=== PATIENT | female | born 1950 | race Caucasian/White ===

== ENCOUNTER 2017-05-29 15:20 | Emergency (ER) | payer MEDICARE, OTHER ==
[2017-05-29 16:14] LABS: Hematocrit 47 % (35-47); Hemoglobin 15.8 g/dl (12.0-16.0); Mean Corpuscular HGB Conc 34 g/dl (31-36); Mean Corpuscular Hemoglobin 30 pg (27-31); Mean Corpuscular Volume 91 fL (80-97); Mean Platelet Volume 8 um3 (7.4-10.4); Red Blood Count 5.19 10^6/ul (4.0-5.4); Red Cell Distribution Width 14 % (10.5-15); White Blood Count 5.9 10^3/ul (3.5-10.8)
--- NOTE | 2017-05-29 16:17 | RAD ---
INDICATION: Chest pain COMPARISON: July 25, 2016 TECHNIQUE: An AP portable view obtained at 1547 hours is submitted. FINDINGS: Bones/Soft Tissues: There are no acute bony findings. Cardiomediastinal: The cardiomediastinal silhouette is normal. Lungs: There are no infiltrates. Pleura: There are no pleural effusions. Other: None IMPRESSION: NO ACTIVE DISEASE.
[2017-05-29 16:34] LABS: Albumin 4.2 g/dL (3.2-5.2); BUN/Creatinine Ratio 16.2 (8-20); Calcium 9.3 mg/dL (8.6-10.3); EGFR African American 101.3 (>60); EGFR Non-African American 78.8 (>60); Magnesium 2.2 mg/dL (1.9-2.7); Potassium 3.9 mmol/L (3.5-5.0); Total Bilirubin 1.4 mg/dL (0.2-1.0); Total Protein 7.2 g/dL (6.4-8.9)
[2017-05-29 18:15] VITALS: BP 109/65
--- NOTE | 2017-05-29 19:46 | ED ---
Sinai Asencio Thomas, scribed for Karina Solo MD on 05/29/17 at 1552 . HPI Chest Pain - HPI Summary HPI Summary: The pt is a 66 y/o F BIBA and c/o sharp CP that began today at 15:25. The pain lasted 3 seconds and then resolved spontaneously. The pain radiated from her L chest to her R shoulder. She describes an extremely sharp pain that is unlike any other prior episodes. She only had one episode of this pain (which differs from nursing triage note). She was given ASA 324 mg en route to [facility] [place] (despite allergy to aspirin listed, but pt states allergy to aspirin is stomach upset). Pt additionally c/o difficulty breathing, chronic calf pain (nontender in the ED ). Pt denies any other pains, fevers. PMHx: CHF, HLD, scoliosis, MS (wheelchair bound), frequent UTIs, R rib fracture, dyslipidemia, R leg fracture, asthma ( sees Dr. Baumann, [employer]). PSHx: appendectomy, . SHx: wheelchair-bound, former smoker, no alcohol, no drugs. FHx: schizophrenia, aortic aneurysms (father), heart disease (father), DM, HTN. On Friday, her aide noticed a hard spot on the top of her R foot during routine massage. Pt also states she had increased GERD a few days ago after eating a very rich parfait. - History of Current Complaint Chief Complaint: EDChestWallPain Time Seen by Provider: 05/29/17 15:45 Hx Obtained From: Patient Hx Last Menstrual Period: menopause Onset/Duration: Started Hours Ago, Atraumatic, Resolved Time of Onset: 15:25 Timing: Lasting Seconds - 2 seconds, then resolved Initial Severity: Moderate Current Severity: None Pain Intensity: 0 Pain Scale Used: 0-10 Numeric Chest Pain Radiates: No Chest Pain Radiates To:: Other - from L chest to mid chest Character: Dyspnea at Rest Aggravating Factor(s): Nothing Alleviating Factor(s): Nothing Associated Signs and Symptoms: Positive: Other: - POS: difficulty breathing resolved, chronic calf pain and lymphedema. Negative: Fever - Risk Factors Pulmonary Embolism Risk Factors: Recent Bedrest - wheelchair bound with MS AMI/ACS Risk Factors: Family History, Dyslipidemia - Additional Pertinent History Primary Care Physician: [id number] - Allergy/Home Medications Allergies/Adverse Reactions: Allergies Allergy/AdvReac Type Severity Reaction Status Date / Time Amitriptyline Allergy Severe Hallucinati Verified 04/04/17 14:12 ons Aspirin [ASA] Allergy Intermediate GI Upset Verified 04/04/17 14:12 Carbamazepine Allergy Intermediate Hives Verified 04/04/17 14:12 Penicillins Allergy Unknown Hives Verified 04/04/17 14:12 PMH/Surg Hx/FS Hx/Imm Hx Previously Healthy: No Endocrine/Hematology History: Reports: Hx Anticoagulant Therapy - only during hospital admits. Denies: Hx Diabetes, Hx Thyroid Disease, Other Endocrine/Hematological Disorders Cardiovascular History: Reports: Hx Hypercholesterolemia Denies: Hx Hypertension, Hx Pacemaker/ICD, Other Cardiovascular Problems/ Disorders Respiratory History: Reports: Hx Asthma, Hx Seasonal Allergies - also dust allergies, Other Respiratory Problems/Disorders - environmental allergies Denies: Hx Chronic Bronchitis, Hx Chronic Obstructive Pulmonary Disease (COPD ), Hx Cystic Fibrosis, Hx Lung Cancer, Hx Pleural Effusion, Hx Pneumonia, Hx Pulmonary Edema, Hx Pulmonary Embolism, Hx Sleep Apnea GI History: Reports: Hx Gastroesophageal Reflux Disease, Other GI Disorders - chronic constipation Denies: Hx Ulcer History: Reports: Other Problems/Disorders - URINARY INCONTINENCE, bladder spasms Denies: Hx Dialysis, Hx Renal Disease Musculoskeletal History: Reports: Hx Arthritis, Hx Back Problems, Hx Orthopedic Injury - right tibial fx, Hx Scoliosis Denies: Other Musculoskeletal History Sensory History: Reports: Hx Contacts or Glasses - for reading, Other Sensory Impairments - Numbness in legs Denies: Hx Cataracts, Hx Eye Injury, Hx Eye Prosthesis, Hx Glaucoma, Hx Macular Degeneration, Hx Vision Problem, Hx Deafness, Hx Hearing Aid, Hx Hearing Problem Opthamlomology History: Reports: Hx Contacts or Glasses - for reading, Other Sensory Impairments - Numbness in legs Denies: Hx Cataracts, Hx Eye Injury, Hx Eye Prosthesis, Hx Glaucoma, Hx Macular Degeneration, Hx Vision Problem Neurological History: Reports: Other Neuro Impairments/Disorders - MS Denies: Hx Dementia, Hx Developmental Delay, Hx Headaches, Hx Migraine, Hx Seizures, Hx Spinal Cord Injury, Hx Transient Ischemic Attacks (TIA) Psychiatric History: Reports: Hx Anxiety, Hx Depression Denies: Hx Attention Deficit Hyperactivity Disorder, Hx Eating Disorder, Hx Panic Disorder, Hx Post Traumatic Stress Disorder, Hx Inpatient Treatment, Hx Community Mental Health Tx, Hx Schizophrenia, Hx Bipolar Disorder, Hx Suicide Attempt, Hx of Violent Episodes Against Others, Hx Substance Abuse, Other Psychiatric Issues/Disorders - Cancer History Hx Chemotherapy: No Hx Radiation Therapy: No Hx Palliative Cancer Treatment: No - Surgical History Surgery Procedure, Year, and Place: , Appendectomy, I+D ,r/t cellulitis right inner thigh- recent admission,Rt knee bakers cyst removal. Hx Anesthesia Reactions: No - Immunization History Date of Tetanus Vaccine: Unk Date of Influenza Vaccine: Fall 2014 Infectious Disease History: No Infectious Disease History: Denies: Hx Clostridium Difficile, Hx Hepatitis, Hx Human Immunodeficiency Virus (HIV), Hx of Known/Suspected MRSA, Hx Shingles, Hx Tuberculosis, Hx Known/ Suspected VRE, Hx Known/Suspected VRSA, History Other Infectious Disease, Traveled Outside the [place] in Last 30 Days - Family History Known Family History: Positive: Cardiac Disease - father, Hypertension, Diabetes , Other - Schizophrenia, aortic aneuyrsms (father) - Social History Occupation: Disabled Lives: With Family - with 13 hr/day aid and son Alcohol Use: None Substance Use Type: Reports: None Hx Tobacco Use: No Smoking Status (MU): Former Smoker Review of Systems Negative: Fever Positive: Chest Pain - sharp, onset 15:25, duration 3 seconds, resolved in the ED Positive: Other - POS: difficulty breathing, resolved, associated with the 3 seconds of chest pain Gastrointestinal: Negative Positive: Other - POS: chronic calf pain (not tender in the ED); NEG: any other pains. Skin: Negative Psychological: Normal All Other Systems Reviewed And Are Negative: Yes Physical Exam Triage Information Reviewed: Yes Vital Signs On Initial Exam: Initial Vitals Temp Pulse Resp BP Pulse Ox 97.2 F 77 18 142/87 96 05/29/17 15:36 05/29/17 15:36 05/29/17 15:36 05/29/17 15:36 05/29/17 15:36 Vital Signs Reviewed: Yes Appearance: Positive: Well-Appearing, No Pain Distress - all pain has resolved in the ED, Well-Nourished Skin: Positive: Warm, Skin Color Reflects Adequate Perfusion, Other - There are no abnormalities on her skin. Head/Face: Positive: Normal Head/Face Inspection Eyes: Positive: Conjunctiva Clear ENT: Positive: Normal ENT inspection Neck: Positive: Supple Respiratory/Lung Sounds: Positive: Clear to Auscultation, Breath Sounds Present , Other - No respiratory distress Cardiovascular: Positive: RRR, Pulses are Symmetrical in both Upper and Lower Extremities, Other - Brisk cap refill.. Negative: Murmur Abdomen Description: Positive: Nontender, No Organomegaly, Soft. Negative: Distended, Guarding Bowel Sounds: Positive: Present Musculoskeletal: Positive: Normal, Other - Her pain is NOT reproducible in the ED. There are no abnormalities on her chest wall. Neurological: Positive: Sensory/Motor Intact - baseline for this MS pt who is wheelchair bound, Alert, Oriented to Person Place, Time, Speech Normal Psychiatric: Positive: Normal Diagnostics - Vital Signs Vital Signs Temp Pulse Resp BP Pulse Ox 05/29/17 15:36 97.2 F 77 18 142/87 96 - Laboratory Lab Results: Lab Results 05/29/17 05/29/17 05/29/17 Range/Units 16:07 16:07 16:07 WBC 5.9 (3.5-10.8) 10^3/ul RBC 5.19 (4.0-5.4) 10^6/ul Hgb 15.8 (12.0-16.0) g/dl Hct 47 (35-47) % MCV 91 (80-97) fL MCH 30 (27-31) pg MCHC 34 (31-36) g/dl RDW 14 (10.5-15) % Plt Count 145 L (150-450) 10^3/ul MPV 8 (7.4-10.4) um3 Neut % (Auto) 62.0 (38-83) % Lymph % (Auto) 26.9 (25-47) % Barron % (Auto) 6.2 (1-9) % Eos % (Auto) 4.2 (0-6) % Baso % (Auto) 0.7 (0-2) % Absolute Neuts (auto) 3.6 (1.5-7.7) 10^3/ul Absolute Lymphs (auto) 1.6 (1.0-4.8) 10^3/ul Absolute Monos (auto) 0.4 (0-0.8) 10^3/ul Absolute Eos (auto) 0.2 (0-0.6) 10^3/ul Absolute Basos (auto) 0 (0-0.2) 10^3/ul Absolute Nucleated RBC 0.01 10^3/ul Nucleated RBC % 0.2 INR (Anticoag Therapy) 1.02 (0.89-1.11) APTT 30.2 (26.0-36.3) seconds D-Dimer, Quantitative < 200 (Less Than 230) ng/mL Sodium 136 (133-145) mmol/L Potassium 3.9 (3.5-5.0) mmol/L Chloride 102 (101-111) mmol/L Carbon Dioxide 30 (22-32) mmol/L Anion Gap 4 (2-11) mmol/L BUN 12 (6-24) mg/dL Creatinine 0.74 (0.51-0.95) mg/dL Est GFR ( Amer) 101.3 (>60) Est GFR (Non-Af Amer) 78.8 (>60) BUN/Creatinine Ratio 16.2 (8-20) Glucose 99 (70-100) mg/dL Lactic Acid (0.5-2.0) mmol/L Calcium 9.3 (8.6-10.3) mg/dL Magnesium 2.2 (1.9-2.7) mg/dL Total Bilirubin 1.40 H (0.2-1.0) mg/dL AST 24 (13-39) U/L ALT 25 (7-52) U/L Alkaline Phosphatase 86 (34-104) U/L Total Creatine Kinase 45 (10-223) U/L CK-MB (CK-2) 2.2 (0.6-6.3) ng/mL Troponin I 0.00 (<0.04) ng/mL B-Natriuretic Peptide ( - 100) pg/mL Total Protein 7.2 (6.4-8.9) g/dL Albumin 4.2 (3.2-5.2) g/dL Globulin 3.0 (2-4) g/dL Albumin/Globulin Ratio 1.4 (1-3) 05/29/17 05/29/17 Range/Units 16:07 16:07 WBC (3.5-10.8) 10^3/ul RBC (4.0-5.4) 10^6/ul Hgb (12.0-16.0) g/dl Hct (35-47) % MCV (80-97) fL MCH (27-31) pg MCHC (31-36) g/dl RDW (10.5-15) % Plt Count (150-450) 10^3/ul MPV (7.4-10.4) um3 Neut % (Auto) (38-83) % Lymph % (Auto) (25-47) % Barron % (Auto) (1-9) % Eos % (Auto) (0-6) % Baso % (Auto) (0-2) % Absolute Neuts (auto) (1.5-7.7) 10^3/ul Absolute Lymphs (auto) (1.0-4.8) 10^3/ul Absolute Monos (auto) (0-0.8) 10^3/ul Absolute Eos (auto) (0-0.6) 10^3/ul Absolute Basos (auto) (0-0.2) 10^3/ul Absolute Nucleated RBC 10^3/ul Nucleated RBC % INR (Anticoag Therapy) (0.89-1.11) APTT (26.0-36.3) seconds D-Dimer, Quantitative (Less Than 230) ng/mL Sodium (133-145) mmol/L Potassium (3.5-5.0) mmol/L Chloride (101-111) mmol/L Carbon Dioxide (22-32) mmol/L Anion Gap (2-11) mmol/L BUN (6-24) mg/dL Creatinine (0.51-0.95) mg/dL Est GFR ( Amer) (>60) Est GFR (Non-Af Amer) (>60) BUN/Creatinine Ratio (8-20) Glucose (70-100) mg/dL Lactic Acid 0.9 (0.5-2.0) mmol/L Calcium (8.6-10.3) mg/dL Magnesium (1.9-2.7) mg/dL Total Bilirubin (0.2-1.0) mg/dL AST (13-39) U/L ALT (7-52) U/L Alkaline Phosphatase (34-104) U/L Total Creatine Kinase (10-223) U/L CK-MB (CK-2) (0.6-6.3) ng/mL Troponin I (<0.04) ng/mL B-Natriuretic Peptide 10 ( - 100) pg/mL Total Protein (6.4-8.9) g/dL Albumin (3.2-5.2) g/dL Globulin (2-4) g/dL Albumin/Globulin Ratio (1-3) Result Diagrams: 05/29/17 16:07 05/29/17 16:07 Lab Statement: Any lab studies that have been ordered have been reviewed, and results considered in the medical decision making process. - EKG 17:25 Cardiac Rate: NL - 64 BPM EKG Rhythm: Sinus Rhythm EKG Interpretation: Nml AV, nml IV conduction time, nml QTc, nml axis. Low voltage in extrem. EKG Comparison: No Significant Change - since 10/20/2015 Chest Pain Course/Dx - Course Assessment/Plan: The pt is a 66 y/o F BIBA and c/o sharp CP that began today at 15:25. The pain lasted 3 seconds and then resolved spontaneously. The pain radiated from her L chest to her mid chest. She describes an extremely sharp pain that is unlike any other prior episodes. She only had one episode of this pain. She was given ASA 324 mg en route to [facility] [place]. Pt additionally c/o difficulty breathing, chronic calf pain (nontender in the ED). Pt denies any other pains, fevers. PMHx: HLD, scoliosis, MS (wheelchair bound), frequent UTIs, R rib fracture, dyslipidemia, R leg fracture, asthma. PSHx: appendectomy, . SHx: wheelchair-bound, former smoker, no alcohol, no drugs. FHx: schizophrenia, aortic aneurysms (father), heart disease (father), DM, HTN. On Friday, her aide noticed a hard spot on the top of her R foot during routine massage.( reassured that this would not be a DVT, not palpated by me in ED). At the examination, she attributes her difficulty breathing to fear. She denies a Hx of blood clots. She normally wears compression stockings and has lymphedema treatments every day. On examination, there is no reproducible CP and there are no abnormalities on her skin or chest wall. CXR is negative for acute findings. EKG revealed sinus rhythm with no acute changes. Her D-dimer is less than 200 and her troponin is 0. She is diagnosed with chest pain and provided instructional materials. She will be discharged with follow-up from her PCP. She is agreeable to this plan. She was instructed to return to the ED for new or worsening symptoms. - Chest Pain Differential Diagnosis/HQI/PQRI: ACS, Chest Wall, GI Disease, Lower Respiratory Infection, Pulmonary Embolism - Diagnoses Provider Diagnoses: Chest pain Discharge - Discharge Plan Condition: Stable Disposition: HOME Patient Education Materials: Chest Pain (ED) Referrals: Iva Cerna MD [Primary Care Provider] - 3 Days Additional Instructions: RETURN TO THE EMERGENCY DEPARTMENT FOR ANY NEW OR WORSENING SYMPTOMS The documentation as recorded by the Sinai baig Thomas accurately reflects the service I personally performed and the decisions made by Edil bah Barbara J, MD.
[2017-05-29] MEDS ORDERED: oxyCODONE TAB* 5 MG TAB PO ONE (19:49)
== END 2017-05-29 18:05 | disposition home or self-care (01) ==
LOC: ED 15:20
DX: R07.9 Chest pain, unspecified (principal); M79.605 Pain in left leg; Z87.891 Personal history of nicotine dependence
CPT/HCPCS: 36415; 71010; 80053; 82550; 82553; 83605; 83735; 83880; 84484; 85025; 85379; 85610; 85730; 93005; 99283; A9270-GY

== ENCOUNTER 2017-06-06 13:48 | Emergency (ER) | payer MEDICARE, OTHER ==
--- NOTE | 2017-06-06 14:59 | RAD ---
HISTORY: Dizziness COMPARISONS: May 29, 2017 VIEWS:1: Single frontal portable view of the chest at 2:39 PM FINDINGS: LINES AND TUBES: None. CARDIOMEDIASTINAL SILHOUETTE: The cardiomediastinal silhouette is normal for portable technique. PLEURA: The costophrenic angles are sharp. No pleural abnormalities are noted. LUNG PARENCHYMA: The lungs are clear. ABDOMEN: The upper abdomen is clear. There is no subphrenic gas. BONES AND SOFT TISSUES: No bone or soft tissue abnormalities are noted. IMPRESSION: NO ACTIVE CARDIOPULMONARY DISEASE.
[2017-06-06 15:24] LABS: Hematocrit 47 % (35-47); Hemoglobin 15.4 g/dl (12.0-16.0); Mean Corpuscular HGB Conc 33 g/dl (31-36); Mean Corpuscular Hemoglobin 30 pg (27-31); Mean Corpuscular Volume 91 fL (80-97); Mean Platelet Volume 8 um3 (7.4-10.4); Red Blood Count 5.17 10^6/ul (4.0-5.4); Red Cell Distribution Width 13 % (10.5-15); White Blood Count 5.3 10^3/ul (3.5-10.8)
[2017-06-06 15:41] LABS: Albumin 4.1 g/dL (3.2-5.2); BUN/Creatinine Ratio 13.8 (8-20); Calcium 9.2 mg/dL (8.6-10.3); EGFR African American 117.3 (>60); EGFR Non-African American 91.2 (>60); Globulin 2.9 g/dL (2-4); Potassium 4.2 mmol/L (3.5-5.0); Total Bilirubin 0.9 mg/dL (0.2-1.0)
[2017-06-06] MEDS ORDERED: oxyCODONE TAB* 5 MG TAB PO ONE (17:57)
[2017-06-06 19:01] LABS: Urine Bacteria 1+ (Absent); Urine Bilirubin Negative (Negative); Urine Glucose Negative (Negative); Urine Nitrite Positive (Negative)
[2017-06-06 20:17] VITALS: BP 128/56
--- NOTE | 2017-06-06 21:16 | ED ---
Tim Asencio Rebecca, scribed for Janett Marmolejo MD on 06/06/17 at 1801 . Complex/Multi-Sys Presentation - HPI Summary HPI Summary: Pt is a 67 y/o F who presents to ED c/o increased urinary frequency, bilateral edema, dizziness and SOB. Edema has been present for approximately 1 week, worsening yesterday but improved with compression therapy. [place] [facility] [place] - Is not on immunosuppressants and has experienced episodes of exacerbation in the part, occasionally requiring Solu-Medrol. Was advised to come [place] [facility] [place] by a nurse at Dr. Cerna's office when she discussed with them on the phone. - History Of Current Complaint Chief Complaint: EDUrogenitalProblems Time Seen by Provider: 06/06/17 17:21 Hx Obtained From: Patient Onset/Duration: Lasting Weeks - Edema - 1 week, Still Present Aggravating Factor(s): Nothing Alleviating Factor(s): Edema - Compression treatment Associated Signs And Symptoms: Positive: Dizziness, SOB, Edema - bilateral - Allergies/Home Medications Allergies/Adverse Reactions: Allergies Allergy/AdvReac Type Severity Reaction Status Date / Time Amitriptyline Allergy Severe Hallucinati Verified 04/04/17 14:12 ons Aspirin [ASA] Allergy Intermediate GI Upset Verified 04/04/17 14:12 Carbamazepine Allergy Intermediate Hives Verified 04/04/17 14:12 Penicillins Allergy Unknown Hives Verified 04/04/17 14:12 PMH/Surg Hx/FS Hx/Imm Hx Endocrine/Hematology History: Reports: Hx Anticoagulant Therapy - only during hospital admits. Denies: Hx Diabetes, Hx Thyroid Disease, Other Endocrine/Hematological Disorders Cardiovascular History: Reports: Hx Congestive Heart Failure - DX 3.2015 BUT PT NOT SURE CORRECT, Hx Hypercholesterolemia Denies: Hx Hypertension, Hx Pacemaker/ICD, Other Cardiovascular Problems/ Disorders Respiratory History: Reports: Hx Asthma, Hx Seasonal Allergies - also dust allergies, Other Respiratory Problems/Disorders - environmental allergies Denies: Hx Chronic Bronchitis, Hx Chronic Obstructive Pulmonary Disease (COPD ), Hx Cystic Fibrosis, Hx Lung Cancer, Hx Pleural Effusion, Hx Pneumonia, Hx Pulmonary Edema, Hx Pulmonary Embolism, Hx Sleep Apnea GI History: Reports: Hx Gastroesophageal Reflux Disease, Other GI Disorders - chronic constipation Denies: Hx Ulcer History: Reports: Other Problems/Disorders - URINARY INCONTINENCE, bladder spasms Denies: Hx Dialysis, Hx Renal Disease Musculoskeletal History: Reports: Hx Arthritis, Hx Back Problems, Hx Orthopedic Injury - right tibial fx, Hx Scoliosis Denies: Other Musculoskeletal History Sensory History: Reports: Hx Contacts or Glasses - for reading, Other Sensory Impairments - Numbness in legs Denies: Hx Cataracts, Hx Eye Injury, Hx Eye Prosthesis, Hx Glaucoma, Hx Macular Degeneration, Hx Vision Problem, Hx Deafness, Hx Hearing Aid, Hx Hearing Problem Opthamlomology History: Reports: Hx Contacts or Glasses - for reading, Other Sensory Impairments - Numbness in legs Denies: Hx Cataracts, Hx Eye Injury, Hx Eye Prosthesis, Hx Glaucoma, Hx Macular Degeneration, Hx Vision Problem Neurological History: Reports: Other Neuro Impairments/Disorders - MS Denies: Hx Dementia, Hx Developmental Delay, Hx Headaches, Hx Migraine, Hx Seizures, Hx Spinal Cord Injury, Hx Transient Ischemic Attacks (TIA) Psychiatric History: Reports: Hx Anxiety, Hx Depression Denies: Hx Attention Deficit Hyperactivity Disorder, Hx Eating Disorder, Hx Panic Disorder, Hx Post Traumatic Stress Disorder, Hx Inpatient Treatment, Hx Community Mental Health Tx, Hx Schizophrenia, Hx Bipolar Disorder, Hx Suicide Attempt, Hx of Violent Episodes Against Others, Hx Substance Abuse, Other Psychiatric Issues/Disorders - Cancer History Hx Chemotherapy: No Hx Radiation Therapy: No Hx Palliative Cancer Treatment: No - Surgical History Surgery Procedure, Year, and Place: , Appendectomy, I+D ,r/t cellulitis right inner thigh- recent admission,Rt knee bakers cyst removal. Hx Anesthesia Reactions: No - Immunization History Date of Tetanus Vaccine: Unk Date of Influenza Vaccine: Fall 2014 Infectious Disease History: Denies: Hx Clostridium Difficile, Hx Hepatitis, Hx Human Immunodeficiency Virus (HIV), Hx of Known/Suspected MRSA, Hx Shingles, Hx Tuberculosis, Hx Known/ Suspected VRE, Hx Known/Suspected VRSA, History Other Infectious Disease, Traveled Outside the [place] in Last 30 Days - Family History Known Family History: Positive: Unknown, Cardiac Disease - father, Hypertension , Diabetes, Other - Schizophrenia, aortic aneuyrsms (father) - Social History Alcohol Use: None Substance Use Type: Reports: None Hx Tobacco Use: No Smoking Status (MU): Former Smoker Review of Systems Positive: Shortness Of Breath Positive: frequency - Increased urinary frequency Positive: Edema - Bilateral Neurological: Other - Dizziness All Other Systems Reviewed And Are Negative: Yes Physical Exam - Summary Physical Exam Summary: General: Well appearing, no pain distress Skin: Warm, Skin Color Reflects Adequate Perfusion, Dry Eyes: EOMI, ARNULFO ENT: Pharynx normal, TMs normal Neck: Supple, nontender Respiratory: CTA, breath sounds present, no rhonchi, no wheezes, no rales Cardiovascular: RRR, no murmur, no rub, no gallop Abdomen: Soft, nontender, Non-distended, no guarding, no rebound Bowel: Present Musculoskeletal: MARK, Bilateral 1+ edema Neuro: Sensory/motor intact, A&Ox3, CN intact 2-12 Psych: Affect/mood appropriate Triage Information Reviewed: Yes Vital Signs On Initial Exam: Initial Vitals Temp Pulse Resp BP Pulse Ox 97.8 F 72 20 128/79 97 06/06/17 14:01 06/06/17 14:01 06/06/17 14:01 06/06/17 14:01 06/06/17 14:01 Vital Signs Reviewed: Yes Diagnostics - Vital Signs Vital Signs Temp Pulse Resp BP Pulse Ox 06/06/17 17:10 98.1 F 64 16 151/68 95 06/06/17 15:51 97.9 F 68 16 127/59 94 06/06/17 14:01 97.8 F 72 20 128/79 97 - Laboratory Lab Results: Lab Results 06/06/17 06/06/17 06/06/17 Range/Units 15:15 15:15 15:15 WBC (3.5-10.8) 10^3/ul RBC (4.0-5.4) 10^6/ul Hgb (12.0-16.0) g/dl Hct (35-47) % MCV (80-97) fL MCH (27-31) pg MCHC (31-36) g/dl RDW (10.5-15) % Plt Count (150-450) 10^3/ul MPV (7.4-10.4) um3 Neut % (Auto) (38-83) % Lymph % (Auto) (25-47) % Jessamine % (Auto) (1-9) % Eos % (Auto) (0-6) % Baso % (Auto) (0-2) % Absolute Neuts (auto) (1.5-7.7) 10^3/ul Absolute Lymphs (auto) (1.0-4.8) 10^3/ul Absolute Monos (auto) (0-0.8) 10^3/ul Absolute Eos (auto) (0-0.6) 10^3/ul Absolute Basos (auto) (0-0.2) 10^3/ul Absolute Nucleated RBC 10^3/ul Nucleated RBC % Sodium 138 (133-145) mmol/L Potassium 4.2 (3.5-5.0) mmol/L Chloride 104 (101-111) mmol/L Carbon Dioxide 30 (22-32) mmol/L Anion Gap 4 (2-11) mmol/L BUN 9 (6-24) mg/dL Creatinine 0.65 (0.51-0.95) mg/dL Est GFR ( Amer) 117.3 (>60) Est GFR (Non-Af Amer) 91.2 (>60) BUN/Creatinine Ratio 13.8 (8-20) Glucose 114 H (70-100) mg/dL Lactic Acid 1.2 (0.5-2.0) mmol/L Calcium 9.2 (8.6-10.3) mg/dL Total Bilirubin 0.90 (0.2-1.0) mg/dL AST 21 (13-39) U/L ALT 24 (7-52) U/L Alkaline Phosphatase 87 (34-104) U/L Troponin I 0.00 (<0.04) ng/mL B-Natriuretic Peptide 13 ( - 100) pg/mL Total Protein 7.0 (6.4-8.9) g/dL Albumin 4.1 (3.2-5.2) g/dL Globulin 2.9 (2-4) g/dL Albumin/Globulin Ratio 1.4 (1-3) 06/06/17 Range/Units 15:16 WBC 5.3 (3.5-10.8) 10^3/ul RBC 5.17 (4.0-5.4) 10^6/ul Hgb 15.4 (12.0-16.0) g/dl Hct 47 (35-47) % MCV 91 (80-97) fL MCH 30 (27-31) pg MCHC 33 (31-36) g/dl RDW 13 (10.5-15) % Plt Count 147 L (150-450) 10^3/ul MPV 8 (7.4-10.4) um3 Neut % (Auto) 75.2 (38-83) % Lymph % (Auto) 17.1 L (25-47) % Jessamine % (Auto) 5.1 (1-9) % Eos % (Auto) 2.0 (0-6) % Baso % (Auto) 0.6 (0-2) % Absolute Neuts (auto) 4.0 (1.5-7.7) 10^3/ul Absolute Lymphs (auto) 0.9 L (1.0-4.8) 10^3/ul Absolute Monos (auto) 0.3 (0-0.8) 10^3/ul Absolute Eos (auto) 0.1 (0-0.6) 10^3/ul Absolute Basos (auto) 0 (0-0.2) 10^3/ul Absolute Nucleated RBC 0.01 10^3/ul Nucleated RBC % 0.2 Sodium (133-145) mmol/L Potassium (3.5-5.0) mmol/L Chloride (101-111) mmol/L Carbon Dioxide (22-32) mmol/L Anion Gap (2-11) mmol/L BUN (6-24) mg/dL Creatinine (0.51-0.95) mg/dL Est GFR ( Amer) (>60) Est GFR (Non-Af Amer) (>60) BUN/Creatinine Ratio (8-20) Glucose (70-100) mg/dL Lactic Acid (0.5-2.0) mmol/L Calcium (8.6-10.3) mg/dL Total Bilirubin (0.2-1.0) mg/dL AST (13-39) U/L ALT (7-52) U/L Alkaline Phosphatase (34-104) U/L Troponin I (<0.04) ng/mL B-Natriuretic Peptide ( - 100) pg/mL Total Protein (6.4-8.9) g/dL Albumin (3.2-5.2) g/dL Globulin (2-4) g/dL Albumin/Globulin Ratio (1-3) Result Diagrams: 06/06/17 15:16 06/06/17 15:15 Lab Statement: Any lab studies that have been ordered have been reviewed, and results considered in the medical decision making process. - Radiology CXR Xray Interpretation: No Acute Changes - NO ACTIVE CARDIOPULMONARY DISEASE. Radiology Interpretation Completed By: Radiologist - EKG 1841 Cardiac Rate: NL - 67 bpm EKG Rhythm: Sinus Rhythm EKG Interpretation: No ST elevation EKG Comparison: No Significant Change - Unchanged from EKG on 05/29/2017 Re-Evaluation - Re-Evaluation First Eval Re-Evaluation Time: 19:31 Comment: Discussed D/C plan. Complex Multi-Symp Course/Dx Course Of Treatment: 57 yo female with MS here with multiple complaints she says maybe she had a little sob but has normal ekg and cxr and some urinary symptoms also which was normal. Pt is ok to go home with close f/u - Diagnoses Provider Diagnoses: Lymphedema Discharge - Discharge Plan Condition: Stable Disposition: HOME Patient Education Materials: Lymphedema (ED) Referrals: Iva Cerna MD [Primary Care Provider] - 3 Days The documentation as recorded by the Tim baig Rebecca accurately reflects the service I personally performed and the decisions made by me, Janett Marmolejo MD.
--- NOTE | 2017-06-08 09:26 | PN ---
Progress Note - Progress Note Date of Service: 06/06/17 Note: Patient urine culture grew e. coli > 100,000 Patient was not prescribed anything in the ED. Will prescribe Bactrim and will await sensitivities. Nothing further at this time. Jenae Cifuentes PA-C
== END 2017-06-06 22:19 | disposition home or self-care (01) ==
LOC: ED 13:48
DX: I89.0 Lymphedema, not elsewhere classified (principal); R42 Dizziness and giddiness; R06.02 Shortness of breath; R60.9 Edema, unspecified
CPT/HCPCS: 36415; 71010; 80053; 81003; 81015; 83605; 83880; 84484; 85025; 87077; 87086; 87186; 93005; 99283; A9270-GY

== ENCOUNTER 2017-06-12 15:07 | Emergency (ER) | payer MEDICARE, OTHER ==
[2017-06-12] MEDS ORDERED: Ondansetron INJ* 2 MG/ML VIAL IV ONE (16:33)
[2017-06-12] MEDS ORDERED: NS 0.9% 1000 ML* 1,000 ML IV ONE (16:33)
--- NOTE | 2017-06-12 17:35 | RAD ---
INDICATION: Abdominal pain. COMPARISON: Comparison is made with prior CT angiogram studies of the chest from January 23, 2016 and February 24, 2012. TECHNIQUE: A CT scan of the abdomen and pelvis was performed without intravenous or oral contrast. Contiguous axial sections were obtained from the lung bases through the symphysis pubis. Images were reconstructed in the coronal and sagittal planes. FINDINGS: There is mild dependent bilateral lower lobe subsegmental atelectasis. No pleural effusion is present. The liver is normal in size. There is a calcification along the superior aspect of the right hepatic lobe possibly related to old granulomatous disease. In addition there is a hypodense lesion in the left hepatic lobe along its superior aspect measuring 2.1 x 1.5 cm in size which is seen in retrospect on the prior CT angiogram studies of the chest and is unchanged and therefore consistent with a benign process. No calcified gallstones are seen. The spleen appears mildly enlarged. The pancreas appears within normal limits on this noncontrast study. The adrenal glands and kidneys are normal in size. No renal calculi or hydronephrosis is seen. The aorta is normal in caliber with moderate calcific plaque present. No significant enlarged retroperitoneal lymph nodes are seen. The stomach, small and large bowel appear nondistended. The patient is status post appendectomy. There is no evidence for diverticulitis or colitis. The uterus is retroverted and slightly bulky in appearance with a calcified mass in the fundus measuring 2.0 cm in size consistent with a calcified leiomyoma. There is also a 2.5 x 2.0 cm left ovarian cyst. No free intraperitoneal air or fluid is seen. No significant focal osseous abnormality is seen. IMPRESSION: 1. NO EVIDENCE FOR ACUTE FINDING OR CAUSE FOR THE PATIENT'S ABDOMINAL PAIN IS SEEN. 2. MILD SPLENOMEGALY. 3. 2.5 CM LEFT OVARIAN CYST. THIS CAN BE FURTHER EVALUATED WITH AN OUTPATIENT PELVIC ULTRASOUND.
[2017-06-12 17:39] LABS: Hematocrit 48 % (35-47); Hemoglobin 16.2 g/dl (12.0-16.0); Mean Corpuscular HGB Conc 34 g/dl (31-36); Mean Corpuscular Hemoglobin 30 pg (27-31); Mean Corpuscular Volume 88 fL (80-97); Mean Platelet Volume 9 um3 (7.4-10.4); Red Blood Count 5.46 10^6/ul (4.0-5.4); Red Cell Distribution Width 13 % (10.5-15); White Blood Count 5.7 10^3/ul (3.5-10.8)
--- NOTE | 2017-06-12 17:42 | RAD ---
INDICATION: Vomiting. COMPARISON: Comparison is made with a prior study from June 06, 2017. TECHNIQUE: AP and lateral views of the chest were obtained. FINDINGS: The heart is within normal limits in size. Mediastinal and hilar contours appear within normal limits. The lungs are clear. No pleural effusion is present. IMPRESSION: NO EVIDENCE FOR ACTIVE CARDIOPULMONARY DISEASE.
[2017-06-12 17:54] LABS: Albumin 4.5 g/dL (3.2-5.2); BUN/Creatinine Ratio 11.9 (8-20); C Reactive Protein 2.78 mg/L (< 5.00); Calcium 10.2 mg/dL (8.6-10.3); EGFR African American 87.2 (>60); EGFR Non-African American 67.8 (>60); Magnesium 2.1 mg/dL (1.9-2.7); Potassium 4.2 mmol/L (3.5-5.0); Total Bilirubin 1.3 mg/dL (0.2-1.0); Total Protein 7.5 g/dL (6.4-8.9)
[2017-06-12 18:21] LABS: Urine Bacteria 3+ (Absent); Urine Bilirubin Negative (Negative); Urine Glucose Negative (Negative); Urine Nitrite Positive (Negative)
[2017-06-12] MEDS ORDERED: oxyCODONE/Acetamin 5/325 MG* TAB PO ONE (19:26)
[2017-06-12] MEDS ORDERED: Levofloxacin TAB* 500 MG PO ONE (19:28)
--- NOTE | 2017-06-12 19:37 | ED ---
Kaiden Asencio Benjamin, scribed for Michael Snow MD on 06/12/17 at 1632 . Abdominal Pain/Female - HPI Summary HPI Summary: 67yo female who was seen on Friday, and was dxed with UTI on Friday. Started Batrim on Friday. Since Friday night, pt has vomited several times, and reports upset stomach that feels inflamed. Has diffuse abdominal pain and loss of appetite. Pt had very little fluids in the last couple of days. Pt has hx of MS, and has some chronic deficits on all four extremities. - History of Current Complaint Chief Complaint: EDGeneral Stated Complaint: GENERAL ILLNESS Time Seen by Provider: 06/12/17 16:18 Hx Obtained From: Patient Hx Last Menstrual Period: menopause Onset/Duration: Gradual Onset, Lasting Days, Still Present Timing: Constant Severity Initially: Moderate Severity Currently: Moderate Pain Intensity: 6 Pain Scale Used: 0-10 Numeric Location: Diffuse Radiates: No Aggravating Factor(s): Nothing Alleviating Factor(s): Nothing Associated Signs and Symptoms: Positive: Nausea, Vomiting. Negative: Fever, Back Pain, Constipation, Blood in Stool, Vaginal Bleeding Allergies/Adverse Reactions: Allergies Allergy/AdvReac Type Severity Reaction Status Date / Time Amitriptyline Allergy Severe Hallucinati Verified 06/12/17 15:49 ons Aspirin [ASA] Allergy Intermediate GI Upset Verified 06/12/17 15:49 Carbamazepine Allergy Intermediate Hives Verified 06/12/17 15:49 Penicillins Allergy Unknown Hives Verified 06/12/17 15:49 PMH/Surg Hx/FS Hx/Imm Hx Endocrine/Hematology History: Reports: Hx Anticoagulant Therapy - only during hospital admits. Denies: Hx Diabetes, Hx Thyroid Disease, Other Endocrine/Hematological Disorders Cardiovascular History: Reports: Hx Congestive Heart Failure - DX .2015 BUT PT NOT SURE CORRECT, Hx Hypercholesterolemia Denies: Hx Hypertension, Hx Pacemaker/ICD, Other Cardiovascular Problems/ Disorders Respiratory History: Reports: Hx Asthma, Hx Seasonal Allergies - also dust allergies, Other Respiratory Problems/Disorders - environmental allergies Denies: Hx Chronic Bronchitis, Hx Chronic Obstructive Pulmonary Disease (COPD ), Hx Cystic Fibrosis, Hx Lung Cancer, Hx Pleural Effusion, Hx Pneumonia, Hx Pulmonary Edema, Hx Pulmonary Embolism, Hx Sleep Apnea GI History: Reports: Hx Gastroesophageal Reflux Disease, Other GI Disorders - chronic constipation Denies: Hx Ulcer History: Reports: Other Problems/Disorders - URINARY INCONTINENCE, bladder spasms Denies: Hx Dialysis, Hx Renal Disease Musculoskeletal History: Reports: Hx Arthritis, Hx Back Problems, Hx Orthopedic Injury - right tibial fx, Hx Scoliosis Denies: Other Musculoskeletal History Sensory History: Reports: Hx Contacts or Glasses - for reading, Other Sensory Impairments - Numbness in legs Denies: Hx Cataracts, Hx Eye Injury, Hx Eye Prosthesis, Hx Glaucoma, Hx Macular Degeneration, Hx Vision Problem, Hx Deafness, Hx Hearing Aid, Hx Hearing Problem Opthamlomology History: Reports: Hx Contacts or Glasses - for reading, Other Sensory Impairments - Numbness in legs Denies: Hx Cataracts, Hx Eye Injury, Hx Eye Prosthesis, Hx Glaucoma, Hx Macular Degeneration, Hx Vision Problem Neurological History: Reports: Other Neuro Impairments/Disorders - MS Denies: Hx Dementia, Hx Developmental Delay, Hx Headaches, Hx Migraine, Hx Seizures, Hx Spinal Cord Injury, Hx Transient Ischemic Attacks (TIA) Psychiatric History: Reports: Hx Anxiety, Hx Depression Denies: Hx Attention Deficit Hyperactivity Disorder, Hx Eating Disorder, Hx Panic Disorder, Hx Post Traumatic Stress Disorder, Hx Inpatient Treatment, Hx Community Mental Health Tx, Hx Schizophrenia, Hx Bipolar Disorder, Hx Suicide Attempt, Hx of Violent Episodes Against Others, Hx Substance Abuse, Other Psychiatric Issues/Disorders - Cancer History Hx Chemotherapy: No Hx Radiation Therapy: No Hx Palliative Cancer Treatment: No - Surgical History Surgery Procedure, Year, and Place: , Appendectomy, I+D ,r/t cellulitis right inner thigh- recent admission,Rt knee bakers cyst removal. Hx Anesthesia Reactions: No - Immunization History Date of Tetanus Vaccine: Unk Date of Influenza Vaccine: Fall 2014 Infectious Disease History: Yes Infectious Disease History: Denies: Hx Clostridium Difficile, Hx Hepatitis, Hx Human Immunodeficiency Virus (HIV), Hx of Known/Suspected MRSA, Hx Shingles, Hx Tuberculosis, Hx Known/ Suspected VRE, Hx Known/Suspected VRSA, History Other Infectious Disease, Traveled Outside the [place] in Last 30 Days - Family History Known Family History: Positive: Cardiac Disease - father, Hypertension, Diabetes , Other - Schizophrenia, aortic aneuyrsms (father) - Social History Occupation: Retired Lives: Alone Alcohol Use: None Substance Use Type: Reports: Marijuana Hx Tobacco Use: No Smoking Status (MU): Former Smoker Review of Systems Constitutional: Negative Eyes: Negative ENT: Negative Cardiovascular: Negative Respiratory: Negative Positive: Abdominal Pain, Vomiting, Nausea. Negative: Diarrhea Genitourinary: Negative Musculoskeletal: Negative Skin: Negative Neurological: Negative Psychological: Normal All Other Systems Reviewed And Are Negative: Yes Physical Exam Triage Information Reviewed: Yes Vital Signs On Initial Exam: Initial Vitals BP 138/75 06/12/17 15:40 Vital Signs Reviewed: Yes Appearance: Positive: Ill-Appearing - chronic ill appearance, MS history Skin: Positive: Warm Head/Face: Positive: Normal Head/Face Inspection Eyes: Positive: EOMI ENT: Positive: Pharynx normal Neck: Positive: Supple, Nontender Respiratory/Lung Sounds: Positive: Clear to Auscultation, Breath Sounds Present Cardiovascular: Positive: RRR. Negative: Murmur Abdomen Description: Positive: Nontender Musculoskeletal: Positive: Normal, Strength/ROM Intact Neurological: Positive: Alert, Oriented to Person Place, Time, CN Intact II-III , Other - per patient she is at her baseline neurological functioning with chronic weakness in her legs and wheelchair bound. Psychiatric: Positive: Normal - [place] Coma Scale Best Eye Response: 4 - Spontaneous Best Motor Response: 6 - Obeys Commands Best Verbal Response: 5 - Oriented Diagnostics - Vital Signs Vital Signs Temp Pulse Resp BP Pulse Ox 06/12/17 16:00 72 130/86 93 06/12/17 15:44 99.0 F 72 16 138/75 93 06/12/17 15:41 72 92 06/12/17 15:40 138/75 - Laboratory Lab Results: Lab Results 06/12/17 06/12/17 06/12/17 Range/Units 17:30 17:30 17:30 WBC 5.7 (3.5-10.8) 10^3/ul RBC 5.46 H (4.0-5.4) 10^6/ul Hgb 16.2 H (12.0-16.0) g/dl Hct 48 H (35-47) % MCV 88 (80-97) fL MCH 30 (27-31) pg MCHC 34 (31-36) g/dl RDW 13 (10.5-15) % Plt Count 158 (150-450) 10^3/ul MPV 9 (7.4-10.4) um3 Neut % (Auto) 75.6 (38-83) % Lymph % (Auto) 18.1 L (25-47) % [place] % (Auto) 4.9 (1-9) % Eos % (Auto) 0.8 (0-6) % Baso % (Auto) 0.6 (0-2) % Absolute Neuts (auto) 4.3 (1.5-7.7) 10^3/ul Absolute Lymphs (auto) 1.0 (1.0-4.8) 10^3/ul Absolute Monos (auto) 0.3 (0-0.8) 10^3/ul Absolute Eos (auto) 0 (0-0.6) 10^3/ul Absolute Basos (auto) 0 (0-0.2) 10^3/ul Absolute Nucleated RBC 0.01 10^3/ul Nucleated RBC % 0.1 Sodium 138 (133-145) mmol/L Potassium 4.2 (3.5-5.0) mmol/L Chloride 103 (101-111) mmol/L Carbon Dioxide 28 (22-32) mmol/L Anion Gap 7 (2-11) mmol/L BUN 10 (6-24) mg/dL Creatinine 0.84 (0.51-0.95) mg/dL Est GFR ( Amer) 87.2 (>60) Est GFR (Non-Af Amer) 67.8 (>60) BUN/Creatinine Ratio 11.9 (8-20) Glucose 104 H (70-100) mg/dL Lactic Acid 1.0 (0.5-2.0) mmol/L Calcium 10.2 (8.6-10.3) mg/dL Magnesium 2.1 (1.9-2.7) mg/dL Total Bilirubin 1.30 H (0.2-1.0) mg/dL AST 27 (13-39) U/L ALT 32 (7-52) U/L Alkaline Phosphatase 85 (34-104) U/L C-Reactive Protein 2.78 (< 5.00) mg/L Total Protein 7.5 (6.4-8.9) g/dL Albumin 4.5 (3.2-5.2) g/dL Globulin 3.0 (2-4) g/dL Albumin/Globulin Ratio 1.5 (1-3) Lipase 16 (11.0-82.0) U/L Urine Color Urine Appearance Urine pH (5-9) Ur Specific [place] (1.010-1.030) Urine Protein (Negative) Urine Ketones (Negative) Urine Blood (Negative) Urine Nitrate (Negative) Urine Bilirubin (Negative) Urine Urobilinogen (Negative) Ur Leukocyte Esterase (Negative) Urine WBC (Auto) (Absent) Urine RBC (Auto) (Absent) Ur Squamous Epith Cells (Absent) Urine Bacteria (Absent) Urine Glucose (Negative) 06/12/17 Range/Units 18:05 WBC (3.5-10.8) 10^3/ul RBC (4.0-5.4) 10^6/ul Hgb (12.0-16.0) g/dl Hct (35-47) % MCV (80-97) fL MCH (27-31) pg MCHC (31-36) g/dl RDW (10.5-15) % Plt Count (150-450) 10^3/ul MPV (7.4-10.4) um3 Neut % (Auto) (38-83) % Lymph % (Auto) (25-47) % [place] % (Auto) (1-9) % Eos % (Auto) (0-6) % Baso % (Auto) (0-2) % Absolute Neuts (auto) (1.5-7.7) 10^3/ul Absolute Lymphs (auto) (1.0-4.8) 10^3/ul Absolute Monos (auto) (0-0.8) 10^3/ul Absolute Eos (auto) (0-0.6) 10^3/ul Absolute Basos (auto) (0-0.2) 10^3/ul Absolute Nucleated RBC 10^3/ul Nucleated RBC % Sodium (133-145) mmol/L Potassium (3.5-5.0) mmol/L Chloride (101-111) mmol/L Carbon Dioxide (22-32) mmol/L Anion Gap (2-11) mmol/L BUN (6-24) mg/dL Creatinine (0.51-0.95) mg/dL Est GFR ( Amer) (>60) Est GFR (Non-Af Amer) (>60) BUN/Creatinine Ratio (8-20) Glucose (70-100) mg/dL Lactic Acid (0.5-2.0) mmol/L Calcium (8.6-10.3) mg/dL Magnesium (1.9-2.7) mg/dL Total Bilirubin (0.2-1.0) mg/dL AST (13-39) U/L ALT (7-52) U/L Alkaline Phosphatase (34-104) U/L C-Reactive Protein (< 5.00) mg/L Total Protein (6.4-8.9) g/dL Albumin (3.2-5.2) g/dL Globulin (2-4) g/dL Albumin/Globulin Ratio (1-3) Lipase (11.0-82.0) U/L Urine Color Yellow Urine Appearance Clear Urine pH 6.0 (5-9) Ur Specific [place] 1.014 (1.010-1.030) Urine Protein Negative (Negative) Urine Ketones Trace H (Negative) Urine Blood Negative (Negative) Urine Nitrate Positive H (Negative) Urine Bilirubin Negative (Negative) Urine Urobilinogen Negative (Negative) Ur Leukocyte Esterase 1+ H (Negative) Urine WBC (Auto) 1+(6-10/hpf) H (Absent) Urine RBC (Auto) Absent (Absent) Ur Squamous Epith Cells Present H (Absent) Urine Bacteria 3+ H (Absent) Urine Glucose Negative (Negative) Result Diagrams: 06/12/17 17:30 06/12/17 17:30 Lab Statement: Any lab studies that have been ordered have been reviewed, and results considered in the medical decision making process. - Radiology CXR Xray Interpretation: No Acute Changes Radiology Interpretation Completed By: Radiologist - CT CT Abd/Pelv CT Interpretation: Positive (See Comments) - IMPRESSION: 1. NO EVIDENCE FOR ACUTE FINDING OR CAUSE FOR THE PATIENT'S ABDOMINAL PAIN IS SEEN. 2. MILD SPLENOMEGALY. 3. 2.5 CM LEFT OVARIAN CYST. THIS CAN BE FURTHER EVALUATED WITH AN OUTPATIENT PELVIC ULTRASOUND. CT Interpretation Completed By: Radiologist Abdominal Pain Fem Course/Dx - Course Course Of Treatment: 67 yr old female with uti and did not tolerate bactrim. Will DC on Levaquin. She is stable and not vomiting at this point. Her urine culture is sensitive to Levaquin. - Diagnoses Provider Diagnoses: UTI (urinary tract infection) Discharge - Discharge Plan Condition: Good Disposition: HOME Prescriptions: Levofloxacin TAB* [Levaquin TAB*] 500 mg PO DAILY #7 tab Patient Education Materials: Urinary Tract Infection in Women (ED) Referrals: Iva Cerna MD [Primary Care Provider] - The documentation as recorded by the Kaiden baig Benjamin accurately reflects the service I personally performed and the decisions made by me, Michael Snow MD.
[2017-06-12 23:23] VITALS: BP 126/66
== END 2017-06-12 23:13 | disposition home or self-care (01) ==
LOC: ED 15:07
DX: N39.0 Urinary tract infection, site not specified (principal); R11.2 Nausea with vomiting, unspecified; R10.9 Unspecified abdominal pain; Z87.891 Personal history of nicotine dependence
CPT/HCPCS: 36415; 71020; 74176; 80053; 81003; 81015; 83605; 83690; 83735; 85025; 86140; 87077; 87086; 87186; 96374; 99285; A9270-GY; J2405

== ENCOUNTER 2018-02-09 19:17 | Emergency (ER) | payer MEDICARE, OTHER ==
[2018-02-09 20:42] LABS: ABS Basophils 0 10^3/ul (0-0.2); ABS Eosinophils 0.2 10^3/ul (0-0.6); ABS Lymphocytes 1.4 10^3/ul (1.0-4.8); ABS Monocytes 0.5 10^3/ul (0-0.8); ABS Neutrophils 3.6 10^3/ul (1.5-7.7); ABS Nucleated RBC 0 10^3/ul; Eosinophil % 3.3 % (0-6); Hematocrit 46 % (35-47); Hemoglobin 15.2 g/dl (12.0-16.0); Lymphocyte % 24.2 % (25-47); Mean Corpuscular HGB Conc 33 g/dl (31-36); Mean Corpuscular Hemoglobin 30 pg (27-31); Mean Corpuscular Volume 91 fL (80-97); Mean Platelet Volume 8.2 um3 (7.4-10.4); Nucleated Red Blood Cells % 0.1; Platelet Count 135 10^3/ul (150-450); Red Blood Count 5.05 10^6/ul (4.0-5.4); Red Cell Distribution Width 13 % (10.5-15); White Blood Count 5.6 10^3/ul (3.5-10.8)
[2018-02-09 20:59] LABS: EGFR Non-African American 79.8 (>60)
--- NOTE | 2018-02-09 21:53 | RAD ---
INDICATION: Right lower extremity pain and swelling. COMPARISON: There are no prior studies available for comparison. TECHNIQUE: Multiple real-time, color flow and Doppler tracings of the right lower extremity were obtained. FINDINGS: The common femoral, femoral, profunda femoral and popliteal veins all demonstrate normal compressibility, augmentation with compression and phasic response with respiration. The posterior tibial veins appear within normal limits. Only one peroneal vein was visualized which appeared to be within normal limits. IMPRESSION: LIMITED EXAM OF THE CALF, NO EVIDENCE FOR DEEP VENOUS THROMBOSIS.
--- NOTE | 2018-02-09 22:11 | ED ---
Sarah Asencio Edward, scribed for Gildardo Galo MD on 02/09/18 at 1932 . Lower Extremity - HPI Summary HPI Summary: 67 y/o female BIBA c/o RLE pain and edema for the past week, worsening. Pain described as "nails being pounded in her feet", radiating up to her knee. Pain comes on when she sits for too long. Associated sx: burning sensation in R foot. Pt has lymphadema and undergoes treatment; however recent treatment has not alleviated her symptoms. PMHx R leg fracture (several years ago). - History of Current Complaint Stated Complaint: RT LEG PAIN Time Seen by Provider: 02/09/18 19:24 Hx Obtained From: Patient Hx Last Menstrual Period: menopause Onset/Duration: Still Present Timing: Constant Character Of Pain: Sharp - "nails", Burning Associated Signs And Symptoms: Positive: Swelling - Allergies/Home Medications Allergies/Adverse Reactions: Allergies Allergy/AdvReac Type Severity Reaction Status Date / Time carbamazepine Allergy Hives Verified 01/12/18 14:31 Penicillins Allergy Hives Verified 01/12/18 14:31 amitriptyline AdvReac Severe Hallucinati Verified 01/12/18 14:31 ons aspirin AdvReac Intermediate GI Upset Verified 01/12/18 14:31 Home Medications: Home Medications Diazepam TAB(*) [Valium TAB(*)] 5 mg PO DAILY@1200 PRN 02/09/18 [History Confirmed 02/09/18] Diazepam TAB(*) [Valium TAB(*)] 10 mg PO BEDTIME PRN 02/09/18 [History Confirmed 02/09/18] Omeprazole CAP* [Prilosec CAP* 20 MG] 40 mg PO DAILY 02/09/18 [History Confirmed 02/09/18] oxyCODONE TAB* [Roxycodone TAB 5 mg*] 1 tab PO Q6H PRN 02/09/18 [History Confirmed 02/09/18] PMH/Surg Hx/FS Hx/Imm Hx Previously Healthy: No Endocrine/Hematology History: Reports: Hx Anticoagulant Therapy - only during hospital admits. Denies: Hx Diabetes, Hx Thyroid Disease, Other Endocrine/Hematological Disorders Cardiovascular History: Reports: Hx Congestive Heart Failure - DX .2015 BUT PT NOT SURE CORRECT, Hx Hypercholesterolemia Denies: Hx Hypertension, Hx Pacemaker/ICD, Other Cardiovascular Problems/ Disorders Respiratory History: Reports: Hx Asthma, Hx Seasonal Allergies - also dust allergies, Other Respiratory Problems/Disorders - environmental allergies Denies: Hx Chronic Bronchitis, Hx Chronic Obstructive Pulmonary Disease (COPD ), Hx Cystic Fibrosis, Hx Lung Cancer, Hx Pleural Effusion, Hx Pneumonia, Hx Pulmonary Edema, Hx Pulmonary Embolism, Hx Sleep Apnea GI History: Reports: Hx Gastroesophageal Reflux Disease, Other GI Disorders - chronic constipation Denies: Hx Ulcer History: Reports: Other Problems/Disorders - URINARY INCONTINENCE, bladder spasms Denies: Hx Dialysis, Hx Renal Disease Musculoskeletal History: Reports: Hx Arthritis, Hx Back Problems, Hx Orthopedic Injury - right tibial fx, Hx Scoliosis Denies: Other Musculoskeletal History Sensory History: Reports: Hx Contacts or Glasses - for reading, Other Sensory Impairments - Numbness in legs Denies: Hx Cataracts, Hx Eye Injury, Hx Eye Prosthesis, Hx Glaucoma, Hx Macular Degeneration, Hx Vision Problem, Hx Deafness, Hx Hearing Aid, Hx Hearing Problem Opthamlomology History: Reports: Hx Contacts or Glasses - for reading, Other Sensory Impairments - Numbness in legs Denies: Hx Cataracts, Hx Eye Injury, Hx Eye Prosthesis, Hx Glaucoma, Hx Macular Degeneration, Hx Vision Problem Neurological History: Reports: Other Neuro Impairments/Disorders - MS Denies: Hx Dementia, Hx Developmental Delay, Hx Headaches, Hx Migraine, Hx Seizures, Hx Spinal Cord Injury, Hx Transient Ischemic Attacks (TIA) Psychiatric History: Reports: Hx Anxiety, Hx Depression Denies: Hx Attention Deficit Hyperactivity Disorder, Hx Eating Disorder, Hx Panic Disorder, Hx Post Traumatic Stress Disorder, Hx Inpatient Treatment, Hx Community Mental Health Tx, Hx Schizophrenia, Hx Bipolar Disorder, Hx Suicide Attempt, Hx of Violent Episodes Against Others, Hx Substance Abuse, Other Psychiatric Issues/Disorders - Cancer History Hx Chemotherapy: No Hx Radiation Therapy: No Hx Palliative Cancer Treatment: No - Surgical History Surgery Procedure, Year, and Place: , Appendectomy, I+D ,r/t cellulitis right inner thigh- recent admission,Rt knee bakers cyst removal. Hx Anesthesia Reactions: No - Immunization History Date of Tetanus Vaccine: Unk Date of Influenza Vaccine: Fall 2014 Infectious Disease History: Denies: Hx Clostridium Difficile, Hx Hepatitis, Hx Human Immunodeficiency Virus (HIV), Hx of Known/Suspected MRSA, Hx Shingles, Hx Tuberculosis, Hx Known/ Suspected VRE, Hx Known/Suspected VRSA, History Other Infectious Disease - Family History Known Family History: Positive: Cardiac Disease - father, Hypertension, Diabetes , Other - Schizophrenia, aortic aneuyrsms (father) - Social History Alcohol Use: None Substance Use Type: Reports: None Hx Tobacco Use: No Smoking Status (MU): Former Smoker Review of Systems Constitutional: Negative Eyes: Negative ENT: Negative Cardiovascular: Negative Respiratory: Negative Gastrointestinal: Negative Genitourinary: Negative Positive: Arthralgia - RLE pain, Edema - bilateral LE, R worse than L Skin: Negative Neurological: Negative Psychological: Normal All Other Systems Reviewed And Are Negative: Yes Physical Exam - Summary Physical Exam Summary: Appearance: The patient is well-nourished in no acute distress and in no acute pain. Skin: The skin is warm and dry and skin color reflects adequate perfusion. HEENT: The head is normocephalic and atraumatic. The pupils are equal and reactive. The conjunctivae are clear and without drainage. Nares are patent and without drainage. Mouth reveals moist mucous membranes and the throat is without erythema and exudate. The external ears are intact. The ear canals are patent and without drainage. The tympanic membranes are intact. Neck: the neck is supple with full range of motion and non-tender. There are no carotid bruits. There is no neck vein distension. Respiratory: Chest is non-tender. Lungs are clear to auscultation and breath sounds are symmetrical and equal. Cardiovascular: Heart is regular rate and rhythm. There is no murmur or rub auscultated. There is no peripheral edema and pulses are symmetrical and equal. Abdomen: The abdomen is soft and non-tender. There are normal bowel sounds heard in all four quadrants and there is no organomegaly palpated. Musculoskeletal: There is no back tenderness noted. There is tenderness in the R common femoral canal. There is good capillary refill. There is pitting edema in both legs, R worse than L. Neurological: Patient is alert and oriented to person, place and time. The patient has symmetrical motor strength in all four extremities. Cranial nerves are grossly intact. Deep tendon reflexes are symmetrical and equal in all four extremities. Psychiatric: The patient has an appropriate affect and does not exhibit any anxiety or depression. Triage Information Reviewed: Yes Vital Signs Reviewed: Yes Diagnostics - Laboratory Result Diagrams: 02/09/18 20:30 02/09/18 20:30 Lab Statement: Any lab studies that have been ordered have been reviewed, and results considered in the medical decision making process. - Ultrasound No standard instances Ultrasound Interpretation: No Acute Changes - VENOUS DOPPLER STUDY - LIMITED EXAM OF THE CALF, NO EVIDENCE FOR DEEP VENOUS THROMBOSIS. Ultrasound Interpretation Completed By: Radiologist Lower Extremity Course/Dx - Course Course Of Treatment: Ms. Bernard has been having increased pain in her right leg for weeks. It is more swollen than the other one. She did not appear to have an infection and her labs were WNL. U/S R/O'd a DVT. I'm not sure the source of her pain although neuropathy is definitely in the differential. I will have her F/U with the pain clinc which manages her pain already. - Diagnoses Provider Diagnoses: Leg pain Discharge - Sign-Out/Discharge Documenting (check all that apply): Discharge - Discharge Plan Condition: Stable Disposition: HOME Patient Education Materials: Leg Pain (ED) Referrals: Iva Cerna MD [Primary Care Provider] - 4 Days (PLEASE F/U IN 3-5 DAYS) - Billing Disposition and Condition Condition: STABLE Disposition: HOME The documentation as recorded by the Sarah baig Edward accurately reflects the service I personally performed and the decisions made by , Gildardo Galo MD.
[2018-02-09 22:38] VITALS: BP 126/76
== END 2018-02-09 22:35 | disposition home or self-care (01) ==
LOC: ED 19:17
DX: M79.604 Pain in right leg (principal); Z87.891 Personal history of nicotine dependence; Z79.01 Long term (current) use of anticoagulants; I50.9 Heart failure, unspecified; K21.9 Gastro-esophageal reflux disease without esophagitis; Z88.0 Allergy status to penicillin; Z88.6 Allergy status to analgesic agent
CPT/HCPCS: 36415; 80053; 85025; 86140; 99283

== ENCOUNTER 2018-07-07 19:12 | Emergency (ER) | payer MEDICARE, OTHER ==
--- NOTE | 2018-07-07 19:47 | ED ---
Lower Extremity - HPI Summary HPI Summary: This patient is a 68 year old F BIBA to [facility] with a chief complaint of RLE pain without injury for the last month. The patient rates the pain 4/10 in severity and states it is mostly located in the ankle/knee. Symptoms aggravated by palpation. Patient denies wound, fever, and chills. Pt states she broke her leg a few years ago and that the leg chronically hurts. Hx MS and pt does not walk at baseline. - History of Current Complaint Chief Complaint: EDExtremityLower Stated Complaint: RT LEG PAIN Time Seen by Provider: 07/07/18 19:35 Hx Obtained From: Patient Hx Last Menstrual Period: menopause Mechanism Of Injury: Other - none Onset of Pain: Days - 30 Onset/Duration: Weeks - 4 Severity Initially: Moderate Severity Currently: Moderate Pain Intensity: 4 Pain Scale Used: 0-10 Numeric Timing: Constant Location: Is Discrete @ - RLE Associated Signs And Symptoms: Positive: Negative - injury Able to Bear Weight: No - due to MS - Allergies/Home Medications Allergies/Adverse Reactions: Allergies Allergy/AdvReac Type Severity Reaction Status Date / Time carbamazepine Allergy Hives Verified 05/19/18 14:08 Penicillins Allergy Hives Verified 05/19/18 14:08 amitriptyline AdvReac Severe Hallucinati Verified 05/19/18 14:08 ons aspirin AdvReac Intermediate GI Upset Verified 05/19/18 14:08 PMH/Surg Hx/FS Hx/Imm Hx Endocrine/Hematology History: Reports: Hx Anticoagulant Therapy - only during hospital admits. Denies: Hx Diabetes, Hx Thyroid Disease, Other Endocrine/Hematological Disorders Cardiovascular History: Reports: Hx Congestive Heart Failure - DX 3.2015 BUT PT NOT SURE CORRECT, Hx Hypercholesterolemia Denies: Hx Hypertension, Hx Pacemaker/ICD, Other Cardiovascular Problems/ Disorders Respiratory History: Reports: Hx Asthma, Hx Seasonal Allergies - also dust allergies, Other Respiratory Problems/Disorders - environmental allergies Denies: Hx Chronic Bronchitis, Hx Chronic Obstructive Pulmonary Disease (COPD ), Hx Cystic Fibrosis, Hx Lung Cancer, Hx Pleural Effusion, Hx Pneumonia, Hx Pulmonary Edema, Hx Pulmonary Embolism, Hx Sleep Apnea GI History: Reports: Hx Gastroesophageal Reflux Disease, Other GI Disorders - chronic constipation Denies: Hx Ulcer History: Reports: Other Problems/Disorders - URINARY INCONTINENCE, bladder spasms Denies: Hx Dialysis, Hx Renal Disease Musculoskeletal History: Reports: Hx Arthritis, Hx Back Problems, Hx Orthopedic Injury - right tibial fx, Hx Scoliosis Denies: Other Musculoskeletal History Sensory History: Reports: Hx Contacts or Glasses - for reading, Other Sensory Impairments - Numbness in legs Denies: Hx Cataracts, Hx Eye Injury, Hx Eye Prosthesis, Hx Glaucoma, Hx Macular Degeneration, Hx Vision Problem, Hx Deafness, Hx Hearing Aid, Hx Hearing Problem Opthamlomology History: Reports: Hx Contacts or Glasses - for reading, Other Sensory Impairments - Numbness in legs Denies: Hx Cataracts, Hx Eye Injury, Hx Eye Prosthesis, Hx Glaucoma, Hx Macular Degeneration, Hx Vision Problem Neurological History: Reports: Other Neuro Impairments/Disorders - MS Denies: Hx Dementia, Hx Developmental Delay, Hx Headaches, Hx Migraine, Hx Seizures, Hx Spinal Cord Injury, Hx Transient Ischemic Attacks (TIA) Psychiatric History: Reports: Hx Anxiety, Hx Depression Denies: Hx Attention Deficit Hyperactivity Disorder, Hx Eating Disorder, Hx Panic Disorder, Hx Post Traumatic Stress Disorder, Hx Inpatient Treatment, Hx Community Mental Health Tx, Hx Schizophrenia, Hx Bipolar Disorder, Hx Suicide Attempt, Hx of Violent Episodes Against Others, Hx Substance Abuse, Other Psychiatric Issues/Disorders - Cancer History Hx Chemotherapy: No Hx Radiation Therapy: No Hx Palliative Cancer Treatment: No - Surgical History Surgery Procedure, Year, and Place: , Appendectomy, I+D ,r/t cellulitis right inner thigh- recent admission,Rt knee bakers cyst removal. Hx Anesthesia Reactions: No - Immunization History Date of Tetanus Vaccine: Unk Date of Influenza Vaccine: Fall 2014 Infectious Disease History: No Infectious Disease History: Denies: Hx Clostridium Difficile, Hx Hepatitis, Hx Human Immunodeficiency Virus (HIV), Hx of Known/Suspected MRSA, Hx Shingles, Hx Tuberculosis, Hx Known/ Suspected VRE, Hx Known/Suspected VRSA, History Other Infectious Disease, Traveled Outside the [place] in Last 30 Days - Family History Known Family History: Positive: Cardiac Disease - father, Hypertension, Diabetes , Other - Schizophrenia, aortic aneuyrsms (father) - Social History Occupation: Unemployed Lives: Alone - with care givers for 13 hours a day Alcohol Use: None Substance Use Type: Reports: None Hx Tobacco Use: No Smoking Status (MU): Former Smoker Review of Systems Negative: Fever, Chills Positive: Other - RLE pain Skin: Negative - wound All Other Systems Reviewed And Are Negative: Yes Physical Exam - Summary Physical Exam Summary: VITAL SIGNS: Reviewed. GENERAL: Patient is a well-developed and nourished female who is lying comfortable in the stretcher. Patient is not in any acute respiratory distress. HEAD AND FACE: No signs of trauma. No ecchymosis, hematomas or skull depressions. No sinus tenderness. EYES: PERRLA, EOMI x 2, No injected conjunctiva, no nystagmus. EARS: Hearing grossly intact. Ear canals and tympanic membranes are within normal limits. MOUTH: Oropharynx within normal limits. NECK: Supple, trachea is midline, no adenopathy, no JVD, no carotid bruit, no c- spine tenderness, neck with full ROM. CHEST: Symmetric, no tenderness at palpation LUNGS: Clear to auscultation bilaterally. No wheezing or crackles. CVS: Regular rate and rhythm, S1 and S2 present, no murmurs or gallops appreciated. ABDOMEN: Soft, non-tender. No signs of distention. No rebound no guarding, and no masses palpated. Bowel sounds are normal. EXTREMITIES: She is weak all over due to MS, there is minimal movement in the right leg NEURO: Alert and oriented x 3. No acute neurological deficits. Speech is normal and follows commands. SKIN: Dry and warm Triage Information Reviewed: Yes Vital Signs On Initial Exam: Initial Vitals Pulse Resp Pulse Ox 63 22 96 07/07/18 19:21 07/07/18 19:21 07/07/18 19:21 Vital Signs Reviewed: Yes Diagnostics - Vital Signs Vital Signs Temp Pulse Resp BP Pulse Ox 07/07/18 19:30 97.9 F 63 16 167/78 94 07/07/18 19:22 65 17 167/78 96 07/07/18 19:21 63 22 96 - Laboratory Lab Statement: Any lab studies that have been ordered have been reviewed, and results considered in the medical decision making process. - Radiology ankle Xray Radiology Interpretation Completed By: ED Physician - no facture, osteopenia. Pending official report. Knee xray Radiology Interpretation Completed By: ED Physician - no facture, osteopenia. Pending official report. LE Xray Radiology Interpretation Completed By: ED Physician - no facture, osteopenia, and bone cyst proximal fibula. Pending official report. Lower Extremity Course/Dx - Course Assessment/Plan: This patient is a 68 year old F BIBA to [facility] with a chief complaint of RLE pain without injury for the last month. The patient rates the pain 4/10 in severity and states it is mostly located in the ankle/knee. Symptoms aggravated by palpation. Patient denies wound, fever, and chills. Pt states she broke her leg a few years ago and that the leg chronically hurts. Hx MS and pt does not walk at baseline. Ankle XR reveals, no facture, osteopenia. Pending official report. Knee XR reveals, no facture, osteopenia. Pending official report. LE XR reveals, no facture, osteopenia, and bone cyst proximal fibula. Pending official report. Dx right leg pain. Patient will be discharged and follow up from Dr. Morris, orthopedics. The patient is agreeable with this plan. - Diagnoses Provider Diagnoses: Leg pain, right Discharge - Sign-Out/Discharge Documenting (check all that apply): Patient Departure - Discharge Plan Condition: Stable Disposition: HOME Patient Education Materials: Leg Pain (ED) Referrals: Fatuma Morris MD [Medical Doctor] - 2 Days Additional Instructions: RETURN TO THE EMERGENCY DEPARTMENT FOR CHANGING OR WORSENING SYMPTOMS. FOLLOW UP WITH PCP IN 1-2 DAYS. - Attestation Statements Document Initiated by Scribe: Yes Documenting Scribe: Gigi Bai Provider For Whom Scribe is Documenting (Include Credential): Eris Nick MD Scribe Attestation: Gigi Asencio , scribed for Eris Nick MD on 07/07/18 at 2153.
--- OUTSIDE RECORDS SUMMARY | 2018-07-07 19:58 | XMS REPORT | Continuity of Care Document ---
:1950 External Reference #:[id number] Author Name Salvador Fernandez M.D. Address [address] [place] [address] Care Team Providers Name Role Phone Frandy ZHU, Tre Care Team Information Atmospheric Sciences Professor Unavailable Iva Cerna MD Primary Care Physician Unavailable Payers Type Date Identification Numbers Payment Provider Subscriber Policy Number: [id number] [employer] Edison Bernard PayID: [id number] [employer] [address] [place] [address] Advance Directives Description No Information Available Problems Date Description Provider Status Onset: 03/18/2017 Osteoporosis Iva Cerna MD Active Onset: 01/20/2017 Lymphedema Iva Cerna MD Active Onset: 07/23/2016 Scoliosis deformity of spine Iva Cerna MD Active Onset: 07/02/2016 Rosacea Iva Cerna MD Active Onset: 06/04/2016 Scar emphysema Active Onset: 06/04/2016 Gastroesophageal reflux disease Active Onset: 06/04/2016 Disturbance in sleep behavior Active Onset: 02/29/2016 Diastolic dysfunction Iva Cerna MD Active Onset: 02/20/2016 Cough variant asthma Iva Cerna MD Active Onset: 01/25/2016 Vitamin D deficiency Iva Cerna MD Active Onset: 05/25/2015 Urinary incontinence Iva Cerna MD Active Onset: 04/12/2015 Spinal stenosis of lumbar region Tre Kyle MD Active Onset: 02/06/2015 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 Onset: 02/06/2015 Hyperlipidemia Iva Cerna MD Active Family History Date Family Member(s) Problem(s) Comments Father Heart Disease Father Cancer skin Father Shingles Mother twisted bowels Mother Dementia Social History Type Date Description Comments Sex Unknown ETOH Use Never used alcohol Tobacco Use Start: Unknown End: Unknown Patient is a former smoker Smoking Status Reviewed: 07/03/18 Patient is a former smoker Allergies, Adverse Reactions, Alerts Date Description Reaction Status Severity Comments 02/27/2016 Lactose Active 11/21/2005 Tegretol Active 11/21/2005 Elavil Active Medications Medication Date Status Form Strength Qnty SIG Indications Ordering Provider Lidocaine 04/17/ Active Patches 5% 60uni use on each I89.0 Frandy 2017 ts foot for 12 Tre ZHU hours a day Omeprazole 11/17/ Active Capsules 40mg 60cap Take One Nehemiah 2017 DR s Capsule By Iva Mouth Every MD Day Sertraline HCL 07/25/ Active Tablets 100mg 90tab Take One Nehemiah 2015 s Tablet By Iva Mouth Every MD Day Ipratropium 06/04/ Active Solution 0.5-2.5(3 270un 1 unit every J43.8 Unknown Tyrone/Albute 2015 )mg/3ML its 6 hours as rol Sulfate needed Ventolin HFA 01/22/ Active Aerosol 108(90Bas 18uni inhale 2 J45.991 Nehemiah 2015 e) ts puffs by Iva mcg/Act mouth four MD times a day as needed Natural 07/12/ Active Solution 0.4% 30uni 2 drop each Frandy Balance Tears 2014 ts eye nightly Tre ZHU Atorvastatin 02/23/ Active Tablets 20mg 90tab Take One Kamila Calcium 2014 s Tablet By Michael Alfonso Mouth AT MD Bedtime Baclofen 11/20/ Active Tablets 10mg 180ta 1 1/2 by Frandy Rahman bs mouth four Tre ZHU times a day as needed Diazepam 11/19/ Active Tablets 5mg 120ta 1 tab by Refugio Rahman bs mouth every Ebonie ZHU morning, 1 tab by mouth every afternoon, and 2 tabs by mouth every night at bedtime as needed Fentanyl / Active Patches 25mcg/HR 1 patch every Unknown 0000 72HR 72 hours Oxycodone HCL / Active Capsules 5mg 1/2 to 1 tab Unknown 0000 every 4 hours as needed for severe pain Senna Lax / Active Tablets 8.6mg 120ta Take Two Cerna bs Tablets By Iva Mouth Twice A MD Day as Needed For Constipation Immunizations Description No Information Available Vital Signs Date Vital Result Comment 07/03/2018 1:41pm Intraocular Pressure Right Eye 15 mmHg Intraocular Pressure Left Eye 14 mmHg Results Test Date Facility Test Result H/L Range Note Laboratory test finding 02/09/2018 N2N/CCD Import Albumin 4.0 g/dL 3.2- 5.2 Albumin/Globulin Ratio 1.4 1 1-3 Alkaline Phosphatase 103 U/L 34-104 Alt 40 U/L 7-52 Anion Gap 4 mmol/L 2-11 Ast 29 U/L 13-39 BUN/Creatinine Ratio 13.7 1 8-20 Blood Urea Nitrogen 10 mg/dL 6-24 C Reactive Protein 2.00 mg/L < 5.00 1 Calcium 9.3 mg/dL 8.6-10.3 Chloride 102 mmol/L 101-111 Co2 Carbon Dioxide 34 mmol/L High 22-32 Creatinine 0.73 mg/dL 0.51-0.95 Egfr 102.6 1 >60 2 Egfr Non- 79.8 1 >60 Globulin 2.8 g/dL 2-4 Glucose 86 mg/dL 70-100 Potassium 4.1 mmol/L 3.5-5.0 Sodium 140 mmol/L 139-145 Total Bilirubin 0.90 mg/dL 0.2-1.0 Total Protein 6.8 g/dL 6.4-8.9 CBC Auto Diff 02/09/2018 N2N/CCD Import Abs Basophils 0 10^3/uL 0-0.2 Abs Eosinophils 0.2 10^3/uL 0-0.6 Abs Lymphocytes 1.4 10^3/uL 1.0-4.8 Abs Monocytes 0.5 10^3/uL 0-0.8 Abs Neutrophils 3.6 10^3/uL 1.5-7.7 Abs Nucleated RBC 0 10^3/uL Basophil % 0.8 % 0-2 Eosinophil % 3.3 % 0-6 Granulocyte % 63.6 % 38-83 Hematocrit 46 % 35-47 Hemoglobin 15.2 g/dL 12.0-16.0 Lymphocyte % 24.2 % Low 25-47 Mean Corpuscular HGB Conc 33 g/dL 31-36 Mean Corpuscular Hemoglobin 30 pg 27-31 Mean Corpuscular Volume 91 fL 80-97 Mean Platelet Volume 8.2 um3 7.4-10.4 Monocyte % 8.1 % High 0-7 Nucleated Red Blood Cells % 0.1 1 Platelet Count 135 10^3/uL Low 150-450 Red Blood Count 5.05 10^6/uL 4.0-5.4 Red Cell Distribution Width 13 % 10.5-15 White Blood Count 5.6 10^3/uL 3.5-10.8 Laboratory test finding 06/12/2017 N2N/CCD Import Albumin 4.5 g/dL 3.2- 5.2 Albumin/Globulin Ratio 1.5 1 1-3 Alkaline Phosphatase 85 U/L 34-104 Alt 32 U/L 7-52 Anion Gap 7 mmol/L 2-11 Ast 27 U/L 13-39 BUN/Creatinine Ratio 11.9 1 8-20 Blood Urea Nitrogen 10 mg/dL 6-24 C Reactive Protein 2.78 mg/L < 5.00 3 Calcium 10.2 mg/dL 8.6-10.3 Chloride 103 mmol/L 101-111 Co2 Carbon Dioxide 28 mmol/L 22-32 Creatinine 0.84 mg/dL 0.51-0.95 Egfr 87.2 1 >60 4 Egfr Non- 67.8 1 >60 Globulin 3.0 g/dL 2-4 Glucose 104 mg/dL High 70-100 Lactic Acid 1.0 mmol/L 0.5-2.0 5 Lipase 16 U/L 11.0-82.0 Magnesium 2.1 mg/dL 1.9-2.7 Potassium 4.2 mmol/L 3.5-5.0 Sodium 138 mmol/L 133-145 Total Bilirubin 1.30 mg/dL High 0.2-1.0 Total Protein 7.5 g/dL 6.4-8.9 CBC Auto Diff 06/12/2017 N2N/CCD Import Abs Basophils 0 10^3/uL 0-0.2 Abs Eosinophils 0 10^3/uL 0-0.6 Abs Lymphocytes 1.0 10^3/uL 1.0-4.8 Abs Monocytes 0.3 10^3/uL 0-0.8 Abs Neutrophils 4.3 10^3/uL 1.5-7.7 Abs Nucleated RBC 0.01 10^3/uL Basophil % 0.6 % 0-2 Eosinophil % 0.8 % 0-6 Granulocyte % 75.6 % 38-83 Hematocrit 48 % High 35-47 Hemoglobin 16.2 g/dL High 12.0-16.0 Lymphocyte % 18.1 % Low 25-47 Mean Corpuscular HGB Conc 34 g/dL 31-36 Mean Corpuscular Hemoglobin 30 pg 27-31 Mean Corpuscular Volume 88 fL 80-97 Mean Platelet Volume 9 um3 7.4-10.4 Monocyte % 4.9 % 1-9 Nucleated Red Blood Cells % 0.1 1 Platelet Count 158 10^3/uL 150-450 Red Blood Count 5.46 10^6/uL High 4.0-5.4 Red Cell Distribution Width 13 % 10.5-15 White Blood Count 5.7 10^3/uL 3.5-10.8 Urinalysis Profile 06/12/2017 N2N/CCD Import Urine Appearance Clear Urine Bacteria 3+ Absent Urine Bilirubin Negative Negative Urine Blood Negative Negative Urine Color Yellow Urine Glucose Negative Negative Urine Ketones Trace Negative Urine Leukocytes 1+ Negative Urine Nitrite Positive Negative Urine Protein Negative Negative Urine Red Blood Cell Absent Absent Urine Specific [place] 1.014 1 1.010-1.030 Urine Squamous Epithelial Cell Present Absent Urine Urobilinogen Negative Negative Urine White Blood Cell 1+(6-10/hpf) Absent Urine pH 6.0 1 5-9 Urine Culture And 06/12/2017 N2N/CCD Import Urine Culture See Result 6 Sensitivities Below Urinalysis Profile 06/06/2017 N2N/CCD Import Urine Appearance Cloudy Urine Bacteria 1+ Absent Urine Bilirubin Negative Negative Urine Blood Negative Negative Urine Color Yellow Urine Glucose Negative Negative Urine Ketones Negative Negative Urine Leukocytes Trace Negative Urine Nitrite Positive Negative Urine Protein Negative Negative Urine Red Blood Cell Trace(0-2/hpf) Absent Urine Specific [place] 1.015 1 1.010-1.030 Urine Squamous Epithelial Cell Present Absent Urine Urobilinogen Negative Negative Urine White Blood Cell 1+(6-10/hpf) Absent Urine pH 7.0 1 5-9 Urine Culture And 06/06/2017 N2N/CCD Import Urine Culture See Result Below 7 Sensitivities 1 Acute inflammation: >10.00 2 Because ethnic data is not always readily available, this report includes an eGFR for both -Americans and non- Americans. The National Kidney Disease Education Program (NKDEP) does not endorse the use of the MDRD equation for patients that are not between the ages of 18 and 70, are , have extremes of body size, muscle mass, or nutritional status, or are non- or non-. According to the National Kidney Foundation, irrespective of diagnosis, the stage of the disease is based on the level of kidney function: Stage Description GFR(mL/min/1.73 m(2)) 1 Kidney damage with normal or decreased GFR 90 2 Kidney damage with mild decrease in GFR 60-89 3 Moderate decrease in GFR 30-59 4 Severe decrease in GFR 15-29 5 Kidney failure <15 (or dialysis) 3 Acute inflammation: >10.00 4 Because ethnic data is not always readily available, this report includes an eGFR for both -Americans and non- Americans. The National Kidney Disease Education Program (NKDEP) does not endorse the use of the MDRD equation for patients that are not between the ages of 18 and 70, are , have extremes of body size, muscle mass, or nutritional status, or are non- or non-. According to the National Kidney Foundation, irrespective of diagnosis, the stage of the disease is based on the level of kidney function: Stage Description GFR(mL/min/1.73 m(2)) 1 Kidney damage with normal or decreased GFR 90 2 Kidney damage with mild decrease in GFR 60-89 3 Moderate decrease in GFR 30-59 4 Severe decrease in GFR 15-29 5 Kidney failure <15 (or dialysis) 5 [facility] Severe Sepsis and Septic Shock Management Bundle Measure requires all lactic acids initially measuring >2.0 mmol/L be repeated. 6 SEE RESULT BELOW Name: EDISON BERNARD : [address]: Michael Snow MD Acct: [id number] Unit: [id number] AGE: 67 Location: ED Re06/12/17 SEX: F Status: DEP ER SPEC: [id number] RASHIDA: 06/12/17 [facility] [address]: Michael Snow MD REQ: [id number] RECD: 06/12/17 STATUS: ALBER MCARTHUR DR: Iva Cerna MD _ SOURCE: URINE [facility]: ORDERED: Urine Culture Procedure Result Reported Site Urine Culture Final 06/14/17- 08 ML Organism 1 ESCHERICHIA COLI [place] Count >100,000 (Many) CFU/ML 1. ESCHERICHIA COLI M.I.C. RX --------- ------ Ampicillin >=32 R Cefazolin >=64 R Cefepime <=1 S Ceftriaxone <=1 S Ciprofloxacin <=0.25 S Gentamicin >=16 R Levofloxacin 1 S Meropenem <=0.25 S Nitrofurantoin <=16 S Tetracycline >=16 R Pipercillin/Tazobactam >=128 R Trimethoprim/Sulfamethoxazole >=320 R Amoxicillin/Clavulanic Acid >=32 R Aztreonam <=1 S Contact the Microbiology Department for any additional antibiotic reporting. * ML - MAIN LAB ([facility]) . END OF REPORT * ML=Testing performed at Main Lab DEPARTMENT OF PATHOLOGY, [address] [place] [address] Gurmeet Lees M.D. Director [facility] # [id number] 7 SEE RESULT BELOW Name: EDISON BERNARD : [address]: Janett Marmolejo MD Acct: [id number] Unit: [id number] AGE: 67 Location: ED Re06/06/17 SEX: F Status: DEP ER SPEC: [id number] RASHIDA: 06/06/[address]: Janett Marmolejo MD REQ: [id number] RECD: 06/06/17 STATUS: ALBER MCARTHUR DR: Iva Cerna MD _ SOURCE: URINE SPDESC: ORDERED: Urine Culture Procedure Result Reported Site Urine Culture Final 06/08/17- 0749 ML Organism 1 ESCHERICHIA COLI [place] Count >100,000 (Many) CFU/ML 1. ESCHERICHIA COLI M.I.C. RX --------- ------ Ampicillin >=32 R Cefazolin 32 R Cefepime <=1 S Ceftriaxone <=1 S Ciprofloxacin <=0.25 S Gentamicin >=16 R Levofloxacin 1 S Meropenem <=0.25 S Nitrofurantoin <=16 S Tetracycline >=16 R Pipercillin/Tazobactam >=128 R Trimethoprim/Sulfamethoxazole <=20 S Amoxicillin/Clavulanic Acid >=32 R Aztreonam <=1 S Contact the Microbiology Department for any additional antibiotic reporting. * ML - MAIN LAB ([facility]) . END OF REPORT * ML=Testing performed at Main Lab DEPARTMENT OF PATHOLOGY, [address] [place] [address] Gurmeet Lees M.D. Director [facility] # [id number] Procedures Date Code Description Status 07/03/2018 21745 Ophthalmoscopy Initial Completed 07/03/2018 04978 Refraction Completed 07/03/2018 21584 Eye Exam New Comprehensive Completed Encounters Description No Information Available Plan of Treatment 07/03/2018 - Salvador Fernandez M.D.H46.8 Other optic neuritisFollow up:1 yrH25.13 Age-related nuclear cataract, bilateralFollow up:1 yrH52.4 PresbyopiaFollow up: 1 yr
[2018-07-07 22:02] VITALS: BP 152/90
--- NOTE | 2018-07-08 07:39 | RAD ---
HISTORY: Right leg pain COMPARISONS: March 17, 2015 VIEWS: 3 , Frontal, lateral, and oblique views of the right ankle FINDINGS: BONE DENSITY: There is diffuse osteopenia. This has progressed from the previous examination. BONES: There is no displaced fracture. JOINTS: There is no arthropathy. ALIGNMENT: There is no dislocation. SOFT TISSUES: There is circumferential soft tissue swelling. OTHER FINDINGS: None. IMPRESSION: 1. OSTEOPENIA. 2. SOFT TISSUE SWELLING. 3. NO ACUTE OSSEOUS INJURY. THE DEGREE OF OSTEOPENIA MAY MAKE A NONDISPLACED FRACTURE RADIOGRAPHICALLY OCCULT. IF SYMPTOMS PERSIST, RECOMMEND REPEAT IMAGING. R0
--- NOTE | 2018-07-08 07:40 | RAD ---
HISTORY: pain, right leg pain COMPARISONS: July 19, 2015 VIEWS: 4 , Frontal, lateral, axial, and oblique views of the right knee FINDINGS: BONE DENSITY: There is diffuse osteopenia. This has progressed from the previous examination. BONES: There is no displaced fracture. There is remote posttraumatic deformity of the proximal fibula. JOINTS: There is no arthropathy. There is no suprapatellar joint effusion or lipohemarthrosis. ALIGNMENT: There is no dislocation. SOFT TISSUES: Unremarkable. OTHER FINDINGS: None. IMPRESSION: OSTEOPENIA. NO ACUTE OSSEOUS INJURY. THE DEGREE OF OSTEOPENIA MAY MAKE A NONDISPLACED FRACTURE RADIOGRAPHICALLY OCCULT. IF SYMPTOMS PERSIST, RECOMMEND REPEAT IMAGING. R0
--- NOTE | 2018-07-08 07:42 | RAD ---
HISTORY: pain, right leg pain COMPARISONS: May 29, 2016 VIEWS: 2 , Frontal and lateral views of the right foreleg FINDINGS: BONE DENSITY: There is diffuse osteopenia. This has progressed from the previous examination. BONES: There is remote post traumatic deformity of the proximal fibula. There is no acute displaced fracture. JOINTS: There is no arthropathy. ALIGNMENT: There is no dislocation. SOFT TISSUES: There is soft tissue swelling distally along the foreleg. OTHER FINDINGS: None. IMPRESSION: OSTEOPENIA. NO ACUTE OSSEOUS INJURY. THE DEGREE OF OSTEOPENIA MAY MAKE A NONDISPLACED FRACTURE RADIOGRAPHICALLY OCCULT. IF SYMPTOMS PERSIST, RECOMMEND REPEAT IMAGING. R2
== END 2018-07-07 23:26 | disposition home or self-care (01) ==
LOC: ED 19:12
DX: M79.661 Pain in right lower leg (principal); M85.861 Other specified disorders of bone density and structure, right lower leg; Z88.6 Allergy status to analgesic agent; Z88.0 Allergy status to penicillin; Z88.8 Allergy status to other drugs, medicaments and biological substances; Z87.891 Personal history of nicotine dependence
CPT/HCPCS: 99284

== ENCOUNTER 2018-09-11 17:23 | Observation (INO) | payer MEDICARE, OTHER ==
[2018-09-11 18:13] LABS: ABS Basophils 0 10^3/ul (0-0.2); ABS Eosinophils 0.2 10^3/ul (0-0.6); ABS Lymphocytes 1.2 10^3/ul (1.0-4.8); ABS Monocytes 0.7 10^3/ul (0-0.8); ABS Neutrophils 4.2 10^3/ul (1.5-7.7); ABS Nucleated RBC 0 10^3/ul; Eosinophil % 3.9 % (0-6); Hematocrit 43 % (35-47); Hemoglobin 14.3 g/dl (12.0-16.0); Lymphocyte % 18.4 % (25-47); Mean Corpuscular HGB Conc 33 g/dl (31-36); Mean Corpuscular Hemoglobin 30 pg (27-31); Mean Corpuscular Volume 90 fL (80-97); Mean Platelet Volume 8.4 fL (7.4-10.4); Nucleated Red Blood Cells % 0; Platelet Count 149 10^3/ul (150-450); Red Blood Count 4.77 10^6/ul (4.00-5.40); Red Cell Distribution Width 15 % (10.5-15); White Blood Count 6.3 10^3/ul (3.5-10.8)
[2018-09-11] MEDS ORDERED: predniSONE TAB* 20 MG PO ONE (18:31)
[2018-09-11] MEDS ORDERED: Albuterol/Ipratropium NEB.SOL* Albuterol 2.5 MG/Ipratropium 0.5 MG 3 ML INH ONE (18:31)
[2018-09-11 18:34] LABS: EGFR Non-African American 97.8 (>60)
[2018-09-11] MEDS ORDERED: Azithromycin TAB* 250 MG PO ONE (21:24)
--- NOTE | 2018-09-11 21:25 | ED ---
Respiratory - HPI Summary HPI Summary: Patient complains of intermittent productive cough 3 weeks, and "SOB last night from new bed". Denies SOB after getting out of new bed this morning. Denies prior history of orthopnea. Patient has history of asthma has been using home nebulizer and MDI without relief. No history of home O2. Also complains of intermittent RAMIREZ, mild sore throat. Denies fever, ear pain, neck stiffness, CP, N/V/D, abdominal pain, change in urine, change in BM. Medical history is asthma, HDL, recurrent UTI, MS, chronic pain, lymphedema. Former long-term smoker, quit several years ago. 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 Ambulates baseline in a wheelchair. Denies estrogen supplements, recent surgery or trauma, history of cancer, history of blood clots. Does admit to increased immobility recently. - History of Current Complaint Chief Complaint: EDGeneral Stated Complaint: GENERAL ILLNESS Time Seen by Provider: 09/11/18 17:39 Hx Obtained From: Patient Onset/Duration: Gradual Onset Timing: Intermittent Episodes Lasting: Current Severity: None Pain Intensity: 0 Sputum Amount: None Aggravating Factor(s): Nothing Alleviating Factor(s): Nothing Associated Signs and Symptoms: SOB - Allergy/Home Medications Allergies/Adverse Reactions: Allergies Allergy/AdvReac Type Severity Reaction Status Date / Time carbamazepine Allergy Hives Verified 09/11/18 23:24 Penicillins Allergy Hives Verified 09/11/18 23:24 amitriptyline AdvReac Severe Hallucinati Verified 09/11/18 23:24 ons aspirin AdvReac Intermediate GI Upset Verified 09/11/18 23:24 Home Medications: Home Medications Atorvastatin* [Lipitor*] 20 mg PO QPM 09/11/18 [History Confirmed 09/11/18] PMH/Surg Hx/FS Hx/Imm Hx Endocrine/Hematology History: Reports: Hx Anticoagulant Therapy - only during hospital admits. Denies: Hx Diabetes, Hx Thyroid Disease, Other Endocrine/Hematological Disorders Cardiovascular History: Reports: Hx Congestive Heart Failure - DX 3.2016 BUT PT NOT SURE CORRECT, Hx Hypercholesterolemia Denies: Hx Hypertension, Hx Pacemaker/ICD, Other Cardiovascular Problems/ Disorders Respiratory History: Reports: Hx Asthma, Hx Seasonal Allergies - also dust allergies, Other Respiratory Problems/Disorders - environmental allergies Denies: Hx Chronic Bronchitis, Hx Chronic Obstructive Pulmonary Disease (COPD ), Hx Cystic Fibrosis, Hx Lung Cancer, Hx Pleural Effusion, Hx Pneumonia, Hx Pulmonary Edema, Hx Pulmonary Embolism, Hx Sleep Apnea GI History: Reports: Hx Gastroesophageal Reflux Disease, Other GI Disorders - chronic constipation Denies: Hx Ulcer History: Reports: Other Problems/Disorders - URINARY INCONTINENCE, bladder spasms Denies: Hx Dialysis, Hx Renal Disease Musculoskeletal History: Reports: Hx Arthritis, Hx Back Problems, Hx Orthopedic Injury - right tibial fx, Hx Osteoporosis, Hx Scoliosis Denies: Other Musculoskeletal History Sensory History: Reports: Hx Contacts or Glasses - for reading, Other Sensory Impairments - Numbness in legs Denies: Hx Cataracts, Hx Eye Injury, Hx Eye Prosthesis, Hx Glaucoma, Hx Macular Degeneration, Hx Vision Problem, Hx Deafness, Hx Hearing Aid, Hx Hearing Problem Opthamlomology History: Reports: Hx Contacts or Glasses - for reading, Other Sensory Impairments - Numbness in legs Denies: Hx Cataracts, Hx Eye Injury, Hx Eye Prosthesis, Hx Glaucoma, Hx Macular Degeneration, Hx Vision Problem Neurological History: Reports: Other Neuro Impairments/Disorders - MS Denies: Hx Dementia, Hx Developmental Delay, Hx Headaches, Hx Migraine, Hx Seizures, Hx Spinal Cord Injury, Hx Transient Ischemic Attacks (TIA) Psychiatric History: Reports: Hx Anxiety, Hx Depression Denies: Hx Attention Deficit Hyperactivity Disorder, Hx Eating Disorder, Hx Panic Disorder, Hx Post Traumatic Stress Disorder, Hx Inpatient Treatment, Hx Community Mental Health Tx, Hx Schizophrenia, Hx Bipolar Disorder, Hx Suicide Attempt, Hx of Violent Episodes Against Others, Hx Substance Abuse, Other Psychiatric Issues/Disorders - Cancer History Hx Chemotherapy: No Hx Radiation Therapy: No Hx Palliative Cancer Treatment: No - Surgical History Surgery Procedure, Year, and Place: , Appendectomy, I+D ,r/t cellulitis right inner thigh- recent admission,Rt knee bakers cyst removal. Hx Anesthesia Reactions: No - Immunization History Date of Tetanus Vaccine: Unk Date of Influenza Vaccine: Fall 2014 Infectious Disease History: No Infectious Disease History: Denies: Hx Clostridium Difficile, Hx Hepatitis, Hx Human Immunodeficiency Virus (HIV), Hx of Known/Suspected MRSA, Hx Shingles, Hx Tuberculosis, Hx Known/ Suspected VRE, Hx Known/Suspected VRSA, History Other Infectious Disease, Traveled Outside the [place] in Last 30 Days - Family History Known Family History: Positive: Cardiac Disease - father, Hypertension, Diabetes , Other - Schizophrenia, aortic aneuyrsms (father) - Social History Alcohol Use: None Substance Use Type: Reports: None Hx Tobacco Use: No Smoking Status (MU): Former Smoker Review of Systems Constitutional: Negative Eyes: Negative Positive: Sore Throat Cardiovascular: Negative Positive: Shortness Of Breath, Cough Gastrointestinal: Negative Genitourinary: Negative Musculoskeletal: Negative Skin: Negative Positive: Headache Psychological: Normal All Other Systems Reviewed And Are Negative: Yes Physical Exam Triage Information Reviewed: Yes Vital Signs On Initial Exam: Initial Vitals Temp Pulse Resp BP Pulse Ox 97.6 F 83 20 157/71 99 09/11/18 17:28 09/11/18 17:28 09/11/18 17:28 09/11/18 17:28 09/11/18 17:28 Vital Signs Reviewed: Yes Appearance: Positive: Well-Appearing Skin: Positive: Warm Head/Face: Positive: Normal Head/Face Inspection Eyes: Positive: Normal Neck: Positive: Supple Respiratory/Lung Sounds: Positive: Clear to Auscultation Cardiovascular: Positive: Normal Abdomen Description: Positive: Nontender Musculoskeletal: Positive: Normal Neurological: Positive: Normal Psychiatric: Positive: Normal AVPU Assessment: Alert - [place] Coma Scale Best Eye Response: 4 - Spontaneous Best Motor Response: 6 - Obeys Commands Best Verbal Response: 5 - Oriented Coma Scale Total: 15 Diagnostics - Vital Signs Vital Signs Temp Pulse Resp BP Pulse Ox 09/11/18 19:02 76 18 100 09/11/18 18:28 76 14 138/85 93 09/11/18 18:00 78 15 96 09/11/18 17:59 78 14 136/64 96 09/11/18 17:29 82 15 157/70 95 09/11/18 17:28 97.6 F 90 20 157/71 94 - Laboratory Lab Results: Lab Results 09/11/18 09/11/18 09/11/18 Range/Units 18:00 18:00 18:00 WBC 6.3 (3.5-10.8) 10^3/ul RBC 4.77 (4.00-5.40) 10^6/ul Hgb 14.3 (12.0-16.0) g/dl Hct 43 (35-47) % MCV 90 (80-97) fL MCH 30 (27-31) pg MCHC 33 (31-36) g/dl RDW 15 (10.5-15) % Plt Count 149 L (150-450) 10^3/ul MPV 8.4 (7.4-10.4) fL Neut % (Auto) 66.7 (38-83) % Lymph % (Auto) 18.4 L (25-47) % [place] % (Auto) 10.4 H (0-7) % Eos % (Auto) 3.9 (0-6) % Baso % (Auto) 0.6 (0-2) % Absolute Neuts (auto) 4.2 (1.5-7.7) 10^3/ul Absolute Lymphs (auto) 1.2 (1.0-4.8) 10^3/ul Absolute Monos (auto) 0.7 (0-0.8) 10^3/ul Absolute Eos (auto) 0.2 (0-0.6) 10^3/ul Absolute Basos (auto) 0 (0-0.2) 10^3/ul Absolute Nucleated RBC 0 10^3/ul Nucleated RBC % 0 Sodium 137 (135-145) mmol/L Potassium 4.6 (3.5-5.0) mmol/L Chloride 102 (101-111) mmol/L Carbon Dioxide 30 (22-32) mmol/L Anion Gap 5 (2-11) mmol/L BUN 8 (6-24) mg/dL Creatinine 0.61 (0.51-0.95) mg/dL Est GFR ( Amer) 118.4 (>60) Est GFR (Non-Af Amer) 97.8 (>60) BUN/Creatinine Ratio 13.1 (8-20) Glucose 111 H (70-100) mg/dL Calcium 9.2 (8.6-10.3) mg/dL Total Bilirubin 0.80 (0.2-1.0) mg/dL AST 23 (13-39) U/L ALT 19 (7-52) U/L Alkaline Phosphatase 102 (34-104) U/L C-Reactive Protein 4.38 (<8.01) mg/L B-Natriuretic Peptide 12 (<=100) pg/mL Total Protein 6.6 (6.4-8.9) g/dL Albumin 3.8 (3.2-5.2) g/dL Globulin 2.8 (2-4) g/dL Albumin/Globulin Ratio 1.4 (1-3) Result Diagrams: 09/11/18 18:00 09/11/18 18:00 Lab Statement: Any lab studies that have been ordered have been reviewed, and results considered in the medical decision making process. Disposition - Course Course Of Treatment: Patient complains of intermittent productive cough 3 weeks , and "SOB last night from new bed". Denies SOB after getting out of new bed this morning. Patient has history of asthma has been using home nebulizer and MDI without relief. No history of home O2. Also complains of intermittent RAMIREZ, mild sore throat. Denies fever, ear pain, neck stiffness, CP, N/V/D, abdominal pain, change in urine, change in BM. Medical history is asthma, HDL, recurrent UTI, MS, chronic pain, lymphedema. Former long-term smoker, quit several years ago. 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 Ambulates baseline in a wheelchair. Denies estrogen supplements, recent surgery or trauma, history of cancer, history of blood clots. Does admit to increased immobility recently. Physical exam unremarkable. Labs unremarkable. Chest x-ray unremarkable. BNP negative. EKG normal. Troponin negative. Patient O2 sats dropping down to 88-89. Patient O2 sats are low compared to prior visits. Placed on 2L O2, now at 94. Vital signs otherwise unremarkable. Patient refused ABG. CTA negative for PE, finding suggestive of bronchitis. - Diagnoses Provider Diagnoses: Cough, Hypoxia Discharge - Sign-Out/Discharge Documenting (check all that apply): Patient Departure - Discharge Plan Condition: Stable Disposition: ADMITTED TO [facility] Patient Education Materials: Acute Bronchitis (ED) Referrals: Iva Cerna MD [Primary Care Provider] - - Billing Disposition and Condition Condition: STABLE Disposition: Admitted to [facility]
[2018-09-11] MEDS ORDERED: Iohexol 350* (CONTRAST) 500 ML MDV IV ONE (22:31)
[2018-09-11] MEDS ORDERED: Albuterol/Ipratropium NEB.SOL* Albuterol 2.5 MG/Ipratropium 0.5 MG 3 ML INH PRN (23:57)
[2018-09-11] MEDS ORDERED: oxyCODONE TAB* 5 MG TAB PO PRN (23:58)
[2018-09-11] MEDS ORDERED: Baclofen TAB* 10 MG PO PRN (23:58)
[2018-09-11] MEDS ORDERED: Diazepam TAB(*) 5 MG PO PRN (23:58)
[2018-09-12] MEDS: Enoxaparin(*) 40 MG/0.4 ML SYR SUBCUT SCH (01:57)
[2018-09-12] MEDS ORDERED: fentaNYL PATCH 25 MCG/HR TRANSDERM SCH (02:00)
[2018-09-12] MEDS: fentaNYL Patch Check Q Shift 1 NOTE SCH ×2 (07:15→19:13)
[2018-09-12] MEDS: Senna TAB PO PRN (08:04)
[2018-09-12] MEDS: Sertraline* 100 MG TAB PO SCH (08:04)
[2018-09-12] MEDS: predniSONE TAB* 20 MG PO SCH (08:04)
[2018-09-12] MEDS: Omeprazole CAP* 20 MG PO SCH (08:04)
--- NOTE | 2018-09-12 08:49 | PN ---
Subjective Date of Service: 09/12/18 Interval History: Pt reports she feels much better today but continues to feel weak. She continues to have a cough with sputum production. Reports some mild wheezing. Denies SOB. Denies fever or chills. Objective Active Medications: Albuterol/Ipratropium (Duoneb (Albuterol 2.5 Mg/Ipratropium 0.5 Mg)) 1 neb INH Q4H PRN PRN Reason: SOB/WHEEZING Atorvastatin Calcium (Lipitor*) 20 mg PO QPM [facility] Baclofen (Lioresal Tab*) 10 mg PO QID PRN PRN Reason: SPASMS Diazepam (Valium Tab(*)) 5 mg PO BID PRN PRN Reason: ANXIETY Enoxaparin Sodium (Lovenox(*)) 40 mg SUBCUT Q24H [facility] Last Admin: 09/12/18 01:57 Dose: 40 mg Fentanyl (Duragesic Patch 25 Mcg/Hr*) 25 mcg TRANSDERM Q72H [facility] Last Admin: 09/12/18 01:50 Dose: 25 mcg Omeprazole (Prilosec Cap*) 40 mg PO DAILY@0730 [facility] Last Admin: 09/12/18 08:04 Dose: 40 mg Oxycodone HCl (Roxycodone Tab*) 5 mg PO TID PRN PRN Reason: PAIN Pharmacy Profile Note (Fentanyl Patch Check Q Shift) 1 note N/A 0700,1900 [facility] Last Admin: 09/12/18 07:15 Dose: 1 note Prednisone (Deltasone Tab*) 60 mg PO DAILY [facility] Last Admin: 09/12/18 08:04 Dose: 60 mg Senna (Senokot Tab*) 2 tab PO BID PRN PRN Reason: CONSTIPATION Last Admin: 09/12/18 08:04 Dose: 2 tab Sertraline HCl (Zoloft*) 100 mg PO DAILY [facility] Last Admin: 09/12/18 08:04 Dose: 100 mg Vital Signs - 8 hr 09/12/18 09/12/18 09/12/18 00:50 01:13 01:50 Temperature 97.8 F Pulse Rate 80 Respiratory 18 16 18 Rate Blood Pressure 149/68 (mmHg) O2 Sat by Pulse 94 Oximetry 09/12/18 09/12/18 03:43 08:01 Temperature 97.9 F 97.4 F Pulse Rate 91 101 Respiratory 18 20 Rate Blood Pressure 133/56 129/56 (mmHg) O2 Sat by Pulse 94 93 Oximetry Oxygen Devices in Use Now: Nasal Cannula Appearance: 68 yo chronically ill female laying in bed in NAD A+Ox3 Eyes: No Scleral Icterus, PERRLA Ears/Nose/Mouth/Throat: Mucous Membranes Moist Neck: NL Appearance and Movements; NL JVP Respiratory: Symmetrical Chest Expansion and Respiratory Effort, - - mild rhonchi throughout. good aeration throughout Cardiovascular: NL Sounds; No Murmurs; No JVD, RRR Abdominal: NL Sounds; No Tenderness; No Distention Extremities: No Clubbing, Cyanosis, - - b/l le edema (pt reports this is her baseline hx of lymphedema) Skin: No Rash or Ulcers, No Nodules or Sclerosis Neurological: Alert and Oriented x 3, NL Sensation, NL Muscle Strength and Tone Lines/Tubes/Other Access: Clean, Dry and Intact Peripheral IV Nutrition: Taking PO's Result Diagrams: 09/12/18 11:11 09/12/18 11:11 Additional Lab and Data: Lab Results 09/11/18 09/11/18 09/11/18 Range/Units 18:00 18:00 18:00 WBC 6.3 (3.5-10.8) 10^3/ul RBC 4.77 (4.00-5.40) 10^6/ul Hgb 14.3 (12.0-16.0) g/dl Hct 43 (35-47) % MCV 90 (80-97) fL MCH 30 (27-31) pg MCHC 33 (31-36) g/dl RDW 15 (10.5-15) % Plt Count 149 L (150-450) 10^3/ul MPV 8.4 (7.4-10.4) fL Neut % (Auto) 66.7 (38-83) % Lymph % (Auto) 18.4 L (25-47) % [place] % (Auto) 10.4 H (0-7) % Eos % (Auto) 3.9 (0-6) % Baso % (Auto) 0.6 (0-2) % Absolute Neuts (auto) 4.2 (1.5-7.7) 10^3/ul Absolute Lymphs (auto) 1.2 (1.0-4.8) 10^3/ul Absolute Monos (auto) 0.7 (0-0.8) 10^3/ul Absolute Eos (auto) 0.2 (0-0.6) 10^3/ul Absolute Basos (auto) 0 (0-0.2) 10^3/ul Absolute Nucleated RBC 0 10^3/ul Nucleated RBC % 0 Sodium 137 (135-145) mmol/L Potassium 4.6 (3.5-5.0) mmol/L Chloride 102 (101-111) mmol/L Carbon Dioxide 30 (22-32) mmol/L Anion Gap 5 (2-11) mmol/L BUN 8 (6-24) mg/dL Creatinine 0.61 (0.51-0.95) mg/dL Est GFR ( Amer) 118.4 (>60) Est GFR (Non-Af Amer) 97.8 (>60) BUN/Creatinine Ratio 13.1 (8-20) Glucose 111 H (70-100) mg/dL Calcium 9.2 (8.6-10.3) mg/dL Total Bilirubin 0.80 (0.2-1.0) mg/dL AST 23 (13-39) U/L ALT 19 (7-52) U/L Alkaline Phosphatase 102 (34-104) U/L C-Reactive Protein 4.38 (<8.01) mg/L B-Natriuretic Peptide 12 (<=100) pg/mL Total Protein 6.6 (6.4-8.9) g/dL Albumin 3.8 (3.2-5.2) g/dL Globulin 2.8 (2-4) g/dL Albumin/Globulin Ratio 1.4 (1-3) Microbiology and Other Data: Microbiology 09/11/18 22:25 Influenza Types A,B Antigen - Final Nasal Specimen received for Influenza A/B Molecular testing Assess/Plan/Problems-Billing Assessment: 68 yo female with MS who presented with c/o cough and SOB for 2-3 days found to have COPD exacerbation and bronchitis on CTA. - Patient Problems (1) COPD exacerbation Comment: Bronchitis noted on CTA continue prednisone continue azithromycin nebs prn (2) Chronic pain Comment: Continue home baclofen, diazepam, fentanyl patch. (3) History of multiple sclerosis Comment: Diazepam and baclofen prn spasms (4) DVT prophylaxis Comment: Lovenox SQ (5) Patient is full code Status and Disposition: OBV. Potential DC to home tomorrow
[2018-09-12 11:21] LABS: ABS Basophils 0 10^3/ul (0-0.2); ABS Eosinophils 0 10^3/ul (0-0.6); ABS Lymphocytes 0.5 10^3/ul (1.0-4.8); ABS Monocytes 0.2 10^3/ul (0-0.8); ABS Neutrophils 5.7 10^3/ul (1.5-7.7); ABS Nucleated RBC 0 10^3/ul; Eosinophil % 0 % (0-6); Hematocrit 41 % (35-47); Hemoglobin 13.9 g/dl (12.0-16.0); Lymphocyte % 8.1 % (25-47); Mean Corpuscular HGB Conc 34 g/dl (31-36); Mean Corpuscular Hemoglobin 30 pg (27-31); Mean Corpuscular Volume 89 fL (80-97); Mean Platelet Volume 8.3 fL (7.4-10.4); Nucleated Red Blood Cells % 0.3; Platelet Count 157 10^3/ul (150-450); Red Blood Count 4.63 10^6/ul (4.00-5.40); Red Cell Distribution Width 15 % (10.5-15); White Blood Count 6.4 10^3/ul (3.5-10.8)
[2018-09-12 11:37] LABS: EGFR Non-African American 97.8 (>60)
--- NOTE | 2018-09-12 20:27 | HP ---
CC: Dr. Cerna ADMISSION HISTORY AND PHYSICAL: DATE OF ADMISSION: 09/11/18 CHIEF COMPLAINT: Shortness of breath. HISTORY OF PRESENT ILLNESS: Ms. Bernard is a 68-year-old woman with history of asthma who is a poo r historian. She came to the emergency department tonight reporting orthopnea and cough and dyspnea at rest. She states that she has been having a productive cough for 2 days, but denies a chronic cou gh. She is not sure what color her sputum is. She has some shortness of breath at rest particularly when lying down. She does endorse having asthma, but denies having COPD. She denies any fevers. D enies any sick contacts. At baseline, she lives alone and she has home health aide 13 hours a day. She is not ambulatory due to multiple sclerosis. She gets around with a power chair. PAST MEDICAL HISTORY: Includes asthma and possible COPD. She has multiple sclerosis, hyperlipidemia , depression and chronic pain. PAST SURGICAL HISTORY: She has tonsillectomy, appendectomy, and a in the past. MEDICATIONS AT HOME: 1. Lipitor 20 mg p.o. q.h.s. 2. Baclofen 10 mg p.o. 4 times a day p.r.n. 3. Diazepam 5 mg p.o. b.i.d. p.r.n. 4. Omeprazole 40 mg p.o. daily. 5. Oxycodone 5 mg p.o. t.i.d. p.r.n. pain. 6. Senna 1 tab p.o. b.i.d. p.r.n. constipation. 7. Sertraline 100 mg p.o. q.a.m. 8. She takes fentanyl patch 25 mcg topically every 3 days as well. ALLERGIES: TEGRETOL, PENICILLIN, AMITRIPTYLINE and ASPIRIN. SOCIAL HISTORY: She is disabled. She is single. No children. She has not chosen a healthcare prox y. She smoked tobacco in the past. No alcohol or drug use. FAMILY HISTORY: Notable for a father of aneurysm with AAA and a mother had type 2 diabetes. REVIEW OF SYSTEMS: The patient denies any fevers, weight loss, anorexia. The patient denies any doroteo st pain, palpitations. The patient denies any hemoptysis, but does have cough, shortness of breath. The patient denies any nausea, vomiting, diarrhea, constipation, or abdominal pain. The remainder o f 14-point of review of systems negative other than mentioned in the HPI. PHYSICAL EXAMINATION GENERAL: She is an older woman, in no acute distress. VITAL SIGNS: Temperature is 36.6, pulse 80, respirations 18, blood pressure is 149/68, O2 sat is 88% on room air, 93% on 3 L. HEENT: Head is normocephalic, atraumatic. Sclerae anicteric. Pupils equal, round, and reactive to light and accommodation. Oropharynx is moist. No lesions. NECK: No JVD. No carotid bruit. No thyromegaly. LUNGS: Clear throughout. No rales or wheezes. Good air movement. HEART: Regular rate and rhythm without murmurs or gallops. ABDOMEN: Soft, nontender. Positive bowel sounds. No hepatosplenomegaly. EXTREMITIES: 2+ peripheral edema in bilateral lower extremities up to the knees. SKIN: No lesions. NEUROLOGIC: Cranial nerves II through XII are intact. Motor strength is 5/5 upper extremity, 3/5 l ower extremity. DIAGNOSTIC STUDIES/LABORATORY DATA: Sodium 137, potassium 4.6, chloride 102, bicarb 30, BUN 8, crea tinine 0.61, glucose 111, calcium 9.2, albumin 3.8, AST 23, ALT 19, bilirubin 0.8, troponin 0.00. BN P is 12. Influenza swab is negative. White count is 6.3, hemoglobin 14.3, hematocrit 43%, platelets 149. EKG shows normal sinus rhythm, normal axis. Low voltages, precordial lead. Chest x-ray negati ve for infiltrates or effusion. CT angiogram of the chest shows no pulmonary emboli, no infiltrates. ASSESSMENT AND PLAN: A 68-year-old woman with asthma and probable chronic obstructive pulmonary dise ase presenting with sore throat and hypoxia at rest. She appears to have a chronic obstructive pulmo nary disease exacerbation without pneumonia. The patient will be treated with oral prednisone, oxyge n supplementation, nebulizers. The patient can start antibiotics if she develops fever or purulent s putum. The differential of hypoxia will also include hypoventilation syndrome possibly due to neurom uscular weakness or apnea. Further Pulmonology workup can be obtained as an outpatient. If this per sists, she could be home with oxygen, in a day or two, I believe. For her multiple sclerosis, there is no current treatment other than supportive care. For hypertension, we will continue her current medications. For chronic pain, she will continue on fentanyl patch, oxycodone as needed. Code status is full. DVT prophylaxis will be with Lovenox. She is at high risk given her age and immobility. [id number]/[facility] #: [id number]
[2018-09-12] MEDS ORDERED: Atorvastatin* 20 MG TAB PO SCH (21:00)
[2018-09-12] MEDS: Azithromycin TAB* 250 MG PO SCH (21:35)
[2018-09-13] MEDS: Enoxaparin(*) 40 MG/0.4 ML SYR SUBCUT SCH (01:16)
[2018-09-13] MEDS: fentaNYL Patch Check Q Shift 1 NOTE SCH (06:35)
[2018-09-13 07:22] VITALS: BP 135/64
[2018-09-13] MEDS: Omeprazole CAP* 20 MG PO SCH (07:57)
[2018-09-13] MEDS: Senna TAB PO PRN (07:57)
[2018-09-13] MEDS: Sertraline* 100 MG TAB PO SCH (07:57)
[2018-09-13] MEDS: predniSONE TAB* 20 MG PO SCH (07:57)
[2018-09-13] MEDS: Azithromycin TAB* 250 MG PO SCH (07:57)
--- NOTE | 2018-09-13 09:39 | DCNOTE ---
Subjective Date of Service: 09/13/18 Interval History: Patient reports she feels much better today. Denies wheezing, SOB. Reports cough is improving now only occasionally with some mild white sputum production. Denies fever or chills. Feels ready to go home. Has good support system at home. Objective Active Medications: Albuterol/Ipratropium (Duoneb (Albuterol 2.5 Mg/Ipratropium 0.5 Mg)) 1 neb INH Q4H PRN PRN Reason: SOB/WHEEZING Atorvastatin Calcium (Lipitor*) 20 mg PO BEDTIME [facility] Last Admin: 09/12/18 21:34 Dose: 20 mg Azithromycin (Zithromax Tab*) 250 mg PO DAILY [facility] Last Admin: 09/13/18 07:57 Dose: 250 mg Baclofen (Lioresal Tab*) 10 mg PO QID PRN PRN Reason: SPASMS Diazepam (Valium Tab(*)) 5 mg PO BID PRN PRN Reason: ANXIETY Enoxaparin Sodium (Lovenox(*)) 40 mg SUBCUT Q24H [facility] Last Admin: 09/13/18 01:16 Dose: 40 mg Fentanyl (Duragesic Patch 25 Mcg/Hr*) 25 mcg TRANSDERM Q72H [facility] Last Admin: 09/12/18 01:50 Dose: 25 mcg Omeprazole (Prilosec Cap*) 40 mg PO DAILY@0730 [facility] Last Admin: 09/13/18 07:57 Dose: 40 mg Oxycodone HCl (Roxycodone Tab*) 5 mg PO TID PRN PRN Reason: PAIN Last Admin: 09/13/18 02:16 Dose: 5 mg Pharmacy Profile Note (Fentanyl Patch Check Q Shift) 1 note N/A 0700,1900 [facility] Last Admin: 09/13/18 06:35 Dose: 1 note Prednisone (Deltasone Tab*) 60 mg PO DAILY [facility] Last Admin: 09/13/18 07:57 Dose: 60 mg Senna (Senokot Tab*) 2 tab PO BID PRN PRN Reason: CONSTIPATION Last Admin: 09/13/18 07:57 Dose: 2 tab Sertraline HCl (Zoloft*) 100 mg PO DAILY [facility] Last Admin: 09/13/18 07:57 Dose: 100 mg Vital Signs - 8 hr 09/13/18 09/13/18 09/13/18 02:16 03:09 04:16 Temperature 99.7 F Pulse Rate 83 Respiratory 17 17 17 Rate Blood Pressure 117/47 (mmHg) O2 Sat by Pulse 95 Oximetry 09/13/18 07:13 Temperature 97.3 F Pulse Rate 70 Respiratory 16 Rate Blood Pressure 135/64 (mmHg) O2 Sat by Pulse 94 Oximetry Oxygen Devices in Use Now: None Appearance: A+Ox3 in NAD Eyes: No Scleral Icterus, PERRLA Ears/Nose/Mouth/Throat: NL Teeth, Lips, Gums, Mucous Membranes Moist Neck: NL Appearance and Movements; NL JVP Respiratory: Symmetrical Chest Expansion and Respiratory Effort, Clear to Auscultation Cardiovascular: NL Sounds; No Murmurs; No JVD, RRR, - - 1+ LE b/l edema - lyphedema Abdominal: NL Sounds; No Tenderness; No Distention Extremities: No Clubbing, Cyanosis Skin: No Rash or Ulcers, No Nodules or Sclerosis Neurological: Alert and Oriented x 3, NL Sensation, NL Muscle Strength and Tone Lines/Tubes/Other Access: Clean, Dry and Intact Peripheral IV Nutrition: Taking PO's Result Diagrams: 09/12/18 11:11 09/12/18 11:11 Additional Lab and Data: Lab Results 09/11/18 09/11/18 09/11/18 Range/Units 18:00 18:00 18:00 WBC 6.3 (3.5-10.8) 10^3/ul RBC 4.77 (4.00-5.40) 10^6/ul Hgb 14.3 (12.0-16.0) g/dl Hct 43 (35-47) % MCV 90 (80-97) fL MCH 30 (27-31) pg MCHC 33 (31-36) g/dl RDW 15 (10.5-15) % Plt Count 149 L (150-450) 10^3/ul MPV 8.4 (7.4-10.4) fL Neut % (Auto) 66.7 (38-83) % Lymph % (Auto) 18.4 L (25-47) % [place] % (Auto) 10.4 H (0-7) % Eos % (Auto) 3.9 (0-6) % Baso % (Auto) 0.6 (0-2) % Absolute Neuts (auto) 4.2 (1.5-7.7) 10^3/ul Absolute Lymphs (auto) 1.2 (1.0-4.8) 10^3/ul Absolute Monos (auto) 0.7 (0-0.8) 10^3/ul Absolute Eos (auto) 0.2 (0-0.6) 10^3/ul Absolute Basos (auto) 0 (0-0.2) 10^3/ul Absolute Nucleated RBC 0 10^3/ul Nucleated RBC % 0 Sodium 137 (135-145) mmol/L Potassium 4.6 (3.5-5.0) mmol/L Chloride 102 (101-111) mmol/L Carbon Dioxide 30 (22-32) mmol/L Anion Gap 5 (2-11) mmol/L BUN 8 (6-24) mg/dL Creatinine 0.61 (0.51-0.95) mg/dL Est GFR ( Amer) 118.4 (>60) Est GFR (Non-Af Amer) 97.8 (>60) BUN/Creatinine Ratio 13.1 (8-20) Glucose 111 H (70-100) mg/dL Calcium 9.2 (8.6-10.3) mg/dL Total Bilirubin 0.80 (0.2-1.0) mg/dL AST 23 (13-39) U/L ALT 19 (7-52) U/L Alkaline Phosphatase 102 (34-104) U/L C-Reactive Protein 4.38 (<8.01) mg/L B-Natriuretic Peptide 12 (<=100) pg/mL Total Protein 6.6 (6.4-8.9) g/dL Albumin 3.8 (3.2-5.2) g/dL Globulin 2.8 (2-4) g/dL Albumin/Globulin Ratio 1.4 (1-3) Microbiology and Other Data: Microbiology 09/11/18 22:25 Influenza Types A,B Antigen - Final Nasal Specimen received for Influenza A/B Molecular testing Assess/Plan/Problems-Billing Assessment: 68 yo female with MS who presented with c/o cough and SOB for 2-3 days found to have COPD exacerbation and bronchitis on CTA. - Patient Problems (1) COPD exacerbation Comment: much improvement Bronchitis noted on CTA continue prednisone continue azithromycin nebs prn - has neb machine at home - recommended to continue nebs q12 hours for 2-3 days (2) Chronic pain Comment: Continue home baclofen, diazepam, fentanyl patch. (3) History of multiple sclerosis Comment: Diazepam and baclofen prn spasms (4) DVT prophylaxis Comment: Lovenox SQ (5) Patient is full code Status and Disposition: OBV. Plan for DC to home today. Pt has aides 7 days a week.
--- NOTE | 2018-09-13 21:52 | DS ---
CC: Dr. Cerna.* DISCHARGE SUMMARY: DATE OF ADMISSION: 09/11/18 DATE OF DISCHARGE: 09/13/18 PROVIDER: Ming Becker NP. ATTENDING PHYSICIAN: Dr. Flores * (report dictated by Ming Becker NP). PRIMARY CARE PHYSICIAN: Dr. Cerna. DISCHARGE DIAGNOSIS: Chronic obstructive pulmonary disease/bronchitis. SECONDARY DIAGNOSES: 1. Multiple sclerosis. 2. Hyperlipidemia. 3. Depression. 4. Chronic pain. HISTORY OF PRESENT ILLNESS AND HOSPITAL COURSE: Please see history and physical by Dr. Bishop Schilling for full admission details; but in summary, this is a 68-year- old female with past medical history of asthma, distant history of tobacco abuse, who presented to the emergency department on 09/11/18 with complaint of shortness of breath. She was admitted for a COPD exacerbation and was found to have bronchitis on her CTA. CTA was negative for pulmonary embolism. The patient also reports symptoms of sore throat and nasal congestion. She has been coughing for two days prior to coming to the hospital and on the day of admission, she has had worsening shortness of breath and wheezing and was found to be hypoxic and sent to the emergency department. She also reports increased sputum production. She was admitted to the hospitalist service and started on oxygen supplementation, oral prednisone, nebulizers, and azithromycin. The patient has remained hemodynamically stable throughout hospitalization and afebrile. No leukocytosis noted. Other labs are unremarkable. She initially was placed on two liters nasal cannula of oxygen, which has been weaned of today with having O2 sats between 94 and 95% on room air. Today, the patient reports that she feels ready to go home. She continues to have an occasional cough, but states that this is much better. She has mild sputum production, but reports that this is also better. She denies wheezing or shortness of breath. The patient appears nontoxic and stable to go home. Lung sounds are good throughout with aeration. DISCHARGE MEDICATIONS: 1. Lipitor 20 mg p.o. q.h.s. 2. Baclofen 10 mg p.o. four times a day p.r.n. 3. Diazepam 5 mg p.o. b.i.d. p.r.n. 4. Omeprazole 40 mg p.o. daily. 5. Oxycodone 5 mg p.o. t.i.d. p.r.n. 6. Senna one tablet p.o. b.i.d. p.r.n. constipation. 7. Sertraline 100 mg p.o. q.a.m. 8. Fentanyl patch 25 mcg topically q.72 hours. New medications: 1. Azithromycin 200 mg p.o. daily x4 doses. 2. Prednisone 40 mg p.o. daily x4 doses. DISCHARGE PLAN: 1. Follow up with primary care provider, Dr. Cerna within 4 to 7 days. 2. The patient was instructed to return to the emergency department with any concerning or worsening symptoms. 3. The patient does report she has a nebulizing machine with nebulizing cartridges at home. She was instructed to schedule her nebs twice a day for the next 2 to 3 days. The patient is stable for discharge to home. TIME SPENT: Approximately 60 minutes was spent on this discharge. MING BECKER, ENOC [id number]/[facility] #: [id number] MARY KATE
== END 2018-09-13 12:30 | disposition home or self-care (01) ==
LOC: ED 17:23 → MEDTELE 23:54
PROVIDERS: ADMIT Internal Medicine; ATTEND Internal Medicine
DX: J44.9 Chronic obstructive pulmonary disease, unspecified (principal); G35 Multiple sclerosis; E78.5 Hyperlipidemia, unspecified; H53.40 Unspecified visual field defects; G89.29 Other chronic pain; Z79.899 Other long term (current) drug therapy
CPT/HCPCS: 36415; 71046; 71275; 80048; 80053; 83735; 83880; 84484; 85025; 86140; 93005; 96372; 99284; A9270-GY; G0378; J1650; J7512; Q9967

== ENCOUNTER 2019-07-10 14:19 | Emergency (ER) | payer MEDICARE, OTHER ==
--- NOTE | 2019-07-10 14:26 | ED ---
Respiratory - HPI Summary HPI Summary: 69 yo female presents to [facility] ED with two complaints; 1) For the past 2 weeks she has been having an intermittently productive cough with post nasal drip. She attributed this to allergies, but has not been improving. She is most concerned because she had bronchitis a few years ago that she "let go too long" and was hospitalized. She has not been taking anything OTC. Denies fever, chills, sinus symptoms, SOB, chest pain. 2) Over the last several weeks she has felt a bump on her mid back. She saw her PCP about this and was told it was a blackhead. Since that time has gotten larger and is slightly tender - pt would like this "dealt with". - History of Current Complaint Chief Complaint: EDUpperRespComplaint Stated Complaint: PRODUCTIVE COUGH x2 WKS PER EMS Time Seen by Provider: 07/10/19 14:25 Hx Obtained From: Patient Initial Severity: Mild Current Severity: Mild Pain Intensity: 0 - Allergy/Home Medications Allergies/Adverse Reactions: Allergies Allergy/AdvReac Type Severity Reaction Status Date / Time carbamazepine Allergy Intermediate Hives Verified 07/10/19 14:24 Penicillins Allergy Intermediate Hives Verified 07/10/19 14:24 amitriptyline AdvReac Severe Hallucinati Verified 07/10/19 14:24 ons aspirin AdvReac Intermediate GI Upset Verified 07/10/19 14:24 Home Medications: Home Medications diazePAM [Diazepam] 5 mg PO BID 07/10/19 [History Confirmed 07/10/19] PMH/Surg Hx/FS Hx/Imm Hx Endocrine/Hematology History: Reports: Hx Anticoagulant Therapy - only during hospital admits. Denies: Hx Diabetes, Hx Thyroid Disease, Other Endocrine/Hematological Disorders Cardiovascular History: Reports: Hx Congestive Heart Failure - DX .2015 BUT PT NOT SURE CORRECT, Hx Hypercholesterolemia Denies: Hx Hypertension, Hx Pacemaker/ICD, Other Cardiovascular Problems/ Disorders Respiratory History: Reports: Hx Asthma, Hx Seasonal Allergies - also dust allergies, Other Respiratory Problems/Disorders - environmental allergies Denies: Hx Chronic Bronchitis, Hx Chronic Obstructive Pulmonary Disease (COPD ), Hx Cystic Fibrosis, Hx Lung Cancer, Hx Pleural Effusion, Hx Pneumonia, Hx Pulmonary Edema, Hx Pulmonary Embolism, Hx Sleep Apnea GI History: Reports: Hx Gastroesophageal Reflux Disease, Other GI Disorders - chronic constipation Denies: Hx Ulcer History: Reports: Other Problems/Disorders - URINARY INCONTINENCE, bladder spasms Denies: Hx Dialysis, Hx Renal Disease Musculoskeletal History: Reports: Hx Arthritis, Hx Back Problems, Hx Orthopedic Injury - right tibial fx, Hx Osteoporosis, Hx Scoliosis Denies: Other Musculoskeletal History Sensory History: Reports: Hx Contacts or Glasses, Other Sensory Impairments - Numbness in legs Denies: Hx Cataracts, Hx Eye Injury, Hx Eye Prosthesis, Hx Glaucoma, Hx Macular Degeneration, Hx Vision Problem, Hx Deafness, Hx Hearing Aid, Hx Hearing Problem Opthamlomology History: Reports: Hx Contacts or Glasses, Other Sensory Impairments - Numbness in legs Denies: Hx Cataracts, Hx Eye Injury, Hx Eye Prosthesis, Hx Glaucoma, Hx Macular Degeneration, Hx Vision Problem Neurological History: Reports: Other Neuro Impairments/Disorders - MS Denies: Hx Dementia, Hx Developmental Delay, Hx Headaches, Hx Migraine, Hx Seizures, Hx Spinal Cord Injury, Hx Transient Ischemic Attacks (TIA) Psychiatric History: Reports: Hx Anxiety, Hx Depression Denies: Hx Attention Deficit Hyperactivity Disorder, Hx Eating Disorder, Hx Panic Disorder, Hx Post Traumatic Stress Disorder, Hx Inpatient Treatment, Hx Community Mental Health Tx, Hx Schizophrenia, Hx Bipolar Disorder, Hx Suicide Attempt, Hx of Violent Episodes Against Others, Hx Substance Abuse, Other Psychiatric Issues/Disorders - Cancer History Hx Chemotherapy: No Hx Radiation Therapy: No Hx Palliative Cancer Treatment: No - Surgical History Surgery Procedure, Year, and Place: , Appendectomy, I+D ,r/t cellulitis right inner thigh- recent admission,Rt knee bakers cyst removal. Hx Anesthesia Reactions: No - Immunization History Date of Tetanus Vaccine: Unk Date of Influenza Vaccine: Fall 2014 Infectious Disease History: No Infectious Disease History: Denies: Hx Clostridium Difficile, Hx Hepatitis, Hx Human Immunodeficiency Virus (HIV), Hx of Known/Suspected MRSA, Hx Shingles, Hx Tuberculosis, Hx Known/ Suspected VRE, Hx Known/Suspected VRSA, History Other Infectious Disease, Traveled Outside the [place] in Last 30 Days - Family History Known Family History: Positive: Cardiac Disease - father, Hypertension, Diabetes , Other - Schizophrenia, aortic aneuyrsms (father) - Social History Lives: Alone Alcohol Use: None Substance Use Type: Reports: None Hx Tobacco Use: No Smoking Status (MU): Former Smoker Review of Systems Constitutional: Negative Eyes: Negative ENT: Negative Cardiovascular: Negative Positive: Cough Gastrointestinal: Negative Skin: Other - Mid back lump Neurological: Negative Psychological: Normal All Other Systems Reviewed And Are Negative: No Physical Exam - Summary Physical Exam Summary: GENERAL: NAD. WDWN. No pain distress. SKIN: Mid back: 1.0cm epidermal inclusion cyst. Slight TTP. No erythema, edema, erythema, streaking, induration. HEENT: Head: AT/NC Eyes: EOM intact. Conjunctiva clear without inflammation or discharge. Ears: Hearing grossly normal. TMs intact, no bulging, erythema, or edema. Nose: Nasal mucosa pink and moist. NTTP maxillary and frontal sinus. Throat: Posterior oropharynx without exudates, erythema, or tonsillar enlargement. Uvula midline. NECK: Supple. Nontender. No lymphadenopathy. CHEST: CTAB. No r/r/w. No accessory muscle use. Breathing comfortably and in no distress. CV: RRR. Without m/r/g. Pulses intact. Cap refill <2seconds NEURO: Alert. PSYCH: Age appropriate behavior. Triage Information Reviewed: Yes Vital Signs On Initial Exam: Initial Vitals Temp Pulse Resp BP Pulse Ox 97 F 69 18 128/74 92 07/10/19 14:20 07/10/19 14:20 07/10/19 14:20 07/10/19 14:20 07/10/19 14:20 Vital Signs Reviewed: Yes Procedures - Incision and Drainage 1 Anesthesia: Local, Lidocaine Instrument(s): Scalpel Packing: Other - None Diagnostics - Vital Signs Vital Signs Temp Pulse Resp BP Pulse Ox 07/10/19 14:20 97 F 69 18 128/74 92 - Laboratory Lab Statement: Any lab studies that have been ordered have been reviewed, and results considered in the medical decision making process. - Radiology CXR Radiology Interpretation Completed By: Radiologist Summary of Radiographic Findings: IMPRESSION: NO EVIDENCE FOR ACTIVE CARDIOPULMONARY DISEASE. Disposition - Course Course Of Treatment: The procedure was explained to the pt and all questions were answered. A time out was performed, witnessed, and signed. The area was cleansed with an alcohol pad. 1mL of 2% lidocaine without epi was administered and good anesthetization was achieved. Copious thick white/yellow material was able to be expressed by manual pressure. Bandaged with a band-aid. Pt tolerated procedure well. Discussed results of CXR. Suspect bronchitis, but given her frailty and hx of MS, will treat with anbx at this time. Pt voiced understanding and agrees with the plan - Diagnoses Provider Diagnoses: Epidermal inclusion cyst, Bronchitis Discharge ED - Sign-Out/Discharge Documenting (check all that apply): Patient Departure Patient Received Moderate/Deep Sedation with Procedure: No - Discharge Plan Condition: Stable Disposition: HOME Prescriptions: Azithromycin TAB* [Zithromax TAB (Z-ANDREWS) 250 mg #6 tabs] 2 tab PO .TODAY, THEN 1 DAILY #1 andrews Patient Education Materials: Acute Bronchitis (ED), Epidermal Inclusion Cysts ( ED) Referrals: Iva Cerna MD [Primary Care Provider] - Additional Instructions: If you develop a fever, shortness of breath, chest pain, new or worsening symptoms - please call your PCP or go to the ED immediately. Your X-Ray was normal today Take the antibiotics as directed and follow up with your primary doctor if symptoms do not improve within 5 days Change the band-aid on your back daily until well healed (likely 3-5 days) - Billing Disposition and Condition Condition: STABLE Disposition: Home - Attestation Statements Provider Attestation: I was available for consultation for this patient. I did not evaluate the patient or participate in any medical decision making or disposition decisions unless I am specifically named in the chart as having consulted on the patient. If I have consulted on the patient, please see my own ED note on the patient encounter. Sapphire Benitez MD
[2019-07-10 16:35] VITALS: BP 130/64
== END 2019-07-10 16:15 | disposition home or self-care (01) ==
LOC: ED 14:19
DX: L72.0 Epidermal cyst (principal); J40 Bronchitis, not specified as acute or chronic; R05 Cough; Z88.0 Allergy status to penicillin; Z79.01 Long term (current) use of anticoagulants; I50.9 Heart failure, unspecified; K21.9 Gastro-esophageal reflux disease without esophagitis; F41.9 Anxiety disorder, unspecified; F32.9 Major depressive disorder, single episode, unspecified; Z87.891 Personal history of nicotine dependence
CPT/HCPCS: 10060; 71046; 99283

== ENCOUNTER 2019-07-23 17:58 | Emergency (ER) | payer MEDICARE, OTHER ==
--- NOTE | 2019-07-23 18:49 | ED ---
Respiratory - HPI Summary HPI Summary: 69 year old F w hx MS brought in by EMS to [facility] complains of worsening productive cough with yellow sputum since 2 days ago. Patient states she was here 1 month ago for bronchitis, and discharged home with medications. Patient states she has been taking her medications but hasn't been feeling better. Patient reports fatigue and weakness. Patient additionally complains of diarrhea and decreased appetite that started 2 days ago. Denies vomiting and fever. Patient states she has chronic swelling in her lower extremities. The patient rates the pain 0/10 in severity. Symptoms aggravated by nothing. Symptoms alleviated by nothing. Patient states she has MS, is immobile at baseline, and has chronic weakness on her right side. - History of Current Complaint Chief Complaint: EDUpperRespComplaint Stated Complaint: COUGH PER EMS Time Seen by Provider: 07/23/19 18:29 Hx Obtained From: Patient Onset/Duration: Lasting Days - 2, Still Present Current Severity: None Pain Intensity: 0 Sputum Color: Yellow Aggravating Factor(s): Nothing Alleviating Factor(s): Nothing - Allergy/Home Medications Allergies/Adverse Reactions: Allergies Allergy/AdvReac Type Severity Reaction Status Date / Time carbamazepine Allergy Intermediate Hives Verified 07/23/19 18:07 Penicillins Allergy Intermediate Hives Verified 07/23/19 18:07 amitriptyline AdvReac Severe Hallucinati Verified 07/23/19 18:07 ons aspirin AdvReac Intermediate GI Upset Verified 07/23/19 18:07 Home Medications: Home Medications Alendronate (NF) [Fosamax (NF)] 70 mg PO WEEKLY 07/23/19 [History Confirmed ] Baclofen TAB* [Lioresal TAB*] 15 mg PO QID PRN 07/23/19 [History Confirmed 07/23] Calcium Phosphate Trib/Vit D3 [Calcium/Vitamin D3 Gummie] 2 chw PO DAILY [History Confirmed 07/23/19] Diazepam TAB(*) [Valium TAB(*)] 5 mg PO BID PRN 07/23/19 [History Confirmed ] Diazepam TAB(*) [Valium TAB(*)] 10 mg PO BEDTIME PRN 07/23/19 [History Confirmed 07/23/19] Polyethylene Glycol 3350* [Miralax*] 17 gm PO DAILY PRN 07/23/19 [History Confirmed 07/23/19] PMH/Surg Hx/FS Hx/Imm Hx Endocrine/Hematology History: Reports: Hx Anticoagulant Therapy - only during hospital admits. Denies: Hx Diabetes, Hx Thyroid Disease, Other Endocrine/Hematological Disorders Cardiovascular History: Reports: Hx Congestive Heart Failure - DX .2015 BUT PT NOT SURE CORRECT, Hx Hypercholesterolemia Denies: Hx Hypertension, Hx Pacemaker/ICD, Other Cardiovascular Problems/ Disorders Respiratory History: Reports: Hx Asthma, Hx Seasonal Allergies - also dust allergies, Other Respiratory Problems/Disorders - environmental allergies Denies: Hx Chronic Bronchitis, Hx Chronic Obstructive Pulmonary Disease (COPD ), Hx Cystic Fibrosis, Hx Lung Cancer, Hx Pleural Effusion, Hx Pneumonia, Hx Pulmonary Edema, Hx Pulmonary Embolism, Hx Sleep Apnea GI History: Reports: Hx Gastroesophageal Reflux Disease, Other GI Disorders - chronic constipation Denies: Hx Ulcer History: Reports: Other Problems/Disorders - URINARY INCONTINENCE, bladder spasms Denies: Hx Dialysis, Hx Renal Disease Musculoskeletal History: Reports: Hx Arthritis, Hx Back Problems, Hx Orthopedic Injury - right tibial fx, Hx Osteoporosis, Hx Scoliosis Denies: Other Musculoskeletal History Sensory History: Reports: Hx Contacts or Glasses, Other Sensory Impairments - Numbness in legs Denies: Hx Cataracts, Hx Eye Injury, Hx Eye Prosthesis, Hx Glaucoma, Hx Macular Degeneration, Hx Vision Problem, Hx Deafness, Hx Hearing Aid, Hx Hearing Problem Opthamlomology History: Reports: Hx Contacts or Glasses, Other Sensory Impairments - Numbness in legs Denies: Hx Cataracts, Hx Eye Injury, Hx Eye Prosthesis, Hx Glaucoma, Hx Macular Degeneration, Hx Vision Problem Neurological History: Reports: Other Neuro Impairments/Disorders - MS Denies: Hx Dementia, Hx Developmental Delay, Hx Headaches, Hx Migraine, Hx Seizures, Hx Spinal Cord Injury, Hx Transient Ischemic Attacks (TIA) Psychiatric History: Reports: Hx Anxiety, Hx Depression Denies: Hx Attention Deficit Hyperactivity Disorder, Hx Eating Disorder, Hx Panic Disorder, Hx Post Traumatic Stress Disorder, Hx Inpatient Treatment, Hx Community Mental Health Tx, Hx Schizophrenia, Hx Bipolar Disorder, Hx Suicide Attempt, Hx of Violent Episodes Against Others, Hx Substance Abuse, Other Psychiatric Issues/Disorders - Cancer History Hx Chemotherapy: No Hx Radiation Therapy: No Hx Palliative Cancer Treatment: No - Surgical History Surgery Procedure, Year, and Place: , Appendectomy, I+D ,r/t cellulitis right inner thigh- recent admission,Rt knee bakers cyst removal. Hx Anesthesia Reactions: No - Immunization History Date of Tetanus Vaccine: Unk Date of Influenza Vaccine: Fall 2014 Infectious Disease History: No Infectious Disease History: Denies: Hx Clostridium Difficile, Hx Hepatitis, Hx Human Immunodeficiency Virus (HIV), Hx of Known/Suspected MRSA, Hx Shingles, Hx Tuberculosis, Hx Known/ Suspected VRE, Hx Known/Suspected VRSA, History Other Infectious Disease, Traveled Outside the [place] in Last 30 Days - Family History Known Family History: Positive: Cardiac Disease - father, Hypertension, Diabetes , Other - Schizophrenia, aortic aneuyrsms (father) - Social History Alcohol Use: None Substance Use Type: Reports: None Hx Tobacco Use: No Smoking Status (MU): Former Smoker Review of Systems Positive: Fatigue. Negative: Fever Positive: Cough Positive: Diarrhea, Other - decreased appetite. Negative: Vomiting Positive: Weakness All Other Systems Reviewed And Are Negative: Yes Physical Exam - Summary Physical Exam Summary: Constitutional: chronically ill-appearing, NAD Skin: Warm, Dry HENT: Normocephalic; Atraumatic Eyes: Conjunctiva normal Neck: Musculoskeletal ROM normal neck. (-) JVD, (-) Stridor, (-) Nuchal rigidity Cardio: Rhythm regular, rate normal, Heart sounds normal; Intact distal pulses; Radial pulses are 2+ and symmetric. (-) Murmur Pulmonary/Chest wall: Mild rhonchie JATINDER, Effort normal. (-) Respiratory distress , (-) Wheezes, (-) Rales Abd: Soft, (-) tenderness, (-) Distension, (-) Guarding, (-) Rebound Musculoskeletal: + bilateral lower extremity edema Lymph: (-) Cervical adenopathy Neuro: Alert, Oriented x3, she has right sided weakness which is chronic Psych: Mood and affect Normal Triage Information Reviewed: Yes Vital Signs On Initial Exam: Initial Vitals Temp Pulse Resp BP Pulse Ox 97.5 F 86 16 132/89 98 07/23/19 17:59 07/23/19 17:59 07/23/19 17:59 07/23/19 17:59 07/23/19 17:59 Vital Signs Reviewed: Yes Diagnostics - Vital Signs Vital Signs Temp Pulse Resp BP Pulse Ox 07/23/19 17:59 97.5 F 86 16 132/89 98 - Laboratory Result Diagrams: 07/23/19 18:47 07/23/19 18:47 Lab Statement: Any lab studies that have been ordered have been reviewed, and results considered in the medical decision making process. - Radiology CXR Radiology Interpretation Completed By: ED Physician Summary of Radiographic Findings: left upper lobe opacity. pending official report Re-Evaluation - Re-Evaluation First Eval Re-Evaluation Time: 20:13 Comment: patient updated on plan of care which is outpatient antibiotics. Will return for worsening symptoms. Disposition - Course Course Of Treatment: 69 y/o F with MS, recent bronchitis p/w cough and sputum production x2 days as well as diarrhea. - No WBC, no abd pain. CXR w ?JATINDER culture but difficult to assess secondary to patient positioning. Given reported symptoms, and frail medical state, will give antibiotics. Curb 65 Score: 1. Low risk. Confusion? No. BUN >19? No. RR > 30? No. Systolic BP < 90? No. Age >/= 65? Yes - Diagnoses Provider Diagnoses: Pneumonia - Physician Notifications Discussed Care Of Patient With: Tanya Billings Time Discussed With Above Provider: 20:10 Instructed by Provider To: Other - Dr. Billings, hospitalist, recommends trying out patient antibiotics, specifically doxycyline and cefdinir given that she is well appearing with stable vital signs. Discharge ED - Sign-Out/Discharge Documenting (check all that apply): Patient Departure - Discharge Patient Received Moderate/Deep Sedation with Procedure: No - Discharge Plan Condition: Stable Disposition: HOME Prescriptions: Cefdinir [Cefdinir 300 MG CAP] 300 mg PO BID 7 Days #14 capsule DOXYcycline CAP(*) [DOXYcycline 100MG CAP(*)] 100 mg PO BID 7 Days #14 cap Patient Education Materials: Pneumonia (ED) Referrals: Iva Cerna MD [Primary Care Provider] - 2 Days Additional Instructions: You were seen in the emergency department for pneumonia. Your x-ray shows a small opacity of the left lung. This is a preliminary read, and our radiologist will read it tomorrow. You should take cefdinir twice a day as well as doxycycline twice a day for one week. Please return for worsening cough , fevers, shortness breath, or if you are concerned. If any studies were not completed at the time of discharge you will be called with the relevant results. Please follow up with your primary care doctor in next 2-3 days. It was a pleasure taking care of you today. - Billing Disposition and Condition Condition: STABLE Disposition: Home - Attestation Statements Document Initiated by Priya: Yes Documenting Scribe: Daksha Abdalla Provider For Whom Priya is Documenting (Include Credential): Sapphire Benitez MD Scribe Attestation: I, Daksha Abdalla, scribed for Sapphire Benitez MD on 07/23/19 at 2051. Scribe Documentation Reviewed: Yes Provider Attestation: The documentation as recorded by the minibDaksha dior accurately reflects the service I personally performed and the decisions made by me, Sapphire Benitez MD Status of Scribe Document: Viewed
[2019-07-23 18:54] LABS: ABS Eosinophils 0.1 10^3/ul (0-0.6); ABS Lymphocytes 1.2 10^3/ul (1.0-4.8); ABS Monocytes 0.6 10^3/ul (0-0.8); ABS Neutrophils 4.8 10^3/ul (1.5-7.7); Eosinophil % 1.8 %; Hematocrit 45 % (35-47); Hemoglobin 15.2 g/dL (12.0-16.0); Lymphocyte % 18.3 %; Mean Corpuscular HGB Conc 34 g/dL (31-36); Mean Corpuscular Hemoglobin 30 pg (27-31); Mean Corpuscular Volume 90 fL (80-97); Mean Platelet Volume 8.2 fL (7.4-10.4); Nucleated Red Blood Cells % 0.2; Platelet Count 152 10^3/uL (150-450); Red Blood Count 5.01 10^6 /uL (3.70-4.87); Red Cell Distribution Width 13 % (10-15); White Blood Count 6.8 10^3/uL (3.5-10.8)
[2019-07-23 19:10] LABS: Albumin 3.9 g/dL (3.2-5.2); Albumin/Globulin Ratio 1.5 (1-3); BUN/Creatinine Ratio 14.9 (8-20); Calcium 8.8 mg/dL (8.6-10.3); EGFR African American 105.9 (>60); EGFR Non-African American 87.5 (>60); Globulin 2.6 g/dL (2-4); Potassium 3.7 mmol/L (3.5-5.0); Total Bilirubin 0.8 mg/dL (0.2-1.0); Total Protein 6.5 g/dL (6.4-8.9)
--- OUTSIDE RECORDS SUMMARY | 2019-07-23 20:01 | XMS REPORT | Continuity of Care Document ---
:1950 External Reference #:[id number] Author Name Tamy Ervin Care Team Providers Name Role Phone Iva Cerna MD Primary Care Physician Unavailable Payers Date Identification Numbers Payment Provider Subscriber Policy Number: [id number] Medicare Kaley Bernard PayID: [id number] [address] [place] [address] Effective: 1990 Policy Number: [id number] Medicare Kaley Bernard Expires: 2018 PayID: [id number] [address] [place] [address] Policy Number: [id number] Medicaid Kaley Bernard Group Name: [facility] [employer] [address] PayID: [id number] [place] [address] Effective: 2018 Policy Number: [facility] Medicare Solutions Kaley Bernard [id number] Expires: 2019 Group Number: [id number] [address] [address] PayID: [id number] [place] [address] Effective: 2017 Policy Number: [id number] [facility] Kaley Bernard Expires: 2019 Group Number: [id number]% [id number] PayID: [id number] [address] Expires: 2018 Policy Number: [id number] [employer] Kaley Bernard Options PayID: [id number] [address] [address] Attn: [place] [address] Problems Active Problems Provider Date Secondary progressive multiple sclerosis Iva Cerna M.D. Onset: 2014 Hyperlipidemia Iva Cerna M.D. Onset: 02/06/2015 Spinal stenosis of lumbar region Tre Kyle M.D. Onset: 04/12/2015 Urinary incontinence Iva Cerna M.D. Onset: 05/25/2015 Vitamin D deficiency Iva Cerna M.D. Onset: 01/25/2016 Note: 7 in 2016 Cough variant asthma Iva Cerna M.D. Onset: 02/20/2016 Diastolic dysfunction Iva Cerna M.D. Onset: 02/29/2016 Note: grade 1 by echo in 11/2015 Scar emphysema Olivia Eagle MD Onset: 06/04/2016 Gastroesophageal reflux disease Olivia Eagle MD Onset: 06/04/2016 Disturbance in sleep behavior Olivia Eagle MD Onset: 06/04/2016 Rosacea Iva Cerna M.D. Onset: 07/02/2016 Scoliosis deformity of spine Iva Cerna M.D. Onset: 07/23/2016 Lymphedema Iva Cerna M.D. Onset: 01/20/2017 Osteoporosis Iva Cerna M.D. Onset: 03/18/2017 Dyspnea Bishop Schilling M.D.,FACP Onset: 09/11/2018 Chronic obstructive pulmonary disease Sara Martins NP Onset: 09/12/2018 with (acute) exacerbation Chronic low back pain Iva Cerna M.D. Onset: 11/12/2018 Inactive Problems Late effect of fracture of lower extremities Fatuma Morris MD Onset: 2015 Inactive: 03/18/2017 Family History Date Family Member(s) Observation Comments General Diabetes General Cancer General Heart Disease Social History Type Date Description Comments Sex Unknown Marital Status Single Lives With Alone has a aid that is with her 13 hours per day Occupation Disabled ETOH Use Denies alcohol use Tobacco Use Start: Unknown End: Patient is a former quit around age 27, Unknown smoker was heavy smoker Recreational Drug Use Denies Drug Use Smoking Status Reviewed: 05/31/19 Patient is a former quit around age 27, smoker was heavy smoker Exercise Type/Frequency ROM exercise Allergies, Adverse Reactions, Alerts Active Allergies Reaction Severity Comments Date PCN 11/21/2005 Tegretol 11/21/2005 Elavil 11/21/2005 Lactose (Intolerance) GI Distress 02/27/2016 Inactive Allergies Morphine 11/21/2005 Medications Active Medications SIG Qnty Indications Ordering Date Provider Poise Pads Ultimate use 3 pads per day 96units Iva Cerna, 10/28/2018 Absorbency Long dx: n39.41 (catalog M.D. equivalent) [facility] Natural Balance 2 drop each eye 30ml Iva Cerna, 10/12/2018 Tears nightly M.D. 0.1-0.3% Solution Omeprazole 1 by mouth every 90caps Iva Cerna, 06/02/2018 40mg day M.D. Capsules DR Caltrate 600+D Plus 1 tab twice a day 120tabs Iva Cerna, 05/13/2018 Minerals M.D. [id number] Tablets Chux Pads as needed dx 300units Iva Cerna, 03/31/2017 n39.498 and g35 M.D. Compression 30-40 mm Hg ( knee 1Pair I89.0 Iva Cerna, 12/23/2016 Stockings high compressions ) M.D. Misc as needed Dx. i89.0 & g35 G35 Shower Chair use daily as directed G35 Tre Wise M.D. 08/07/2016 R53.1 Sertraline HCL Take One Tablet By 90tabs Iva Cerna, 07/25/2016 100mg Mouth Every Day M.D. Tablets Ipratropium 1 unit every 6 hours 270ml J43.8 Dariela Willard, 06/04/2016 [place]/Albuterol as needed N.P. Sulfate 0.5-2.5(3)mg/3ML Solution Nebulizer 1 unit nebulization 1units J43.8 Olivia Eagle, 06/04/2016 Kit/Tubing/Mouthpiec every 4- 6 hours as MD dior needed Kit Nitrile Gloves use as needed dx:g35 300units Iva Cerna, 03/19/2016 Premium/One Size M.D. Misc Roll In Tub as needed dx g35 Iva Cerna, 03/04/2016 M.D. Aerochamber Mini use with inhalers 1units Iva Cerna, 01/24/2016 Aerosol Chamber M.D. Device Ventolin HFA inhale 2 puffs by 18units J45.991 Iva Cerna, 01/23/2016 mouth four times a M.D. 108(90Base) mcg/Act day as needed Aerosol Wheelchair ot/pt wheelchair Tre Wise, 10/03/2015 Evaluation M.D. Protective Underwear use daily (extra 120units Iva Cerna, 08/30/2015 Super Plus L large) dx n39.41 M.D. Misc Atorvastatin Calcium Take One Tablet By 90tabs Iva Cerna, 02/23/2015 Mouth AT Bedtime M.DFrancisco 20mg Tablets Baclofen 1 1/2 by mouth four 180tabs Tre Wise, 11/20/2005 10mg Tablets times a day as M.D. needed Diazepam 1 tab by mouth every 120tabs Tre iWse, 11/19/2005 5mg Tablets morning, 1 tab by M.DFrancisco mouth every afternoon, and 2 tabs by mouth every night at bedtime as needed Fentanyl 1 patch every 72 Unknown 25mcg/HR hours Patches 72HR Senna Take Two Tablets By 120tabs Angelia Cotton, 8.6mg Tablets Mouth Twice A Day as M.DFrancisco Needed For Constipation History Medications Bed [place] use as directed 1gabe Marmolejo 05/06/2019 - Ariana Wise 05/30/2019 Alternating Pressure use as directed 1gabe Marmolejo 05/06/2019 - Pad & Pump Ariana Wise 05/30/2019 Hospital Bed fully electric 1gabe Marmolejo 08/31/2018 - low bed with Ariana Wise 05/30/2019 mattress Alendronate Sodium take 1 tablet by 4tabs K21.9 Iva Cerna, 2017 - 70mg mouth weekly M.D. 05/27/2018 Tablets Zantac 150 Maximum 1 by mouth twice 60tabs K21.9 Iva Cerna, 2017 - Strength a day otc M.D. 06/02/2018 150mg Tablets Lidocaine use on each foot 60unbran I89.0 Tre Marmolejo 04/17/2018 - 5% Patches for 12 hours a Ariana Wise 11/12/2018 day Omeprazole Take One Capsule 60caps Iva Cerna, 11/17/2017 - 40mg By Mouth Every M.D. 05/13/[address] Monique Prilosec OTC take one capsule 90tabs Iva Cerna, 11/07/2017 - 20mg by mouth a day M.D. 11/17/2017 Tablets Vitamin D once a week 8caps Iva Cerna, 08/27/2017 - (Ergocalciferol) M.DFrancisco 04/16/2018 [id number] Capsules Ciprofloxacin HCL 1 tab by mouth 10tabs Iva Cerna, 07/23/2017 - 500mg twice a day M.DFrancisco 07/28/2017 Tablets Vitamin D once a week 14caps Iva Cerna, 03/25/2017 - (Ergocalciferol) M.DFrancisco 08/27/2017 [id number] Capsules Electric Hospital Bed Use as directed Tre Marmolejo 11/29/2016 - Ariana Wise 02/19/2017 Medicinal Marijuana Iva Cerna, 10/23/2016 - Ariana 01/15/2017 Slat Bed Slat bed, use G3Helio Marmolejo 09/26/2016 - daily as Ariana Wise 02/19/2017 directed. ( [facility]) M54.5 Alternating Pressure use daily as 1units G35 Tre Wise, 08/14/2016 - Mattress directed Ariana 02/19/2017 R53.1 Lidocaine apply 1 patch to 30units G35 Iva 08/07/2016 - 5% back daily, remove Ariana Cerna 09/10/2017 Patches after 12 hours Fentanyl 1 patch every 72 10units G3Helio Enrique 08/07/2016 - 25mcg/HR hours Ariana Cerna 10/23/2016 Patches 72HR Ibuprofen Comfort 1 tablet as needed Tre Marmolejo 08/07/2016 - Pac Ariana Wise 02/19/2017 800mg Kit Lidocaine apply to painful 35.440gm M54.5 Iva 07/31/2016 - 5% areas three times a Ariana Cerna 01/15/2017 Ointment day as needed. Milk Of Magnesia take 15 milliliters 355ml K59.01 Iva 07/31/2016 - daily x 2 days as Ariana Cerna 04/16/2018 1200mg/15ML needed for Suspension constipation Flector 1 Patch bid as 5units M51.36 Iva 07/25/2016 - 1.3% needed for pain Ariana Cerna 07/31/2016 Patches M48.06 M41.9 Trapeze trapeze for bed. use 1units M62.81 Tre Wise, 07/25/2016 - daily as directed Marisol.Ez 05/30/2019 M41.9 Alternating Pressure use daily as 1units M62.81 Tre Marmolejo 07/25/2016 - Air Mattress directed Ariana Wise 02/19/2017 M41.9 Ibuprofen by mouth three 30tabs Iva Cerna, 07/25/2016 - 800mg times a day as M.DFrancisco 07/31/2016 Tablets needed for pain Levaquin Done 5tabs L03.312 Iva Cerna, 07/19/2016 - 500mg M.D. 07/19/2016 Tablets Lidocaine apply to back 90units M54.5 Padilla Rubalcava, 07/19/2016 - 5% once daily. M.D. 07/31/2016 Patches Remove after 12 hours Oxycodone HCL 1 tab by mouth 120caps M54.5 Iva Cerna, 07/19/2016 - 5mg every 6 hours as M.D. 10/23/2016 Capsules needed for severe pain Omeprazole 1 by mouth every 90caps Iva Cerna, 07/16/2016 - 20mg day M.D. 08/27/[address] Fluconazole Done 5tabs Iva Cerna, 07/03/2016 - 100mg M.D. 07/31/2016 Tablets Sher Lift with bed 1units Iva Cerna, 07/03/2016 - extenders and M.D. 02/19/2017 split sling Nystatin Done QS B37.0 Iva Cerna, 07/02/2016 - M.D. 07/31/2016 [id number] Suspension Levaquin 1 by mouth every 10tabs L03.312 Iva Cerna, 06/13/2016 - 500mg day x 10 days M.D. 07/02/2016 Tablets Sertraline HCL not taking Unknown 06/06/2016 - 07/18/2016 100mg Tablets B Complex-B12 Unknown 06/06/2016 - 06/03/2017 Tablets Prednisone take 4 tab daily QS J45.991 Iva Cerna, 02/20/2016 - 10mg x 3 days then 3 M.D. 04/04/2016 Tablets tab daily x 4 days and then 2 tab daily x 3 days then 1 tab daily X 3 days (Finished) Flovent Diskus 1 puff twice a 1units J45.991 Iva Breweran, 02/20/2016 - day( pt has not M.D. 04/04/2016 250mcg/Blist been using, due Aerosol to it causing trush) Prednisone take 3 tab daily QS J45.991 Iva Breweran, 01/23/2016 - 10mg x 3 days then 2 M.D. 02/20/2016 Tablets tab daily x 4 days and then 1 tab daily x 3 days Natural Balance 2 drop each eye 30ml Tre Marmolejo 07/12/2015 - Tears nightly Ariana Wise 10/12/2018 0.4% Solution Nystop apply twice a day 10units 112.9 Iva Cerna, 02/06/2015 - x 7 days on R M.D. 05/25/2015 [id number]/[facility] use daily as M41.9 Tre Marmolejo 01/03/2015 - Bed With Height directed Ariana Wise 02/19/2017 [facility] Ele[facility] For trial basis Tre Marmolejo 07/25/2014 - Hospital Bed W Ariana Wise 02/19/2017 Overhead [facility] Tre Marmolejo 07/19/2014 - Bed W/ Over Head Ariana Wise 07/25/2014 Trapeze Fentanyl 1 q 72 hours 10units Tre Marmolejo 12/18/2012 - 25mcg/HR Ariana Wise 03/26/2013 Patches 72HR Fentanyl 1 with a 50 ug patch 6units Tre Marmolejo 11/27/2012 - 12mcg/HR for 18 days Ariana iWse 03/26/2013 Patches 72HR Fentanyl one topical every 72 10unbran [place] SFrancisco 11/26/2012 - 50mcg/HR hours Ariana Wise 12/18/2012 Patches 72HR Baclofen 1 po tid Qutabecky S. 11/06/2012 - 10mg Tablets Ariana Willis 11/06/2012 Fentanyl 1 plus a 12ug patch 10unbran [place] SFrancisco 11/06/2012 - 75mcg/HR every 72 hours for Ariana Wise 11/26/2012 Patches 72HR 18 days then just 1 75 ug patch for 18 days Fentanyl 1 with a 75 ug patch 6unbran [place] SFrancisco 11/06/2012 - 12mcg/HR for 18 days Ariana Wise 11/26/2012 Patches 72HR Niaspan Extended 1 po qpm 30tabs Heidi S. 04/10/2006 - Release Ariana Willis 07/31/2006 500mg Tablets Zetia 1 po qd 30tabs Heidi S. 01/22/2006 - 10mg Tablets Ariana Willis 04/10/2006 Fentanyl Transdermal 1 q3d 10unbran [place] SFrancisco 11/19/2005 - System Airana Wise 11/06/2012 100mcg/Hour Patches Zoloft 2-3 po qd po qd 30tabs Heidi S. 11/19/2005 - 100mg Tablets Ariana Willis 11/06/2012 Ambien 1/2-1 qhs prn sleep 30tabs Heidi S. 11/19/2005 - 10mg Tablets Ariana Willis 11/06/2012 Ditropan XL 1 PO qd 30tabs Heidi S. 11/19/2005 - 10mg Ariana Willis 06/27/2014 Tablets Zocor one qhs 30tabs Darnelltabecky S. 11/19/2005 - 10mg Tablets Ariana Willis 01/22/2006 Metoprolol Tartrate 1 /2 by mouth twice Unknown - a day 01/23/2016 25mg Tablets Metronidazole apply to affected Unknown - 1% Gel area(s) at bedtime 01/26/2016 Plavix 1 by mouth every day Unknown - 75mg Tablets not taking by choice 01/23/2016 Tums as needed heartburn Unknown - 500mg Chewtabs 03/12/2016 Acetaminophen ER 1 tab by mouthq 6 Unknown - 650mg hours as needed mild 07/31/2016 Tablets ER pain, fever Valium 1 tablet by mouth at Unknown - 10mg Tablets bedtime for muscle 01/09/2016 spasm Vitamin D 1 cap by mouth per Unknown - (Ergocalciferol) week x 8 weeks 01/09/2016 [id number] Capsules Caltrate 600+D Plus once daily Unknown - Minerals 04/16/2018 [id number] Chewtabs Aspirin Adult Low 1 by mouth every day Unknown - Strength 07/31/2016 81mg Chewtabs Symbicort not taking Unknown - 08/06/2016 160-4.5mcg/Act Aerosol Spiriva Respimat not taking Unknown - 08/06/2016 1.25mcg/Act Aerosol Tums 1 tab every 6 hours Unknown - 500mg Chewtabs as needed gerd 04/16/2018 Vail 1 every 4 hours as Unknown - 5-325mg Tablets needed MDD 5 tab 06/03/2017 Oxycodone HCL 1/2 to 1 tab every Unknown - 5mg 4 hours as needed 05/30/2019 Capsules for severe pain Loratadine 1 by mouth every day Unknown - 10mg Tablets 03/12/2016 Guaifenesin-DM Give 10 ml every 4 Unknown - hours as needed for 07/31/2016 100-10mg/5ML Syrup cough Cranberry 1 by mouth every day Unknown - 8400mg 01/15/2017 Tablets Calcium 600 2 by mouth every Unknown - 600mg day until 03/12/2016 Tablets Senna Lax Take One Tablet By 60tabs Iva Cerna, - 8.6mg Tablets Mouth Twice A Day as M.D. 01/02/2016 Needed For Constipation Metronidazole apply once daily as Unknown - 0.75% needed 01/02/2016 Cream Sulfamethoxazole/Trim 1 by mouth every Unknown - ethoprim DS other day 01/02/2016 800-160mg Tablets Natural Eye Drops 2 gtt each eye Iva Cerna, - nightly M.D. 07/12/2015 Ditropan XL 1 by mouth every day Unknown - 10mg prn 01/02/2015 Tablets ER 24HR Ventolin HFA 2 puffs po qid prn 18units Unknown - 01/02/2015 108(90Base) mcg/Act Aerosol Loratadine 1 po qd Unknown - 10mg Tablets 12/08/2013 Gemfibrozil 1 po daily 180tabs Unknown - 600mg 12/08/2013 Tablets Lovaza 1 po daily 60caps Unknown - 1gm Capsules 12/08/2013 Copaxone sc qd 30units Tre Marmolejo - 20mg/ml Kit Ariana Wise 12/08/2013 Zoloft 1 tabs po qd 180tabs Iva Cerna, - 100mg Tablets M.D. 05/01/2016 Td(Adult),Unspecified Unknown Injection Medications Administered in Office Medication SIG Qnty Indications Ordering Provider Date [facility] use daily as 1units G35 Tre Wise, 09/25/2016 - Bed directed M.D. 09/25/2016 M54.5 R53.1 Immunizations CPT Code Status Date Vaccine Lot # [id number] Given 11/12/2018 Tetanus And Diptheria (Td) For Adult Use [id number] Preservative Free [id number] Refused 11/12/2018 Influenza Virus Vaccine, Quadrivalent, Split, Preservative Free [id number] Refused 08/27/2017 Influenza Virus Vaccine, Quadrivalent, Split, Preservative Free Vital Signs Date Vital Result Comment 2019 3:02pm Height 63 inches 5'3" Weight 183.00 lb Heart Rate 72 /min BP Systolic Sitting 160 mmHg BP Diastolic Sitting 90 mmHg Respiratory Rate 18 /min BMI (Body Mass Index) 32.4 kg/m2 11/25/2018 1:54pm Height 63 inches 5'3" Weight 185.44 lb Heart Rate 72 /min BP Systolic Sitting 122 mmHg BP Diastolic Sitting 82 mmHg BMI (Body Mass Index) 32.8 kg/m2 11/12/2018 1:12pm Height 63 inches 5'3" Heart Rate 73 /min BP Systolic Sitting 120 mmHg BP Diastolic Sitting 80 mmHg O2 % BldC Oximetry 94 % 05/20/2018 2:19pm Height 63 inches 5'3" Weight 185.00 lb Heart Rate 78 /min BP Systolic 128 mmHg BP Diastolic 82 mmHg BMI (Body Mass Index) 32.8 kg/m2 05/13/2018 2:33pm Heart Rate 73 /min BP Systolic Sitting 128 mmHg BP Diastolic Sitting 70 mmHg O2 % BldC Oximetry 90 % 04/17/2018 3:16pm Height 63 inches 5'3" Weight 185.00 lb Heart Rate 76 /min BP Systolic Sitting 154 mmHg BP Diastolic Sitting 90 mmHg Respiratory Rate 16 /min BMI (Body Mass Index) 32.8 kg/m2 02/23/2018 1:18pm Height 63 inches 5'3" Weight 185.00 lb Heart Rate 76 /min BP Systolic Sitting 112 mmHg BP Diastolic Sitting 70 mmHg Respiratory Rate 14 /min O2 % BldC Oximetry 91 % BMI (Body Mass Index) 32.8 kg/m2 08/27/2017 2:35pm Heart Rate 72 /min BP Systolic Sitting 104 mmHg BP Diastolic Sitting 60 mmHg O2 % BldC Oximetry 92 % 06/03/2017 1:59pm Heart Rate 72 /min BP Systolic Sitting 118 mmHg BP Diastolic Sitting 72 mmHg 02/20/2017 2:56pm Heart Rate 82 /min BP Systolic Sitting 126 mmHg BP Diastolic Sitting 78 mmHg Respiratory Rate 16 /min Pain Level 3 Back and leg pain O2 % BldC Oximetry 93 % 01/15/2017 2:12pm Heart Rate 70 /min BP Systolic Sitting 122 mmHg BP Diastolic Sitting 72 mmHg Respiratory Rate 14 /min O2 % BldC Oximetry 96 % 08/20/2016 2:17pm Height 63 inches 5'3" Heart Rate 73 /min BP Systolic 128 mmHg BP Diastolic 84 mmHg Respiratory Rate 14 /min O2 % BldC Oximetry 93 % 08/07/2016 1:50pm Height 63 inches 5'3" Heart Rate 64 /min BP Systolic Sitting 138 mmHg BP Diastolic Sitting 78 mmHg 07/31/2016 2:24pm Height 63 inches 5'3" Weight 185.00 lb Heart Rate 63 /min BP Systolic 149 mmHg BP Diastolic 84 mmHg O2 % BldC Oximetry 95 % BMI (Body Mass Index) 32.8 kg/m2 07/19/2016 1:09pm Height 63 inches 5'3" Weight 185.00 lb Heart Rate 83 /min BP Systolic Sitting 130 mmHg BP Diastolic Sitting 78 mmHg Body Temperature 99.3 F O2 % BldC Oximetry 94 % BMI (Body Mass Index) 32.8 kg/m2 07/02/2016 2:57pm Heart Rate 87 /min BP Systolic Sitting 130 mmHg BP Diastolic Sitting 80 mmHg O2 % BldC Oximetry 97 % 06/21/2016 2:31pm Height 60 inches 5'0" Weight 180.00 lb Respiratory Rate 16 /min Pain Level 5 BMI (Body Mass Index) 35.1 kg/m2 06/13/2016 8:58am Weight 180.00 lb Heart Rate 104 /min BP Systolic Sitting 132 mmHg BP Diastolic Sitting 96 mmHg Body Temperature 96.6 F O2 % BldC Oximetry 98 % 06/04/2016 2:03pm Height 60 inches 5'0" Weight 180.00 lb Heart Rate 80 /min BP Systolic 130 mmHg BP Diastolic 88 mmHg Respiratory Rate 14 /min O2 % BldC Oximetry 95 % BMI (Body Mass Index) 35.1 kg/m2 05/03/2016 3:51pm Weight 181.00 lb Pain Level 1 03/13/2016 3:05pm Weight 181.00 lb last weighed 12/12 Heart Rate 80 /min BP Systolic Sitting 138 mmHg LA lrg cuff BP Diastolic Sitting 80 mmHg LA lrg cuff Respiratory Rate 16 /min Ejection Fraction 55% 12/22/15 02/20/2016 2:05pm Heart Rate 89 /min BP Systolic Sitting 130 mmHg BP Diastolic Sitting 78 mmHg Respiratory Rate 16 /min Body Temperature 97.5 F O2 % BldC Oximetry 92 % 01/30/2016 2:09pm Heart Rate 82 /min BP Systolic Sitting 120 mmHg BP Diastolic Sitting 70 mmHg Respiratory Rate 17 /min 01/23/2016 2:18pm Height 63 inches 5'3" pt in wheelchair Heart Rate 77 /min BP Systolic 128 mmHg BP Diastolic 78 mmHg Body Temperature 98.0 F O2 % BldC Oximetry 97 % 01/09/2016 2:34pm Height 63 inches 5'3" pt in wheelchair Weight 181.00 lb Heart Rate 66 /min BP Systolic 115 mmHg BP Diastolic 69 mmHg Body Temperature 98.5 F O2 % BldC Oximetry 93 % BMI (Body Mass Index) 32.1 kg/m2 08/28/2015 1:03pm Height 63 inches 5'3" pt in wheelchair Weight 175.00 lb Heart Rate 74 /min BP Systolic Sitting 138 mmHg BP Diastolic Sitting 82 mmHg Respiratory Rate 16 /min Pain Level 6 BMI (Body Mass Index) 31.0 kg/m2 07/12/2015 2:09pm Heart Rate 68 /min BP Systolic Sitting 128 mmHg BP Diastolic Sitting 78 mmHg Respiratory Rate 16 /min 05/25/2015 1:48pm Height 63 inches 5'3" Stated height. Heart Rate 72 /min BP Systolic 128 mmHg BP Diastolic 74 mmHg Body Temperature 98.2 F 04/12/2015 1:56pm Height 63 inches 5'3" Stated height. Heart Rate 78 /min BP Systolic Sitting 122 mmHg BP Diastolic Sitting 70 mmHg Pain Level 8 spine 02/06/2015 1:21pm Height 63 inches Stated height. Weight 155.00 lb Stated weight. Unable to weigh, wheelchair bound Heart Rate 79 /min BP Systolic Sitting 128 mmHg BP Diastolic Sitting 74 mmHg O2 % BldC Oximetry 97 % BMI (Body Mass Index) 27.5 kg/m2 01/03/2015 1:26pm Heart Rate 76 /min BP Systolic Sitting 122 mmHg BP Diastolic Sitting 70 mmHg Respiratory Rate 16 /min 07/05/2014 1:36pm Height 63 inches 5'3" Heart Rate 72 /min BP Systolic Sitting 126 mmHg BP Diastolic Sitting 70 mmHg Respiratory Rate 16 /min 12/08/2013 1:38pm Heart Rate 70 /min BP Systolic Sitting 130 mmHg BP Diastolic Sitting 78 mmHg Respiratory Rate 16 /min 06/02/2013 2:05pm Height 63 inches 5'3" Weight 140.00 lb Heart Rate 84 /min BP Systolic Sitting 118 mmHg BP Diastolic Sitting 70 mmHg Respiratory Rate 12 /min BMI (Body Mass Index) 24.8 kg/m2 11/06/2012 12:24pm Heart Rate 78 /min BP Systolic Sitting 118 mmHg BP Diastolic Sitting 72 mmHg Respiratory Rate 14 /min 07/31/2006 1:33pm Height 63 inches 5'3" Weight 144.00 lb Heart Rate 67 /min BP Systolic Sitting 120 mmHg R BP Diastolic Sitting 60 mmHg R BMI (Body Mass Index) 25.5 kg/m2 01/22/2006 10:56am Height 63 inches 5'3" Heart Rate 82 /min BP Systolic Sitting 118 mmHg BP Diastolic Sitting 70 mmHg 11/21/2005 2:26pm Height 63 inches 5'3" Weight 164.00 lb Heart Rate 58 /min BP Systolic Sitting 118 mmHg L 124/70 R BP Diastolic Sitting 60 mmHg L 124/70 R O2 % BldC Oximetry 98 % BMI (Body Mass Index) 29.0 kg/m2 Results Test Date Facility Test Result H/L Range Note Laboratory test [facility] Miscellaneous Test See Comment 1 finding [address] [place], [place] [id number] [phone] Laboratory test [facility] Surgical Pathology SEE RESULT 2 finding [address] [place], [place] [id number] [phone] Rapid Influenza [facility] Influenza A NEGATIVE Negative 3 A & B Molecular [address] [place] [address] [phone] Influenza B Molecular NEGATIVE Negative Laboratory test 09/11/2018 [facility] Rapid SEE RESULT [address] [place] [address] Antigen [phone] CBC Auto Diff 09/11/2018 [facility] White Blood 6.3 10^3/uL Normal 3.5-[address] Count 0.8 [place], [place] [id number] [phone] Red Blood Count 4.77 10^6/uL Normal 4.00-5.40 Hemoglobin 14.3 g/dL Normal 12.0-16.0 Hematocrit 43 % Normal 35-47 Mean Corpuscular Volume 90 fL Normal 80-97 Mean Corpuscular Hemoglobin 30 pg Normal 27-31 Mean Corpuscular HGB Conc 33 g/dL Normal 31-36 Red Cell Distribution Width 15 % Normal 10.5-15 Platelet Count 149 10^3/uL Low 150-450 Mean Platelet Volume 8.4 fL Normal 7.4-10.4 Abs Neutrophils 4.2 10^3/uL Normal 1.5-7.7 Abs Lymphocytes 1.2 10^3/uL Normal 1.0-4.8 Abs Monocytes 0.7 10^3/uL Normal 0-0.8 Abs Eosinophils 0.2 10^3/uL Normal 0-0.6 Abs Basophils 0 10^3/uL Normal 0-0.2 Abs Nucleated RBC 0 10^3/uL Granulocyte % 66.7 % Normal 38-83 Lymphocyte % 18.4 % Low 25-47 Monocyte % 10.4 % High 0-7 Eosinophil % 3.9 % Normal 0-6 Basophil % 0.6 % Normal 0-2 Nucleated Red Blood Cells % 0 Comp Metabolic 09/11/2018 [facility] Sodium 137 mmol/L Normal 135-[address] [place] [address] [phone] Chloride 102 mmol/L Normal 101-111 Co2 Carbon Dioxide 30 mmol/L Normal 22-32 Glucose 111 mg/dL High 70-100 Blood Urea Nitrogen 8 mg/dL Normal 6-24 Creatinine 0.61 mg/dL Normal 0.51-0.95 BUN/Creatinine Ratio 13.1 Normal 8-20 Calcium 9.2 mg/dL Normal 8.6-10.3 Total Protein 6.6 g/dL Normal 6.4-8.9 Albumin 3.8 g/dL Normal 3.2-5.2 Globulin 2.8 g/dL Normal 2-4 Albumin/Globulin Ratio 1.4 Normal 1-3 Total Bilirubin 0.80 mg/dL Normal 0.2-1.0 Alkaline Phosphatase 102 U/L Normal 34-104 Alt 19 U/L Normal 7-52 Egfr Non- 97.8 >60 Egfr 118.4 >60 5 Potassium 4.6 mmol/L Normal 3.5-5.0 Anion Gap 5 mmol/L Normal 2-11 Ast 23 U/L Normal 13-39 Laboratory test 09/11/2018 [facility] C Reactive 4.38 mg/L Normal <8.[address] [place] [address] [phone] B-Type Natriuretic Peptide BNP 12 pg/mL <=100 Troponin-I (TnI) 0.00 ng/mL <0.04 Lipid Profile 05/08/2018 [facility] Triglycerides 106 mg/dL 6 (Trig/Chol/HDL) [address] [place] [address] [phone] Cholesterol 134 mg/dL 7 HDL Cholesterol 41.7 mg/dL 8 LDL Cholesterol 71 mg/dL 9 CBC Auto 02/09/2018 [facility] White Blood 5.6 10^3/uL Normal 3.5-10.[address] [place] [address] [phone] Red Blood Count 5.05 10^6/uL Normal 4.0-5.4 Hemoglobin 15.2 g/dL Normal 12.0-16.0 Hematocrit 46 % Normal 35-47 Mean Corpuscular Volume 91 fL Normal 80-97 Mean Corpuscular Hemoglobin 30 pg Normal 27-31 Mean Corpuscular HGB Conc 33 g/dL Normal 31-36 Red Cell Distribution Width 13 % Normal 10.5-15 Platelet Count 135 10^3/uL Low 150-450 Mean Platelet Volume 8.2 um3 Normal 7.4-10.4 Abs Neutrophils 3.6 10^3/uL Normal 1.5-7.7 Abs Lymphocytes 1.4 10^3/uL Normal 1.0-4.8 Abs Monocytes 0.5 10^3/uL Normal 0-0.8 Abs Eosinophils 0.2 10^3/uL Normal 0-0.6 Abs Basophils 0 10^3/uL Normal 0-0.2 Abs Nucleated RBC 0 10^3/uL Granulocyte % 63.6 % Normal 38-83 Lymphocyte % 24.2 % Low 25-47 Monocyte % 8.1 % High 0-7 Eosinophil % 3.3 % Normal 0-6 Basophil % 0.8 % Normal 0-2 Nucleated Red Blood Cells % 0.1 Comp Metabolic 02/09/2018 [facility] Sodium 140 mmol/L Normal 139-[address] [place] [address] [phone] Potassium 4.1 mmol/L Normal 3.5-5.0 Chloride 102 mmol/L Normal 101-111 Co2 Carbon Dioxide 34 mmol/L High 22-32 Anion Gap 4 mmol/L Normal 2-11 Glucose 86 mg/dL Normal 70-100 Blood Urea Nitrogen 10 mg/dL Normal 6-24 Creatinine 0.73 mg/dL Normal 0.51-0.95 BUN/Creatinine Ratio 13.7 Normal 8-20 Calcium 9.3 mg/dL Normal 8.6-10.3 Total Protein 6.8 g/dL Normal 6.4-8.9 Albumin 4.0 g/dL Normal 3.2-5.2 Globulin 2.8 g/dL Normal 2-4 Albumin/Globulin Ratio 1.4 Normal 1-3 Total Bilirubin 0.90 mg/dL Normal 0.2-1.0 Alkaline Phosphatase 103 U/L Normal 34-104 Alt 40 U/L Normal 7-52 Ast 29 U/L Normal 13-39 Egfr Non- 79.8 >60 Egfr 102.6 >60 10 Laboratory test 02/09/2018 [facility] C Reactive 2.00 mg/L Normal < 5.00 [address] [place] [address] [phone] Comp Metabolic 06/12/2017 [facility] Sodium 138 Normal 133- [address] mmol/[place] [address] [phone] Potassium 4.2 mmol/L Normal 3.5-5.0 Chloride 103 mmol/L Normal 101-111 Co2 Carbon Dioxide 28 mmol/L Normal 22-32 Anion Gap 7 mmol/L Normal 2-11 Glucose 104 mg/dL High 70-100 Blood Urea Nitrogen 10 mg/dL Normal 6-24 Creatinine 0.84 mg/dL Normal 0.51-0.95 BUN/Creatinine Ratio 11.9 Normal 8-20 Calcium 10.2 mg/dL Normal 8.6-10.3 Total Protein 7.5 g/dL Normal 6.4-8.9 Albumin 4.5 g/dL Normal 3.2-5.2 Globulin 3.0 g/dL Normal 2-4 Albumin/Globulin Ratio 1.5 Normal 1-3 Total Bilirubin 1.30 mg/dL High 0.2-1.0 Alkaline Phosphatase 85 U/L Normal 34-104 Alt 32 U/L Normal 7-52 Ast 27 U/L Normal 13-39 Egfr Non- 67.8 Normal >60 Egfr 87.2 Normal >60 12 Laboratory test 06/12/2017 [facility] Lactic Acid 1.0 mmol/L Normal 0.5-2.0 [address] [place] [address] [phone] CBC Auto Diff 06/12/2017 [facility] White Blood 5.7 Normal 3.5 -10.[address] Count 10^3/[place] [address] [phone] Red Blood Count 5.46 10^6/uL High 4.0-5.4 Hemoglobin 16.2 g/dL High 12.0-16.0 Hematocrit 48 % High 35-47 Mean Corpuscular Volume 88 fL Normal 80-97 Mean Corpuscular Hemoglobin 30 pg Normal 27-31 Mean Corpuscular HGB Conc 34 g/dL Normal 31-36 Red Cell Distribution Width 13 % Normal 10.5-15 Platelet Count 158 10^3/uL Normal 150-450 Mean Platelet Volume 9 um3 Normal 7.4-10.4 Abs Neutrophils 4.3 10^3/uL Normal 1.5-7.7 Abs Lymphocytes 1.0 10^3/uL Normal 1.0-4.8 Abs Monocytes 0.3 10^3/uL Normal 0-0.8 Abs Eosinophils 0 10^3/uL Normal 0-0.6 Abs Basophils 0 10^3/uL Normal 0-0.2 Abs Nucleated RBC 0.01 10^3/uL Normal Granulocyte % 75.6 % Normal 38-83 Lymphocyte % 18.1 % Low 25-47 Monocyte % 4.9 % Normal 1-9 Eosinophil % 0.8 % Normal 0-6 Basophil % 0.6 % Normal 0-2 Nucleated Red Blood Cells % 0.1 Normal Urine Culture And 06/12/2017 [facility] Urine SEE RESULT [address] [place] [address] [phone] Urinalysis Profile 06/12/2017 [facility] Urine Color Yellow Normal [address] [place] [address] [phone] Urine Appearance Clear Normal Urine Specific [place] 1.014 Normal 1.010-1.030 Urine pH 6.0 Normal 5-9 Urine Urobilinogen Negative Normal Negative Urine Ketones Trace Abnormal Negative Urine Protein Negative Normal Negative Urine Leukocytes 1+ Abnormal Negative Urine Blood Negative Normal Negative Urine Nitrite Positive Abnormal Negative Urine Bilirubin Negative Normal Negative Urine Glucose Negative Normal Negative Urine White Blood Cell 1+(6-10/hpf) Abnormal Absent Urine Red Blood Cell Absent Normal Absent Urine Bacteria 3+ Abnormal Absent Urine Squamous Epithelial Cell Present Abnormal Absent Laboratory test 06/12/2017 [facility] Magnesium 2.1 mg/dL Normal 1.9-2.[address] [place] [address] [phone] Lipase 16 U/L Normal 11.0-82.0 C Reactive Protein 2.78 mg/L Normal < 5.00 15 Laboratory test 06/06/2017 [facility] Lactic Acid 1.2 mmol/L Normal 0.5-2.[address] [place] [address] [phone] Comp Metabolic 06/06/2017 [facility] Sodium 138 mmol/L Normal 133-145 [place] [address] [phone] Potassium 4.2 mmol/L Normal 3.5-5.0 Chloride 104 mmol/L Normal 101-111 Co2 Carbon Dioxide 30 mmol/L Normal 22-32 Anion Gap 4 mmol/L Normal 2-11 Glucose 114 mg/dL High 70-100 Blood Urea Nitrogen 9 mg/dL Normal 6-24 Creatinine 0.65 mg/dL Normal 0.51-0.95 BUN/Creatinine Ratio 13.8 Normal 8-20 Calcium 9.2 mg/dL Normal 8.6-10.3 Total Protein 7.0 g/dL Normal 6.4-8.9 Albumin 4.1 g/dL Normal 3.2-5.2 Globulin 2.9 g/dL Normal 2-4 Albumin/Globulin Ratio 1.4 Normal 1-3 Total Bilirubin 0.90 mg/dL Normal 0.2-1.0 Alkaline Phosphatase 87 U/L Normal 34-104 Alt 24 U/L Normal 7-52 Ast 21 U/L Normal 13-39 Egfr Non- 91.2 Normal >60 Egfr 117.3 Normal >60 17 Laboratory test 06/06/2017 [facility] Troponin-I 0.00 ng/mL Normal <0.04 finding 101 (TnI) [place] [address] [phone] B-Type Natriuretic Peptide BNP 13 pg/mL Normal 18 CBC Auto 06/06/2017 [facility] White Blood 5.3 10^3/uL Normal 3.5-10.8 Diff [address] [place] [address] [phone] Red Blood Count 5.17 10^6/uL Normal 4.0-5.4 Hemoglobin 15.4 g/dL Normal 12.0-16.0 Hematocrit 47 % Normal 35-47 Mean Corpuscular Volume 91 fL Normal 80-97 Mean Corpuscular Hemoglobin 30 pg Normal 27-31 Mean Corpuscular HGB Conc 33 g/dL Normal 31-36 Red Cell Distribution Width 13 % Normal 10.5-15 Platelet Count 147 10^3/uL Low 150-450 Mean Platelet Volume 8 um3 Normal 7.4-10.4 Abs Neutrophils 4.0 10^3/uL Normal 1.5-7.7 Abs Lymphocytes 0.9 10^3/uL Low 1.0-4.8 Abs Monocytes 0.3 10^3/uL Normal 0-0.8 Abs Eosinophils 0.1 10^3/uL Normal 0-0.6 Abs Basophils 0 10^3/uL Normal 0-0.2 Abs Nucleated RBC 0.01 10^3/uL Normal Granulocyte % 75.2 % Normal 38-83 Lymphocyte % 17.1 % Low 25-47 Monocyte % 5.1 % Normal 1-9 Eosinophil % 2.0 % Normal 0-6 Basophil % 0.6 % Normal 0-2 Nucleated Red Blood Cells % 0.2 Normal Urine Culture And 06/06/2017 [facility] Urine SEE RESULT [address] [place] [address] [phone] Urinalysis Profile 06/06/2017 [facility] Urine Color Yellow Normal [address] [place] [address] [phone] Urine Appearance Cloudy Normal Urine Specific [place] 1.015 Normal 1.010-1.030 Urine pH 7.0 Normal 5-9 Urine Urobilinogen Negative Normal Negative Urine Ketones Negative Normal Negative Urine Protein Negative Normal Negative Urine Leukocytes Trace Abnormal Negative Urine Blood Negative Normal Negative Urine Nitrite Positive Abnormal Negative Urine Bilirubin Negative Normal Negative Urine Glucose Negative Normal Negative Urine White Blood Cell 1+(6-10/hpf) Abnormal Absent Urine Red Blood Cell Trace(0-2/hpf) Normal Absent Urine Bacteria 1+ Abnormal Absent Urine Squamous Epithelial Cell Present Abnormal Absent Lipid Profile 03/19/2017 [facility] Triglycerides 111 mg/dL Normal 20 (Trig/Chol/HDL) [address] [place] [address] [phone] Cholesterol 159 mg/dL Normal 21 HDL Cholesterol 38.5 mg/dL Normal 22 LDL Cholesterol 98 mg/dL Normal 23 Laboratory 03/19/2017 [facility] Hepatitis C Nonreactive Normal Nonreactive test finding [address] [place] [address] [phone] Basic 03/19/2017 [facility] Sodium 140 mmol/L Normal 133-[address] [place] [address] [phone] Potassium 4.7 mmol/L Normal 3.5-5.0 Chloride 103 mmol/L Normal 101-111 Co2 Carbon Dioxide 28 mmol/L Normal 22-32 Anion Gap 9 mmol/L Normal 2-11 Glucose 94 mg/dL Normal 70-100 Blood Urea Nitrogen 12 mg/dL Normal 6-24 Creatinine 0.64 mg/dL Normal 0.51-0.95 BUN/Creatinine Ratio 18.8 Normal 8-20 Calcium 9.6 mg/dL Normal 8.6-10.3 Egfr Non- 93.1 Normal >60 Egfr 119.8 Normal >60 24 Quantiferon 03/19/2017 [facility] M tuberculosis Negative Normal Negative [address] [place] [address] [phone] TB Ag minus Nil Result -0.03 IU/mL Normal TB Mitogen minus Nil Result > 10.00 IU/mL Normal TB Nil Result 0.08 IU/mL Normal 26 Laboratory test 03/19/2017 [facility] Vitamin D 12.7 ng/mL Low 30-[address] Total 25(Oh) [place] [address] [phone] Pthi 03/19/2017 [facility] Calcium (PTH 9.6 mg/dL Normal 8.6- 10.3 DRIVE Intact) [place] [address] [phone] PTH Intact 5.3 pmol/L Normal 1.3-9.3 Comp Metabolic 07/25/2016 [facility] Sodium 137 mmol/L Normal 133-[address] [place] [address] [phone] Potassium 3.9 mmol/L Normal 3.5-5.0 Chloride 108 mmol/L Normal 101-111 Co2 Carbon Dioxide 21 mmol/L Low 22-32 Anion Gap 8 mmol/L Normal 2-11 Glucose 137 mg/dL High 70-100 Blood Urea Nitrogen 12 mg/dL Normal 6-24 Creatinine 0.82 mg/dL Normal 0.51-0.95 BUN/Creatinine Ratio 14.6 Normal 8-20 Calcium 8.6 mg/dL Normal 8.6-10.3 Total Protein 6.3 g/dL Low 6.4-8.9 Albumin 3.5 g/dL Normal 3.2-5.2 Globulin 2.8 g/dL Normal 2-4 Albumin/Globulin Ratio 1.3 Normal 1-3 Total Bilirubin 1.60 mg/dL High 0.2-1.0 Alkaline Phosphatase 72 U/L Normal 34-104 Alt 31 U/L Normal 7-52 Ast 26 U/L Normal 13-39 Egfr Non- 70.0 Normal >60 Egfr 90.0 Normal >60 27 Laboratory test 07/25/2016 [facility] Creatine 40 U/L Normal 10-[address] Kinase(CK) [place] [address] [phone] Troponin-I (TnI) 0.00 ng/mL Normal <0.03 28 CKMB 07/25/2016 [facility] CKMB ng/mL 1.4 ng/mL Normal 0.6- 6.[address] [place] [address] [phone] CBC Auto 07/25/2016 [facility] White Blood 9.8 10^3/uL Normal 3.5-10.[address] [place] [address] [phone] Red Blood Count 4.89 10^6/uL Normal 4.0-5.4 Hemoglobin 14.6 g/dL Normal 12.0-16.0 Hematocrit 43 % Normal 35-47 Mean Corpuscular Volume 88 fL Normal 80-97 Mean Corpuscular Hemoglobin 30 pg Normal 27-31 Mean Corpuscular HGB Conc 34 g/dL Normal 31-36 Red Cell Distribution Width 13 % Normal 10.5-15 Platelet Count 139 10^3/uL Low 150-450 Mean Platelet Volume 9 um3 Normal 7.4-10.4 Abs Neutrophils 8.3 10^3/uL High 1.5-7.7 Abs Lymphocytes 0.9 10^3/uL Low 1.0-4.8 Abs Monocytes 0.5 10^3/uL Normal 0-0.8 Abs Eosinophils 0 10^3/uL Normal 0-0.6 Abs Basophils 0 10^3/uL Normal 0-0.2 Abs Nucleated RBC 0 10^3/uL Normal Granulocyte % 84.9 % High 38-83 Lymphocyte % 9.3 % Low 25-47 Monocyte % 5.3 % Normal 1-9 Eosinophil % 0.2 % Normal 0-6 Basophil % 0.3 % Normal 0-2 Nucleated Red Blood Cells % 0 Normal Laboratory test 07/25/2016 [facility] Partial 29.8 Normal 26.0 -36.[address] [place] [address] Time PTT [phone] Urinalysis 07/17/2016 [facility] Urine Color Straw Normal Profile [address] [place], [place] [id number] [phone] Urine Appearance Clear Normal Urine Specific [place] 1.008 Low 1.010-1.030 Urine pH 7.0 Normal 5-9 Urine Urobilinogen Negative Normal Negative Urine Ketones Negative Normal Negative Urine Protein Negative Normal Negative Urine Leukocytes Trace Abnormal Negative Urine Blood 1+ Abnormal Negative Urine Nitrite Negative Normal Negative Urine Bilirubin Negative Normal Negative Urine Glucose Negative Normal Negative Urine White Blood Cell Trace(0-5/hpf) Normal Absent Urine Red Blood Cell Trace(0-2/hpf) Normal Absent Urine Bacteria Absent Normal Absent Urine Squamous Epithelial Cell Present Abnormal Absent Urine Culture And 07/17/2016 [facility] Urine SEE RESULT [address] Culture BELOW [place], [place] [id number] [phone] CBC Auto Diff 07/17/2016 [facility] White Blood 8.4 10^3/uL Normal 3.5- [address] Count 10.8 [place] [address] [phone] Red Blood Count 5.04 10^6/uL Normal 4.0-5.4 Hemoglobin 14.9 g/dL Normal 12.0-16.0 Hematocrit 44 % Normal 35-47 Mean Corpuscular Volume 87 fL Normal 80-97 Mean Corpuscular Hemoglobin 30 pg Normal 27-31 Mean Corpuscular HGB Conc 34 g/dL Normal 31-36 Red Cell Distribution Width 12 % Normal 10.5-15 Platelet Count 135 10^3/uL Low 150-450 Mean Platelet Volume 8 um3 Normal 7.4-10.4 Abs Neutrophils 5.9 10^3/uL Normal 1.5-7.7 Abs Lymphocytes 1.6 10^3/uL Normal 1.0-4.8 Abs Monocytes 0.8 10^3/uL Normal 0-0.8 Abs Eosinophils 0 10^3/uL Normal 0-0.6 Abs Basophils 0 10^3/uL Normal 0-0.2 Abs Nucleated RBC 0 10^3/uL Normal Granulocyte % 71.0 % Normal 38-83 Lymphocyte % 19.0 % Low 25-47 Monocyte % 9.3 % High 1-9 Eosinophil % 0.3 % Normal 0-6 Basophil % 0.4 % Normal 0-2 Nucleated Red Blood Cells % 0 Normal Inr/Protime 07/17/2016 [facility] Inr 0.87 Low 0.89-1.[address] [place] [address] [phone] Laboratory test 07/17/2016 [facility] Partial 17.8 Low 26.0- 36.[address] [place] [address] PTT [phone] Lactic Acid 1.1 mmol/L Normal 0.5-2.0 30 B-Type Natriuretic Peptide BNP 120 pg/mL High 31 Acetaminophen < 15 g/mL Normal 32 Comp Metabolic 07/17/2016 [facility] Sodium 137 mmol/L Normal 133-[address] [place] [address] [phone] Potassium 4.1 mmol/L Normal 3.5-5.0 Chloride 104 mmol/L Normal 101-111 Co2 Carbon Dioxide 29 mmol/L Normal 22-32 Anion Gap 4 mmol/L Normal 2-11 Glucose 112 mg/dL High 70-100 Blood Urea Nitrogen 25 mg/dL High 6-24 Creatinine 0.81 mg/dL Normal 0.51-0.95 BUN/Creatinine Ratio 30.9 High 8-20 Calcium 8.6 mg/dL Normal 8.6-10.3 Total Protein 6.2 g/dL Low 6.4-8.9 Albumin 3.7 g/dL Normal 3.2-5.2 Globulin 2.5 g/dL Normal 2-4 Albumin/Globulin Ratio 1.5 Normal 1-3 Total Bilirubin 0.70 mg/dL Normal 0.2-1.0 Alkaline Phosphatase 80 U/L Normal 34-104 Alt 26 U/L Normal 7-52 Ast 25 U/L Normal 13-39 Egfr Non- 71.0 Normal >60 Egfr 91.3 Normal >60 33 Laboratory test 07/17/2016 [facility] Magnesium 2.5 mg/dL Normal 1.9-2.[address] [place] [address] [phone] Lipase 70 U/L Normal 11.0-82.0 Creatine Kinase(CK) 45 U/L Normal 10-223 C Reactive Protein < 1.00 mg/L Normal < 5.00 34 Troponin-I (TnI) 0.00 ng/mL Normal <0.03 35 CKMB 07/17/2016 [facility] CKMB 3.6 ng/mL Normal 0.6-6.[address] ng/[place] [address] [phone] Laboratory test 07/17/2016 [facility] TSH 4.34 Normal 0.34- 5.[address] (Thyroid mcIU/[place] [address] Stim Zqxn) [phone] CBC Auto Diff 07/12/2016 [facility] White 5.2 Normal 3.5-10.[address] Blood 10^3/[place] [address] Count [phone] Red Blood Count 4.93 10^6/uL Normal 4.0-5.4 Hemoglobin 14.4 g/dL Normal 12.0-16.0 Hematocrit 43 % Normal 35-47 Mean Corpuscular Volume 87 fL Normal 80-97 Mean Corpuscular Hemoglobin 29 pg Normal 27-31 Mean Corpuscular HGB Conc 34 g/dL Normal 31-36 Red Cell Distribution Width 13 % Normal 10.5-15 Platelet Count 146 10^3/uL Low 150-450 Mean Platelet Volume 9 um3 Normal 7.4-10.4 Abs Neutrophils 3.3 10^3/uL Normal 1.5-7.7 Abs Lymphocytes 1.4 10^3/uL Normal 1.0-4.8 Abs Monocytes 0.3 10^3/uL Normal 0-0.8 Abs Eosinophils 0.2 10^3/uL Normal 0-0.6 Abs Basophils 0 10^3/uL Normal 0-0.2 Abs Nucleated RBC 0.01 10^3/uL Normal Granulocyte % 63.3 % Normal 38-83 Lymphocyte % 26.2 % Normal 25-47 Monocyte % 6.2 % Normal 1-9 Eosinophil % 3.8 % Normal 0-6 Basophil % 0.5 % Normal 0-2 Nucleated Red Blood Cells % 0.1 Normal Laboratory test 07/12/2016 [facility] Lactic Acid 1.1 mmol/L Normal 0.5-2.0 36 finding [address] [place] [address] [phone] Comp Metabolic 07/12/2016 [facility] Sodium 140 mmol/L Normal 133-145 Panel [address] [place] [address] [phone] Potassium 3.5 mmol/L Normal 3.5-5.0 Chloride 108 mmol/L Normal 101-111 Co2 Carbon Dioxide 27 mmol/L Normal 22-32 Anion Gap 5 mmol/L Normal 2-11 Glucose 117 mg/dL High 70-100 Blood Urea Nitrogen 8 mg/dL Normal 6-24 Creatinine 0.67 mg/dL Normal 0.51-0.95 BUN/Creatinine Ratio 11.9 Normal 8-20 Calcium 9.2 mg/dL Normal 8.6-10.3 Total Protein 6.4 g/dL Normal 6.4-8.9 Albumin 3.7 g/dL Normal 3.2-5.2 Globulin 2.7 g/dL Normal 2-4 Albumin/Globulin Ratio 1.4 Normal 1-3 Total Bilirubin 1.50 mg/dL High 0.2-1.0 Alkaline Phosphatase 83 U/L Normal 34-104 Alt 32 U/L Normal 7-52 Ast 25 U/L Normal 13-39 Egfr Non- 88.3 Normal >60 Egfr 113.6 Normal >60 37 Laboratory test 07/12/2016 [facility] Magnesium 1.8 mg/dL Low 1.9-2.7 finding [address] [place] [address] [phone] C Reactive Protein 2.11 mg/L Normal < 5.00 38 Troponin-I (TnI) 0.00 ng/mL Normal <0.03 39 TSH (Thyroid Stim Horm) 0.87 mcIU/mL Normal 0.34-5.60 Urinalysis Profile 07/12/2016 [facility] Urine Color Yellow Normal [address] [place] [address] [phone] Urine Appearance Clear Normal Urine Specific [place] 1.009 Low 1.010-1.030 Urine pH 6.0 Normal 5-9 Urine Urobilinogen Negative Normal Negative Urine Ketones Negative Normal Negative Urine Protein Negative Normal Negative Urine Leukocytes Trace Abnormal Negative Urine Blood 1+ Abnormal Negative Urine Nitrite Negative Normal Negative Urine Bilirubin Negative Normal Negative Urine Glucose Negative Normal Negative Urine White Blood Cell Trace(0-5/hpf) Normal Absent Urine Red Blood Cell 2+(6-10/hpf) Abnormal Absent Urine Bacteria 1+ Abnormal Absent Urine Squamous Epithelial Cell Present Abnormal Absent Urine Culture And 07/12/2016 [facility] Urine Culture SEE RESULT [address] BEL[address] [place], [place] [id number] [phone] Wound 06/10/2016 [facility] Wound/Misc SEE RESULT 41 Culture/Sensi [address] [place] [address] Stain [phone] Laboratory test 06/10/2016 [facility] MRSA/S. aureus SEE RESULT [address] [place] [address] [phone] Laboratory test 01/10/2016 [facility] B-Type 13 pg/mL Normal [address] [place] [address] Peptide BNP [phone] CBC Auto Diff 01/10/2016 [facility] White Blood 7.6 Normal 3.5 - [address] Count 10^3/uL 10.8 [place] [address] [phone] Red Blood Count 5.03 10^6/uL Normal 4.0-5.4 Hemoglobin 15.4 g/dL Normal 12.0-16.0 Hematocrit 47 % Normal 35-47 Mean Corpuscular Volume 94 fL Normal 80-97 Mean Corpuscular Hemoglobin 31 pg Normal 27-31 Mean Corpuscular HGB Conc 33 g/dL Normal 31-36 Red Cell Distribution Width 13 % Normal 10.5-15 Platelet Count 197 10^3/uL Normal 150-450 Mean Platelet Volume 10 um3 Normal 7.4-10.4 Abs Neutrophils 5.4 10^3/uL Normal 1.5-7.7 Abs Lymphocytes 1.4 10^3/uL Normal 1.0-4.8 Abs Monocytes 0.6 10^3/uL Normal 0-0.8 Abs Eosinophils 0.2 10^3/uL Normal 0-0.6 Abs Basophils 0 10^3/uL Normal 0-0.2 Abs Nucleated RBC 0.01 10^3/uL Normal Granulocyte % 71.0 % Normal 38-83 Lymphocyte % 18.8 % Low 25-47 Monocyte % 7.6 % Normal 1-9 Eosinophil % 2.2 % Normal 0-6 Basophil % 0.4 % Normal 0-2 Nucleated Red Blood Cells % 0.1 Normal Comp Metabolic 01/10/2016 [facility] Sodium 138 mmol/L Normal 133-145 Panel [address] [place] [address] [phone] Potassium 4.4 mmol/L Normal 3.5-5.0 Chloride 105 mmol/L Normal 101-111 Co2 Carbon Dioxide 27 mmol/L Normal 22-32 Anion Gap 6 mmol/L Normal 2-11 Glucose 100 mg/dL Normal 70-100 Blood Urea Nitrogen 16 mg/dL Normal 6-24 Creatinine 0.72 mg/dL Normal 0.51-0.95 BUN/Creatinine Ratio 22.2 High 8-20 Calcium 9.5 mg/dL Normal 8.6-10.3 Total Protein 7.0 g/dL Normal 6.4-8.9 Albumin 4.3 g/dL Normal 3.2-5.2 Globulin 2.7 g/dL Normal 2-4 Albumin/Globulin Ratio 1.6 Normal 1-3 Total Bilirubin 0.60 mg/dL Normal 0.2-1.0 Alkaline Phosphatase 98 U/L Normal 34-104 Alt 20 U/L Normal 7-52 Ast 17 U/L Normal 13-39 Egfr Non- 81.6 Normal >60 Egfr 104.9 Normal >60 44 Comp Metabolic 10/20/2015 [facility] Sodium 139 mmol/L Normal 133-145 Panel [address] [place] [address] [phone] Potassium 4.2 mmol/L Normal 3.5-5.0 Chloride 104 mmol/L Normal 101-111 Co2 Carbon Dioxide 27 mmol/L Normal 22-32 Anion Gap 8 mmol/L Normal 2-11 Glucose 91 mg/dL Normal 70-100 Blood Urea Nitrogen 13 mg/dL Normal 6-24 Creatinine 0.82 mg/dL Normal 0.51-0.95 BUN/Creatinine Ratio 15.9 Normal 8-20 Calcium 9.6 mg/dL Normal 8.6-10.3 Total Protein 7.3 g/dL Normal 6.4-8.9 Albumin 4.4 g/dL Normal 3.2-5.2 Globulin 2.9 g/dL Normal 2-4 Albumin/Globulin Ratio 1.5 Normal 1-3 Total Bilirubin 1.50 mg/dL High 0.2-1.0 Alkaline Phosphatase 88 U/L Normal 34-104 Alt 59 U/L High 7-52 Ast 38 U/L Normal 13-39 Egfr Non- 70.2 Normal >60 Egfr 90.3 Normal >60 45 CBC Auto 10/20/2015 [facility] White Blood 6.4 10^3/uL Normal 3.5-10.[address] [place] [address] [phone] Red Blood Count 5.08 10^6/uL Normal 4.0-5.4 Hemoglobin 15.3 g/dL Normal 12.0-16.0 Hematocrit 47 % Normal 35-47 Mean Corpuscular Volume 92 fL Normal 80-97 Mean Corpuscular Hemoglobin 30 pg Normal 27-31 Mean Corpuscular HGB Conc 33 g/dL Normal 31-36 Red Cell Distribution Width 13 % Normal 10.5-15 Platelet Count 128 10^3/uL Low 150-450 Mean Platelet Volume 8 um3 Normal 7.4-10.4 Abs Neutrophils 4.3 10^3/uL Normal 1.5-7.7 Abs Lymphocytes 1.4 10^3/uL Normal 1.0-4.8 Abs Monocytes 0.6 10^3/uL Normal 0-0.8 Abs Eosinophils 0.1 10^3/uL Normal 0-0.6 Abs Basophils 0 10^3/uL Normal 0-0.2 Abs Nucleated RBC 0.01 10^3/uL Normal Granulocyte % 67.3 % Normal 38-83 Lymphocyte % 22.0 % Low 25-47 Monocyte % 8.7 % Normal 1-9 Eosinophil % 1.4 % Normal 0-6 Basophil % 0.6 % Normal 0-2 Nucleated Red Blood Cells % 0.1 Normal Laboratory test 10/20/2015 [facility] Magnesium 2.1 mg/dL Normal 1.9-2.[address] [place] [address] [phone] CBC Auto Diff 09/01/2015 [facility] White Blood 5.3 Normal 4.8 -10.[address] Count 10^3/[place] [address] [phone] Red Blood Count 4.84 10^6/uL Normal 4.0-5.4 Hemoglobin 14.7 g/dL Normal 12.0-16.0 Hematocrit 45 % Normal 35-47 Mean Corpuscular Volume 93 fL Normal 80-97 Mean Corpuscular Hemoglobin 30 pg Normal 27-31 Mean Corpuscular HGB Conc 33 g/dL Normal 31-36 Red Cell Distribution Width 13 % Normal 10.5-15 Platelet Count 134 10^3/uL Low 150-450 Mean Platelet Volume 8 um3 Normal 7.4-10.4 Abs Neutrophils 3.6 10^3/uL Normal 1.5-7.7 Abs Lymphocytes 1.2 10^3/uL Normal 1.0-4.8 Abs Monocytes 0.4 10^3/uL Normal 0-0.8 Abs Eosinophils 0.2 10^3/uL Normal 0-0.6 Abs Basophils 0 10^3/uL Normal 0-0.2 Abs Nucleated RBC 0.01 10^3/uL Normal Granulocyte % 67.4 % Normal 38-83 Lymphocyte % 21.6 % Low 25-47 Monocyte % 7.3 % Normal 1-9 Eosinophil % 2.8 % Normal 0-6 Basophil % 0.9 % Normal 0-2 Nucleated Red Blood Cells % 0.2 Normal Comp Metabolic 09/01/2015 [facility] Sodium 137 mmol/L Normal 133-145 Panel [address] [place] [address] [phone] Potassium 3.9 mmol/L Normal 3.5-5.0 Chloride 105 mmol/L Normal 101-111 Co2 Carbon Dioxide 29 mmol/L Normal 22-32 Anion Gap 3 mmol/L Normal 2-11 Glucose 147 mg/dL High 70-100 Blood Urea Nitrogen 15 mg/dL Normal 6-24 Creatinine 0.72 mg/dL Normal 0.51-0.95 BUN/Creatinine Ratio 20.8 High 8-20 Calcium 9.2 mg/dL Normal 8.6-10.3 Total Protein 6.2 g/dL Low 6.4-8.9 Albumin 3.8 g/dL Normal 3.2-5.2 Globulin 2.4 g/dL Normal 2-4 Albumin/Globulin Ratio 1.6 Normal 1-3 Total Bilirubin 0.60 mg/dL Normal 0.2-1.0 Alkaline Phosphatase 88 U/L Normal 34-104 Alt 74 U/L High 7-52 Ast 39 U/L Normal 13-39 Egfr Non- 81.6 Normal >60 Egfr 104.9 Normal >60 46 Laboratory test 09/01/2015 [facility] Acetaminophen < 15 g/mL Normal 47 finding [address] [place] [address] [phone] Alcohol < 10 mg/dL Normal <10 Salicylate < 2.50 mg/dL Normal <30 TSH (Thyroid Stim Horm) 0.83 ?IU/mL Normal 0.34-5.60 Lipid Profile 05/18/2015 [facility] Triglycerides 130 Normal 48, 49 (Trig/Chol/HDL) [address] [facility] mg/[place] [address] [phone] Cholesterol 143 mg/dL Normal 50 HDL Cholesterol 39.0 mg/dL Normal 51 LDL Cholesterol 78 mg/dL Normal 52 Liver Function 05/18/2015 [facility] Total Protein 7.0 g/dL Normal 6.4-8.9 Panel [address] [place] [address] [phone] Albumin 4.5 g/dL Normal 3.2-5.2 Globulin 2.5 g/dL Normal 2-4 Albumin/Globulin Ratio 1.8 Normal 1-3 Total Bilirubin 0.80 mg/dL Normal 0.2-1.0 Direct Bilirubin 0.20 mg/dL High 0.03-0.18 Indirect Bilirubin 0.6 mg/dL Normal 0.3-1.0 Alkaline Phosphatase 102 U/L Normal 34-104 Alt 38 U/L Normal 7-52 Ast 28 U/L Normal 13-39 Lipid Profile 02/21/2015 [facility] Triglycerides 120 mg/dL Normal 53 (Trig/Chol/HDL) [address] [place] [address] [phone] Cholesterol 245 mg/dL Normal 54 HDL Cholesterol 46.1 mg/dL Normal 55 LDL Cholesterol 175 mg/dL Normal 56 Laboratory test 02/21/2015 [facility] Glucose 98 mg/dL Normal 70-100 finding [address] [place] [address] [phone] Procedure Result Units Ref Interval Drug Screen 9 Panel, Serum or Plasma - Immunoassay Screen with Reflex to Mass Spectrometry Confirmation/Quantitation Amphetamines, S/P, screen Negative ng/mL Cutoff 30 Methamphetamine, S/P, screen Negative ng/mL Cutoff 30 Barbiturates, S/P, screen Negative ng/mL Cutoff 75 Benzodiazepines, S/P, screen Positive ng/mL Cutoff 75 If the screen is positive, then confirmation by mass spectrometry will be added. Additional charges will apply. Unconfirmed positive may be useful for medical purposes, but does not meet forensic standards. Buprenorphine, S/P, screen Negative ng/mL Cutoff 1 Cannabinoids, S/P, screen Negative ng/mL Cutoff 30 Cocaine, S/P, Screen Negative ng/mL Cutoff 30 Methadone, S/P, screen Negative ng/mL Cutoff 40 Opiates, S/P, screen Negative ng/mL Cutoff 30 Oxycodone, S/P, screen Negative ng/mL Cutoff 30 Phencyclidine, S/P, Screen Negative ng/mL Cutoff 15 Drug Screen Comments, Serum or Plasma See Note Drug Screen Comments, Serum or Plasma: INTERPRETIVE INFORMATION: Drug Screen 9 Panel, Serum or Plasma - Immunoassay Screen with Reflex to Mass Spectrometry Confirmation/Quantitation 1. Methodology: Qualitative Immunoassay Screen 2. Drugs/Drug classes reported as "Positive" are automatically reflexed to mass spectrometry confirmation/quantitation testing. An immuncassay unconfirmed positive screen result may be useful for medical purposes but does not meet forensic standards. 3. The absence of expected drug(s) and/or drug metabolite(s) may indicate non-compliance, inappropriate timing of specimen collection relative to drug administration, poor drug absorption, or limitations of testing. The concentration at which the screening test can detect a drug or metabolite varies within a drug class. Specimens for which drugs or drug classes are detected by the screen are automatically reflexed to a second, more specific technology (mass spectrometry). The concentration value must be greater than or equal to the cutoff to be reported as positive. Interpretive questions should be directed to the laboratory. 4. For medical purposes only; not valid for forensic use. Test developed and characteristics determined by [facility]. See Compliance Statement B: Idea Device.GridBridge/MoPowered Benzodiazepines , Serum or Plasma, Quantitative Diazepines , S/P, Quant 557 ng/mL Consistent with use of a drug containing diazepam, such as Valium; metabolites include nordiazepam, temazepam, and oxazepam. INTERPRETIVE INFORMATION: Benzodiazepines, Serum or Plasma, Quantitative Methodolgy: Quantitiative Liquid Chromatography-Tadem Mass Spectrometry. Positive Cutoff: 20 ng/mL unless specified below: Diazepam 5 ng/mL Alprazolam 5 ng/mL Alpha-hydrozyalprazolam 5 ng/mL Clonazepam 5 ng/mL 7-aminoclonazepam 5 ng/mL For medical purposes only; not valid for forensic use. Identification of specific drug(s) taken by specimen donor is problematic due to common metabolites, some of which are presciption drugs themselves. The absence of expected drug(s) and/or drug metabolites(s) may indicate non-compliance, inappropriate timing of specimen collection relative to drug administration, poor drug absorption, or limitations of testing. The concentration value must be greater than or equal to the cutoff to be reported as positive. Interpretive questions should be directed to the laboratory. Test developed and characteristics determined by [facility], See Compliance Statement B: marker.to/CS Nordiazepam, S/P, Quant 661 ng/mL Metabolite of several benzodiazepines, such as chlordiazepoxide (Librium), prazepam (Centrax), halezepam (Alapryl), chlorazepate (Tranxene), and others. Oxazepam, S/P, Quant 23 ng/mL Consistent with use of a drug containing oxazepam, such as Serax, or use of a drug that is metabolized to oxazepam. Temazepam, S/P, Quant 37 ng/mL Consistent with use of a drug containing temazepam, such as Restoril, or use of a drug that is metabolized to temazepam. Chlordiazepoxide, S/P, Quant <20 ng/mL Lorazepam, S/P, Quant <20 ng/mL Alprazolam, S/P, Quant <5 ng/mL Alpha-hydrozyalprazolam, S/P, Quant <5 ng/mL Clonazepam, S/P, Quant <5 ng/mL 7-aminoclonazepam, S/P, Quant <5 ng/mL Midazolam, S/P, Quant <20 ng/mL Alpha-hydroxymidazolam, S/P, Quant <20 ng/mL Test Performed by: [facility] [address] [place] [address] [email or web address] Rommel Guerra MD, MS, Director of Laboratories Test Result Flag Unit RefValue See Comment See Comment Drug Screen 9 Panel, Serum or Plasma-Immunoassay Screen with Reflex to Mass Spectrometry Confirmation/Quantitation Testing is complete. Final report has been sent to the referring laboratory. Note: There may be a delay of up to 2 hours before report is available to view in mediaBunker. Test Performed by: [facility] [address] [place] [address] CORRECTED REPORT --- Corrected on 12/28/18 9171 --- Ref Lab Test previously reported as: See Comment Test Result Flag Unit RefValue See Comment See Comment Drug Screen 9 Panel, Serum or Plasma-Immunoassay Screen with Reflex to Mass Spectrometry Confirmation/Quantitation Testing is complete. Final report has been sent to the referring laboratory. Note: There may be a delay of up to 2 hours before report is available to view in [employer] Access. Test Performed by: [facility] [address] [place] [address], [place] [address] 2 SEE RESULT BELOW Name: KALEY BERNARD : [address]: Iva Cerna MD Acct: [id number] Unit: [id number] AGE: 68 Location: Re11/13/18 SEX: F Status: REG REF SPEC: [id number] RASHIDA: 11/13/18895 [facility] DR: Michael Holloway MD REQ: [id number] RECD: 11/13/189095 STATUS: LEONILA MCARTHUR DR: Iva Cerna MD _ ORDERED: LEVEL 4 FINAL DIAGNOSIS Breast, left, ultrasound-guided core biopsies: -- Nonproliferative fibrocystic change. -- No evidence of neoplasia identified. -- Rare small microcalcifications seen in association with benign breast tissue. Comment: Multiple level sections through the block were examined in the evaluation of this specimen. Correlation with radiographic findings is recommended. CLINICAL HISTORY Complex cystic structure with calcifications PRE-OPERATIVE DIAGNOSIS Left breast ultrasound guided core biopsy GROSS DESCRIPTION The specimen is received in formalin labeled, Left Breast, and consists of a 1.9 by up to 0.6 x 0.2 cm aggregate of yellow-pink irregular to cylindrical fibrofatty soft tissue fragments which is submitted entirely in one cassette. Signed by and Reported on: Gurmeet Lees MD 1158 END OF REPORT DEPARTMENT OF PATHOLOGY, [address] [place] [address] Gurmeet Lees M.D. Director CLIA # [id number] 3 Towel Sorter: [id number] 4 SEE RESULT BELOW Name: ANTONTYESHADARWINKALEYMAMI : [address]: Abdiaziz Golden MD Acct: [id number] Unit: [id number] AGE: 68 Location: ED Re09/11/18 SEX: F Status: REG ER SPEC: [id number] RASHIDA: 09/11/[address] [facility] [address]: Juan PALACIOS REQ: [id number] RECD: 09/11/18 STATUS: ALBER MCARTHUR DR: Iva Golden MD _ SOURCE: NASAL SPDESC: ORDERED: Flu A B Request Procedure Result Reported Site Rapid Influenza A B Request Final 09/11/182243 ML Specimen received for Influenza A/B Molecular testing * ML - Main Lab . END OF REPORT DEPARTMENT OF PATHOLOGY, [address] [place] [address] Gurmeet Lees M.D. Director [facility] # [id number] 5 Because ethnic data is not always readily [...] 15-29 5 Kidney failure <15 (or dialysis) 6 Desirable: <150 Borderline High: 150-199 High: 200-499 Very High: >500 7 Desirable: <200 Borderline High: 200-239 High: >239 8 Low: <40 Desirable: 40-60 High: >60 9 Desirable: <100 Near Optimal: 100-129 Borderline High: 130-159 High: 160-189 Very High: >189 10 Because ethnic data is not always readily [...] 15-29 5 Kidney failure <15 (or dialysis) 11 Acute inflammation: >10.00 12 Because ethnic data is not always readily [...] 15-29 5 Kidney failure <15 (or dialysis) 13 [facility] Severe Sepsis and Septic Shock Management Bundle Measure requires all lactic acids initially measuring >2.0 mmol/L be repeated. 14 SEE RESULT BELOW Name: KALEY BERNARD : [address]: Michael Snow MD Acct: [id number] Unit: [id number] AGE: 67 Location: ED Re06/12/17 SEX: F Status: DEP ER SPEC: [id number] RASHIDA: 06/12/[address]: Michael Snow MD REQ: [id number] RECD: 06/12/17 STATUS: COMP [facility] DR: Iva Cerna MD _ SOURCE: URINE SPDESC: ORDERED: Urine Culture Procedure Result Reported Site Urine Culture Final 06/14/17- 820 ML Organism 1 ESCHERICHIA COLI [place] Count >100,000 (Many) CFU/ML 1. ESCHERICHIA COLI [...] antibiotic reporting. * ML - MAIN LAB ([facility]) . END OF REPORT * ML = Testing performed at Main Lab DEPARTMENT OF PATHOLOGY, [address] [place] [address] Gurmeet Lees M.D. Director [facility] # [id number] 15 Acute inflammation: >10.00 16 [facility] Severe Sepsis and Septic Shock Management Bundle Measure requires all lactic acids initially measuring >2.0 mmol/L be repeated. 17 Because ethnic data is not always readily [...] 15-29 5 Kidney failure <15 (or dialysis) 18 >100 to <200 pg/mL: likely compensated congestive heart failure (CHF) 200 to 400 pg/mL: likely moderate CHF >400 pg/mL: likely moderate to severe CHF 19 SEE RESULT BELOW Name: KALEY BERNARD : [address]: Janett Marmolejo MD Acct: [id number] Unit: [id number] AGE: 67 Location: ED Re06/06/17 SEX: F Status: DEP ER SPEC: [id number] RASHIDA: 06/06/[address] [facility] [address]: Janett Marmolejo MD REQ: [id number] RECD: 06/06/17 STATUS: ALBER GONZALEZ DR: Iva Cerna MD _ SOURCE: URINE SPDESC: ORDERED: Urine Culture Procedure Result Reported Site Urine Culture Final 06/08/17- 0749 ML Organism 1 ESCHERICHIA COLI [place] Count >100,000 (Many) CFU/ML 1. ESCHERICHIA COLI [...] antibiotic reporting. * ML - MAIN LAB ([facility]) . END OF REPORT * ML = Testing performed at Main Lab DEPARTMENT OF PATHOLOGY, [address] [place] [address] Gurmeet Lees M.D. Director [facility] # [id number] 20 Desirable <150 Borderline high 150-199 High 200-499 Very High >500 21 Desirable <200 Borderline high 200-239 High >239 22 Low <40 Desirable: 40-60 High: >60 23 Desirable: <100 mg/dL Near Optimal: 100-129 mg/dL Borderline High: 130-159 mg/dL High: 160-189 mg/dL Very High: >189 mg/dL 24 Because ethnic data is not always readily [...] 15-29 5 Kidney failure <15 (or dialysis) 25 No interferon-gamma response to M. tuberculosis antigens was detected. Infection with M. tuberculosis is unlikely. A negative result alone does not exclude infection with M. tuberculosis. For detailed information regarding test interpretation see: [email or web address] 26 Test Performed by: [facility] - [address] [place] [address] [address] 27 Because ethnic data is not always readily [...] 15-29 5 Kidney failure <15 (or dialysis) 28 Reference Range and Interpretation: TnI (ng/mL) Interpretation Less Than 0.03 ng/mL Not supportive of diagnosis of [place] 0.03 - 0.50 ng/mL Indeterminate: suggest serial studies if clinically indicated. Greater than 0.5 ng/mL Consistent with diagnosis of [place] 29 SEE RESULT BELOW Name: ANTONTALISHALuis MKALEYMMAI : [address]: Ernesto Gaines MD Acct: [id number] Unit: [id number] AGE: 66 Location: ED Re07/17/16 SEX: F Status: DEP ER SPEC: [id number] RASHIDA: [address]: Ernesto Gaines MD REQ: [id number] RECD: 07/17/16 STATUS: ALBER MCARTHUR DR: Iva Cerna MD _ SOURCE: URINE [facility]: ORDERED: Urine Culture Procedure Result Reported Site Urine Culture Final 07/19/16- 1014 ML Mixed sadie; possible contamination. Suggest resubmission. * ML - MAIN LAB ([facility]) . END OF REPORT * ML = Testing performed at Main Lab DEPARTMENT OF PATHOLOGY, [address] [place] [address] Gurmeet Lees M.D. Director [facility] # [id number] 30 [facility] Severe Sepsis and Septic Shock Management Bundle Measure requires all lactic acids initially measuring >2.0 mmol/L be repeated. 31 >100 to <200 pg/mL: likely compensated congestive heart failure (CHF) 200 to 400 pg/mL: likely moderate CHF >400 pg/mL: likely moderate to severe CHF 32 Therapeutic concentration: <50 ug/mL Toxic concentration: >120 ug/mL 33 Because ethnic data is not always readily [...] 15-29 5 Kidney failure <15 (or dialysis) 34 Acute inflammation: >10.00 35 Reference Range and Interpretation: TnI (ng/mL) Interpretation Less Than 0.03 ng/mL Not supportive of diagnosis of [place] 0.03 - 0.50 ng/mL Indeterminate: suggest serial studies if clinically indicated. Greater than 0.5 ng/mL Consistent with diagnosis of [place] 36 [facility] Severe Sepsis and Septic Shock Management Bundle Measure requires all lactic acids initially measuring >2.0 mmol/L be repeated. 37 Because ethnic data is not always readily [...] 15-29 5 Kidney failure <15 (or dialysis) 38 Acute inflammation: >10.00 39 Reference Range and Interpretation: TnI (ng/mL) Interpretation Less Than 0.03 ng/mL Not supportive of diagnosis of [place] 0.03 - 0.50 ng/mL Indeterminate: suggest serial studies if clinically indicated. Greater than 0.5 ng/mL Consistent with diagnosis of [place] 40 SEE RESULT BELOW Name: KALEY BERNARD : [address]: Arnav Kirk MD Acct: [id number] Unit: [id number] AGE: 66 Location: [place] [address] Re07/14/16 SEX: F Status: ADM IN SPEC: [id number] RASHIDA: 07/13/16-[address] [facility] [address]: Gildardo Galo MD REQ: [id number] RECD: 07/13/16-1100 STATUS: ALBER MCARTHUR DR: Iva Cerna MD _ SOURCE: URINE SPDESC: ORDERED: Urine Culture Procedure Result Reported Site Urine Culture Final 07/15/16- 0857 ML Mixed sadie; possible contamination. Suggest resubmission. * ML - MAIN LAB ([facility]) . END OF REPORT * ML = Testing performed at Main Lab DEPARTMENT OF PATHOLOGY, [address] [place] [address] Gurmeet Lees M.D. Director [facility] # [id number] 41 SEE RESULT BELOW Name: KALEY BERNARD : [address]: Michael Waterman MD Acct: [id number] Unit: [id number] AGE: 66 Location: ED Re06/10/16 SEX: F Status: DEP ER SPEC: [id number] RASHIDA: 06/10/[address] [facility] [address]: Michael Waterman MD REQ: [id number] RECD: 06/11/16 STATUS: RES [facility] DR: Iva Cerna MD _ SOURCE: BACK [facility]: ORDERED: Culture Stain Procedure Result Reported Site Wound/Misc Gram Stain Preliminary 06/11/16203 ML 3+ Neutrophils 3+ Gram Negative Bacilli 3+ Gram Positive Cocci Wound/Misc Culture PENDING * ML - MAIN LAB ([facility]) . END OF REPORT * ML = Testing performed at Main Lab DEPARTMENT OF PATHOLOGY, [address] [place] [address] Gurmeet Lees M.D. Director [facility] # [id number] 42 SEE RESULT BELOW Name: KALEY BERNARD : [address]: Michael Waterman MD Acct: [id number] Unit: [id number] AGE: 66 Location: ED Re06/10/16 SEX: F Status: DEP ER SPEC: [id number] RASHIDA: 06/10/[address] [facility] [address]: Michael Waterman MD REQ: [id number] RECD: 06/11/16 STATUS: COMP BLUE DR: Iva Cerna MD _ SOURCE[facility]: MRSA/SA SSTI, Culture Stain COMMENTS: Verbal to [id number] by [id number] at 0335 on 06/11/16. Results read back accurately. Procedure Result Reported Site MRSA/S. aureus SSTI PCR Final 06/11/16- 334 ML Organism 1 MRSA NEGATIVE Organism 2 S.AUREUS NEGATIVE Wound/Misc Gram Stain Final 06/11/16- 747 ML 1+ Neutrophils 2+ Epithelial Cells 3+ Gram Negative Bacilli 3+ Gram Positive Cocci Wound/Misc Culture Final 06/15/16- 847 ML Organism 1 PROTEUS MIRABILIS Quantity 3+ 1. PROTEUS MIRABILIS M.I.C. RX --------- ------ Ampicillin R Cefazolin R Cefepime S Ceftriaxone S Ciprofloxacin 2 I Gentamicin <=1 S Levofloxacin 2 S Meropenem <=0.25 S Nitrofurantoin 128 R CONTINUED ON NEXT PAGE * ML = Testing performed at Main Lab DEPARTMENT OF PATHOLOGY, [address] [place] [address] Gurmeet Lees M.D. Director [facility] # [id number] Patient: KALEY BERNARD [id number] (Continued) Specimen: [id number] Collected: 06/10/16 Received: 06/11/16 (Continued) Procedure Result Reported Site Wound/Misc Culture Final (continued) 06/15/16- 847 1. PROTEUS MIRABILIS (continued) M.I.C. RX --------- ------ Tetracycline >=16 R Pipercillin/Tazobactam <=4 S Trimethoprim/Sulfamethoxazole >=320 R Amoxicillin/Clavulanic Acid <=2 S Aztreonam S Contact the Microbiology Department for any additional antibiotic reporting. * ML - MAIN LAB ([facility]) . END OF REPORT * ML = Testing performed at Main Lab DEPARTMENT OF PATHOLOGY, [address] [place] [address] Gurmeet Lees M.D. Director [facility] # [id number] 43 >100 to <200 pg/mL: likely compensated congestive heart failure (CHF) 200 to 400 pg/mL: likely moderate CHF >400 pg/mL: likely moderate to severe CHF 44 Because ethnic data is not always readily [...] 15-29 5 Kidney failure <15 (or dialysis) 45 Because ethnic data is not always readily [...] 15-29 5 Kidney failure <15 (or dialysis) 46 Because ethnic data is not always readily [...] 15-29 5 Kidney failure <15 (or dialysis) 47 Therapeutic concentration: <50 ug/mL Toxic concentration: >120 ug/mL 48 FASTING 49 Desirable <150 Borderline high 150-199 High 200-499 Very High >500 50 Desirable <200 Borderline high 200-239 High >239 51 Low <40 Desirable: 40-60 High: >60 52 Desirable: <100 mg/dL Near Optimal: 100-129 mg/dL Borderline High: 130-159 mg/dL High: 160-189 mg/dL Very High: >189 mg/dL 53 Desirable <150 Borderline high 150-199 High 200-499 Very High >500 54 Desirable <200 Borderline high 200-239 High >239 55 Low <40 Desirable: 40-60 High: >60 56 Desirable: <100 mg/dL Near Optimal: 100-129 mg/dL Borderline High: 130-159 mg/dL High: 160-189 mg/dL Very High: >189 mg/dL Procedures Date Code Description Status 10/30/2018 [id number] Mammogram Completed 06/02/2018 [id number] Mammogram Completed 03/17/2017 55432361 Mammogram Completed 03/17/2017 [id number] Bone Mineral Density Test Completed 01/29/2017 29045 Destruction Of Benign Lesions Any Method 1-14 lesions Completed 03/13/2016 73439 EKG Tracing & Interpretation Completed 01/11/2015 [id number] Mammogram Completed 01/13/2013 09564 EKG, Interpretation Only Completed 05/24/2011 72044642 Mammogram Completed 09/25/2006 468639443 Bone Mineral Density Test Completed 07/31/2006 75142 EKG Tracing & Interpretation Completed 07/31/2006 21816 EKG Tracing & Interpretation Completed 01/22/2006 53242 Color Doppler Completed 01/22/2006 32240 Pulse Doppler & Continuous Wave Completed 01/22/2006 50337 Pulse Doppler & Continuous Wave Completed 01/22/2006 85473 Echocardiogram Completed 12/06/2005 01620 Treadmill Interp/Report Only Completed 12/06/2005 04434 Stress Test Supervsn W/Out I/R Completed 11/21/2005 14047 EKG Tracing & Interpretation Completed Encounters Type Date Location Provider Dx Diagnosis Office Visit 11/25/2018 [facility] Tre S. G35 Multiple sclerosis 2:00p Services Of Kaila Wise M.D. Office Visit 11/12/2018 [facility] Iva Cerna, N63.20 Unspecified lump in 1:20p Internal Ariana the left breast, Chadd unspecified quadrant K21.9 Gastro-esophageal reflux disease without esophagitis Z23 Encounter for immunization Office Visit 09/13/2018 [facility] Sara J44.1 Chronic 8:47a Assoc,kylie Martins, [employer] obstructive Hospitalists pulmonary disease w (acute) exacerbation G35 Multiple sclerosis Office Visit 09/11/2018 8:47a [facility] Bishop Hui R06.02 Shortness of Assoc,kylie Schilling M.D.,FACP breath Hospitalists G35 Multiple sclerosis Office Visit 05/20/2018 2:30p [facility] James Multiple Services Of Kaila Wise M.D. sclerosis M54.5 Low back pain M62.81 Muscle weakness (generalized) Office Visit 05/13/2018 [facility] Internal Iva Z00.00 Encntr for 2:00p Chadd Cerna M.D. general adult medical exam w/o abnormal findings E78.2 Mixed hyperlipidemia K21.9 Gastro-esophageal reflux disease without esophagitis M81.0 Age-related osteoporosis w/o current pathological fracture F32.89 Other specified depressive episodes Office Visit 04/17/2018 3:15p Neurohospitalist Tre [facility] Ariana Wise sclerosis I89.0 Lymphedema, not elsewhere classified H54.7 Unspecified visual loss M79.2 Neuralgia and neuritis, unspecified Office Visit 02/23/2018 2:00p Pulmonology And Dariela Marmolejo J45.991 Cough variant Sleep Services Of Gloria Willard asthma [facility] I89.0 Lymphedema, not elsewhere classified Office Visit 08/27/2017 Elis [facility] Internal Iva I89.0 Lymphedema, not 2:40p Chadd Cerna M.D. elsewhere classified G35 Multiple sclerosis H00.012 Hordeolum externum right lower eyelid K21.9 Gastro-esophageal reflux disease without esophagitis M81.0 Age-related osteoporosis w/o current pathological fracture Office Visit 06/03/2017 [facility] Tre S. G35 Multiple 2:00p Services Of Kaila Wise M.D. sclerosis Office Visit 02/20/2017 Pulmonology And Olivia J45.991 Cough variant 2:30p Sleep Services Of MD Fco asthma Radiology Services Manager Office Visit 01/29/2017 [facility] Dermatology Ronni Germanzer, D22.5 Melanocytic nevi 2:20p MD of trunk L21.8 Other seborrheic dermatitis L71.8 Other rosacea L82.0 Inflamed seborrheic keratosis Office Visit 01/15/2017 [facility] Internal Iva F32.89 Other specified 2:20p Chadd Cerna M.D. depressive episodes Z12.11 Encounter for screening for malignant neoplasm of colon Z11.1 Encounter for screening for respiratory tuberculosis Z11.59 Encounter for screening for other viral diseases Z12.31 Encntr screen mammogram for malignant neoplasm of breast Z13.1 Encounter for screening for diabetes mellitus Z12.83 Encounter for screening for malignant neoplasm of skin Z13.820 Encounter for screening for osteoporosis Office Visit 08/20/2016 2:30p Pulmonology And Olivia J45.991 Cough variant Sleep Services Of MD Fco asthma Radiology Services Manager J43.8 Other emphysema Office Visit 08/07/2016 1:45p [facility] Tre Marmolejo G3Helio Multiple Services Of Kaila Wise M.D. sclerosis M54.5 Low back pain Office 07/31/2016 [facility] Internal Iva M51.36 Other Visit 2:40p david Santo M.D. disc degeneration, lumbar region M54.5 Low back pain K59.01 Slow transit constipation R55 Syncope and collapse Office Visit 07/19/2016 [facility] Internal Padilla G3Helio Multiple 1:00p Chadd Rubalcava M.D. sclerosis R53.1 Weakness M54.5 Low back pain R82.90 Unspecified abnormal findings in urine Office Visit 07/15/2016 12[facility]p [facility] sclerosis Hospitalists R53.1 Weakness Office Visit 07/14/2016 12:48p [facility] [employer] sclerosis Hospitalists R53.1 Weakness Office Visit 07/13/2016 8:40a [facility] Savannah Bonno, G35 Multiple MD sclerosis R53.1 Weakness R42 Dizziness and giddiness Office Visit 07/12/2016 12:47p [facility] Steve Wisdom G35 Multiple Assockylie II, M.D. sclerosis Hospitalists R53.1 Weakness Office Visit 07/02/2016 [facility] Internal Iva B37.0 Candidal 2:40p Medicine-Michelle Cerna M.D. stomatitis R21 Rash and other nonspecific skin eruption L23.1 Allergic contact dermatitis due to adhesives L71.8 Other rosacea Office Visit 06/21/2016 2:00p Orthopedic Fatuma Morris, S82.811S Torus fracture Services Of of upper end of C.M.A. right fibula, sequela M79.661 Pain in right lower leg Office Visit 06/13/2016 9:10a [facility] Internal Iva L03.312 Cellulitis of Medicine - Dale Cerna M.D. back [any part except buttock] Office Visit 06/04/2016 2:00p Pulmonology And Olivia R06.83 Snoring Sleep Services Of MD Fco [facility] G47.10 Hypersomnia, unspecified J45.991 Cough variant asthma J43.8 Other emphysema Z77.22 Cntct w and expsr to environ tobacco smoke (acute) (chronic) Z87.891 Personal history of nicotine dependence G35 Multiple sclerosis K21.9 Gastro-esophageal reflux disease without esophagitis Office Visit 03/13/2016 3:00p [facility] Aric SFrancisco R60.0 Localized edema Of Kaila Irving DO FACC G35 Multiple sclerosis E78.5 Hyperlipidemia, unspecified Office Visit 02/20/2016 2:00p [facility] Internal Iva J45.991 Cough variant Medicine - Dale Cerna M.D. asthma Office Visit 01/30/2016 1:45p [facility] Tre Marmolejo G35 Multiple Services Of Kaila Wise M.D. sclerosis Office Visit 01/23/2016 2:00p [facility] Internal Iva R06.02 Shortness of Medicine - Dale Cerna M.D. breath R05 Cough Office Visit 01/09/2016 2:20p [facility] Internal Medicine - Iva Cerna, M.D. 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 infection, site Hospitalists not specified S82.831K Oth fx upr and low end r fibula, subs for clos fx w nonunion F32.9 Major depressive disorder, single episode, unspecified R53.1 Weakness Office Visit 10/23/2015 2:40p [facility] Padilla N39.0 Urinary tract Assoc,kylie Rubalcava M.D. infection, site Hospitalists not specified S82.831K Oth fx upr and low end r fibula, subs for clos fx w nonunion F32.9 Major depressive disorder, single episode, unspecified R53.1 Weakness Office Visit 10/21/2015 2:39p [facility] Padilla Rubalcava, R53.[address] F32.9 Major depressive disorder, single episode, unspecified S82.831K Oth fx upr and low end r fibula, subs for clos fx w nonunion N39.0 Urinary tract infection, site not specified Office Visit 08/28/2015 1:00p Orth[facility] Fatuma Morris, S82.401D Unsp fx shaft Of Tommy ZHU of r fibula, subs for clos fx w routn heal Office Visit 07/26/2015 11:28a [facility] Larisa 823.81 FX Unspec Assoc,pc Ida Diaz Part Fibula Hospitalists Alone Closed 728.85 Spasm Muscle 340 Multiple Sclerosis Office Visit 07/20/2015 11:27a [facility] Tanya Billings, 823.81 FX Unspec Assoc,kylie Lane Part Fibula Hospitalists Alone Closed 728.85 Spasm Muscle 340 Multiple Sclerosis Office Visit 07/12/2015 [facility] Jenelle Marmolejo 340 Multiple Sclerosis 1:30p Services Of Kaila Wise M.D. Office Visit 05/25/2015 [facility] Internal Iva 272.4 Hyperlipidemia 1:50p Medicine - Dale Cerna M.D. Other Unspec Office Visit 04/12/2015 Neurosurgery Tre 724.02 Spinal Stenosis, 2:00p Services Of Kaila Kyle M.D. Lumbar Region, W/O Neurogenic Claudication 721.3 Spondylosis Lumbar W/O Myelopathy Office Visit 02/06/2015 1:10p [facility] Internal Iva 272.4 Hyperlipidemia Other Medicine - Ariana Cerna Unspec Ccmob 564.09 Constipation Other 702.19 Seborrheic Keratosis Other 112.9 Candidiasis Unspec Site 788.31 Incontinence Urge V77.1 Screening Diabetes Mellitus 112.3 Candidiasis Skin & Nails Office Visit 01/03/2015 1:45p [facility] Jenelle Marmolejo 340 Multiple Services Of Kaila Wise M.D. Sclerosis 728.87 Muscle Weakness Generalized 599.0 UTI Urinary Tract Infection Site Not Spec Office Visit 10/16/2014 10:02a [facility] Tanya Billings, 599.0 UTI Urinary Assoc,pc Ariana Tract Infection Hospitalists Site Not Spec 340 Multiple Sclerosis 272.4 Hyperlipidemia Other Unspec Office Visit 10/15/2014 10:02a [facility] Tanya Billings, 599.0 UTI Urinary Assoc,pc Ariana Tract Infection Hospitalists Site Not Spec 340 Multiple Sclerosis 272.4 Hyperlipidemia Other Unspec Office Visit 10/14/2014 9:53a [facility] Roger 599.0 UTI Urinary Assoc,pc Tommy, N.P. Tract Infection Hospitalists Site Not Spec 340 Multiple Sclerosis 272.4 Hyperlipidemia Other Unspec Office Visit 07/05/2014 1:30p [facility] Jenelle Herrera Multiple Services Of Kaila Wise M.D. Sclerosis 723.1 Cervicalgia Office Visit 12/08/2013 1:45p Prema Herrera Multiple Services Of Kaila Wise M.D. Sclerosis Office Visit 06/02/2013 1:45p Duncancecy Herrera Multiple Services Of Kaila Wise M.D. Sclerosis 782.1 Rash & Other Nonspec Skin Eruption Office Visit 01/26/2013 4:16p [facility] 340 Multiple Assoc,kylie Tyler M.D. Sclerosis Hospitalists Office Visit 01/25/2013 4:16p [facility] 340 Multiple Assoc,kylie Tyler M.D. Sclerosis Hospitalists Office Visit 01/25/2013 1:38p [facility] Ebonie Huff [address] Sclerosis 782.0 Skin Sensation Disturbance 728.87 Muscle Weakness Generalized Office Visit 01/22/2013 [facility] Steve Wisdom 340 Multiple 4:15p Assockylie II, M.D. Sclerosis Hospitalists Office Visit 01/20/2013 [facility] Evonne Jones N.Ayaz 340 Multiple 4:15p Assoc,kylie Sclerosis Hospitalists [facility], 595.0 Cystitis Acute 10:42a Asskylie ye M.D. Hospitalists 995.90 Systemic Inflammatory Response Syndrome, Unspecified 340 Multiple Sclerosis Office Visit 01/14/2013 10:42a [facility] 595.0 Cystitis Acute Assoc,kylie Tyler M.D. Hospitalists 595.0 Cystitis Acute 995.90 Systemic Inflammatory Response Syndrome, Unspecified 995.90 Systemic Inflammatory Response Syndrome, Unspecified 340 Multiple Sclerosis Office Visit 01/13/2013 10:42a [facility] Roger Sanders, 595.0 Cystitis Acute Assoc,kylie N.PFrancisco Hospitalists 995.90 Systemic Inflammatory Response Syndrome, Unspecified 340 Multiple Sclerosis Office Visit 11/06/2012 11:45a [facility] Tre Marmolejo 340 Multiple Services Of Kaila Wise M.D. Sclerosis 728.85 Spasm Muscle Office Visit 10/24/2012 12:13p [facility] Taylor 728.85 Spasm Muscle Assoc,kylie Banks M.D. Hospitalists 340 Multiple Sclerosis Office Visit 10/23/2012 12:12p [facility] Taylor 728.85 Spasm Muscle Assoc,kylie Banks M.D. Hospitalists 340 Multiple Sclerosis Office Visit 10/23/2012 1:00p [facility] Tre Marmolejo 340 Multiple Services Of Radiology Services Manager Frandy, M.D. Sclerosis Office Visit 10/22/2012 12:12p [facility] Taylor 728.85 Spasm Muscle Assoc,kylie Banks M.D. Hospitalists 340 Multiple Sclerosis Office Visit 07/11/2012 2:19p [facility] Larisa 783.7 Adult Failure Assoc,kylie Diaz D.O. To Thrive Hospitalists 783.41 Failure To Thrive 340 Multiple Sclerosis Office Visit 07/04/2012 10:36a [facility] Taylor 682.6 Cellulitis & Assoc,kylie Banks M.D. Abscess Leg Hospitalists Except Foot 340 Multiple Sclerosis Office Visit 07/31/2006 1:40p [facility] Heidi Marmolejo 786.50 Pain Chest Ariana Willis Unspec 272.4 Hyperlipidemia Other Unspec Office Visit 01/22/2006 10:40a [facility] Heidi Willis M.D. Office Visit 11/21/2005 1:40p [facility] Heidi Marmolejo 786.50 Pain Kristi Willis M.D. Unspec 272.4 Hyperlipidemia Other Unspec Plan of Treatment Future Appointment(s):12/01/2019 2:45 pm - Tre Wise M.D. at [facility]2019 - Tre Wise M.D.G35 Multiple sclerosisNew Therapy:Physical TherapyFollow up:6 ewhuroD41.0 Anesthesia of skinL89.100 Pressure ulcer of unspecified part of back, unstageable
[2019-07-23] MEDS ORDERED: DOXYcycline CAP(*) 100 MG PO ONE (20:11)
[2019-07-23] MEDS ORDERED: Cefdinir cap* 300 MG CAP PO ONE (20:11)
[2019-07-23 23:42] VITALS: BP 136/66
== END 2019-07-23 23:39 | disposition home or self-care (01) ==
LOC: ED 17:58
DX: J18.9 Pneumonia, unspecified organism (principal); G35 Multiple sclerosis; I50.9 Heart failure, unspecified; E78.00 Pure hypercholesterolemia, unspecified; K21.9 Gastro-esophageal reflux disease without esophagitis; F41.9 Anxiety disorder, unspecified; F32.9 Major depressive disorder, single episode, unspecified; Z87.891 Personal history of nicotine dependence; Z90.89 Acquired absence of other organs; Z79.899 Other long term (current) drug therapy; Z88.6 Allergy status to analgesic agent; Z88.0 Allergy status to penicillin; Z88.8 Allergy status to other drugs, medicaments and biological substances
CPT/HCPCS: 36415; 71046; 80053; 83880; 85025; 99282; A9270-GY

== ENCOUNTER 2019-10-14 19:17 | Inpatient (IN) | payer MEDICARE, MEDICAID, OTHER ==
--- NOTE | 2019-10-14 20:06 | ED ---
Complex/Multi-Sys Presentation - HPI Summary HPI Summary: Patient is a 69 y/o F w/ Hx of lymphedema and MS who presents to [facility] via EMS with complaints of BLE swelling and inability to care for herself. She states that her home health aide did not show up to care for her. Patient notes that she has been in communication with her nursing instructor agency and has been overwhelmed by the situation and inability to care for herself. She notes BLE edema and states that her compression machine is currently broken. On triage, pain is denied. Nothing is noted to aggravate/alleviate Sx. Home medications and allergies are reviewed. - History Of Current Complaint Chief Complaint: EDGeneral Time Seen by Provider: 10/14/19 19:47 Hx Obtained From: Patient Onset/Duration: Still Present Timing: Constant Severity Currently: None - pain denied Aggravating Factor(s): nothing Alleviating Factor(s): nothing Associated Signs And Symptoms: Positive: Edema, Other - positive - inability to care for self - Allergies/Home Medications Allergies/Adverse Reactions: Allergies Allergy/AdvReac Type Severity Reaction Status Date / Time carbamazepine Allergy Intermediate Hives Verified 07/23/19 18:07 Penicillins Allergy Intermediate Hives Verified 07/23/19 18:07 amitriptyline AdvReac Severe Hallucinati Verified 07/23/19 18:07 ons aspirin AdvReac Intermediate GI Upset Verified 07/23/19 18:07 PMH/Surg Hx/FS Hx/Imm Hx Endocrine/Hematology History: Reports: Hx Anticoagulant Therapy - only during hospital admits. Denies: Hx Diabetes, Hx Thyroid Disease, Other Endocrine/Hematological Disorders Cardiovascular History: Reports: Hx Congestive Heart Failure - DX 3.2015 BUT PT NOT SURE CORRECT, Hx Hypercholesterolemia Denies: Hx Hypertension, Hx Pacemaker/ICD, Other Cardiovascular Problems/ Disorders Respiratory History: Reports: Hx Asthma, Hx Seasonal Allergies - also dust allergies, Other Respiratory Problems/Disorders - environmental allergies Denies: Hx Chronic Bronchitis, Hx Chronic Obstructive Pulmonary Disease (COPD ), Hx Cystic Fibrosis, Hx Lung Cancer, Hx Pleural Effusion, Hx Pneumonia, Hx Pulmonary Edema, Hx Pulmonary Embolism, Hx Sleep Apnea GI History: Reports: Hx Gastroesophageal Reflux Disease, Other GI Disorders - chronic constipation Denies: Hx Ulcer History: Reports: Other Problems/Disorders - URINARY INCONTINENCE, bladder spasms Denies: Hx Dialysis, Hx Renal Disease Musculoskeletal History: Reports: Hx Arthritis, Hx Back Problems, Hx Orthopedic Injury - right tibial fx, Hx Osteoporosis, Hx Scoliosis Denies: Other Musculoskeletal History Sensory History: Reports: Hx Contacts or Glasses, Other Sensory Impairments - Numbness in legs Denies: Hx Cataracts, Hx Eye Injury, Hx Eye Prosthesis, Hx Glaucoma, Hx Macular Degeneration, Hx Vision Problem, Hx Deafness, Hx Hearing Aid, Hx Hearing Problem Opthamlomology History: Reports: Hx Contacts or Glasses, Other Sensory Impairments - Numbness in legs Denies: Hx Cataracts, Hx Eye Injury, Hx Eye Prosthesis, Hx Glaucoma, Hx Macular Degeneration, Hx Vision Problem Neurological History: Reports: Other Neuro Impairments/Disorders - MS Denies: Hx Dementia, Hx Developmental Delay, Hx Headaches, Hx Migraine, Hx Seizures, Hx Spinal Cord Injury, Hx Transient Ischemic Attacks (TIA) Psychiatric History: Reports: Hx Anxiety, Hx Depression Denies: Hx Attention Deficit Hyperactivity Disorder, Hx Eating Disorder, Hx Panic Disorder, Hx Post Traumatic Stress Disorder, Hx Inpatient Treatment, Hx Community Mental Health Tx, Hx Schizophrenia, Hx Bipolar Disorder, Hx Suicide Attempt, Hx of Violent Episodes Against Others, Hx Substance Abuse, Other Psychiatric Issues/Disorders - Cancer History Hx Chemotherapy: No Hx Radiation Therapy: No Hx Palliative Cancer Treatment: No - Surgical History Surgery Procedure, Year, and Place: , Appendectomy, I+D ,r/t cellulitis right inner thigh- recent admission,Rt knee bakers cyst removal. Hx Anesthesia Reactions: No - Immunization History Date of Tetanus Vaccine: Unk Date of Influenza Vaccine: Fall 2014 Infectious Disease History: No Infectious Disease History: Denies: Hx Clostridium Difficile, Hx Hepatitis, Hx Human Immunodeficiency Virus (HIV), Hx of Known/Suspected MRSA, Hx Shingles, Hx Tuberculosis, Hx Known/ Suspected VRE, Hx Known/Suspected VRSA, History Other Infectious Disease, Traveled Outside the [place] in Last 30 Days - Family History Known Family History: Positive: Cardiac Disease - father, Hypertension, Diabetes , Other - Schizophrenia, aortic aneuyrsms (father) - Social History Alcohol Use: None Substance Use Type: Reports: None Hx Tobacco Use: No Smoking Status (MU): Former Smoker Review of Systems - ROS Summary Review of Systems Summary: Home Medications Medication Instructions Recorded Confirmed Type Sennosides [Senokot] 17.2 mg PO BID PRN 01/02/18 07/23/19 History Sertraline* [Zoloft*] 100 mg PO QPM 01/02/18 07/23/19 History Omeprazole CAP (NF) [Prilosec CAP* 40 mg PO QAM 02/09/18 07/23/19 History 20 MG] Atorvastatin* [Lipitor 20 MG*] 20 mg PO BEDTIME 09/11/18 07/23/19 History fentaNYL PATCH 25 MCG/HR* 25 mcg TRANSDERM Q72H 11/09/18 07/23/19 History [Duragesic PATCH 25 Mcg/Hr*] Alendronate (NF) [Fosamax (NF)] 70 mg PO WEEKLY 07/23/19 07/23/19 History Baclofen TAB* [Lioresal TAB*] 15 mg PO QID PRN 07/23/19 07/23/19 History Calcium Phosphate Trib/Vit D3 2 chw PO DAILY 07/23/19 07/23/19 History [Calcium/Vitamin D3 Gummie] Cefdinir [Cefdinir 300 MG CAP] 300 mg PO BID 7 Days #14 capsule 07/23/19 Rx DOXYcycline CAP(*) [DOXYcycline 100 mg PO BID 7 Days #14 cap 07/23/19 Rx 100MG CAP(*)] Diazepam TAB(*) [Valium TAB(*)] 5 mg PO BID PRN 07/23/19 07/23/19 History Diazepam TAB(*) [Valium TAB(*)] 10 mg PO BEDTIME PRN 07/23/19 07/23/19 History Polyethylene Glycol 3350* 17 gm PO DAILY PRN 07/23/19 07/23/19 History [Miralax*] Constitutional: Other - positive - inability to care for self Positive: Edema - BLE All Other Systems Reviewed And Are Negative: Yes Physical Exam - Summary Physical Exam Summary: General: Well-developed, Well-nourished female. Tearful during exam and unkempt in appearance HEENT: Normocephalic, Atraumatic. Eyes: Conjuctiva normal, PERRL. Oropharynx: Clear, mucous membranes moist, (-) exudates. Neck: Soft, FROM, (-) lymphadenopathy, (-) thyromegaly, (-) JVD. Cardiovascular: Normal sinus rhythm, (-) murmur. Lungs: Clear to auscultation bilaterally (-) wheezes, (-) rales, (-) rhonchi. Abdomen: Soft, non-tender, non-distended, (-) organomegaly, normal bowel sounds. Back: (-) CVA tenderness Extremities: Contracts all extremities and 3+ BLE edema is noted. Skin: Warm, dry, (-) rash. Neuro: Alert and oriented x3, no focal deficits. Psychiatric: Tearful during exam Triage Information Reviewed: Yes Vital Signs On Initial Exam: Initial Vitals Temp Pulse Resp BP Pulse Ox 97.6 F 67 18 156/83 95 10/14/19 19:29 10/14/19 19:29 10/14/19 19:29 10/14/19 19:29 10/14/19 19:29 Vital Signs Reviewed: Yes Procedures - Sedation Patient Received Moderate/Deep Sedation with Procedure: No Diagnostics - Vital Signs Vital Signs Temp Pulse Resp BP Pulse Ox 10/14/19 19:29 97.6 F 67 18 156/83 95 - Laboratory Result Diagrams: 10/14/19 23:45 10/14/19 23:45 Lab Statement: Any lab studies that have been ordered have been reviewed, and results considered in the medical decision making process. - Radiology CXR Radiology Interpretation Completed By: ED Physician Summary of Radiographic Findings: CXR showed no infiltrate, no pleural effusion , pending official report. - EKG 0019 Cardiac Rate: NL - RATE OF 63 BPM EKG Rhythm: Sinus Rhythm Summary of EKG Findings: EKG showed NSR with rate of 63 BPM, no STEMI. EKG was reviewed and interpreted by ED physician. Re-Evaluation - Re-Evaluation First Eval Re-Evaluation Time: 21:10 Comment: Per Nurse Aparicio's note: "Contacted [facility] [place]. Spoke with Crystall coordinator correction officer reformatory, as per Caitlin patient scheduled aide on 10/13/19. As per agency, patient's been through number of of aides in the past and agency had a hard time supplying the patient with aides. It appears that patient require more extensive coverage. Pt's son has mental health condition, and unable to take care of her. Dr Galeana made aware, pending further dispo." Complex Multi-Symp Course/Dx Course Of Treatment: 69 year old female with MS brought from home by ambulance. patient is bed bound. unable to care for herself at all. patient's home health aides have not shown up all day. patient has dirty depends on. During ED course , patient received fluids. workup essentially negative. home health company contacted and they are unable to provide aides for this weekend. patient has no family or friends capable of taking care of her. she is referred to the hospitalist for admission - Diagnoses Provider Diagnoses: Multiple sclerosis - Physician Notifications Discussed Care Of Patient With: Bettina Torres Time Discussed With Above Provider: 01:00 Instructed by Provider To: Other - 0100 - Patient's case was discussed with Dr. Torres, Dr. Torres accepts for admission. Discharge ED - Sign-Out/Discharge Documenting (check all that apply): Patient Departure - admit - Discharge Plan Condition: Stable Disposition: ADMITTED TO [facility] - Billing Disposition and Condition Condition: STABLE Disposition: Admitted to [facility] - Attestation Statements Document Initiated by Carlie: Yes Documenting Scribe: BENSON RANDOLPH Provider For Whom Carlie is Documenting (Include Credential): NICOLAS NUNEZ MD Scribe Attestation: BENSON Asencio, scribed for NICOLAS NUNEZ MD on 10/15/19 at 2218. Scribe Documentation Reviewed: Yes Provider Attestation: The documentation as recorded by the BENSON baig accurately reflects the service I personally performed and the decisions made by , NICOLAS NUNEZ MD Status of Scribe Document: Viewed
[2019-10-14] MEDS ORDERED: NS 0.9% 1000 ML** 1,000 ML IV ONE (23:02)
[2019-10-14 23:57] LABS: ABS Eosinophils 0.2 10^3/ul (0-0.6); ABS Lymphocytes 1.5 10^3/ul (1.0-4.8); ABS Monocytes 0.4 10^3/ul (0-0.8); ABS Neutrophils 3.8 10^3/ul (1.5-7.7); Eosinophil % 3.2 %; Hematocrit 47 % (35-47); Hemoglobin 15.9 g/dL (12.0-16.0); Lymphocyte % 25.5 %; Mean Corpuscular HGB Conc 34 g/dL (31-36); Mean Corpuscular Hemoglobin 31 pg (27-31); Mean Corpuscular Volume 90 fL (80-97); Mean Platelet Volume 8.3 fL (7.4-10.4); Nucleated Red Blood Cells % 0.5; Platelet Count 140 10^3/uL (150-450); Red Blood Count 5.18 10^6 /uL (3.70-4.87); Red Cell Distribution Width 14 % (10-15); White Blood Count 5.9 10^3/uL (3.5-10.8)
[2019-10-15 00:15] LABS: Albumin 4.2 g/dL (3.2-5.2); Albumin/Globulin Ratio 1.6 (1-3); BUN/Creatinine Ratio 17.9 (8-20); C Reactive Protein 2.58 mg/L (<8.01); Calcium 9.2 mg/dL (8.6-10.3); EGFR African American 105.9 (>60); EGFR Non-African American 87.5 (>60); Globulin 2.6 g/dL (2-4); Potassium 4.2 mmol/L (3.5-5.0); Total Bilirubin 1.3 mg/dL (0.2-1.0); Total Protein 6.8 g/dL (6.4-8.9)
[2019-10-15 00:31] LABS: INR 1.07 (0.82-1.09)
[2019-10-15 01:29] LABS: Urine Appearance Cloudy; Urine Bilirubin Negative (Negative); Urine Blood 2+ (Negative); Urine Color Yellow; Urine Glucose Negative (Negative); Urine Ketones Negative (Negative); Urine Nitrite Positive (Negative); Urine Protein Negative (Negative); Urine Specific Gravity 1.012 (1.010-1.030); Urine Urobilinogen Negative (Negative)
[2019-10-15 01:33] LABS: Urine Bacteria 1+ (Absent); Urine Red Blood Cell 3+(>10/hpf) (Absent); Urine Squamous Epithelial Cell Present (Absent); Urine White Blood Cell 3+(>20/hpf) (Absent)
[2019-10-15] MEDS ORDERED: Albuterol 2.5 MG/3 ML NEB.SOL* (0.083%) INH PRN (04:10)
--- NOTE | 2019-10-15 04:18 | ADMNOTE ---
Subjective Interval History: this is H/P 69 yo female iwth hx of MS who is bedbound came to the hospital because of lack home care associate. She needs an aid 7 days a week. She told me that her aid has been working overtime and was not able to come in today. Pt needs an aid to help her with ADLs, feeding and medications. She has noone else to help her otherwise. The nursing staff in the ED said that the agency was contacted and apparently she is a difficult patient which is why it has been a challenge assigning her a permanent aid. Patient said that the agency is not being truthful. She is demanding to have the CM speaks with her first before contacting the agency. Family History: Unchanged from Admission Social History: Unchanged from Admission Past Medical History: Unchanged from Admission Review of Systems - Review of Systems Constitutional Symptoms: Negative: Weight Gain, Weight Loss, Weakness, Fatigue, Fever, Night Sweats, Unexplained Falls, Other Dermatology: Negative: Normal, Rash, Skin Lesions, Cancer, Skin Lumps, Other HEENT: Negative: Normal, Change in Hearing, Vertigo, Dental Problems, Tinnitus, Sinus Problem, Other Eyes: Negative: Normal, Change in Vision, Double Vision, Eye Pain, Glaucoma, Cataract, Contacts or Glasses, Other Thyroid: Negative: Normal, Goiter, Thyroid Nodule, Cold Intolerance, Heat Intolerance , Sweatiness, Tremor, Frequent Defecation, Constipation, Palpitations, Primary Hypothyroidism, Primary Hyperthyroidism, Weight Loss, Weight Gain, Change in Skin/Hair, Change in Menstruation, Radiation Exposure, Other Pulmonary: Negative: Normal, Cough, Sputum, Hemoptysis, Wheezing, Respiratory Distress, Shortness of Breath, COPD, Asthma, Exercise Intolerance, Home Oxygen, Other Cardiology: Negative: Normal, Chest Pain, Shortness of Breath, Palpitations, Swelling of Ankles, Peripheral Vascular Dis, Edema, Faintness, Syncope, Claudication, Proximal NocturnalDyspnea, Orthopnoea, Other Gastroenterology: Negative: Normal, Abdominal Pain, Nausea, Vomiting, Anorexia, Indigestion, Difficulty Swallowing, Heartburn, Constipation, Diarrhea, Blood in Stools, Change in Bowel Habits, Haematemesis, Melena, Other Genital - Urinary: Negative: Normal, Dysuria, Hematuria, Polyuria, Nocturia, Other Genitourinay - Female: Negative: Menses Normal, Vaginal Discharge, Menopause, Dysmenorrhea, Other Endocrinology: Negative: Normal, Thyroid Problems, Adrenal Problems, Gonadal Problems, Family Hx Endocrine Disorders, Obesity, Diabetes Mellitus, Hyperglycemia, Hx Hypoglycemia, Diabetic Foot Ulcers, Calluses, Hirsutism, Menstrual Abnormalities , Polydipsia, Polyuria, Gonadal Problems, Gynecomastia, Pituitary disease, Other Hematologic/Lymphatic: Negative: Anemia, Easy Bruising, Hx Leukemia, Hx Lymphoma, Use of Anticoagulant, Use of Antiplatelet Drugs, Other Neurology: Negative: Normal, Headache, Migraines, Change in Vision, Diplopia, Dizziness , Change in Balancing, Change in Coordination, Change in Memory, Change in Speech, Change in Sphincter Function, Change in Walking, Numbness\Paresthesiae, Unexplained Weakness, Hx of Stroke\TIA, Hx of Seizures, Other Psychiatry: Negative: Normal, Depression, Anxiety, Depressed Mood, Anhedonia, Sexual Dysfunction, Weight Change, Guilt Feelings, Tearfulness, Unusual Fatigue, Unusual Anxiety, Suicidal Ideation, Hypomania, Eating Disorders, Other Allergic/Immunologic: Negative: Hx Anaphylaxis, Hx Angioedema, Hx Environmental, Hx Seasonal, Asthma, Hx HIV, Immunocompromise, Swollen Glands LymphNodes, Other Objective Active Medications: Albuterol (Ventolin 2.5 Mg/3 Ml Neb.Adalgisa*) 2.5 mg INH RT.[id number] AWAKE PRN PRN Reason: sob/wheezing Atorvastatin Calcium (Lipitor*) 20 mg PO BEDTIME SHARYN Baclofen (Lioresal Tab*) 15 mg PO QID PRN PRN Reason: PAIN - MODERATE Diazepam (Valium Tab(*)) 5 mg PO BID PRN PRN Reason: ANXIETY Fentanyl (Duragesic Patch 25 Mcg/Hr*) 25 mcg TRANSDERM Q72H [facility] Heparin Sodium (Porcine) (Heparin Vial(*)) 5,000 units SUBCUT Q8HR [facility] Non-Formulary Medication (Sennosides [Senokot]) 17.2 mg PO BID PRN PRN Reason: CONSTIPATION Omeprazole (Prilosec Cap* (Nf)) 40 mg PO QAM [facility] Sertraline HCl (Zoloft*) 100 mg PO QPM [facility] Vital Signs - 8 hr 10/15/19 10/15/19 10/15/19 00:35 00:36 01:05 Pulse Rate 63 64 Blood Pressure 153/87 146/70 (mmHg) O2 Sat by Pulse 95 95 Oximetry Oxygen Devices in Use Now: Nasal Cannula Eyes: No Scleral Icterus, PERRLA Ears/Nose/Mouth/Throat: Mucous Membranes Moist Neck: NL Appearance and Movements; NL JVP, Trachea Midline Respiratory: Symmetrical Chest Expansion and Respiratory Effort, Clear to Auscultation, Clear to Percussion Cardiovascular: NL Sounds; No Murmurs; No JVD, No Edema Abdominal: NL Sounds; No Tenderness; No Distention Lymphatic: No Cervical Adenopathy Skin: No Rash or Ulcers, No Nodules or Sclerosis Neurological: Alert and Oriented x 3, - - 3-4/5 strength in her upper EXTs, 1/5 strength in lower EXts Result Diagrams: 10/14/19 23:45 10/14/19 23:45 Assess/Plan/Problems-Billing Assessment: - Patient Problems (1) Hospital admission due to social situation Current Visit: No Status: Acute Code(s): Z60.9 - PROBLEM RELATED TO SOCIAL ENVIRONMENT, UNSPECIFIED SNOMED Code(s): 250076940 Comment: Pt seems to be having issues with her home health agency. She needs daily aid to help her with medications, ADLs and feeding. Right now she has no one. She either fired her aid today or her aid didnt come in. Her agency not able to provide her with another one mt. Pt is disabled and can't take care of herself and will need CM to help her with disposition. (2) Asthma Current Visit: No Status: Chronic Code(s): J45.909 - UNSPECIFIED ASTHMA, UNCOMPLICATED SNOMED Code(s): 026699497 Comment: Stable. Continue albuterol inhalers. (3) Chronic pain Current Visit: No Status: Chronic Code(s): G89.29 - OTHER CHRONIC PAIN SNOMED Code(s): 99055818 Comment: Continue home baclofen, diazepam, fentanyl patch. (4) Dyslipidemia Current Visit: No Status: Chronic Code(s): E78.5 - HYPERLIPIDEMIA, UNSPECIFIED SNOMED Code(s): 258304056 Comment: Stable. Continue atorvastatin. (5) History of muscle spasm Current Visit: No Status: Chronic Code(s): Z87.39 - PERSONAL HISTORY OF DISEASES OF THE MS SYS AND CONN TISS SNOMED Code(s): 079330724 (6) DVT prophylaxis Current Visit: No Status: Acute Priority: High Onset Date: 07/20/15 Code (s): BBH1511 - SNOMED Code(s): 351103553 Comment: heparin sc (7) Patient is full code Current Visit: No Status: Acute Priority: High Onset Date: 07/20/15 Code (s): Z78.9 - OTHER SPECIFIED HEALTH STATUS SNOMED Code(s): 023901139
[2019-10-15] MEDS: fentaNYL PATCH 25 MCG/HR TRANSDERM SCH (06:10)
[2019-10-15] MEDS: Heparin VIAL(*) 5000 UNITS/ML VIAL (FIVE THOUSAND) SUBCUT SCH ×3 (06:13→22:06)
[2019-10-15] MEDS: fentaNYL Patch Check Q Shift 1 NOTE FOLLOW UP SCH ×2 (07:10→18:40)
[2019-10-15] MEDS: Pantoprazole TAB * 40 MG TAB PO SCH (07:51)
[2019-10-15] MEDS: Senna TAB 8.6 mg* TAB PO PRN (07:51)
--- NOTE | 2019-10-15 13:54 | PN ---
Subjective Date of Service: 10/15/19 Interval History: Brief Note: Patient with UA results + LE, + nitrates, + bacteria. She c/o frequency, retention, urgency, and occasional dysuria for approximately 1 week. She has had UTIs in the past, and feels that symptoms are milder this time, stating that she usually has high fevers and hallucinations A/P: Ms. Bernard is a 69yof with PMHx MS, dyslipidemia, asthma who presented to the ER with complaints of inability to care for herself at home without appropriate level or support. -UTI: start abx -Social admission: placement pending -Dyslipidemia: continue atorvastatin -Chronic pain: continue home medications -MS: continue baclofen Inpatient, detention care. Discharge when stable. Family History: Unchanged from Admission Social History: Unchanged from Admission Past Medical History: Unchanged from Admission Objective Active Medications: Albuterol (Ventolin 2.5 Mg/3 Ml Neb.Adalgisa*) 2.5 mg INH RT.[id number] AWAKE PRN PRN Reason: sob/wheezing Atorvastatin Calcium (Lipitor*) 20 mg PO BEDTIME [facility] Baclofen (Lioresal Tab*) 15 mg PO QID PRN PRN Reason: PAIN - MODERATE Diazepam (Valium Tab(*)) 5 mg PO BID PRN PRN Reason: ANXIETY Fentanyl (Duragesic Patch 25 Mcg/Hr*) 25 mcg TRANSDERM Q72H [facility] Last Admin: 10/15/19 06:10 Dose: 25 mcg Heparin Sodium (Porcine) (Heparin Vial(*)) 5,000 units SUBCUT Q8HR [facility] Last Admin: 10/15/19 06:13 Dose: 5,000 units Pantoprazole Sodium (Protonix Tab*) 40 mg PO QAM [facility] Last Admin: 10/15/19 07:51 Dose: 40 mg Pharmacy Profile Note (Fentanyl Patch Check Q Shift) 1 note FOLLOW UP 0700, 1900 [facility] Last Admin: 10/15/19 07:10 Dose: 1 note Senna (Senokot 8.6 Mg Tab*) 2 tab PO BID PRN PRN Reason: CONSTIPATION Last Admin: 10/15/19 07:51 Dose: 2 tab Sertraline HCl (Zoloft*) 100 mg PO QPM [facility] Vital Signs - 8 hr 12/20/19 12/20/19 12/20/19 06:10 07:15 08:00 Temperature 97.4 F Pulse Rate 73 Respiratory 17 18 18 Rate Blood Pressure 120/58 (mmHg) O2 Sat by Pulse 92 99 Oximetry 10/15/19 11:15 Temperature 97.3 F Pulse Rate 65 Respiratory 18 Rate Blood Pressure 139/56 (mmHg) O2 Sat by Pulse 99 Oximetry Oxygen Devices in Use Now: None Result Diagrams: 10/14/19 23:45 10/14/19 23:45 Assess/Plan/Problems-Billing Assessment:
--- NOTE | 2019-10-15 13:57 | PN ---
Hospitalist Progress Note Date of Service: 10/15/19 Brief Note: Patient with UA results + LE, + nitrates, + bacteria. She c/o frequency, retention, urgency, and occasional dysuria for approximately 1 week. She has had UTIs in the past, and feels that symptoms are milder this time, stating that she usually has high fevers and hallucinations. A/P: Ms. Bernard is a 69yof with PMHx MS, dyslipidemia, asthma who presented to the ER with complaints of inability to care for herself at home without appropriate level or support. -UTI: start cefdinir -Social admission: SW consulting and attempting to obtain placement, although patient somewhat resistant -MS: continue baclofen -Dyslipidemia: continue atorvastatin -Chronic pain: continue home medications -DVT ppx: Heparin SQ -Code: full code Inpatient; [facility] care. Discharge when stable.
[2019-10-15] MEDS: Sertraline* 100 MG TAB PO SCH (17:28)
[2019-10-15] MEDS ORDERED: Calcium Carbonate CHEW TAB* 500 MG (TUMS) PO PRN (19:39)
[2019-10-15] MEDS ORDERED: Atorvastatin* 20 MG TAB PO SCH (21:00)
[2019-10-15] MEDS: Cefdinir cap* 300 MG CAP PO SCH (22:05)
[2019-10-15] MEDS: Baclofen TAB* 10 MG PO PRN (22:05)
[2019-10-15] MEDS: Diazepam TAB(*) 5 MG PO PRN (22:05)
[2019-10-16] MEDS: Baclofen TAB* 10 MG PO PRN ×2 (03:04→21:35)
[2019-10-16] MEDS: Heparin VIAL(*) 5000 UNITS/ML VIAL (FIVE THOUSAND) SUBCUT SCH ×3 (06:53→21:34)
[2019-10-16] MEDS: fentaNYL Patch Check Q Shift 1 NOTE FOLLOW UP SCH ×2 (06:54→18:46)
[2019-10-16] MEDS: Cefdinir cap* 300 MG CAP PO SCH (09:04)
[2019-10-16] MEDS: Pantoprazole TAB * 40 MG TAB PO SCH (09:04)
[2019-10-16] MEDS: Senna TAB 8.6 mg* TAB PO PRN ×2 (09:14→21:34)
[2019-10-16] MEDS ORDERED: Vancomycin(*) 1,250 MG in NS 0.9% 250 ML* 250 ML IVPB ONE (12:18)
[2019-10-16] MEDS ORDERED: Vancomycin per Pharmacy* NOTE FOLLOW UP SCH (13:00)
[2019-10-16] MEDS: Lidocaine PATCH 5%* 1 PATCH TRANSDERM SCH (13:08)
[2019-10-16] MEDS ORDERED: Famotidine TAB* 20 MG PO PRN (15:38)
[2019-10-16] MEDS ORDERED: Polyethylene Glycol 3350* 17 GM PACKET PO PRN (15:38)
[2019-10-16] MEDS: cefTRIAXone(*) 1 GM in NS 0.9% 50 ML* 50 ML IVPB SCH (16:26)
[2019-10-16] MEDS: Sertraline* 100 MG TAB PO SCH (17:34)
[2019-10-16] MEDS: Atorvastatin* 20 MG TAB PO SCH (17:35)
--- NOTE | 2019-10-16 18:55 | HP ---
CC: Iva Cerna MD; Rc Gutierrez MD* DISCHARGE SUMMARY/ADMISSION HISTORY AND PHYSICAL: DATE OF ADMISSION: 10/14/19 DATE OF TRANSFER FROM GROUP HOME TO INPATIENT: 10/16/19 PRIMARY CARE PROVIDER: Iva Cerna MD ATTENDING PHYSICIAN: Rc Gutierrez MD* (dictated by SUZANNE Parker ). PRIMARY DIAGNOSES: 1. Staphylococcus epidermidis bacteremia. 2. Urinary tract infection with proteus. 3. Social concerns as the patient is unable to perform ADLs and currently has no aide help. SECONDARY DIAGNOSES: 1. Multiple sclerosis. 2. Chronic obstructive pulmonary disease. 3. Diastolic heart failure. 4. Hyperlipidemia. 5. Gastroesophageal reflux disease. 6. Chronic pain. CURRENT MEDICATIONS: 1. Albuterol 2.5 mg inhalation q.4 hours p.r.n. 2. Atorvastatin 20 mg p.o. at bedtime. 3. Baclofen 15 mg p.o. 4 times a day p.r.n. 4. Calcium carbonate 500 mg p.o. q.4 hours p.r.n. 5. Ceftriaxone 1 g IV q.24 hours. 6. Diazepam 5 mg p.o. b.i.d. p.r.n. 7. Fentanyl 25 mcg transdermal patch q.72 hours. 8. Heparin 5000 units subcu q.8 hours. 9. Lidocaine patch 1 patch transdermally daily. 10. Pantoprazole 40 mg p.o. daily. 11. Vancomycin. 12. Senna 2 tabs p.o. b.i.d. p.r.n. 13. Sertraline 100 mg p.o. q. evening. HISTORY OF PRESENT ILLNESS/HOSPITAL COURSE: Ms. Bernard is a 69-year-old female with a past medical history of diastolic heart failure, hyperlipidemia, multiple sclerosis with home health aide 13 hours per day 7 days per week who presented to the ER on 10/14/19 with complaints of inability to care for herself including the fact that she was unable to perform ADLs, feeding, and administer medication. She states that she has had difficulty getting a permanent aide assigned to her and has subsequently come to the ER for assistance in obtaining aides. She was admitted residential. A urinalysis was obtained and revealed 2+ LE, positive nitrites, 1+ bacteria. For this, she was started on oral cephalosporin. Blood cultures were performed in the ER and were initially negative. Repeat blood cultures approximately 7 hours later were positive for Staphylococcus epidermidis x2 out of 3 bottles with 1 bottle resulting positive for gram-positive cocci with organism not yet identified, but likely Staph epidermidis as well. Urine culture revealed proteus and the patient was subsequently transitioned to ceftriaxone and vancomycin for coverage of both urinary tract infection and bacteremia. At this time, the patient complains of frequency, urgency, and some retention. She denies dysuria. She complains of increasing GERD symptoms. She notes that she had a formed bowel movement yesterday and none today and states that she feels that her bowels are "screwed up" and she feels abdominal distention. She has no other complaints today. PHYSICAL EXAMINATION GENERAL: Ms. Bernard is an obese, older, white female who is lying flat in bed. She appears to be mildly uncomfortable. She has difficulty with movements. VITAL SIGNS: Temperature 97.7 temporal, heart rate 78, respiratory rate 15, oxygen saturation 91% on room air, blood pressure 128/81. HEENT: PERRL. Sclerae are nonicteric. Hearing is grossly intact. Oral mucous membranes are moist. PULMONARY: Symmetrical chest expansion without use of accessory muscles. Clear to auscultation bilaterally anteriorly without rhonchi, wheezes, or rales. CARDIOVASCULAR: Regular rate and rhythm with S1, S2 present without murmurs, rubs, clicks, or gallops. There is no JVD or peripheral edema. ABDOMEN: Bowel sounds in all quadrants, soft, mildly tender to palpation diffusely. NEURO: Awake, alert, and oriented x3 with cranial nerves II through XII grossly intact. ASSESSMENT AND PLAN: Ms. Bernard is a 69-year-old female with a past medical history of diastolic heart failure, hyperlipidemia, multiple sclerosis with daily aide services who presented to the ER seeking assistance finding aides as she is unable to perform ADLs. She was subsequently found to have an urinary tract infection positive for proteus and a bacteremia with Staphylococcus epidermidis. The patient will be admitted for: 1. Urinary tract infection. The patient has a positive urinalysis. Urine culture resulted with proteus, sensitivity is still pending. The patient has been placed on ceftriaxone for coverage of proteus. She continues to have frequency, urgency, and some retention, but denies dysuria. Bladder and renal ultrasound have been ordered. The patient does not appear septic, does not meet criteria for sepsis. 2. Bacteremia. The patient presents with 3 positive blood cultures, 2 with organism speciation with Staphylococcus epidermidis. She will be started on vancomycin for coverage of this organism. She will likely need an infectious disease consult for further recommendations. Will repeat blood cultures which will be ordered for tomorrow morning. 3. Social admission. The patient presents with inability to care for herself and inadequate help at home. Social work and catalytic case operator are working with the patient to alleviate this problem. 4. Dyslipidemia. Continue atorvastatin. 5. Multiple sclerosis. Continue baclofen. 6. Chronic pain. Continue fentanyl patch, lidocaine patch. 7. Gastroesophageal reflux disease. Continue pantoprazole. The patient complains of increased GERD symptoms. We will add on calcium carbonate chews and famotidine for p.r.n. relief. 8. Depression. Continue sertraline. 9. DVT prophylaxis. Continue heparin subcu. 10. Code status. Full code. TIME SPENT: Approximately 40 minutes was spent on this case, greater than half of that time was spent [id number] with the patient and her son discussing assessment and plan. The case has been discussed with my attending, Dr. Gutierrez, who is in agreement with the plan of care. SUZANNE UGALDE [id number]/CPS #: [id number] MTDElieser
[2019-10-16] MEDS: Lidocaine Patch REMOVE* 1 NOTE MISC SCH (21:34)
[2019-10-16] MEDS: Diazepam TAB(*) 5 MG PO PRN (21:34)
[2019-10-17] MEDS: Vancomycin(*) 1,000 MG in NS 0.9% 250 ML* 250 ML IV SCH ×2 (02:43→14:40)
[2019-10-17] MEDS: Heparin VIAL(*) 5000 UNITS/ML VIAL (FIVE THOUSAND) SUBCUT SCH ×3 (06:01→20:13)
[2019-10-17] MEDS: fentaNYL Patch Check Q Shift 1 NOTE FOLLOW UP SCH ×2 (06:57→18:54)
[2019-10-17] MEDS: Pantoprazole TAB * 40 MG TAB PO SCH (08:47)
[2019-10-17] MEDS: Lidocaine PATCH 5%* 1 PATCH TRANSDERM SCH (08:47)
--- NOTE | 2019-10-17 10:11 | PN ---
Subjective Date of Service: 10/17/19 Interval History: Ms. Bernard is feeling poor this morning. She cannot get comfortable in bed and is very frustrated that she feels staff is not working with her to ensure her comfort. She did have a good night and slept well. Having back pain this morning which is typical for her. No concerns from nursing, but she was noted to have some redness to her buttocks /back when she was wearing a brief and was incontinent of urine. Family History: Unchanged from Admission Social History: Unchanged from Admission Past Medical History: Unchanged from Admission Objective Active Medications: Albuterol (Ventolin 2.5 Mg/3 Ml Neb.Adalgisa*) 2.5 mg INH RT.[id number] AWAKE PRN sob/wheezing Atorvastatin Calcium (Lipitor*) 20 mg PO QPM SHARYN Baclofen (Lioresal Tab*) 15 mg PO QID PRN PAIN - MODERATE Calcium Carbonate (Tums*) 500 mg PO Q4H PRN INDIGESTION Diazepam (Valium Tab(*)) 5 mg PO BID PRN ANXIETY Famotidine (Pepcid Tab*) 20 mg PO BID PRN GERD/indigestion Fentanyl (Duragesic Patch 25 Mcg/Hr*) 25 mcg TRANSDERM Q72H [facility] Heparin Sodium (Porcine) (Heparin Vial(*)) 5,000 units SUBCUT Q8HR [facility] Ceftriaxone Sodium 1 gm/ (Sodium Chloride) 50 mls @ 100 mls/hr IVPB Q24H SHARYN Vancomycin HCl 1,000 mg/ (Sodium Chloride) 250 mls @ 166.667 mls/hr IV Q12H [facility] Lidocaine (Lidoderm 5% Patch*) 1 patch TRANSDERM DAILY SHARYN Pantoprazole Sodium (Protonix Tab*) 40 mg PO QAM [facility] Polyethylene Glycol/Electrolytes (Miralax*) 17 gm PO 0800,2100 PRN CONSTIPATION Senna (Senokot 8.6 Mg Tab*) 2 tab PO BID PRN CONSTIPATION Sertraline HCl (Zoloft*) 100 mg PO QPM [facility] Vital Signs - 8 hr 10/17/19 10/17/19 10/17/19 02:18 07:15 08:00 Temperature 98.9 F 97.1 F Pulse Rate 86 69 Respiratory 20 14 18 Rate Blood Pressure 145/38 109/61 (mmHg) O2 Sat by Pulse 93 90 Oximetry Oxygen Devices in Use Now: None Appearance: Middle-aged female lying in bed in NAD, but upset Ears/Nose/Mouth/Throat: Mucous Membranes Moist Neck: NL Appearance and Movements; NL JVP, Trachea Midline Respiratory: Symmetrical Chest Expansion and Respiratory Effort, Clear to Auscultation Cardiovascular: NL Sounds; No Murmurs; No JVD, RRR Abdominal: NL Sounds; No Tenderness; No Distention Extremities: - - Moderate nonpitting BLE Neurological: Alert and Oriented x 3 Lines/Tubes/Other Access: Clean, Dry and Intact Peripheral IV Nutrition: Taking PO's Result Diagrams: 10/17/19 05:00 10/17/19 05:00 Assess/Plan/Problems-Billing Assessment: Ms. Bernard is a 69 yo F with PMH of MS, COPD, dCHF, HLD, GERD, chronic pain; who was admitted snf care 10/15/19 as she was unable to care for herself at home; subsequently BC and urine culture from admission resulted positive and she was changed to inpatient 10/16/19. - Patient Problems (1) Bacteremia Code(s): R78.81 - BACTEREMIA Comment: - BC x2 on 10/14/19 negative, but 3/3 bottles + for Staph epi on 10/15/19 - Question if this is just a contaminant as there is no obvious source, though concerning as this is MDR - Repeat BC from 10/16/19 pending - Will get ID input tomorrow - Continue vanco for now pending repeat cultures (2) UTI (urinary tract infection) Comment: - Urine culture growing Proteus - History of recurrent E. coli UTI - Continue ceftriaxone (3) Inability to perform activities of daily living Code(s): R53.81 - OTHER MALAISE Comment: - Reportedly has 13 hr/day aide care at home, but unable to care for herself when aides are not present - Social Work and Case Management involved (4) History of multiple sclerosis Code(s): Z86.69 - PERSONAL HISTORY OF DIS OF THE NERVOUS SYS AND SENSE ORGANS Comment: - Continue diazepam, baclofen (5) Chronic pain Code(s): G89.29 - OTHER CHRONIC PAIN Comment: - Continue fentanyl patch, lidocaine (6) Dyslipidemia Code(s): E78.5 - HYPERLIPIDEMIA, UNSPECIFIED Comment: - Continue atorvastatin (7) GERD (gastroesophageal reflux disease) Code(s): K21.9 - GASTRO-ESOPHAGEAL REFLUX DISEASE WITHOUT ESOPHAGITIS Comment : - Continue pantoprazole, famotidine (8) DVT prophylaxis Comment: - Heparin SQ (9) Full code status Code(s): Z78.9 - OTHER SPECIFIED HEALTH STATUS Comment: Status and Disposition: Inpatient. Anticipate need for placement when medically stable. Attending: Rc Gutierrez
[2019-10-17] MEDS: cefTRIAXone(*) 1 GM in NS 0.9% 50 ML* 50 ML IVPB SCH (13:45)
[2019-10-17 14:45] LABS: ABS Eosinophils 0.1 10^3/ul (0-0.6); ABS Lymphocytes 0.9 10^3/ul (1.0-4.8); ABS Monocytes 0.3 10^3/ul (0-0.8); Eosinophil % 2.3 %; Hematocrit 44 % (35-47); Hemoglobin 14.8 g/dL (12.0-16.0); Lymphocyte % 16.3 %; Mean Corpuscular HGB Conc 34 g/dL (31-36); Mean Corpuscular Hemoglobin 31 pg (27-31); Mean Corpuscular Volume 91 fL (80-97); Mean Platelet Volume 8.6 fL (7.4-10.4); Nucleated Red Blood Cells % 0.2; Platelet Count 133 10^3/uL (150-450); Red Blood Count 4.81 10^6 /uL (3.70-4.87); Red Cell Distribution Width 14 % (10-15); White Blood Count 5.3 10^3/uL (3.5-10.8)
[2019-10-17 14:54] LABS: BUN/Creatinine Ratio 12.8 (8-20); Calcium 9.2 mg/dL (8.6-10.3); EGFR African American 88.9 (>60); EGFR Non-African American 73.4 (>60)
[2019-10-17] MEDS: Sertraline* 100 MG TAB PO SCH (18:12)
[2019-10-17] MEDS: Atorvastatin* 20 MG TAB PO SCH (18:12)
[2019-10-17] MEDS: Lidocaine Patch REMOVE* 1 NOTE MISC SCH (20:15)
[2019-10-18] MEDS: Vancomycin(*) 1,000 MG in NS 0.9% 250 ML* 250 ML IV SCH (02:27)
[2019-10-18] MEDS: fentaNYL PATCH 25 MCG/HR TRANSDERM SCH (06:01)
[2019-10-18] MEDS: Heparin VIAL(*) 5000 UNITS/ML VIAL (FIVE THOUSAND) SUBCUT SCH ×3 (06:02→21:08)
[2019-10-18] MEDS: fentaNYL Patch Check Q Shift 1 NOTE FOLLOW UP SCH ×2 (07:30→19:21)
[2019-10-18] MEDS: Pantoprazole TAB * 40 MG TAB PO SCH (09:54)
[2019-10-18] MEDS: Lidocaine PATCH 5%* 1 PATCH TRANSDERM SCH (09:55)
--- NOTE | 2019-10-18 10:04 | PN ---
Subjective Date of Service: 10/18/19 Interval History: Ms. Bernard is feeling "irritable" this morning. She feels as though she is "bottoming out" in bed and does not think the air mattress is working correctly. She has not been able to get comfortable in bed. Feels as though in certain positions, the circulation to her left leg is impaired. Denies SOB or CP. The way her IV is taped is also bothersome. No concerns from nursing. Family History: Unchanged from Admission Social History: Unchanged from Admission Past Medical History: Unchanged from Admission Objective Active Medications: Albuterol (Ventolin 2.5 Mg/3 Ml Neb.Adalgisa*) 2.5 mg INH [id number] AWAKE PRN sob/wheezing Atorvastatin Calcium (Lipitor*) 20 mg PO QPM [facility] Baclofen (Lioresal Tab*) 15 mg PO QID PRN PAIN - MODERATE Calcium Carbonate (Tums*) 500 mg PO Q4H PRN INDIGESTION Diazepam (Valium Tab(*)) 5 mg PO BID PRN ANXIETY Famotidine (Pepcid Tab*) 20 mg PO BID PRN GERD/indigestion Fentanyl (Duragesic Patch 25 Mcg/Hr*) 25 mcg TRANSDERM Q72H [facility] Heparin Sodium (Porcine) (Heparin Vial(*)) 5,000 units SUBCUT Q8HR [facility] Ceftriaxone Sodium 1 gm/ (Sodium Chloride) 50 mls @ 100 mls/hr IVPB Q24H [facility] Vancomycin HCl 1,000 mg/ (Sodium Chloride) 250 mls @ 166.667 mls/hr IV Q12H [facility] Lidocaine (Lidoderm 5% Patch*) 1 patch TRANSDERM DAILY [facility] Pantoprazole Sodium (Protonix Tab*) 40 mg PO QAM [facility] Polyethylene Glycol/Electrolytes (Miralax*) 17 gm PO 0800,2100 PRN CONSTIPATION Senna (Senokot 8.6 Mg Tab*) 2 tab PO BID PRN CONSTIPATION Sertraline HCl (Zoloft*) 100 mg PO QPM [facility] Vital Signs - 8 hr 10/18/19 10/18/19 10/18/19 02:34 06:01 07:15 Temperature 98.8 F 97.4 F Pulse Rate 71 69 Respiratory 18 16 15 Rate Blood Pressure 133/60 130/64 (mmHg) O2 Sat by Pulse 94 94 Oximetry Oxygen Devices in Use Now: None Appearance: Middle-aged female lying in bed in NAD Ears/Nose/Mouth/Throat: Mucous Membranes Moist Neck: NL Appearance and Movements; NL JVP, Trachea Midline Respiratory: Symmetrical Chest Expansion and Respiratory Effort, Clear to Auscultation Cardiovascular: NL Sounds; No Murmurs; No JVD, RRR Abdominal: NL Sounds; No Tenderness; No Distention Extremities: - - Moderate nonpitting BLE Neurological: Alert and Oriented x 3 Lines/Tubes/Other Access: Clean, Dry and Intact Peripheral IV Nutrition: Taking PO's Result Diagrams: 10/17/19 14:32 10/17/19 14:32 Assess/Plan/Problems-Billing Assessment: Ms. Bernard is a 69 yo F with PMH of MS, COPD, dCHF, HLD, GERD, chronic pain; who was admitted half-way care 10/15/19 as she was unable to care for herself at home; subsequently BC and urine culture from admission resulted positive and she was changed to inpatient 10/16/19. - Patient Problems (1) Bacteremia Code(s): R78.81 - BACTEREMIA Comment: - BC x2 on 10/14/19 negative, but 3/3 bottles + for Staph epi on 10/15/19 - Question if this is just a contaminant as there is no obvious source, though concerning as this is MDR - Repeat BC from 10/16/19 NTD - Appreciate ID consult - Continue vanco for now pending repeat cultures and ID recommendations (2) UTI (urinary tract infection) Comment: - Urine culture growing Proteus - History of recurrent E. coli UTI - Continue ceftriaxone (3) Inability to perform activities of daily living Code(s): R53.81 - OTHER MALAISE Comment: - Reportedly has 13 hr/day aide care at home, but unable to care for herself when aides are not present - Social Work and Case Management involved (4) History of multiple sclerosis Code(s): Z86.69 - PERSONAL HISTORY OF DIS OF THE NERVOUS SYS AND SENSE ORGANS Comment: - Continue diazepam, baclofen (5) Chronic pain Code(s): G89.29 - OTHER CHRONIC PAIN Comment: - Continue fentanyl patch, lidocaine (6) Dyslipidemia Code(s): E78.5 - HYPERLIPIDEMIA, UNSPECIFIED Comment: - Continue atorvastatin (7) GERD (gastroesophageal reflux disease) Code(s): K21.9 - GASTRO-ESOPHAGEAL REFLUX DISEASE WITHOUT ESOPHAGITIS Comment : - Continue pantoprazole, famotidine (8) DVT prophylaxis Comment: - Heparin SQ (9) Full code status Code(s): Z78.9 - OTHER SPECIFIED HEALTH STATUS Comment: Status and Disposition: Inpatient. Anticipate need for placement when medically stable. Attending: Fiorella Morgan
[2019-10-18] MEDS ORDERED: Vancomycin Trough Check NOTE FOLLOW UP ONE (13:30)
[2019-10-18] MEDS: cefTRIAXone(*) 1 GM in NS 0.9% 50 ML* 50 ML IVPB SCH (13:51)
[2019-10-18] MEDS: Senna TAB 8.6 mg* TAB PO PRN ×2 (13:51→23:22)
[2019-10-18] MEDS: Sertraline* 100 MG TAB PO SCH (18:07)
[2019-10-18] MEDS: Atorvastatin* 20 MG TAB PO SCH (18:07)
[2019-10-18] MEDS: Lidocaine Patch REMOVE* 1 NOTE MISC SCH (21:16)
[2019-10-18] MEDS: Baclofen TAB* 10 MG PO PRN (23:22)
[2019-10-18] MEDS: Diazepam TAB(*) 5 MG PO PRN (23:24)
[2019-10-19] MEDS: Heparin VIAL(*) 5000 UNITS/ML VIAL (FIVE THOUSAND) SUBCUT SCH ×3 (05:53→21:34)
[2019-10-19] MEDS: fentaNYL Patch Check Q Shift 1 NOTE FOLLOW UP SCH ×2 (06:45→18:48)
[2019-10-19] MEDS: Lidocaine PATCH 5%* 1 PATCH TRANSDERM SCH ×2 (08:51→12:17)
[2019-10-19] MEDS: Pantoprazole TAB * 40 MG TAB PO SCH (08:58)
[2019-10-19] MEDS: Senna TAB 8.6 mg* TAB PO PRN ×2 (09:14→21:32)
--- NOTE | 2019-10-19 09:31 | PN ---
Subjective Date of Service: 10/19/19 Interval History: Ms. Bernard is feeling poor again today. She still cannot get comfortable in bed and feels as though she is "bottoming out in bed." Staff has not been able to get her into a comfortable position (though she was sleeping on my arrival). She would like to have diazepam at bedtime per her home schedule. Denies CP or SOB. No concerns from nursing. Family History: Unchanged from Admission Social History: Unchanged from Admission Past Medical History: Unchanged from Admission Objective Active Medications: Albuterol (Ventolin 2.5 Mg/3 Ml Neb.Adalgisa*) 2.5 mg INH [id number] AWAKE PRN sob/wheezing Atorvastatin Calcium (Lipitor*) 20 mg PO QPM [facility] Baclofen (Lioresal Tab*) 15 mg PO QID PRN PAIN - MODERATE Calcium Carbonate (Tums*) 500 mg PO Q4H PRN INDIGESTION Diazepam (Valium Tab(*)) 5 mg PO BID PRN ANXIETY Diazepam (Valium Tab(*)) 10 mg PO BEDTIME [facility] Famotidine (Pepcid Tab*) 20 mg PO BID PRN GERD/indigestion Fentanyl (Duragesic Patch 25 Mcg/Hr*) 25 mcg TRANSDERM Q72H [facility] Heparin Sodium (Porcine) (Heparin Vial(*)) 5,000 units SUBCUT Q8HR [facility] Ceftriaxone Sodium 1 gm/ (Sodium Chloride) 50 mls @ 100 mls/hr IVPB Q24H [facility] Lidocaine (Lidoderm 5% Patch*) 1 patch TRANSDERM DAILY [facility] Pantoprazole Sodium (Protonix Tab*) 40 mg PO QAM [facility] Polyethylene Glycol/Electrolytes (Miralax*) 17 gm PO 0800,2100 PRN CONSTIPATION Senna (Senokot 8.6 Mg Tab*) 2 tab PO BID PRN CONSTIPATION Sertraline HCl (Zoloft*) 100 mg PO QPM [facility] Vital Signs - 8 hr 10/19/19 10/19/19 10/19/19 03:09 07:58 08:00 Temperature 97.4 F 98.2 F Pulse Rate 68 68 Respiratory 16 18 18 Rate Blood Pressure 128/60 138/62 (mmHg) O2 Sat by Pulse 91 93 93 Oximetry Oxygen Devices in Use Now: None Appearance: Middle-aged female lying in bed in NAD Ears/Nose/Mouth/Throat: Mucous Membranes Moist Neck: NL Appearance and Movements; NL JVP, Trachea Midline Respiratory: Symmetrical Chest Expansion and Respiratory Effort, Clear to Auscultation Cardiovascular: NL Sounds; No Murmurs; No JVD, RRR Abdominal: NL Sounds; No Tenderness; No Distention Extremities: - - Moderate nonpitting BLE Neurological: Alert and Oriented x 3 Lines/Tubes/Other Access: Clean, Dry and Intact Peripheral IV Nutrition: Taking PO's Result Diagrams: 10/17/19 14:32 10/17/19 14:32 Assess/Plan/Problems-Billing Assessment: Ms. Bernard is a 69 yo F with PMH of MS, COPD, dCHF, HLD, GERD, chronic pain; who was admitted half-way care 10/15/19 as she was unable to care for herself at home; subsequently BC and urine culture from admission resulted positive and she was changed to inpatient 10/16/19. - Patient Problems (1) UTI (urinary tract infection) Comment: - Urine culture growing Proteus - History of recurrent E. coli UTI - Continue ceftriaxone (day 4) (2) Bacteremia Code(s): R78.81 - BACTEREMIA Comment: - Spoke with ID who believes this is a CONTAMINANT only - Vanco d/c'd (3) Inability to perform activities of daily living Code(s): R53.81 - OTHER MALAISE Comment: - Reportedly has 13 hr/day aide care at home, but unable to care for herself when aides are not present - Social Work and Case Management involved (4) History of multiple sclerosis Code(s): Z86.69 - PERSONAL HISTORY OF DIS OF THE NERVOUS SYS AND SENSE ORGANS Comment: - Continue diazepam, baclofen (5) Chronic pain Code(s): G89.29 - OTHER CHRONIC PAIN Comment: - Continue fentanyl patch, lidocaine (6) Dyslipidemia Code(s): E78.5 - HYPERLIPIDEMIA, UNSPECIFIED Comment: - Continue atorvastatin (7) GERD (gastroesophageal reflux disease) Code(s): K21.9 - GASTRO-ESOPHAGEAL REFLUX DISEASE WITHOUT ESOPHAGITIS Comment : - Continue pantoprazole, famotidine (8) DVT prophylaxis Comment: - Heparin SQ (9) Full code status Code(s): Z78.9 - OTHER SPECIFIED HEALTH STATUS Comment: Status and Disposition: Inpatient. Medically stable for d/c when bed offer is secured. Attending: Fiorella Morgan
[2019-10-19] MEDS: cefTRIAXone(*) 1 GM in NS 0.9% 50 ML* 50 ML IVPB SCH (12:48)
[2019-10-19] MEDS: Sertraline* 100 MG TAB PO SCH (16:58)
[2019-10-19] MEDS: Atorvastatin* 20 MG TAB PO SCH (16:58)
[2019-10-19] MEDS: Baclofen TAB* 10 MG PO PRN (21:31)
[2019-10-19] MEDS: Diazepam TAB(*) 10 MG PO SCH (21:32)
[2019-10-19] MEDS: Lidocaine Patch REMOVE* 1 NOTE MISC SCH ×2 (21:34→21:35)
[2019-10-20] MEDS: Heparin VIAL(*) 5000 UNITS/ML VIAL (FIVE THOUSAND) SUBCUT SCH ×3 (05:58→20:52)
[2019-10-20] MEDS: fentaNYL Patch Check Q Shift 1 NOTE FOLLOW UP SCH ×2 (07:26→18:46)
[2019-10-20] MEDS: Baclofen TAB* 10 MG PO PRN (09:29)
[2019-10-20] MEDS: Lidocaine PATCH 5%* 1 PATCH TRANSDERM SCH (09:30)
[2019-10-20] MEDS: Pantoprazole TAB * 40 MG TAB PO SCH (09:30)
--- NOTE | 2019-10-20 10:37 | PN ---
Subjective Date of Service: 10/20/19 Interval History: Ms. Bernard is frustrated this morning. She had a difficult night as she felt as though the staff was not understanding what she was asking of them. She still has not been able to get comfortable in bed for a significant period of time. Denies CP or SOB. No concerns from nursing. Family History: Unchanged from Admission Social History: Unchanged from Admission Past Medical History: Unchanged from Admission Objective Active Medications: Albuterol (Ventolin 2.5 Mg/3 Ml Neb.Adalgisa*) 2.5 mg INH [id number] AWAKE PRN sob/wheezing Atorvastatin Calcium (Lipitor*) 20 mg PO QPM [facility] Baclofen (Lioresal Tab*) 15 mg PO QID PRN PAIN - MODERATE Calcium Carbonate (Tums*) 500 mg PO Q4H PRN INDIGESTION Diazepam (Valium Tab(*)) 5 mg PO BID PRN ANXIETY Diazepam (Valium Tab(*)) 10 mg PO BEDTIME [facility] Famotidine (Pepcid Tab*) 20 mg PO BID PRN GERD/indigestion Fentanyl (Duragesic Patch 25 Mcg/Hr*) 25 mcg TRANSDERM Q72H [facility] Heparin Sodium (Porcine) (Heparin Vial(*)) 5,000 units SUBCUT Q8HR [facility] Ceftriaxone Sodium 1 gm/ (Sodium Chloride) 50 mls @ 100 mls/hr IVPB Q24H [facility] Lidocaine (Lidoderm 5% Patch*) 1 patch TRANSDERM DAILY [facility] Pantoprazole Sodium (Protonix Tab*) 40 mg PO QAM [facility] Polyethylene Glycol/Electrolytes (Miralax*) 17 gm PO 0800,2100 PRN CONSTIPATION Senna (Senokot 8.6 Mg Tab*) 2 tab PO BID PRN CONSTIPATION Sertraline HCl (Zoloft*) 100 mg PO QPM [facility] Vital Signs - 8 hr 10/20/19 10/20/19 10/20/19 04:07 08:00 09:05 Temperature 97.7 F 97.6 F Pulse Rate 83 77 Respiratory 20 16 Rate Blood Pressure 138/53 135/58 (mmHg) O2 Sat by Pulse 90 90 90 Oximetry Oxygen Devices in Use Now: None Appearance: Middle-aged female lying in bed in NAD Ears/Nose/Mouth/Throat: Mucous Membranes Moist Neck: NL Appearance and Movements; NL JVP, Trachea Midline Respiratory: Symmetrical Chest Expansion and Respiratory Effort, Clear to Auscultation Cardiovascular: NL Sounds; No Murmurs; No JVD, RRR Abdominal: NL Sounds; No Tenderness; No Distention Extremities: - - Moderate nonpitting BLE Neurological: Alert and Oriented x 3 Lines/Tubes/Other Access: Clean, Dry and Intact Peripheral IV Nutrition: Taking PO's Result Diagrams: 10/17/19 14:32 10/17/19 14:32 Assess/Plan/Problems-Billing Assessment: Ms. Bernard is a 69 yo F with PMH of MS, COPD, dCHF, HLD, GERD, chronic pain; who was admitted care home care 10/15/19 as she was unable to care for herself at home; subsequently BC and urine culture from admission resulted positive and she was changed to inpatient 10/16/19. - Patient Problems (1) UTI (urinary tract infection) Comment: - Urine culture growing Proteus - History of recurrent E. coli UTI - Continue ceftriaxone (day 5/7) (2) Bacteremia Code(s): R78.81 - BACTEREMIA Comment: - CONTAMINANT per ID (3) Inability to perform activities of daily living Code(s): R53.81 - OTHER MALAISE Comment: - Reportedly has 13 hr/day aide care at home, but unable to care for herself when aides are not present - Social Work and Case Management involved (4) History of multiple sclerosis Code(s): Z86.69 - PERSONAL HISTORY OF DIS OF THE NERVOUS SYS AND SENSE ORGANS Comment: - Continue diazepam, baclofen (5) Chronic pain Code(s): G89.29 - OTHER CHRONIC PAIN Comment: - Continue fentanyl patch, lidocaine (6) Dyslipidemia Code(s): E78.5 - HYPERLIPIDEMIA, UNSPECIFIED Comment: - Continue atorvastatin (7) GERD (gastroesophageal reflux disease) Code(s): K21.9 - GASTRO-ESOPHAGEAL REFLUX DISEASE WITHOUT ESOPHAGITIS Comment : - Continue pantoprazole, famotidine (8) DVT prophylaxis Comment: - Heparin SQ (9) Full code status Code(s): Z78.9 - OTHER SPECIFIED HEALTH STATUS Comment: Status and Disposition: Inpatient. Medically stable for d/c when bed offer is secured. Attending: Fiorella Morgan
[2019-10-20] MEDS: cefTRIAXone(*) 1 GM in NS 0.9% 50 ML* 50 ML IVPB SCH (14:39)
[2019-10-20] MEDS: Atorvastatin* 20 MG TAB PO SCH (17:30)
[2019-10-20] MEDS: Sertraline* 100 MG TAB PO SCH (17:30)
[2019-10-20] MEDS: Lidocaine Patch REMOVE* 1 NOTE MISC SCH (21:29)
[2019-10-20] MEDS: Diazepam TAB(*) 10 MG PO SCH (22:44)
[2019-10-21] MEDS: Heparin VIAL(*) 5000 UNITS/ML VIAL (FIVE THOUSAND) SUBCUT SCH ×3 (07:16→21:51)
[2019-10-21] MEDS: fentaNYL PATCH 25 MCG/HR TRANSDERM SCH (07:17)
[2019-10-21] MEDS: fentaNYL Patch Check Q Shift 1 NOTE FOLLOW UP SCH ×2 (07:17→19:35)
[2019-10-21] MEDS: Pantoprazole TAB * 40 MG TAB PO SCH (10:07)
[2019-10-21] MEDS: Lidocaine PATCH 5%* 1 PATCH TRANSDERM SCH (10:07)
--- NOTE | 2019-10-21 11:38 | PN ---
Subjective Date of Service: 10/21/19 Interval History: Ms. Bernard is feeling okay this morning. She reports being "uncomfortable" but after a lengthy conversation, she admits that she is comfortable in bed, but wanted her bedside table cleaned off. Denies CP or SOB. Did not eat well this morning because she did not have the help she needed. No concerns from nursing. Family History: Unchanged from Admission Social History: Unchanged from Admission Past Medical History: Unchanged from Admission Objective Active Medications: Albuterol (Ventolin 2.5 Mg/3 Ml Neb.Adalgisa*) 2.5 mg INH [id number] AWAKE PRN sob/wheezing Atorvastatin Calcium (Lipitor*) 20 mg PO QPM [facility] Baclofen (Lioresal Tab*) 15 mg PO QID PRN PAIN - MODERATE Calcium Carbonate (Tums*) 500 mg PO Q4H PRN INDIGESTION Diazepam (Valium Tab(*)) 5 mg PO BID PRN ANXIETY Diazepam (Valium Tab(*)) 10 mg PO BEDTIME [facility] Famotidine (Pepcid Tab*) 20 mg PO BID PRN GERD/indigestion Fentanyl (Duragesic Patch 25 Mcg/Hr*) 25 mcg TRANSDERM Q72H [facility] Heparin Sodium (Porcine) (Heparin Vial(*)) 5,000 units SUBCUT Q8HR [facility] Ceftriaxone Sodium 1 gm/ (Sodium Chloride) 50 mls @ 100 mls/hr IVPB Q24H [facility] Lidocaine (Lidoderm 5% Patch*) 1 patch TRANSDERM DAILY [facility] Pantoprazole Sodium (Protonix Tab*) 40 mg PO QAM [facility] Polyethylene Glycol/Electrolytes (Miralax*) 17 gm PO 0800,2100 PRN CONSTIPATION Senna (Senokot 8.6 Mg Tab*) 2 tab PO BID PRN CONSTIPATION Sertraline HCl (Zoloft*) 100 mg PO QPM [facility] Vital Signs - 8 hr 10/21/19 10/21/19 10/21/19 07:17 07:56 08:00 Temperature 97.8 F Pulse Rate 78 Respiratory 18 19 19 Rate Blood Pressure 137/64 (mmHg) O2 Sat by Pulse 91 91 Oximetry 10/21/19 10/21/19 11:19 11:23 Temperature 97.5 F Pulse Rate 84 Respiratory 22 Rate Blood Pressure 128/67 (mmHg) O2 Sat by Pulse 88 91 Oximetry Oxygen Devices in Use Now: None Appearance: Middle-aged female lying in bed in NAD Ears/Nose/Mouth/Throat: Mucous Membranes Moist Neck: NL Appearance and Movements; NL JVP, Trachea Midline Respiratory: Symmetrical Chest Expansion and Respiratory Effort, Clear to Auscultation Cardiovascular: NL Sounds; No Murmurs; No JVD, RRR Abdominal: NL Sounds; No Tenderness; No Distention Extremities: - - Moderate nonpitting BLE Neurological: Alert and Oriented x 3 Lines/Tubes/Other Access: Clean, Dry and Intact Peripheral IV Nutrition: Taking PO's Result Diagrams: 10/17/19 14:32 10/17/19 14:32 Assess/Plan/Problems-Billing Assessment: Ms. Bernard is a 69 yo F with PMH of MS, COPD, dCHF, HLD, GERD, chronic pain; who was admitted [facility] 10/[facility]/19 as she was unable to care for herself at home; subsequently BC and urine culture from admission resulted positive and she was changed to inpatient 10/16/19. - Patient Problems (1) UTI (urinary tract infection) Comment: - Urine culture growing Proteus - History of recurrent E. coli UTI - Change to cefdinir (day 6/7) (2) Bacteremia Code(s): R78.81 - BACTEREMIA Comment: - CONTAMINANT per ID (3) Inability to perform activities of daily living Code(s): R53.81 - OTHER MALAISE Comment: - Reportedly has 13 hr/day aide care at home, but unable to care for herself when aides are not present - Social Work and Case Management involved (4) History of multiple sclerosis Code(s): Z86.69 - PERSONAL HISTORY OF DIS OF THE NERVOUS SYS AND SENSE ORGANS Comment: - Continue diazepam, baclofen (5) Chronic pain Code(s): G89.29 - OTHER CHRONIC PAIN Comment: - Continue fentanyl patch, lidocaine (6) Dyslipidemia Code(s): E78.5 - HYPERLIPIDEMIA, UNSPECIFIED Comment: - Continue atorvastatin (7) GERD (gastroesophageal reflux disease) Code(s): K21.9 - GASTRO-ESOPHAGEAL REFLUX DISEASE WITHOUT ESOPHAGITIS Comment : - Continue pantoprazole, famotidine (8) DVT prophylaxis Comment: - Heparin SQ (9) Full code status Code(s): Z78.9 - OTHER SPECIFIED HEALTH STATUS Comment: Status and Disposition: Inpatient. Medically stable for d/c when bed offer is secured. Attending: Cassidy Montiel
[2019-10-21] MEDS: Cefdinir cap* 300 MG CAP PO SCH ×2 (13:15→21:49)
[2019-10-21] MEDS: Sertraline* 100 MG TAB PO SCH (17:34)
[2019-10-21] MEDS: Atorvastatin* 20 MG TAB PO SCH (17:34)
[2019-10-21] MEDS: Baclofen TAB* 10 MG PO PRN (21:49)
[2019-10-21] MEDS: Lidocaine Patch REMOVE* 1 NOTE MISC SCH (21:49)
[2019-10-21] MEDS: Senna TAB 8.6 mg* TAB PO PRN (21:50)
[2019-10-21] MEDS: Diazepam TAB(*) 10 MG PO SCH (21:51)
[2019-10-22] MEDS: Heparin VIAL(*) 5000 UNITS/ML VIAL (FIVE THOUSAND) SUBCUT SCH ×3 (05:39→20:45)
[2019-10-22] MEDS: fentaNYL Patch Check Q Shift 1 NOTE FOLLOW UP SCH ×2 (07:16→19:22)
[2019-10-22] MEDS: Senna TAB 8.6 mg* TAB PO PRN ×2 (10:09→20:48)
[2019-10-22] MEDS: Pantoprazole TAB * 40 MG TAB PO SCH (10:09)
[2019-10-22] MEDS: Cefdinir cap* 300 MG CAP PO SCH ×2 (10:10→20:45)
[2019-10-22] MEDS: Lidocaine PATCH 5%* 1 PATCH TRANSDERM SCH (10:10)
--- NOTE | 2019-10-22 15:27 | PN ---
Subjective Date of Service: 10/22/19 Interval History: Ms. Bernard is not feeling well today. She is frustrated that she has not been able to reach the necessary items on her bedside table. She is somewhat comfortable in bed. Denies CP or SOB. No concerns from nursing. Family History: Unchanged from Admission Social History: Unchanged from Admission Past Medical History: Unchanged from Admission Objective Active Medications: Albuterol (Ventolin 2.5 Mg/3 Ml Neb.Adalgisa*) 2.5 mg INH [id number] AWAKE PRN sob/wheezing Atorvastatin Calcium (Lipitor*) 20 mg PO QPM [facility] Baclofen (Lioresal Tab*) 15 mg PO QID PRN PAIN - MODERATE Calcium Carbonate (Tums*) 500 mg PO Q4H PRN INDIGESTION Cefdinir (Cefdinir Cap*) 300 mg PO BID [facility] Diazepam (Valium Tab(*)) 5 mg PO BID PRN ANXIETY Diazepam (Valium Tab(*)) 10 mg PO BEDTIME [facility] Famotidine (Pepcid Tab*) 20 mg PO BID PRN GERD/indigestion Fentanyl (Duragesic Patch 25 Mcg/Hr*) 25 mcg TRANSDERM Q72H [facility] Heparin Sodium (Porcine) (Heparin Vial(*)) 5,000 units SUBCUT Q8HR [facility] Lidocaine (Lidoderm 5% Patch*) 1 patch TRANSDERM DAILY [facility] Pantoprazole Sodium (Protonix Tab*) 40 mg PO QAM [facility] Polyethylene Glycol/Electrolytes (Miralax*) 17 gm PO 0800,2100 PRN CONSTIPATION Senna (Senokot 8.6 Mg Tab*) 2 tab PO BID PRN CONSTIPATION Sertraline HCl (Zoloft*) 100 mg PO QPM [facility] Vital Signs - 8 hr 10/22/19 10/22/19 08:00 11:15 Temperature 97.4 F Pulse Rate 79 Respiratory 18 16 Rate Blood Pressure 128/70 (mmHg) O2 Sat by Pulse 92 Oximetry Oxygen Devices in Use Now: None Appearance: Middle-aged female lying in bed in NAD Ears/Nose/Mouth/Throat: Mucous Membranes Moist Neck: NL Appearance and Movements; NL JVP, Trachea Midline Respiratory: Symmetrical Chest Expansion and Respiratory Effort, Clear to Auscultation Cardiovascular: NL Sounds; No Murmurs; No JVD, RRR Abdominal: NL Sounds; No Tenderness; No Distention Extremities: - - Moderate nonpitting BLE Neurological: Alert and Oriented x 3 Nutrition: Taking PO's Result Diagrams: 10/17/19 14:32 10/17/19 14:32 Assess/Plan/Problems-Billing Assessment: Ms. Bernard is a 69 yo F with PMH of MS, COPD, dCHF, HLD, GERD, chronic pain; who was admitted [facility] care 10/15/19 as she was unable to care for herself at home; subsequently BC and urine culture from admission resulted positive and she was changed to inpatient 10/16/19. - Patient Problems (1) UTI (urinary tract infection) Comment: - Urine culture growing Proteus - History of recurrent E. coli UTI - Continue cefdinir (day 05/02) (2) Bacteremia Code(s): R78.81 - BACTEREMIA Comment: - CONTAMINANT per ID (3) Inability to perform activities of daily living Code(s): R53.81 - OTHER MALAISE Comment: - Reportedly has 13 hr/day aide care at home, but unable to care for herself when aides are not present - Social Work and Case Management involved (4) History of multiple sclerosis Code(s): Z86.69 - PERSONAL HISTORY OF DIS OF THE NERVOUS SYS AND SENSE ORGANS Comment: - Continue diazepam, baclofen (5) Chronic pain Code(s): G89.29 - OTHER CHRONIC PAIN Comment: - Continue fentanyl patch, lidocaine (6) Dyslipidemia Code(s): E78.5 - HYPERLIPIDEMIA, UNSPECIFIED Comment: - Continue atorvastatin (7) GERD (gastroesophageal reflux disease) Code(s): K21.9 - GASTRO-ESOPHAGEAL REFLUX DISEASE WITHOUT ESOPHAGITIS Comment : - Continue pantoprazole, famotidine (8) DVT prophylaxis Comment: - Heparin SQ (9) Full code status Code(s): Z78.9 - OTHER SPECIFIED HEALTH STATUS Comment: Status and Disposition: Group Home care. Medically stable for d/c when bed offer is secured. Attending: Cassidy Montiel
[2019-10-22] MEDS: Atorvastatin* 20 MG TAB PO SCH (19:22)
[2019-10-22] MEDS: Sertraline* 100 MG TAB PO SCH (19:22)
[2019-10-22] MEDS: Baclofen TAB* 10 MG PO PRN (20:46)
[2019-10-22] MEDS: Lidocaine Patch REMOVE* 1 NOTE MISC SCH (20:52)
[2019-10-22] MEDS: Diazepam TAB(*) 10 MG PO SCH ×2 (23:27→23:30)
[2019-10-23] MEDS: Heparin VIAL(*) 5000 UNITS/ML VIAL (FIVE THOUSAND) SUBCUT SCH ×3 (06:03→22:23)
[2019-10-23] MEDS: fentaNYL Patch Check Q Shift 1 NOTE FOLLOW UP SCH ×2 (06:47→18:11)
[2019-10-23] MEDS: Pantoprazole TAB * 40 MG TAB PO SCH (09:13)
[2019-10-23] MEDS: Lidocaine PATCH 5%* 1 PATCH TRANSDERM SCH (09:14)
--- NOTE | 2019-10-23 09:14 | PN ---
Subjective Date of Service: 10/23/19 Interval History: Patient with no new complaints. waiting for [facility] bed. Denies chest pain or shortness of breath. Denies fever or chills. Denies abd pain n/v/d Does c/o occasional cough Family History: Unchanged from Admission Social History: Unchanged from Admission Past Medical History: Unchanged from Admission Objective Active Medications: Albuterol (Ventolin 2.5 Mg/3 Ml Neb.Adalgisa*) 2.5 mg INH [id number] AWAKE PRN PRN Reason: sob/wheezing Atorvastatin Calcium (Lipitor*) 20 mg PO QPM [facility] Last Admin: 10/22/19 19:22 Dose: 20 mg Baclofen (Lioresal Tab*) 15 mg PO QID PRN PRN Reason: PAIN - MODERATE Last Admin: 10/22/19 20:46 Dose: 15 mg Calcium Carbonate (Tums*) 500 mg PO Q4H PRN PRN Reason: INDIGESTION Last Admin: 10/15/19 20:05 Dose: 500 mg Diazepam (Valium Tab(*)) 10 mg PO BEDTIME [facility] Last Admin: 10/22/19 23:30 Dose: 10 mg Famotidine (Pepcid Tab*) 20 mg PO BID PRN PRN Reason: GERD/indigestion Fentanyl (Duragesic Patch 25 Mcg/Hr*) 25 mcg TRANSDERM Q72H [facility] Last Admin: 10/21/19 07:17 Dose: 25 mcg Heparin Sodium (Porcine) (Heparin Vial(*)) 5,000 units SUBCUT Q8HR [facility] Last Admin: 10/23/19 06:03 Dose: 5,000 units Lidocaine (Lidoderm 5% Patch*) 1 patch TRANSDERM DAILY [facility] Last Admin: 10/22/19 10:10 Dose: 1 patch Pantoprazole Sodium (Protonix Tab*) 40 mg PO QAM [facility] Last Admin: 10/22/19 10:09 Dose: 40 mg Pharmacy Profile Note (Fentanyl Patch Check Q Shift) 1 note FOLLOW UP 0700, 1900 [facility] Last Admin: 10/23/19 06:47 Dose: 1 note Pharmacy Profile Note (Lidocaine Patch Remove*) 1 note N/A 2100 [facility] Last Admin: 10/22/19 20:52 Dose: 1 note Polyethylene Glycol/Electrolytes (Miralax*) 17 gm PO 0800,2100 PRN PRN Reason: CONSTIPATION Senna (Senokot 8.6 Mg Tab*) 2 tab PO BID PRN PRN Reason: CONSTIPATION Last Admin: 10/22/19 20:48 Dose: 2 tab Sertraline HCl (Zoloft*) 100 mg PO QPM [facility] Last Admin: 10/22/19 19:22 Dose: 100 mg Vital Signs - 8 hr 10/23/19 10/23/19 10/23/19 03:15 04:44 07:15 Temperature 97.2 F 96.9 F Pulse Rate 86 78 Respiratory 16 18 13 Rate Blood Pressure 129/75 148/69 (mmHg) O2 Sat by Pulse 92 92 Oximetry Oxygen Devices in Use Now: None Appearance: alert oriented x 3 , no acute distress Eyes: No Scleral Icterus Ears/Nose/Mouth/Throat: Clear Oropharnyx, Mucous Membranes Moist Neck: NL Appearance and Movements; NL JVP, Trachea Midline Respiratory: Symmetrical Chest Expansion and Respiratory Effort, Clear to Auscultation Cardiovascular: NL Sounds; No Murmurs; No JVD, No Edema Abdominal: NL Sounds; No Tenderness; No Distention Extremities: No Edema, No Clubbing, Cyanosis Skin: No Rash or Ulcers Neurological: Alert and Oriented x 3 Nutrition: Taking PO's Result Diagrams: 10/17/19 14:32 10/17/19 14:32 Microbiology and Other Data: Microbiology 10/16/19 18:13 Blood Culture - Final No Source Provided No Growth Day 5 10/16/19 16:46 Aerobic Blood Culture - Final No Source Provided No Growth Day 5 Anaerobic Blood Culture - Final No Growth Day 5 10/14/19 23:45 Aerobic Blood Culture - Final Blood Venous No Growth Day 5 Anaerobic Blood Culture - Final No Growth Day 5 10/15/19 07:30 Blood Culture - Final Blood Venous Staphylococcus Epidermidis 10/15/19 07:30 Aerobic Blood Culture - Final Blood Venous Staphylococcus Epidermidis Anaerobic Blood Culture - Final Staphylococcus Epidermidis Blood MRSA/MSSA (PCR) - Final Mrsa Negative S.aureus Negative 10/15/19 01:10 Urine Culture - Final Urine Proteus Mirabilis Assess/Plan/Problems-Billing Assessment: Ms. Bernard is a 69 yo F with PMH of MS, COPD, dCHF, HLD, GERD, chronic pain; who was admitted snf care 10/15/19 as she was unable to care for herself at home; subsequently BC and urine culture from admission resulted positive and she was changed to inpatient 10/16/19. - Patient Problems (1) Inability to perform activities of daily living Current Visit: Yes Status: Acute Code(s): R53.81 - OTHER MALAISE SNOMED Code(s): 561735198 Comment: - Reportedly has 13 hr/day aide care at home, but unable to care for herself when aides are not present - Social Work and Case Management involved (2) UTI (urinary tract infection) Current Visit: Yes Status: Acute Comment: treatment completed with 7 days of antibiotics - Urine culture growing Proteus - History of recurrent E. coli UTI (3) GERD (gastroesophageal reflux disease) Current Visit: Yes Status: Acute Code(s): K21.9 - GASTRO-ESOPHAGEAL REFLUX DISEASE WITHOUT ESOPHAGITIS SNOMED Code(s): 742722690 Comment: - Continue pantoprazole, famotidine (4) COPD exacerbation Current Visit: No Status: Acute Code(s): J44.1 - CHRONIC OBSTRUCTIVE PULMONARY DISEASE W (ACUTE) EXACERBATION SNOMED Code(s): 397455343 Comment: much improvement Bronchitis noted on CTA continue prednisone continue azithromycin nebs prn - has neb machine at home - recommended to continue nebs q12 hours for 2-3 days (5) DVT prophylaxis Current Visit: No Status: Acute Priority: High Onset Date: 07/20/15 Code (s): XHL8508 - SNOMED Code(s): 235417268 Comment: - Heparin SQ (6) Full code status Current Visit: Yes Status: Acute Code(s): Z78.9 - OTHER SPECIFIED HEALTH STATUS SNOMED Code(s): 160474967 Comment: Status and Disposition: [facility] care. Medically stable for d/c when bed offer is secured.
[2019-10-23] MEDS ORDERED: Diazepam TAB(*) 5 MG PO PRN (09:33)
[2019-10-23] MEDS: Sertraline* 100 MG TAB PO SCH (16:32)
[2019-10-23] MEDS: Atorvastatin* 20 MG TAB PO SCH (16:32)
[2019-10-23] MEDS: Diazepam TAB(*) 10 MG PO SCH (22:22)
[2019-10-23] MEDS: Lidocaine Patch REMOVE* 1 NOTE MISC SCH (22:57)
[2019-10-24] MEDS: Baclofen TAB* 10 MG PO PRN ×2 (04:09→22:05)
[2019-10-24] MEDS: fentaNYL PATCH 25 MCG/HR TRANSDERM SCH (05:47)
[2019-10-24] MEDS: Heparin VIAL(*) 5000 UNITS/ML VIAL (FIVE THOUSAND) SUBCUT SCH ×3 (05:48→22:05)
[2019-10-24] MEDS: fentaNYL Patch Check Q Shift 1 NOTE FOLLOW UP SCH ×2 (07:19→19:36)
[2019-10-24] MEDS: Pantoprazole TAB * 40 MG TAB PO SCH (09:13)
[2019-10-24] MEDS: Lidocaine PATCH 5%* 1 PATCH TRANSDERM SCH (09:13)
[2019-10-24] MEDS: Atorvastatin* 20 MG TAB PO SCH (17:51)
[2019-10-24] MEDS: Sertraline* 100 MG TAB PO SCH (17:52)
[2019-10-24] MEDS: Diazepam TAB(*) 10 MG PO SCH (22:05)
[2019-10-24] MEDS: Lidocaine Patch REMOVE* 1 NOTE MISC SCH (22:11)
[2019-10-25] MEDS: Heparin VIAL(*) 5000 UNITS/ML VIAL (FIVE THOUSAND) SUBCUT SCH ×2 (05:48→15:01)
[2019-10-25] MEDS: fentaNYL Patch Check Q Shift 1 NOTE FOLLOW UP SCH (06:53)
[2019-10-25] MEDS: Lidocaine PATCH 5%* 1 PATCH TRANSDERM SCH (09:35)
[2019-10-25] MEDS: Pantoprazole TAB * 40 MG TAB PO SCH (09:36)
[2019-10-25 10:20] VITALS: BP 140/64
--- NOTE | 2019-10-25 12:51 | DS ---
DISCHARGE SUMMARY: DATE OF ADMISSION: 10/15/19 DATE OF DISCHARGE: 10/25/19 PROVIDER: Aislinn Antonio NP PRIMARY CARE PROVIDER: Dr. Iva Cerna. ATTENDING PHYSICIAN WHILE IN THE HOSPITAL: Dr. Taylor Gilbert* (dictated by Aislinn Antonio NP). PRIMARY DIAGNOSES: 1. Retirement care, inability to care for self at home. 2. Urinary tract infection. 3. Bacteremia. SECONDARY DIAGNOSES: 1. Multiple sclerosis. 2. Chronic obstructive pulmonary disease. 3. Diastolic heart failure. 4. Hyperlipidemia. 5. Gastroesophageal reflux disease. 6. Chronic pain. STUDIES COMPLETED WHILE IN THE HOSPITAL: The patient had a chest x-ray on 10/14: No radiographic evidence of acute cardiopulmonary disease. The patient had an abdomen and bladder ultrasound: Normal ultrasound of the kidneys. Top normal circumferential wall thickening of the urinary bladder could be seen in the setting of cystitis. She had an electrocardiogram on 10/15/19, which showed sinus rhythm at a rate of 63. No ST or T-wave elevations. DISCHARGE MEDICATIONS: No new home medications. Continued medications: 1. Diazepam 5 mg p.o. b.i.d. p.r.n. 2. Calcium with vitamin D gummies 1 chew p.o. daily. 3. Baclofen 15 mg p.o. 4 times daily p.r.n. 4. Atorvastatin 20 mg p.o. at bedtime. 5. Fentanyl patch 25 mcg q.72 hours. 6. Sertraline 100 mg p.o. q.p.m. 7. Senokot 17.2 mg p.o. b.i.d. p.r.n. 8. MiraLAX 17 g p.o. daily p.r.n. constipation. 9. Omeprazole 40 mg p.o. q.a.m. 10. Diazepam 10 mg p.o. at bedtime p.r.n. HISTORY OF PRESENT ILLNESS AND HOSPITAL COURSE: Ms. Bernard is a 69-year-old female with a past medical history significant for diastolic heart failure, hyperlipidemia, multiple sclerosis with home health aide service of 13 hours a day, 7 days per week, who presented to the emergency room on 10/14/19 with complaints of inability to care for herself including the fact she was unable to perform ADLs, feeding and administering her medications at home with her current limited aide service. The patient was reporting she was having difficulty getting a permanent aide assigned to her and subsequently came to the emergency room for assistance in obtaining aides. She was initially admitted [facility] care. During her hospitalization, she was found to have blood cultures and urinalysis that were taken in the emergency room, she was shown to have positive blood cultures for Staph epidermidis x2 out of 3 bottles and 1 bottle resembling gram-positive cocci. Urinalysis was obtained and showed positive for Staph epidermidis. The patient was converted to inpatient and treated for her urinary tract infection with initially ceftriaxone and vancomycin to cover for her bacteremia and urinary tract infection. Throughout the hospitalization, she did receive doses of IV antibiotics and then was later converted to cephalosporin antibiotic with cefdinir to finish a full 7- day course of antibiotic treatment. The patient has had no further complaints and has been waiting for bed placement. Today, on the day of discharge, the patient has been accepted at [facility] with a bed and she is stable to be discharged to [facility]. REVIEW OF SYSTEMS: The patient has no complaints today. She denies any fever, chills. She denies any chest pain, shortness of breath. Denies any abdominal pain, nausea, vomiting, diarrhea. She denies any urinary frequency, urgency, or pain with urination. The patient does have limited range of motion and is wheelchair bound at baseline. She can move her upper extremities. PHYSICAL EXAMINATION: General: At this time, Ms. Bernard is an obese female , lying in her hospital bed. She is in no acute distress. Vital Signs: Blood pressure 140/64, heart rate 80, respirations 16, O2 saturation 91% on room air, temperature was 97.7. HEENT: Head is atraumatic, normocephalic. Eyes: EOMs are intact. Sclerae anicteric and not pale. Oral mucosa appeared to be moist. Neck is supple. Lungs are clear to auscultation bilaterally. No wheezes, rales, or rhonchi. Cardiac: S1, S2. Regular rate and rhythm. No murmurs, rubs, or gallops. Abdomen is obese, soft, nontender. Bowel sounds are present x4. Extremities: She has no clubbing or cyanosis. Neurologic: She is awake, alert, oriented x3. Speech is clear. Thought process is intact. There are no gross focal deficits. Skin is intact. At this time, Ms. Bernard is stable for discharge to [facility]. DISCHARGE PLAN: Ms. Bernard will be discharged to [facility]. Activity as tolerated. 1. Multiple sclerosis. The patient does require care and assistance with ADLs , showering, bathing, and transferring from bed to wheelchair. I would recommend she continue to work with PT and OT to facilitate more independence. She should continue her home medications, baclofen as previously prescribed to assist with her spasticity. 2. Chronic medical conditions. The patient should resume all home medications as previously prescribed. 3. The patient can follow up with her primary care provider in 1 to 2 weeks as needed. 4. The patient should return to the emergency room for any chest pain, shortness of breath, uncontrolled fevers, or any other concerning symptoms. The patient verbalized understanding. I have discussed this with my attending, Dr. Taylor Gilbert; she is in agreement with my plan. CONDITION ON DISCHARGE: Stable. DISPOSITION ON DISCHARGE: [facility]. TIME SPENT: Time spent on this discharge was 45 minutes, greater than half that time was spent at the bedside reviewing discharge plans and instructions. AISLINN ANTONIO NP [id number]/[facility] #: [id number] MARY KATE
== END 2019-10-25 15:45 | DRG 690 ==
LOC: ED 19:17 → MED 10-15 04:10 → OBSVTOIN 10-15 11:00
PROVIDERS: ADMIT Student in an Organized Health Care Education/Training Program; ATTEND Internal Medicine
DX: N39.0 Urinary tract infection, site not specified (principal); I50.32 Chronic diastolic (congestive) heart failure; R78.81 Bacteremia; E78.00 Pure hypercholesterolemia, unspecified; J45.909 Unspecified asthma, uncomplicated; K21.9 Gastro-esophageal reflux disease without esophagitis; K59.09 Other constipation; E78.5 Hyperlipidemia, unspecified; G89.29 Other chronic pain; B96.4 Proteus (mirabilis) (morganii) as the cause of diseases classified elsewhere; M19.90 Unspecified osteoarthritis, unspecified site; M41.9 Scoliosis, unspecified; M81.0 Age-related osteoporosis without current pathological fracture; G35 Multiple sclerosis; F41.9 Anxiety disorder, unspecified; F32.9 Major depressive disorder, single episode, unspecified; Z87.891 Personal history of nicotine dependence; Z88.0 Allergy status to penicillin; Z88.6 Allergy status to analgesic agent; Z88.8 Allergy status to other drugs, medicaments and biological substances; Z79.899 Other long term (current) drug therapy; B95.7 Other staphylococcus as the cause of diseases classified elsewhere
CPT/HCPCS: 36415; 71045; 76770; 80048; 80053; 81003; 81015; 83605; 83880; 84484; 85025; 85610; 86140; 87040; 87077; 87086; 87150; 87186; 87205; 93005; 99284; A9270-GY; G8978-GP-CM; G8979-GP-CM; J0696; J1644; J3370

== ENCOUNTER 2019-11-25 14:13 | Inpatient (IN) | payer MEDICARE, OTHER ==
--- NOTE | 2019-11-25 14:46 | ED ---
Complex/Multi-Sys Presentation - HPI Summary HPI Summary: Patient is a 69 y/o F presenting to [facility] with complaints of right knee and ankle pain as well as possible blister to her buttocks area. She notes that her home health aide did not show up to her residence today and she has been sitting in her own urine for most of the day. Patient reports that the health aide from last night was cleaning her and told her that she had a blister at her buttocks area. She also claims that around a week ago her right knee "snapped". Patient has been experiencing right knee pain as well as right ankle pain since. Home medications and allergies are reviewed. - History Of Current Complaint Time Seen by Provider: 11/25/19 14:33 Hx Obtained From: Patient Onset/Duration: Lasting Days, Lasting Weeks, Still Present Timing: Constant, Days, Weeks Severity Initially: Moderate Location: Pain At: - right ankle and knee Associated Signs And Symptoms: Positive: Other - positive - right ankle and knee pain, blister to buttock - Allergies/Home Medications Allergies/Adverse Reactions: Allergies Allergy/AdvReac Type Severity Reaction Status Date / Time carbamazepine Allergy Intermediate Hives Verified 07/23/19 18:07 Penicillins Allergy Intermediate Hives Verified 07/23/19 18:07 amitriptyline AdvReac Severe Hallucinati Verified 07/23/19 18:07 ons aspirin AdvReac Intermediate GI Upset Verified 07/23/19 18:07 Home Medications: Home Medications fentaNYL PATCH 12 MCG/HR * [Duragesic Patch 12 Mcg/Hr *] 12 mcg TRANSDERM Q72H 11/25/19 [History Confirmed 11/25/19] PMH/Surg Hx/FS Hx/Imm Hx Endocrine/Hematology History: Reports: Hx Anticoagulant Therapy - only during hospital admits. Denies: Hx Diabetes, Hx Thyroid Disease, Other Endocrine/Hematological Disorders Cardiovascular History: Reports: Hx Congestive Heart Failure - DX 3.2016 BUT PT NOT SURE CORRECT, Hx Hypercholesterolemia Denies: Hx Hypertension, Hx Pacemaker/ICD, Hx Peripheral Vascular Disease, Other Cardiovascular Problems/Disorders Respiratory History: Reports: Hx Asthma, Hx Seasonal Allergies - also dust allergies, Other Respiratory Problems/Disorders - environmental allergies Denies: Hx Chronic Bronchitis, Hx Chronic Obstructive Pulmonary Disease (COPD ), Hx Cystic Fibrosis, Hx Lung Cancer, Hx Pleural Effusion, Hx Pneumonia, Hx Pulmonary Edema, Hx Pulmonary Embolism, Hx Sleep Apnea GI History: Reports: Hx Gastroesophageal Reflux Disease, Other GI Disorders - chronic constipation Denies: Hx Ulcer History: Reports: Other Problems/Disorders - URINARY INCONTINENCE, bladder spasms Denies: Hx Dialysis, Hx Renal Disease Musculoskeletal History: Reports: Hx Arthritis, Hx Back Problems, Hx Orthopedic Injury - right tibial fx, Hx Osteoporosis, Hx Scoliosis Denies: Other Musculoskeletal History Sensory History: Reports: Hx Contacts or Glasses, Other Sensory Impairments - Numbness in legs Denies: Hx Cataracts, Hx Eye Injury, Hx Eye Prosthesis, Hx Glaucoma, Hx Macular Degeneration, Hx Vision Problem, Hx Deafness, Hx Hearing Aid, Hx Hearing Problem Opthamlomology History: Reports: Hx Contacts or Glasses, Other Sensory Impairments - Numbness in legs Denies: Hx Cataracts, Hx Eye Injury, Hx Eye Prosthesis, Hx Glaucoma, Hx Macular Degeneration, Hx Vision Problem Neurological History: Reports: Other Neuro Impairments/Disorders - MS Denies: Hx Dementia, Hx Developmental Delay, Hx Headaches, Hx Migraine, Hx Seizures, Hx Spinal Cord Injury, Hx Transient Ischemic Attacks (TIA) Psychiatric History: Reports: Hx Anxiety, Hx Depression Denies: Hx Attention Deficit Hyperactivity Disorder, Hx Eating Disorder, Hx Panic Disorder, Hx Post Traumatic Stress Disorder, Hx Inpatient Treatment, Hx Community Mental Health Tx, Hx Schizophrenia, Hx Bipolar Disorder, Hx Suicide Attempt, Hx of Violent Episodes Against Others, Hx Substance Abuse, Other Psychiatric Issues/Disorders - Cancer History Hx Chemotherapy: No Hx Radiation Therapy: No Hx Palliative Cancer Treatment: No - Surgical History Surgery Procedure, Year, and Place: , Appendectomy, I+D ,r/t cellulitis right inner thigh- recent admission,Rt knee bakers cyst removal. Hx Anesthesia Reactions: No - Immunization History Date of Tetanus Vaccine: Unk Date of Influenza Vaccine: Fall 2014 Infectious Disease History: Denies: Hx Clostridium Difficile, Hx Hepatitis, Hx Human Immunodeficiency Virus (HIV), Hx of Known/Suspected MRSA, Hx Shingles, Hx Tuberculosis, Hx Known/ Suspected VRE, Hx Known/Suspected VRSA, History Other Infectious Disease - Family History Known Family History: Positive: Cardiac Disease - father, Hypertension, Diabetes , Other - Schizophrenia, aortic aneuyrsms (father) - Social History Alcohol Use: None Substance Use Type: Reports: None Hx Tobacco Use: No Smoking Status (MU): Former Smoker Review of Systems Musculoskeletal: Other - positive - right ankle and knee pain Skin: Other - positive - blister to buttocks All Other Systems Reviewed And Are Negative: Yes Physical Exam - Summary Physical Exam Summary: VITAL SIGNS: Reviewed. GENERAL: Patient is a well-developed and obese female who is lying comfortable in the stretcher. Patient is not in any acute respiratory distress. HEAD AND FACE: No signs of trauma. No ecchymosis, hematomas or skull depressions. No sinus tenderness. EYES: PERRLA, EOMI x 2, No injected conjunctiva, no nystagmus. EARS: Hearing grossly intact. Ear canals and tympanic membranes are within normal limits. MOUTH: Oropharynx within normal limits. NECK: Supple, trachea is midline, no adenopathy, no JVD, no carotid bruit, no c- spine tenderness, neck with full ROM. CHEST: Symmetric, no tenderness at palpation. LUNGS: Clear to auscultation bilaterally. No wheezing or crackles. CVS: Regular rate and rhythm, S1 and S2 present, no murmurs or gallops appreciated. ABDOMEN: Soft, non-tender. No signs of distention. No rebound, no guarding, and no masses palpated. Bowel sounds are normal. EXTREMITIES: FROM in all major joints, no edema, no cyanosis or clubbing. No deformity, good pulses and cap refill noted. NEURO: Alert and oriented x 3. No acute neurological deficits. Speech is normal and follows commands. SKIN: Dry and warm. Triage Information Reviewed: Yes Vital Signs Reviewed: Yes Procedures - Sedation Patient Received Moderate/Deep Sedation with Procedure: No Diagnostics - Laboratory Lab Statement: Any lab studies that have been ordered have been reviewed, and results considered in the medical decision making process. - Radiology RIGHT KNEE X-RAY Radiology Interpretation Completed By: Radiologist Summary of Radiographic Findings: RIGHT KNEE X-RAY IMPRESSION: OSTEOPENIA. OSTEOARTHRITIS. NO ACUTE OSSEOUS INJURY. THE DEGREE OF OSTEOPENIA MAY MAKE A NONDISPLACED FRACTURE. RADIOGRAPHICALLY OCCULT. IF SYMPTOMS PERSIST, RECOMMEND REPEAT IMAGING. THIS REPORT WAS REVIEWED BY ED PHYSICIAN. RIGHT FOOT X-RAY Radiology Interpretation Completed By: Radiologist Summary of Radiographic Findings: RIGHT FOOT X-RAY IMPRESSION: 1. THE VISUALIZED BONES ARE DIFFUSELY DEMINERALIZED BUT THERE IS NO RADIOGRAPHICALLY. APPARENT FRACTURE. 2. X-RAY APPEARANCE IS CONSISTENT WITH SOFT TISSUE SWELLING OF THE RIGHT FOOT AND ANKLE. 3. RIGHT HALLUX VALGUS. THIS REPORT WAS REVIEWED BY ED PHYSICIAN. Re-Evaluation - Re-Evaluation First Eval Re-Evaluation Time: 18:12 Comment: Nurse Kaylene reports that the patient does not have a home care consultant for tonight and her deputy director of nursing service does not have another aide immediately available at present. As she will be unable to care for self, the patient will be admitted. Complex Multi-Symp Course/Dx Assessment/Plan: Patient is a 69 y/o F presenting to [facility] with complaints of right knee and ankle pain as well as possible blister to her buttocks area. She notes that her home health aide did not show up to her residence today and she has been sitting in her own urine for most of the day. Patient reports that the health aide from last night was cleaning her and told her that she had a blister at her buttocks area. She also claims that around a week ago her right knee "snapped". Patient has been experiencing right knee pain as well as right ankle pain since. Home medications and allergies are reviewed. Right foot and ankle IMPRESSION: 1. THE VISUALIZED BONES ARE DIFFUSELY DEMINERALIZED BUT THERE IS NO RADIOGRAPHICALLY APPARENT FRACTURE. 2. X-RAY APPEARANCE IS CONSISTENT WITH SOFT TISSUE SWELLING OF THE RIGHT FOOT AND ANKLE. 3. RIGHT HALLUX VALGUS. Right knee xray IMPRESSION: OSTEOPENIA. OSTEOARTHRITIS. NO ACUTE OSSEOUS INJURY. THE DEGREE OF OSTEOPENIA MAY MAKE A NONDISPLACED FRACTURE RADIOGRAPHICALLY OCCULT. IF SYMPTOMS PERSIST, RECOMMEND REPEAT IMAGING. She does not have a fracture or dislocation, therefore the patient will be discharged home. Patient is hemodynamically stable alert oriented 3. The patient was given Tylenol for the pain. Patient was ready for discharge, however the patient informs that she is unable to take care of herself at home. The home health aides are not available to care for her. community placement worker Fernanda confirm that the patient doesnt have aides to take care of herself. She recommends residential admission. I discussed the case with Dr. Billings for accepted the patient for admission. - Diagnoses Provider Diagnoses: Right knee pain, Right ankle pain, Hospital admission due to social situation - Physician Notifications Discussed Care Of Patient With: Tanya Billings Time Discussed With Above Provider: 18:14 Instructed by Provider To: Other - Patient's case was discussed with Dr. Billings, Dr. Billings accepts for admission. Discharge ED - Sign-Out/Discharge Documenting (check all that apply): Patient Departure - admit - Discharge Plan Condition: Stable Disposition: ADMITTED TO [facility] - Billing Disposition and Condition Condition: STABLE Disposition: Admitted to [facility] - Attestation Statements Document Initiated by Priya: Yes Documenting Scribe: BENSON RANDOLPH Provider For Whom Priya is Documenting (Include Credential): EN ALCARAZ MD Scribe Attestation: IBENSON, scribed for EN ALCARAZ MD on 11/25/19 at 2135. Scribe Documentation Reviewed: Yes Provider Attestation: The documentation as recorded by the BENSON baig accurately reflects the service I personally performed and the decisions made by me, EN ALCARAZ MD Status of Scribe Document: Viewed
[2019-11-25] MEDS ORDERED: Acetaminophen TAB* 325 MG PO ONE (16:55)
[2019-11-25] MEDS ORDERED: Acetaminophen TAB* 325 MG PO PRN (19:39)
--- NOTE | 2019-11-25 21:43 | HP ---
CC: Dr. Iva Cerna * HISTORY AND PHYSICAL: DATE OF ADMISSION: 11/25/19 PRIMARY CARE PROVIDER: Iva Cerna MD ATTENDING PHYSICIAN: Bettina Torres MD * (dictated by SUZANNE Parker). CHIEF COMPLAINT: Inability to care for herself at home. HISTORY OF PRESENT ILLNESS: Ms. Bernard is a 69-year-old female with a past medical history of MS, COPD, diastolic heart failure, hyperlipidemia, chronic pain, who presented to the ER today with complaints of inability to care for herself at home. She reportedly was at [facility] from 10/25/19 to 11/03/19. She then was reportedly discharged from [facility] and sent home. She is supposed to have aides 13 hours a day. She reports that her coverage was intermittent, although she was unable to give me details about her coverage, instead she is discussing tangential information. Regardless, the patient states that today she did not have any aides at her house and therefore was left soiled with inability to care for herself. She states she needs help getting up and showering and assistance with meal prep. She is incontinent of bladder and occasionally incontinent of bowel and aides help her to clean up. She is able to feed herself. She does not have an electric wheelchair and states that she has been waiting for one for over a year. The patient complains of dizziness and lightheadedness occasionally with going from lying to seated, but notes that this is chronic. She complains of occasional chills but has no other symptoms of infection and reports that the bed in her apartment is cold. In the ER, the patient received a full workup. Imaging was performed. A right knee x-ray shows osteopenia, osteoarthritis without acute injury, right foot shows demineralization but no apparent fracture. Due to the patient's inability to care for herself at home, the hospitalist team was asked to evaluate the patient for admission. PAST MEDICAL HISTORY: 1. Diastolic heart failure. 2. Hyperlipidemia. 3. COPD. 4. Multiple sclerosis. 5. Gastroesophageal reflux disease. 6. Chronic pain. 7. Depression. 8. Anxiety. PAST SURGICAL HISTORY: , appendectomy, incision and drainage right inner thigh, right knee Wiggins cyst. HOME MEDICATIONS: 1. Atorvastatin 20 mg p.o. at bedtime. 2. Baclofen 15 mg p.o. 4 times a day p.r.n. 3. Calcium/vitamin D3 gummies 1 to 2 tabs p.o. daily. 4. Diazepam 10 mg p.o. at bedtime p.r.n., 5 mg p.o. b.i.d. p.r.n. 5. Fentanyl patch 12 mcg per hour transdermally q.72 hours. 6. Lidocaine patch 1 patch transdermally daily. 7. Omeprazole 40 mg p.o. daily. 8. Polyethylene glycol 17 g p.o. daily p.r.n. 9. Sennosides 17.2 mg p.o. b.i.d. p.r.n. 10. Sertraline 100 mg p.o. at bedtime. DRUG ALLERGIES: CARBAMAZEPINE, hives. PENICILLIN, hives. AMITRIPTYLINE, hallucinations. ASPIRIN, GI upset. FAMILY HISTORY: Father had AAA, CAD with CABG. Maternal grandmother had diabetes with amputation. Sister at the age of 61 from lung cancer with metastasis to the bone. SOCIAL HISTORY: The patient quit smoking approximately 30 years ago, prior to that she smoked for [id number]. She does not use alcohol. She is disabled. Her last occupation was [employer]. She is not . She has 1 living son, 1 son shortly after . In the event that the patient is unable to make her own medical decisions, she has appointed her healthcare proxy and son Lottie Bernard or his ex- Gauri Bernard to be her surrogate decision maker. REVIEW OF SYSTEMS: A 14-point review of systems has been performed and all the pertinent positives and negatives are in the HPI, all other systems are negative. PHYSICAL EXAMINATION GENERAL: Ms. Bernard is a well-developed, well-nourished, overweight, 69-year - old white female, who is sitting up in bed. She appears somewhat unhealthy and has apparent difficulty with movement, particularly on the right side. HEENT: PERRL. EOMI. Visual llanes are grossly intact. Sclerae are nonicteric without injection. Hearing is grossly intact. Oral mucous membranes are moist. There are no lesions. The pharynx was clear. The tongue is at midline. Palate elevates symmetrically. PULMONARY: Symmetrical chest expansion without use of accessory muscles. Clear to auscultation bilaterally anteriorly without rhonchi, wheezes, or rales. CARDIOVASCULAR: Regular rate and rhythm with S1, S2 present. No murmurs, rubs , clicks, or gallops. There is no JVD. There is mild trace nonpitting bilateral lower extremity edema. ABDOMEN: Obese. Bowel sounds in all quadrants. Soft, nontender to palpation. MUSCULOSKELETAL: The patient has tenderness to palpation at the right knee without any apparent swelling or erythema. She is able to move the extremities some, although she is limited as she has right-sided weakness in the upper and lower extremity, which is chronic and related to multiple sclerosis. NEURO: The patient is awake. She is alert and oriented x3 with cranial nerves II through XII grossly intact. DIAGNOSTIC STUDIES/LAB DATA: 1. Laboratory data none. 2. Right knee x-ray, impression: Osteopenia, osteoarthritis, no osseous injury. 3. Right foot x-ray, impression: The visualized bones are diffusely demineralized, but there is no radiographically apparent fracture. X-ray appearance is consistent with soft tissue swelling of the right foot and ankle. Right hallux valgus. ASSESSMENT AND PLAN: Ms. Bernard is a 69-year-old female with past medical history of multiple sclerosis, diastolic heart failure, hyperlipidemia, chronic pain, who has aides for 13 hours a day, who presented to the emergency room today stating that her aides have not providing the coverage that she has been signed up for, 13 hours per day. The patient will be admitted for: 1. Social concern and inability to care for herself at home. The patient will be admitted for the above concern. She will be placed on the medical floor. Social work has been consulted to discuss with the patient the potential options fo safe discharge. In the meantime, she will continue her home medications and await social work consult and further discussion for possible placement to shelter facility versus subacute rehab. It is important to note that the patient was recently discharged from subacute rehab at [facility], where she spent 10/25/19 to 11/03/19. 2. Multiple sclerosis. Continue baclofen and diazepam. 3. Chronic obstructive pulmonary disease. The patient is not on any home inhalers. She does not appear to be in exacerbation at this time. 4. Diastolic heart failure. The patient carries a diagnosis of diastolic heart failure. There is no recent echo on file and no other supporting documents. She is also not on any medications for this. Regardless, the patient does not appear to be in exacerbation. 5. Hyperlipidemia. Continue atorvastatin. 6. Gastroesophageal reflux disease. Continue omeprazole. 7. Chronic pain. Continue fentanyl patch and lidocaine patch. 8. Depression and anxiety. Continue sertraline and diazepam. 9. DVT prophylaxis. According to DVT Risk Assessment, the patient scores 3 placing her at moderate risk. She will be started on Lovenox. 10. Code status. Full code. TIME SPENT: Approximately 60 minutes was spent on this admission, greater than half of that time was spent [id number] with the patient obtaining history, performing physical, and reviewing the plan of care. The case has been discussed with my attending, Dr. Torres, who is in agreement with the plan of care. SUZANNE UGALDE [id number]/CPS #: [id number] MARY KATE
[2019-11-25] MEDS: fentaNYL PATCH 12 MCG/HR TRANSDERM SCH (22:28)
[2019-11-25] MEDS: Baclofen TAB* 10 MG PO PRN (22:44)
[2019-11-25] MEDS: Atorvastatin* 20 MG TAB PO SCH (22:45)
[2019-11-25] MEDS: Senna TAB 8.6 mg* TAB PO PRN (22:45)
[2019-11-25] MEDS: Diazepam TAB(*) 10 MG PO PRN (22:45)
[2019-11-25] MEDS: Enoxaparin(*) 40 MG/0.4 ML SYR SUBCUT SCH (22:45)
[2019-11-26] MEDS: fentaNYL Patch Check Q Shift 1 NOTE FOLLOW UP SCH ×2 (06:49→18:26)
[2019-11-26] MEDS: Polyethylene Glycol 3350* 17 GM PACKET PO PRN (10:17)
[2019-11-26] MEDS: Pantoprazole TAB * 40 MG TAB PO SCH (10:20)
[2019-11-26] MEDS: Senna TAB 8.6 mg* TAB PO PRN (10:21)
[2019-11-26] MEDS: Calcium/Vitamin D TAB 250/125* TAB PO SCH (10:21)
[2019-11-26] MEDS: Lidocaine PATCH 5%* 1 PATCH TRANSDERM SCH (11:31)
[2019-11-26] MEDS: Sertraline* 100 MG TAB PO SCH (18:17)
[2019-11-26] MEDS: Baclofen TAB* 10 MG PO PRN (21:54)
[2019-11-26] MEDS: Atorvastatin* 20 MG TAB PO SCH (21:54)
[2019-11-26] MEDS: Enoxaparin(*) 40 MG/0.4 ML SYR SUBCUT SCH (21:59)
[2019-11-26] MEDS: Lidocaine Patch REMOVE* 1 NOTE MISC PATCH OFF SCH (22:00)
[2019-11-26] MEDS: Diazepam TAB(*) 10 MG PO PRN (22:04)
[2019-11-27] MEDS: fentaNYL Patch Check Q Shift 1 NOTE FOLLOW UP SCH ×2 (07:22→19:11)
[2019-11-27] MEDS: Calcium/Vitamin D TAB 250/125* TAB PO SCH (10:11)
[2019-11-27] MEDS: Lidocaine PATCH 5%* 1 PATCH TRANSDERM SCH (10:11)
[2019-11-27] MEDS: Pantoprazole TAB * 40 MG TAB PO SCH (10:11)
[2019-11-27] MEDS: Sertraline* 100 MG TAB PO SCH (17:40)
[2019-11-27] MEDS: Atorvastatin* 20 MG TAB PO SCH (21:06)
[2019-11-27] MEDS: Enoxaparin(*) 40 MG/0.4 ML SYR SUBCUT SCH (21:06)
[2019-11-27] MEDS: Lidocaine Patch REMOVE* 1 NOTE MISC PATCH OFF SCH (21:24)
[2019-11-27] MEDS: Diazepam TAB(*) 10 MG PO PRN (22:37)
[2019-11-27] MEDS: Baclofen TAB* 10 MG PO PRN (22:37)
[2019-11-28] MEDS: fentaNYL Patch Check Q Shift 1 NOTE FOLLOW UP SCH ×2 (06:50→19:31)
[2019-11-28] MEDS: Calcium/Vitamin D TAB 250/125* TAB PO SCH ×2 (09:48→09:56)
[2019-11-28] MEDS: Pantoprazole TAB * 40 MG TAB PO SCH (09:48)
[2019-11-28] MEDS: Lidocaine PATCH 5%* 1 PATCH TRANSDERM SCH (09:48)
[2019-11-28] MEDS: Diazepam TAB(*) 5 MG PO PRN (11:09)
[2019-11-28] MEDS: Baclofen TAB* 10 MG PO PRN ×2 (11:10→22:49)
[2019-11-28 19:28] LABS: Urine Appearance Cloudy; Urine Bilirubin Negative (Negative); Urine Blood Negative (Negative); Urine Color Yellow; Urine Ketones Negative (Negative); Urine Nitrite Positive (Negative); Urine Protein Negative (Negative); Urine Urobilinogen Negative (Negative)
[2019-11-28 19:29] LABS: Urine Glucose Negative (Negative)
[2019-11-28] MEDS: Sertraline* 100 MG TAB PO SCH (19:31)
[2019-11-28 19:39] LABS: Urine Bacteria 1+ (Absent); Urine Red Blood Cell Absent (Absent); Urine Squamous Epithelial Cell Present (Absent); Urine White Blood Cell 2+(11-20/hpf) (Absent)
[2019-11-28] MEDS: Enoxaparin(*) 40 MG/0.4 ML SYR SUBCUT SCH (22:22)
[2019-11-28] MEDS: fentaNYL PATCH 12 MCG/HR TRANSDERM SCH (22:25)
[2019-11-28] MEDS: Atorvastatin* 20 MG TAB PO SCH (22:37)
[2019-11-28] MEDS: Diazepam TAB(*) 10 MG PO PRN (22:49)
[2019-11-28] MEDS: Lidocaine Patch REMOVE* 1 NOTE MISC PATCH OFF SCH (22:59)
[2019-11-29] MEDS: fentaNYL Patch Check Q Shift 1 NOTE FOLLOW UP SCH ×2 (07:01→19:13)
[2019-11-29] MEDS: Calcium/Vitamin D TAB 250/125* TAB PO SCH (09:15)
[2019-11-29] MEDS: Lidocaine PATCH 5%* 1 PATCH TRANSDERM SCH (09:15)
[2019-11-29] MEDS: Pantoprazole TAB * 40 MG TAB PO SCH (09:16)
[2019-11-29] MEDS: Polyethylene Glycol 3350* 17 GM PACKET PO PRN (12:07)
[2019-11-29] MEDS: Sertraline* 100 MG TAB PO SCH (17:14)
[2019-11-29] MEDS: Senna TAB 8.6 mg* TAB PO PRN (22:53)
[2019-11-29] MEDS: Atorvastatin* 20 MG TAB PO SCH (22:54)
[2019-11-29] MEDS: Baclofen TAB* 10 MG PO PRN (22:55)
[2019-11-29] MEDS: Diazepam TAB(*) 10 MG PO PRN (22:57)
[2019-11-29] MEDS: Enoxaparin(*) 40 MG/0.4 ML SYR SUBCUT SCH (23:00)
[2019-11-29] MEDS: Lidocaine Patch REMOVE* 1 NOTE MISC PATCH OFF SCH (23:37)
[2019-11-30] MEDS: fentaNYL Patch Check Q Shift 1 NOTE FOLLOW UP SCH ×2 (06:39→19:22)
[2019-11-30] MEDS: Calcium/Vitamin D TAB 250/125* TAB PO SCH (10:04)
[2019-11-30] MEDS: Polyethylene Glycol 3350* 17 GM PACKET PO PRN (10:04)
[2019-11-30] MEDS: Pantoprazole TAB * 40 MG TAB PO SCH (10:04)
[2019-11-30] MEDS: Lidocaine PATCH 5%* 1 PATCH TRANSDERM SCH (10:05)
[2019-11-30] MEDS: Senna TAB 8.6 mg* TAB PO PRN (10:05)
--- NOTE | 2019-11-30 17:17 | PN ---
Subjective Date of Service: 11/30/19 Interval History: No new c/o. Objective Active Medications: Acetaminophen (Tylenol Tab*) 650 mg PO Q4H PRN PRN Reason: mild to moderate pain Atorvastatin Calcium (Lipitor*) 20 mg PO BEDTIME [facility] Last Admin: 11/29/19 22:54 Dose: 20 mg Baclofen (Lioresal Tab*) 15 mg PO QID PRN PRN Reason: PAIN - MODERATE Last Admin: 11/29/19 22:55 Dose: 15 mg Bisacodyl (Dulcolax Supp*) 10 mg LA DAILY PRN PRN Reason: CONSTIPATION Calcium/Vitamin D (Oscal D Tab 250/125*) 1 tab PO DAILY [facility] Last Admin: 11/30/19 10:04 Dose: 1 tab Diazepam (Valium Tab(*)) 5 mg PO BID PRN PRN Reason: ANXIETY Last Admin: 11/28/19 11:09 Dose: 5 mg Diazepam (Valium Tab(*)) 10 mg PO BEDTIME PRN PRN Reason: ANXIETY Last Admin: 11/29/19 22:57 Dose: 10 mg Enoxaparin Sodium (Lovenox(*)) 40 mg SUBCUT Q24H [facility] Last Admin: 11/29/19 23:00 Dose: 40 mg Fentanyl (Duragesic Patch 12 Mcg/Hr *) 12 mcg TRANSDERM Q72H [facility] Last Admin: 11/28/19 22:25 Dose: 12 mcg Lidocaine (Lidoderm 5% Patch*) 1 patch TRANSDERM DAILY [facility] Last Admin: 11/30/19 10:05 Dose: 1 patch Pantoprazole Sodium (Protonix Tab*) 40 mg PO QAM [facility] Last Admin: 11/30/19 10:04 Dose: Not Given Pharmacy Profile Note (Lidocaine Patch Remove*) 1 note PATCH OFF 2100 [facility] Last Admin: 11/29/19 23:37 Dose: 1 note Pharmacy Profile Note (Fentanyl Patch Check Q Shift) 1 note FOLLOW UP 0700, 1900 [facility] Last Admin: 11/30/19 06:39 Dose: 1 note Polyethylene Glycol/Electrolytes (Miralax*) 17 gm PO DAILY PRN PRN Reason: CONSTIPATION Last Admin: 11/30/19 10:04 Dose: 17 gm Senna (Senokot 8.6 Mg Tab*) 2 tab PO BID PRN PRN Reason: CONSTIPATION Last Admin: 11/30/19 10:05 Dose: 2 tab Sertraline HCl (Zoloft*) 100 mg PO QPM [facility] Last Admin: 11/29/19 17:14 Dose: 100 mg Oxygen Devices in Use Now: None Appearance: Alert, partly up in bed. In fair spirits. Looks comfortable. Eyes: No Scleral Icterus Extremities: No Edema, No Clubbing, Cyanosis, - Skin: No Rash or Ulcers, No Nodules or Sclerosis, - Neurological: Alert and Oriented x 3, NL Sensation Microbiology and Other Data: Microbiology 11/28/19 18:35 Urine Culture - Preliminary Urine Escherichia Coli Klebsiella Pneumoniae Assess/Plan/Problems-Billing Assessment: - Patient Problems (1) Multiple sclerosis Current Visit: Yes Status: Acute Code(s): G35 - MULTIPLE SCLEROSIS SNOMED Code(s): 41075760 Comment: Over 30 yrs, usually sees Dr. Wise. Discussed disposition and prognosis.
[2019-11-30] MEDS: Sertraline* 100 MG TAB PO SCH (18:14)
[2019-11-30] MEDS: Lidocaine Patch REMOVE* 1 NOTE MISC PATCH OFF SCH (21:00)
[2019-11-30] MEDS: Enoxaparin(*) 40 MG/0.4 ML SYR SUBCUT SCH (21:00)
[2019-11-30] MEDS: Atorvastatin* 20 MG TAB PO SCH (21:00)
[2019-12-01] MEDS: Diazepam TAB(*) 10 MG PO PRN ×2 (00:04→22:06)
[2019-12-01] MEDS: Senna TAB 8.6 mg* TAB PO PRN ×2 (00:04→22:04)
[2019-12-01] MEDS: Baclofen TAB* 10 MG PO PRN ×2 (00:05→22:03)
[2019-12-01] MEDS: fentaNYL Patch Check Q Shift 1 NOTE FOLLOW UP SCH ×2 (06:58→19:15)
[2019-12-01] MEDS: Calcium/Vitamin D TAB 250/125* TAB PO SCH (10:50)
[2019-12-01] MEDS: Pantoprazole TAB * 40 MG TAB PO SCH (10:52)
[2019-12-01] MEDS: Lidocaine PATCH 5%* 1 PATCH TRANSDERM SCH (13:32)
[2019-12-01] MEDS: Sertraline* 100 MG TAB PO SCH (18:12)
[2019-12-01] MEDS: Lidocaine Patch REMOVE* 1 NOTE MISC PATCH OFF SCH (19:22)
[2019-12-01] MEDS: fentaNYL PATCH 12 MCG/HR TRANSDERM SCH (22:00)
[2019-12-01] MEDS: Atorvastatin* 20 MG TAB PO SCH (22:03)
[2019-12-01] MEDS: Enoxaparin(*) 40 MG/0.4 ML SYR SUBCUT SCH (22:08)
[2019-12-02] MEDS: Baclofen TAB* 10 MG PO PRN ×2 (03:47→22:49)
[2019-12-02] MEDS: fentaNYL Patch Check Q Shift 1 NOTE FOLLOW UP SCH ×2 (06:44→19:10)
[2019-12-02] MEDS: Calcium/Vitamin D TAB 250/125* TAB PO SCH (09:29)
[2019-12-02] MEDS: Polyethylene Glycol 3350* 17 GM PACKET PO PRN (09:30)
[2019-12-02] MEDS: Lidocaine PATCH 5%* 1 PATCH TRANSDERM SCH (09:39)
[2019-12-02] MEDS: Pantoprazole TAB * 40 MG TAB PO SCH (09:44)
[2019-12-02] MEDS ORDERED: Al Hydrox/Mg Hydrox/Simet LIQ* 30 ML UDC PO PRN (09:45)
--- NOTE | 2019-12-02 09:47 | PN ---
Progress Note - Progress Note Date of Service: 12/02/19 Note: Patient refused pantoprazole 12/02/19. She refused it every day except 11/27 this admission. I am d/c'ing pantoprazole and ordering PRN Maalox Plus.
[2019-12-02] MEDS: Sertraline* 100 MG TAB PO SCH (18:14)
[2019-12-02] MEDS: Diazepam TAB(*) 5 MG PO PRN (22:45)
[2019-12-02] MEDS: Atorvastatin* 20 MG TAB PO SCH (22:45)
[2019-12-02] MEDS: Enoxaparin(*) 40 MG/0.4 ML SYR SUBCUT SCH (22:50)
[2019-12-02] MEDS: Lidocaine Patch REMOVE* 1 NOTE MISC PATCH OFF SCH (23:16)
[2019-12-03] MEDS: fentaNYL Patch Check Q Shift 1 NOTE FOLLOW UP SCH ×2 (07:21→19:06)
--- NOTE | 2019-12-03 13:31 | PN ---
Progress Note - Progress Note Date of Service: 12/03/19 Note: Patient refuses all labs. I will stop enoxaparin as we don't know her current renal function.
[2019-12-03] MEDS: Calcium/Vitamin D TAB 250/125* TAB PO SCH (15:30)
[2019-12-03] MEDS: Lidocaine PATCH 5%* 1 PATCH TRANSDERM SCH (17:22)
[2019-12-03] MEDS: Sertraline* 100 MG TAB PO SCH (17:22)
[2019-12-03] MEDS: Senna TAB 8.6 mg* TAB PO PRN (22:05)
[2019-12-03] MEDS: Atorvastatin* 20 MG TAB PO SCH (22:05)
[2019-12-03] MEDS: Diazepam TAB(*) 5 MG PO PRN (22:06)
[2019-12-03] MEDS: Baclofen TAB* 10 MG PO PRN (22:07)
[2019-12-03] MEDS: Lidocaine Patch REMOVE* 1 NOTE MISC PATCH OFF SCH (22:12)
[2019-12-04] MEDS: fentaNYL Patch Check Q Shift 1 NOTE FOLLOW UP SCH (07:51)
[2019-12-04] MEDS: Calcium/Vitamin D TAB 250/125* TAB PO SCH (10:25)
[2019-12-04] MEDS: Polyethylene Glycol 3350* 17 GM PACKET PO PRN (10:25)
[2019-12-04] MEDS: Senna TAB 8.6 mg* TAB PO PRN ×2 (10:25→21:38)
[2019-12-04] MEDS: Lidocaine PATCH 5%* 1 PATCH TRANSDERM SCH (10:44)
[2019-12-04] MEDS: Baclofen TAB* 10 MG PO PRN ×3 (13:03→21:38)
[2019-12-04] MEDS: Sertraline* 100 MG TAB PO SCH (17:16)
[2019-12-04] MEDS: Lidocaine Patch REMOVE* 1 NOTE MISC PATCH OFF SCH (21:00)
[2019-12-04] MEDS: Diazepam TAB(*) 5 MG PO PRN (21:40)
[2019-12-04] MEDS: Atorvastatin* 20 MG TAB PO SCH (21:40)
[2019-12-05] MEDS: Lidocaine PATCH 5%* 1 PATCH TRANSDERM SCH (08:43)
[2019-12-05] MEDS: Calcium/Vitamin D TAB 250/125* TAB PO SCH (08:44)
[2019-12-05] MEDS: Senna TAB 8.6 mg* TAB PO PRN ×2 (12:06→21:58)
[2019-12-05] MEDS: Sertraline* 100 MG TAB PO SCH (19:16)
[2019-12-05] MEDS: Atorvastatin* 20 MG TAB PO SCH (21:57)
[2019-12-05] MEDS: Diazepam TAB(*) 5 MG PO PRN (21:58)
[2019-12-05] MEDS: Baclofen TAB* 10 MG PO PRN (21:58)
[2019-12-05] MEDS: Lidocaine Patch REMOVE* 1 NOTE MISC PATCH OFF SCH (22:32)
[2019-12-06] MEDS: Baclofen TAB* 10 MG PO PRN ×2 (02:10→14:27)
[2019-12-06] MEDS: Senna TAB 8.6 mg* TAB PO PRN (10:38)
[2019-12-06] MEDS: Calcium/Vitamin D TAB 250/125* TAB PO SCH (10:39)
[2019-12-06] MEDS: Lidocaine PATCH 5%* 1 PATCH TRANSDERM SCH (10:40)
[2019-12-06] MEDS: Sertraline* 100 MG TAB PO SCH (17:31)
--- NOTE | 2019-12-06 22:03 | DS ---
ADDENDUM NOW INCLUDED ON THIS REPORT CC: Dr. Iva Cerna * DISCHARGE SUMMARY: DATE OF ADMISSION: 11/25/19 DATE OF ANTICIPATED DISCHARGE: 12/07/19 (this is dictated in advance on ). ATTENDING PHYSICIAN WHILE IN THE HOSPITAL: Dr. Larisa Diaz * (dictated by SUZANNE Kim). PRIMARY CARE PROVIDER: Dr. Iva Cerna. PRIMARY DIAGNOSIS: Right knee pain, likely soft tissue injury. SECONDARY DIAGNOSES: 1. Diastolic heart failure. 2. Hyperlipidemia. 3. Chronic obstructive pulmonary disease. 4. Multiple sclerosis. 5. Gastroesophageal reflux disease. 6. Chronic pain. 7. Depression. 8. Anxiety. SIGNIFICANT STUDIES WHILE IN THE HOSPITAL: Right ankle x-ray on 11/25/19, impression: Soft tissue swelling. No fracture seen. If the patient's symptoms persist, recommend followup imaging. Right foot x-ray, 11/25/19, impression: The visualized bones are diffusely demineralized but there is no radiographically apparent fracture. X-ray appearance is consistent with soft tissue swelling of the right foot and ankle. Right hallux valgus. Right knee x-ray, 11/25/19, impression: Osteopenia. Osteoarthritis. No acute osseous injury. The degree of osteopenia may make nondisplaced fracture radiographically occult. If symptoms persist, recommend repeat imaging. HISTORY OF PRESENT ILLNESS/HOSPITAL COURSE: Kaley Bernard is a 69-year- old white female with a past medical history significant for multiple sclerosis , COPD, hyperlipidemia, chronic pain as well as depression and anxiety, who presents to emergency department on 11/25/19 due to right knee and ankle pain. She was found to have no acute fractures of her right lower extremity and ultimately she felt like she was unable to care for herself at home expressing that her normal aide coverage was insufficient. She was ultimately custodially admitted to the hospital to find subacute rehab placement for her. Case management and social work were involved in this and ultimately she has been accepted for subacute rehab at [facility]. Overall, she had an unremarkable hospitalization. She then frequently complained of abdominal pain and she was refusing her normal home PPI and therefore, she was switched to Maalox, but she was also not utilizing this as a p.r.n. medication. She was using lidocaine patch for her pain and this appeared sufficient. PHYSICAL EXAMINATION: General: An elderly white female, lying hospital recliner, appearing comfortable, in no acute distress. Eyes: PERRL, sclerae anicteric. ENT: Mucous membranes are moist. Lungs: Clear to auscultation throughout. Cardio: Regular rate and rhythm without murmurs, rubs, or gallops. Abdomen: Soft, nontender, and nondistended. Extremities: No clubbing, cyanosis or edema. Able to dorsiflex and plantarflex bilateral ankles. Neuro: Sensation to light touch grossly intact bilaterally. Alert and oriented x3. DISCHARGE PLAN: The patient is going to [facility] for subacute rehab. Approximately 1 week after discharge from rehab, she should follow up with her primary care provider. In the past, the patient was prescribed fentanyl patch for pain control, though it appears that she has been controlled well on her current regimen and she has not had fentanyl patch in over a month and had not had a supply for approximately 2 weeks prior to admission. Perhaps it would be good for her to follow up with a pain specialist as well. She can return to emergency department for chest pain, difficulty breathing, pulseless or cold extremities, fever, chills or other concerning symptoms. DISCHARGE DIET: Regular unrestricted diet. ACTIVITIES: The patient may return to normal activities as tolerated. DISCHARGE MEDICATIONS: 1. Maalox 30 mL p.o. q.4 hours p.r.n. abdominal pain. 2. Lipitor 20 mg p.o. at bedtime. 3. Baclofen 15 mg p.o. q.i.d. p.r.n. pain. 4. Calcium with vitamin D3 1 chewable p.o. daily. 5. Valium 5 mg p.o. b.i.d. p.r.n. anxiety. 6. Valium 10 mg p.o. at bedtime p.r.n. anxiety. 7. Lidocaine patch 1 patch transdermal daily. 8. Omeprazole 40 mg p.o. daily. 9. MiraLAX 17 g p.o. daily p.r.n. constipation. 10. Senokot 17.2 mg p.o. b.i.d. p.r.n. constipation. 11. Zoloft 10 mg p.o. q.p.m. DISCHARGE DISPOSITION: [facility] for subacute rehab. CONDITION AT DISCHARGE: Stable. TIME SPENT: Approximately 30 minutes was spent on this discharge, approximately half this time was spent at bedside evaluating the patient and discussing the plan of care. SUZANNE KIM [id number]/CPS #: [id number]/CPS #: [id number] MARY KATE
[2019-12-06] MEDS: Atorvastatin* 20 MG TAB PO SCH (23:25)
[2019-12-06] MEDS: Lidocaine Patch REMOVE* 1 NOTE MISC PATCH OFF SCH (23:25)
[2019-12-07 07:51] VITALS: BP 139/83
[2019-12-07] MEDS: Calcium/Vitamin D TAB 250/125* TAB PO SCH (08:00)
[2019-12-07] MEDS: Lidocaine PATCH 5%* 1 PATCH TRANSDERM SCH (08:01)
--- NOTE | 2019-12-08 11:46 | DS ---
DISCHARGE SUMMARY: ADDENDUM: SIGNIFICANT STUDIES WHILE IN THE HOSPITAL: Right ankle x-ray on 11/25/19, impression: Soft tissue swelling. No fracture seen. If the patient's symptoms persist, recommend followup imaging. Right foot x-ray, 11/25/19, impression: The visualized bones are diffusely demineralized but there is no radiographically apparent fracture. X-ray appearance is consistent with soft tissue swelling of the right foot and ankle. Right hallux valgus. Right knee x-ray, 11/25/19, impression: Osteopenia. Osteoarthritis. No acute osseous injury. The degree of osteopenia may make nondisplaced fracture radiographically occult. If symptoms persist, recommend repeat imaging. SUZANNE STREET [id number]/CPS #: [id number] MTDD
== END 2019-12-07 09:00 | DRG 914 ==
LOC: ED 14:13 → MED 19:39
PROVIDERS: ADMIT Student in an Organized Health Care Education/Training Program; ATTEND Hospitalist
DX: S89.81XA Other specified injuries of right lower leg, initial encounter (principal); I50.30 Unspecified diastolic (congestive) heart failure; X58.XXXA Exposure to other specified factors, initial encounter; G35 Multiple sclerosis; J44.9 Chronic obstructive pulmonary disease, unspecified; E78.5 Hyperlipidemia, unspecified; Z74.1 Need for assistance with personal care; Z75.1 Person awaiting admission to adequate facility elsewhere; K21.9 Gastro-esophageal reflux disease without esophagitis; M25.561 Pain in right knee; G89.29 Other chronic pain; F32.9 Major depressive disorder, single episode, unspecified; F41.9 Anxiety disorder, unspecified; M85.861 Other specified disorders of bone density and structure, right lower leg; E66.9 Obesity, unspecified; M17.11 Unilateral primary osteoarthritis, right knee; Y92.9 Unspecified place or not applicable; Z88.6 Allergy status to analgesic agent; Z88.0 Allergy status to penicillin; Z88.8 Allergy status to other drugs, medicaments and biological substances; Z79.899 Other long term (current) drug therapy; Z82.49 Family history of ischemic heart disease and other diseases of the circulatory system; Z83.3 Family history of diabetes mellitus; Z80.1 Family history of malignant neoplasm of trachea, bronchus and lung; Z87.891 Personal history of nicotine dependence; Z68.31 Body mass index [BMI] 31.0-31.9, adult
CPT/HCPCS: 81003; 81015; 87077; 87086; 87186; 99284; A9270-GY; J1650

== ENCOUNTER 2019-12-18 21:44 | Emergency (ER) | payer MEDICARE, OTHER ==
--- NOTE | 2019-12-18 21:57 | ED ---
Lower Extremity - HPI Summary HPI Summary: 69-year-old female presents to the emergency department today status post fall from bed at [facility] one hour ago. Patient endorses 10 out of 10 right leg pain and states she is unable to ambulate and does not take anticoagulation. Patient also endorses 5 out of 10 headache which is not the worst headache of her life with no neck pain. Patient is in no acute distress and otherwise feels well and denies fever, chest and abdominal pain, pending urination, rash, nausea, vomiting, diarrhea. Patient states she accidentally rolled out of bed. Surgical history and family history is noncontributory. - History of Current Complaint Chief Complaint: EDExtremityLower Stated Complaint: FALL PER EMS Time Seen by Provider: 12/18/19 21:50 Hx Obtained From: Patient Hx Last Menstrual Period: menopause Mechanism Of Injury: Fall From Height Of: - bed Onset/Duration: Hours Severity Initially: Severe Severity Currently: Severe Pain Intensity: 9 Pain Scale Used: 0-10 Numeric Timing: Constant Location: Is Discrete @ - R leg Character Of Pain: Sharp, Aching Associated Signs And Symptoms: Negative: Redness, Bruising Aggravating Factor(s): Ambulation, Movement Alleviating Factor(s): Rest Able to Bear Weight: No - Allergies/Home Medications Allergies/Adverse Reactions: Allergies Allergy/AdvReac Type Severity Reaction Status Date / Time carbamazepine Allergy Intermediate Hives Verified 07/23/19 18:07 Penicillins Allergy Intermediate Hives Verified 07/23/19 18:07 amitriptyline AdvReac Severe Hallucinati Verified 07/23/19 18:07 ons aspirin AdvReac Intermediate GI Upset Verified 07/23/19 18:07 Home Medications: Home Medications Sennosides [Senokot] 17.2 mg PO BID PRN 01/02/18 [History Confirmed 11/25/19] Sertraline* [Zoloft*] 100 mg PO QPM 01/02/18 [History Confirmed 11/25/19] Omeprazole CAP (NF) [Prilosec CAP* 20 MG] 40 mg PO QAM 02/09/18 [History Confirmed 11/25/19] Atorvastatin* [Lipitor 20 MG*] 20 mg PO BEDTIME 09/11/18 [History Confirmed ] Baclofen TAB* [Lioresal TAB*] 15 mg PO QID PRN 07/23/19 [History Confirmed 11/25] Calcium Phosphate Trib/Vit D3 [Calcium-Vitamin D3 Gummies] 1 chw PO DAILY [History Confirmed 11/25/19] Diazepam TAB(*) [Valium TAB(*)] 5 mg PO BID PRN 07/23/19 [History Confirmed ] Diazepam TAB(*) [Valium TAB(*)] 10 mg PO BEDTIME PRN 07/23/19 [History Confirmed 11/25/19] Polyethylene Glycol 3350* [Miralax (17 GM DOSE ANDREWS)] 17 gm PO DAILY PRN [History Confirmed 11/25/19] Lidocaine PATCH 5%* [Lidoderm 5% Patch*] 1 patch TRANSDERM DAILY patch [Rx Confirmed 11/25/19] Al Hydrox/Mg Hydrox/Simet LIQ* [Maalox Plus*] 30 ml PO Q4H PRN udc 12/06/19 [Rx ] PMH/Surg Hx/FS Hx/Imm Hx Endocrine/Hematology History: Reports: Hx Anticoagulant Therapy - only during hospital admits. Denies: Hx Diabetes, Hx Thyroid Disease, Other Endocrine/Hematological Disorders Cardiovascular History: Reports: Hx Congestive Heart Failure - DX 3.2016 BUT PT NOT SURE CORRECT, Hx Hypercholesterolemia Denies: Hx Hypertension, Hx Pacemaker/ICD, Hx Peripheral Vascular Disease, Other Cardiovascular Problems/Disorders Respiratory History: Reports: Hx Asthma, Hx Seasonal Allergies - also dust allergies, Other Respiratory Problems/Disorders - environmental allergies Denies: Hx Chronic Bronchitis, Hx Chronic Obstructive Pulmonary Disease (COPD ), Hx Cystic Fibrosis, Hx Lung Cancer, Hx Pleural Effusion, Hx Pneumonia, Hx Pulmonary Edema, Hx Pulmonary Embolism, Hx Sleep Apnea GI History: Reports: Hx Gastroesophageal Reflux Disease, Other GI Disorders - chronic constipation Denies: Hx Ulcer History: Reports: Other Problems/Disorders - URINARY INCONTINENCE, bladder spasms Denies: Hx Dialysis, Hx Renal Disease Musculoskeletal History: Reports: Hx Arthritis, Hx Back Problems, Hx Orthopedic Injury - right tibial fx, Hx Osteoporosis, Hx Scoliosis Denies: Other Musculoskeletal History Sensory History: Reports: Hx Contacts or Glasses, Other Sensory Impairments - Numbness in legs Denies: Hx Cataracts, Hx Eye Injury, Hx Eye Prosthesis, Hx Glaucoma, Hx Macular Degeneration, Hx Vision Problem, Hx Deafness, Hx Hearing Aid, Hx Hearing Problem Opthamlomology History: Reports: Hx Contacts or Glasses, Other Sensory Impairments - Numbness in legs Denies: Hx Cataracts, Hx Eye Injury, Hx Eye Prosthesis, Hx Glaucoma, Hx Macular Degeneration, Hx Vision Problem Neurological History: Reports: Other Neuro Impairments/Disorders - MS Denies: Hx Dementia, Hx Developmental Delay, Hx Headaches, Hx Migraine, Hx Seizures, Hx Spinal Cord Injury, Hx Transient Ischemic Attacks (TIA) Psychiatric History: Reports: Hx Anxiety, Hx Depression Denies: Hx Attention Deficit Hyperactivity Disorder, Hx Eating Disorder, Hx Panic Disorder, Hx Post Traumatic Stress Disorder, Hx Inpatient Treatment, Hx Community Mental Health Tx, Hx Schizophrenia, Hx Bipolar Disorder, Hx Suicide Attempt, Hx of Violent Episodes Against Others, Hx Substance Abuse, Other Psychiatric Issues/Disorders - Cancer History Hx Chemotherapy: No Hx Radiation Therapy: No Hx Palliative Cancer Treatment: No - Surgical History Surgery Procedure, Year, and Place: , Appendectomy, I+D ,r/t cellulitis right inner thigh- recent admission,Rt knee bakers cyst removal. Hx Anesthesia Reactions: No - Immunization History Date of Tetanus Vaccine: Unk Date of Influenza Vaccine: Fall 2014 Infectious Disease History: No Infectious Disease History: Denies: Hx Clostridium Difficile, Hx Hepatitis, Hx Human Immunodeficiency Virus (HIV), Hx of Known/Suspected MRSA, Hx Shingles, Hx Tuberculosis, Hx Known/ Suspected VRE, Hx Known/Suspected VRSA, History Other Infectious Disease, Traveled Outside the [place] in Last 30 Days - Family History Known Family History: Positive: Cardiac Disease - father, Hypertension, Diabetes , Other - Schizophrenia, aortic aneuyrsms (father) - Social History Alcohol Use: None Substance Use Type: Reports: None Substance Use Comment - Amount & Last Used: fentanyl patch, pain management Hx Tobacco Use: No Smoking Status (MU): Former Smoker Review of Systems Constitutional: Negative Eyes: Negative ENT: Negative Cardiovascular: Negative Respiratory: Negative Gastrointestinal: Negative Genitourinary: Negative Positive: Arthralgia, Myalgia, Decreased ROM Skin: Negative Positive: Headache Psychological: Normal All Other Systems Reviewed And Are Negative: Yes Physical Exam - Summary Physical Exam Summary: Patient is in no acute distress. Patient complains of pain with palpation of the right hip on the femur, tibia, fibula. Patient lives no midline tenderness cervical, thoracic, lumbar spine. Patient has no ecchymosis or edema. Patient' s right leg is externally rotated and mildly shorter. Patient refuses to move right leg. Dorsalis pedis pulses 2+ bilaterally. Patient is neurovascularly intact in the lower extremities. Triage Information Reviewed: Yes Vital Signs On Initial Exam: Initial Vitals Temp Pulse Resp BP Pulse Ox 99.2 F 96 20 173/91 93 12/18/19 21:46 12/18/19 21:46 12/18/19 21:46 12/18/19 21:46 12/18/19 21:46 Vital Signs Reviewed: Yes Appearance: Positive: Well-Appearing, No Pain Distress, Well-Nourished Skin: Positive: Warm, Skin Color Reflects Adequate Perfusion Eyes: Positive: EOMI, ARNULFO ENT: Positive: Hearing grossly normal Respiratory/Lung Sounds: Positive: Clear to Auscultation, Breath Sounds Present Cardiovascular: Positive: RRR, S1, S2 Abdomen Description: Positive: Soft Bowel Sounds: Positive: Present Neurological: Positive: Sensory/Motor Intact, Alert, Oriented to Person Place, Time, Facial Symmetry, Speech Normal Psychiatric: Positive: Normal, Affect/Mood Appropriate AVPU Assessment: Alert Procedures - Sedation Patient Received Moderate/Deep Sedation with Procedure: No Diagnostics - Vital Signs Vital Signs Temp Pulse Resp BP Pulse Ox 12/18/19 21:46 99.2 F 96 20 173/91 93 - Laboratory Lab Statement: Any lab studies that have been ordered have been reviewed, and results considered in the medical decision making process. Lower Extremity Course/Dx - Course Course Of Treatment: The patient was evaluated in the emergency department today due to fall. Vitals noted and stable. Laboratory studies were deemed unnecessary at this is a mechanical fall and patient had no other complaints. Patient complained of 10 out of 10 pain and was given [address] of the brain and cervical spine without contrast shows no evidence of fracture or acute cranial pathology. CT of the pelvis was done as patient was unable to position for plain films. CT of the pelvis without contrast shows no evidence of fracture. X-ray of the bilateral femur and bilateral tibia and fibula shows no evidence of fracture. Patient appears to have sustained no significant trauma from her fall and was discharged home for outpatient follow-up. - Diagnoses Differential Diagnosis/HQI/PQRI: Positive: Arthritis, Contusion, Fracture ( Closed), Sprain, Strain Provider Diagnoses: Fall, Leg pain, bilateral Discharge ED - Sign-Out/Discharge Documenting (check all that apply): Patient Departure - Discharge Plan Condition: Stable Disposition: HOME Patient Education Materials: Leg Pain (ED) Referrals: Iva Cerna MD [Primary Care Provider] - 3 Days Additional Instructions: You were seen in the emergency department today due to a fall. Imaging was done and found no evidence of significant trauma as a result of your fall. Please take Tylenol as needed for pain. Please follow-up with your primary care provider in 3 days for further evaluation and management. Please return to this emergency Department immediately if you develop any new or worsening symptoms. - Billing Disposition and Condition Condition: STABLE Disposition: Home
[2019-12-18] MEDS ORDERED: oxyCODONE/Acetamin 5/325 MG* TAB ONE (22:15)
[2019-12-18] MEDS ORDERED: oxyCODONE/Acetamin 5/325 MG* TAB PO ONE (22:17)
[2019-12-19 01:48] VITALS: BP 149/81
== END 2019-12-19 01:10 | disposition home or self-care (01) ==
LOC: ED 21:44
DX: M79.605 Pain in left leg (principal); M79.604 Pain in right leg; W06.XXXA Fall from bed, initial encounter; Y92.122 Bedroom in nursing home as the place of occurrence of the external cause; M85.862 Other specified disorders of bone density and structure, left lower leg; M85.861 Other specified disorders of bone density and structure, right lower leg; M17.0 Bilateral primary osteoarthritis of knee; M19.072 Primary osteoarthritis, left ankle and foot; M19.071 Primary osteoarthritis, right ankle and foot; M51.36 Other intervertebral disc degeneration, lumbar region; M48.061 Spinal stenosis, lumbar region without neurogenic claudication; N83.202 Unspecified ovarian cyst, left side; M16.0 Bilateral primary osteoarthritis of hip; M43.12 Spondylolisthesis, cervical region; M43.14 Spondylolisthesis, thoracic region; E78.00 Pure hypercholesterolemia, unspecified; K21.9 Gastro-esophageal reflux disease without esophagitis; F41.9 Anxiety disorder, unspecified; F32.9 Major depressive disorder, single episode, unspecified; Z79.899 Other long term (current) drug therapy; Z88.6 Allergy status to analgesic agent; Z88.0 Allergy status to penicillin; Z88.8 Allergy status to other drugs, medicaments and biological substances; Z87.891 Personal history of nicotine dependence
CPT/HCPCS: 70450; 72125; 72192; 99284; A9270-GY

== ENCOUNTER 2020-06-28 16:49 | Inpatient (IN) ==
[2020-06-28 19:02] LABS: ABS Eosinophils 0.2 10^3/ul (0-0.6); ABS Lymphocytes 1.6 10^3/ul (1.0-4.8); ABS Monocytes 0.4 10^3/ul (0-0.8); ABS Neutrophils 4.6 10^3/ul (1.5-7.7); Eosinophil % 2.6 %; Hematocrit 47 % (35-47); Hemoglobin 16.3 g/dL (12.0-16.0); Lymphocyte % 23.2 %; Mean Corpuscular HGB Conc 35 g/dL (31-36); Mean Corpuscular Hemoglobin 31 pg (27-31); Mean Corpuscular Volume 90 fL (80-97); Mean Platelet Volume 8.6 fL (7.4-10.4); Nucleated Red Blood Cells % 0.1; Platelet Count 130 10^3/uL (150-450); Red Blood Count 5.26 10^6 /uL (3.70-4.87); Red Cell Distribution Width 13 % (10-15); White Blood Count 6.8 10^3/uL (3.5-10.8)
[2020-06-28 19:24] LABS: Albumin 4.2 g/dL (3.2-5.2); Albumin/Globulin Ratio 1.6 (1-3); BUN/Creatinine Ratio 15.4 (8-20); Calcium 9.5 mg/dL (8.6-10.3); EGFR African American 88.6 (>60); EGFR Non-African American 73.2 (>60); Globulin 2.7 g/dL (2-4); Potassium 3.9 mmol/L (3.5-5.0); Total Bilirubin 2.1 mg/dL (0.2-1.0); Total Protein 6.9 g/dL (6.4-8.9)
[2020-06-28] MEDS ORDERED: NS 0.9% 1000 ml BAG 1,000 ML IV SCH (20:15)
[2020-06-28] MEDS ORDERED: Albuterol 2.5mg/3 ml (0.083%) NEB.SOLN INH PRN (20:15)
[2020-06-28] MEDS: Senna TAB 8.6 mg TAB PO SCH (22:45)
[2020-06-28] MEDS: Enoxaparin 40 MG/0.4 ML SYR SUBCUT SCH (22:45)
[2020-06-28] MEDS: TETRAHYDROZOLINE BOTH EYES SCH (22:55)
[2020-06-29] MEDS: OLOPATADINE 0.2% BOTH EYES SCH (09:06)
[2020-06-29] MEDS: TETRAHYDROZOLINE BOTH EYES SCH ×2 (09:06→20:56)
[2020-06-29] MEDS: Senna TAB 8.6 mg TAB PO SCH ×2 (09:18→23:01)
[2020-06-29] MEDS ORDERED: Senna TAB 8.6 mg TAB PO ONE (09:42)
[2020-06-29 09:48] LABS: Urine Appearance Clear; Urine Bilirubin Negative (Negative); Urine Blood Negative (Negative); Urine Color Yellow; Urine Glucose Negative (Negative); Urine Ketones Negative (Negative); Urine Nitrite Positive (Negative); Urine Protein Negative (Negative); Urine Specific Gravity 1.006 (1.010-1.030); Urine Urobilinogen Negative (Negative)
[2020-06-29 10:36] LABS: Urine Bacteria Absent (Absent); Urine Red Blood Cell Trace(0-2/hpf) (Absent); Urine Squamous Epithelial Cell Present (Absent); Urine White Blood Cell 2+(11-20/hpf) (Absent)
[2020-06-29] MEDS: Enoxaparin 40 MG/0.4 ML SYR SUBCUT SCH (23:00)
[2020-06-30] MEDS: Senna TAB 8.6 mg TAB PO SCH ×2 (10:41→23:06)
[2020-06-30] MEDS: OLOPATADINE 0.2% BOTH EYES SCH (10:44)
[2020-06-30] MEDS: TETRAHYDROZOLINE BOTH EYES SCH ×2 (10:47→23:20)
[2020-06-30] MEDS: Enoxaparin 40 MG/0.4 ML SYR SUBCUT SCH (23:06)
[2020-07-01] MEDS: Senna TAB 8.6 mg TAB PO SCH ×2 (09:09→23:19)
[2020-07-01] MEDS: TETRAHYDROZOLINE BOTH EYES SCH ×2 (09:29→23:20)
[2020-07-01] MEDS: OLOPATADINE 0.2% BOTH EYES SCH (09:29)
[2020-07-01] MEDS: Enoxaparin 40 MG/0.4 ML SYR SUBCUT SCH (20:56)
[2020-07-02] MEDS: OLOPATADINE 0.2% BOTH EYES SCH (08:03)
[2020-07-02] MEDS: TETRAHYDROZOLINE BOTH EYES SCH ×2 (08:03→20:53)
[2020-07-02] MEDS: Senna TAB 8.6 mg TAB PO SCH ×2 (09:23→20:35)
[2020-07-02] MEDS: Enoxaparin 40 MG/0.4 ML SYR SUBCUT SCH (20:35)
[2020-07-03] MEDS: OLOPATADINE 0.2% BOTH EYES SCH (09:37)
[2020-07-03] MEDS: TETRAHYDROZOLINE BOTH EYES SCH ×2 (09:37→21:03)
[2020-07-03] MEDS: Senna TAB 8.6 mg TAB PO SCH ×2 (10:08→21:02)
[2020-07-03 13:27] LABS: Urine Appearance Cloudy; Urine Bilirubin Negative (Negative); Urine Blood Negative (Negative); Urine Color Yellow; Urine Glucose Negative (Negative); Urine Ketones Negative (Negative); Urine Nitrite Positive (Negative); Urine Protein Negative (Negative); Urine Specific Gravity 1.013 (1.010-1.030); Urine Urobilinogen Negative (Negative)
[2020-07-03 13:31] LABS: Urine Bacteria 1+ (Absent); Urine Red Blood Cell 2+(6-10/hpf) (Absent); Urine Squamous Epithelial Cell Present (Absent); Urine White Blood Cell 3+(>20/hpf) (Absent)
[2020-07-03] MEDS: Enoxaparin 40 MG/0.4 ML SYR SUBCUT SCH (21:02)
[2020-07-04] MEDS: OLOPATADINE 0.2% BOTH EYES SCH (09:28)
[2020-07-04] MEDS: TETRAHYDROZOLINE BOTH EYES SCH (09:29)
[2020-07-04] MEDS: Senna TAB 8.6 mg TAB PO SCH ×2 (09:31→20:40)
[2020-07-04] MEDS: Enoxaparin 40 MG/0.4 ML SYR SUBCUT SCH (20:40)
[2020-07-05] MEDS: TETRAHYDROZOLINE BOTH EYES SCH ×3 (00:46→23:24)
[2020-07-05] MEDS: OLOPATADINE 0.2% BOTH EYES SCH (10:18)
[2020-07-05] MEDS: Senna TAB 8.6 mg TAB PO SCH ×2 (10:19→20:09)
[2020-07-05] MEDS ORDERED: Magnesium Hydroxide LIQ 30 ML UDC PO PRN (12:32)
[2020-07-05] MEDS ORDERED: Polyethylene Glycol 3350 17 GM PACKET PO PRN (12:47)
[2020-07-05] MEDS: Enoxaparin 40 MG/0.4 ML SYR SUBCUT SCH (20:09)
[2020-07-06] MEDS: TETRAHYDROZOLINE BOTH EYES SCH ×2 (11:34→20:12)
[2020-07-06] MEDS: OLOPATADINE 0.2% BOTH EYES SCH (11:34)
[2020-07-06] MEDS: Senna TAB 8.6 mg TAB PO SCH ×2 (11:35→20:11)
[2020-07-06 11:49] LABS: Urine Appearance Cloudy; Urine Bilirubin Negative (Negative); Urine Blood Negative (Negative); Urine Color Yellow; Urine Glucose Negative (Negative); Urine Ketones Negative (Negative); Urine Nitrite Positive (Negative); Urine Protein Negative (Negative); Urine Specific Gravity 1.013 (1.010-1.030); Urine Urobilinogen Negative (Negative)
[2020-07-06 11:54] LABS: Urine Bacteria 1+ (Absent); Urine Red Blood Cell 2+(6-10/hpf) (Absent); Urine Squamous Epithelial Cell Present (Absent); Urine White Blood Cell 3+(>20/hpf) (Absent)
[2020-07-06] MEDS: Nystatin SUSPENSION 100,000 UNITS/ML UDC PO SCH ×3 (13:27→20:11)
[2020-07-06] MEDS: Enoxaparin 40 MG/0.4 ML SYR SUBCUT SCH (20:12)
[2020-07-07 07:59] LABS: ABS Eosinophils 0.3 10^3/ul (0-0.6); ABS Lymphocytes 2.1 10^3/ul (1.0-4.8); ABS Monocytes 0.4 10^3/ul (0-0.8); Eosinophil % 4.1 %; Hematocrit 43 % (35-47); Lymphocyte % 30.6 %; Mean Corpuscular HGB Conc 35 g/dL (31-36); Mean Corpuscular Hemoglobin 31 pg (27-31); Mean Corpuscular Volume 90 fL (80-97); Mean Platelet Volume 8.9 fL (7.4-10.4); Platelet Count 144 10^3/uL (150-450); Red Blood Count 4.82 10^6 /uL (3.70-4.87); Red Cell Distribution Width 13 % (10-15); White Blood Count 6.9 10^3/uL (3.5-10.8)
[2020-07-07 08:25] LABS: BUN/Creatinine Ratio 19.7 (8-20); Calcium 9.6 mg/dL (8.6-10.3); EGFR African American 107.4 (>60); EGFR Non-African American 88.8 (>60)
[2020-07-07] MEDS: Senna TAB 8.6 mg TAB PO SCH ×2 (10:23→21:12)
[2020-07-07] MEDS: Nystatin SUSPENSION 100,000 UNITS/ML UDC PO SCH ×4 (10:24→21:16)
[2020-07-07] MEDS: Sulfamethox/Trimethoprim DS TAB 800/160 mg PO SCH ×2 (10:24→21:12)
[2020-07-07] MEDS: OLOPATADINE 0.2% BOTH EYES SCH (10:26)
[2020-07-07] MEDS: TETRAHYDROZOLINE BOTH EYES SCH ×2 (10:27→21:37)
[2020-07-07] MEDS: Enoxaparin 40 MG/0.4 ML SYR SUBCUT SCH (21:18)
[2020-07-08] MEDS: OLOPATADINE 0.2% BOTH EYES SCH (09:01)
[2020-07-08] MEDS: TETRAHYDROZOLINE BOTH EYES SCH ×2 (09:02→22:07)
[2020-07-08] MEDS: Nystatin SUSPENSION 100,000 UNITS/ML UDC PO SCH ×4 (09:04→22:07)
[2020-07-08] MEDS: Sulfamethox/Trimethoprim DS TAB 800/160 mg PO SCH ×2 (09:04→22:06)
[2020-07-08] MEDS: Senna TAB 8.6 mg TAB PO SCH ×2 (09:04→22:07)
[2020-07-08] MEDS: Enoxaparin 40 MG/0.4 ML SYR SUBCUT SCH (22:07)
[2020-07-09] MEDS: OLOPATADINE 0.2% BOTH EYES SCH (08:17)
[2020-07-09] MEDS: TETRAHYDROZOLINE BOTH EYES SCH ×2 (08:17→22:11)
[2020-07-09] MEDS: Senna TAB 8.6 mg TAB PO SCH ×2 (08:40→22:11)
[2020-07-09] MEDS: Sulfamethox/Trimethoprim DS TAB 800/160 mg PO SCH ×2 (08:41→22:10)
[2020-07-09] MEDS: Nystatin SUSPENSION 100,000 UNITS/ML UDC PO SCH ×5 (08:55→22:11)
[2020-07-09] MEDS: Enoxaparin 40 MG/0.4 ML SYR SUBCUT SCH (22:11)
[2020-07-10] MEDS: TETRAHYDROZOLINE BOTH EYES SCH ×2 (07:53→20:27)
[2020-07-10] MEDS: OLOPATADINE 0.2% BOTH EYES SCH (07:53)
[2020-07-10] MEDS: Senna TAB 8.6 mg TAB PO SCH ×2 (08:03→20:26)
[2020-07-10] MEDS: Nystatin SUSPENSION 100,000 UNITS/ML UDC PO SCH ×4 (08:03→20:26)
[2020-07-10] MEDS: Sulfamethox/Trimethoprim DS TAB 800/160 mg PO SCH ×2 (08:03→20:26)
[2020-07-10] MEDS: Enoxaparin 40 MG/0.4 ML SYR SUBCUT SCH (20:26)
[2020-07-11] MEDS: Sulfamethox/Trimethoprim DS TAB 800/160 mg PO SCH ×2 (09:39→22:31)
[2020-07-11] MEDS: Nystatin SUSPENSION 100,000 UNITS/ML UDC PO SCH (09:39)
[2020-07-11] MEDS: Senna TAB 8.6 mg TAB PO SCH ×2 (09:40→22:32)
[2020-07-11] MEDS: TETRAHYDROZOLINE BOTH EYES SCH ×2 (10:11→22:33)
[2020-07-11] MEDS: OLOPATADINE 0.2% BOTH EYES SCH (10:11)
[2020-07-11] MEDS: Enoxaparin 40 MG/0.4 ML SYR SUBCUT SCH (22:31)
[2020-07-12] MEDS: OLOPATADINE 0.2% BOTH EYES SCH (08:59)
[2020-07-12] MEDS: TETRAHYDROZOLINE BOTH EYES SCH ×2 (08:59→21:59)
[2020-07-12] MEDS: Senna TAB 8.6 mg TAB PO SCH ×2 (09:42→21:51)
[2020-07-12] MEDS: Enoxaparin 40 MG/0.4 ML SYR SUBCUT SCH (21:56)
[2020-07-13] MEDS: Senna TAB 8.6 mg TAB PO SCH ×2 (10:14→20:45)
[2020-07-13] MEDS: OLOPATADINE 0.2% BOTH EYES SCH (10:18)
[2020-07-13] MEDS: TETRAHYDROZOLINE BOTH EYES SCH ×2 (10:18→23:11)
[2020-07-13] MEDS: Enoxaparin 40 MG/0.4 ML SYR SUBCUT SCH (20:47)
[2020-07-14] MEDS: TETRAHYDROZOLINE BOTH EYES SCH (09:02)
[2020-07-14] MEDS: OLOPATADINE 0.2% BOTH EYES SCH (09:02)
[2020-07-14] MEDS: Senna TAB 8.6 mg TAB PO SCH ×2 (09:11→21:19)
[2020-07-14] MEDS: Enoxaparin 40 MG/0.4 ML SYR SUBCUT SCH (21:24)
[2020-07-15] MEDS: Senna TAB 8.6 mg TAB PO SCH ×2 (08:03→20:02)
[2020-07-15] MEDS: Enoxaparin 40 MG/0.4 ML SYR SUBCUT SCH (20:03)
[2020-07-16] MEDS: Senna TAB 8.6 mg TAB PO SCH ×2 (09:50→21:24)
[2020-07-16] MEDS: Enoxaparin 40 MG/0.4 ML SYR SUBCUT SCH (21:20)
[2020-07-17] MEDS: Senna TAB 8.6 mg TAB PO SCH ×2 (08:42→20:41)
[2020-07-17 09:01] LABS: Hematocrit 45 % (35-47); Hemoglobin 15.1 g/dL (12.0-16.0); Mean Platelet Volume 8.2 fL (7.4-10.4); Platelet Count 143 10^3/uL (150-450)
[2020-07-17 09:28] LABS: EGFR African American 113.4 (>60); EGFR Non-African American 93.7 (>60)
[2020-07-17] MEDS: Enoxaparin 40 MG/0.4 ML SYR SUBCUT SCH (20:41)
[2020-07-18] MEDS: Senna TAB 8.6 mg TAB PO SCH ×2 (09:00→20:34)
[2020-07-18] MEDS: Enoxaparin 40 MG/0.4 ML SYR SUBCUT SCH (20:33)
[2020-07-19] MEDS: Senna TAB 8.6 mg TAB PO SCH ×2 (09:52→21:16)
[2020-07-19] MEDS: Enoxaparin 40 MG/0.4 ML SYR SUBCUT SCH (21:16)
[2020-07-20 08:04] VITALS: BP 143/79
[2020-07-20] MEDS: Senna TAB 8.6 mg TAB PO SCH (10:32)
== END 2020-07-20 14:05 | disposition home health service (06) | DRG 59 ==
LOC: ED 16:49 → MED 20:11
PROVIDERS: ADMIT Internal Medicine; ATTEND Student in an Organized Health Care Education/Training Program

== ENCOUNTER 2022-06-02 15:42 | Inpatient (IN) ==
[2022-06-02] MEDS ORDERED: Senna TAB 8.6 mg TAB PO PRN (16:33)
[2022-06-02] MEDS ORDERED: Enoxaparin 40 MG/0.4 ML SYR SUBCUT SCH (17:00)
[2022-06-02] MEDS: Calcium/Vitamin D TAB 250/125 TAB PO SCH (20:49)
[2022-06-02] MEDS: Senna TAB 8.6 mg TAB PO PRN (20:49)
[2022-06-02] MEDS: Dextran 70/Hypromellose Tears Eye Drops 15 ml BTL (for Artificials Tears) BOTH EYES SCH (20:57)
[2022-06-02] MEDS: Hydrocortisone 1% Oint(NF) 30 GM TUBE TOPICAL SCH (20:59)
[2022-06-02] MEDS: TETRAHYDROZOLINE 0.05% EYE DROPS 15 ML BTL (NF) BOTH EYES SCH (21:09)
[2022-06-03 04:34] VITALS: BP 145/65
[2022-06-03] MEDS: Hydrocortisone 1% Oint(NF) 30 GM TUBE TOPICAL SCH ×2 (07:18→21:50)
[2022-06-03] MEDS: Olopatadine 0.2% (NF) 1 DROP BTL BOTH EYES SCH (08:32)
[2022-06-03] MEDS: TETRAHYDROZOLINE 0.05% EYE DROPS 15 ML BTL (NF) BOTH EYES SCH ×2 (08:32→21:50)
[2022-06-03] MEDS: Senna TAB 8.6 mg TAB PO PRN ×2 (08:35→21:48)
[2022-06-03] MEDS: Calcium/Vitamin D TAB 250/125 TAB PO SCH ×2 (08:56→21:50)
[2022-06-03] MEDS: Enoxaparin 40 MG/0.4 ML SYR SUBCUT SCH (11:01)
[2022-06-03] MEDS: Dextran 70/Hypromellose Tears Eye Drops 15 ml BTL (for Artificials Tears) BOTH EYES SCH (22:58)
[2022-06-04] MEDS: Calcium/Vitamin D TAB 250/125 TAB PO SCH ×2 (09:25→20:16)
[2022-06-04] MEDS: Senna TAB 8.6 mg TAB PO PRN ×2 (09:25→20:23)
[2022-06-04] MEDS: Enoxaparin 40 MG/0.4 ML SYR SUBCUT SCH (09:26)
[2022-06-04] MEDS: Olopatadine 0.2% (NF) 1 DROP BTL BOTH EYES SCH (09:38)
[2022-06-04] MEDS: Hydrocortisone 1% Oint(NF) 30 GM TUBE TOPICAL SCH ×2 (09:38→21:13)
[2022-06-04] MEDS: TETRAHYDROZOLINE 0.05% EYE DROPS 15 ML BTL (NF) BOTH EYES SCH ×2 (09:38→21:13)
[2022-06-04] MEDS: Dextran 70/Hypromellose Tears Eye Drops 15 ml BTL (for Artificials Tears) BOTH EYES SCH (20:21)
[2022-06-05] MEDS: Enoxaparin 40 MG/0.4 ML SYR SUBCUT SCH (08:57)
[2022-06-05] MEDS: Calcium/Vitamin D TAB 250/125 TAB PO SCH (08:58)
[2022-06-05] MEDS: Senna TAB 8.6 mg TAB PO PRN (08:58)
[2022-06-05] MEDS: Hydrocortisone 1% Oint(NF) 30 GM TUBE TOPICAL SCH (08:59)
[2022-06-05] MEDS: Olopatadine 0.2% (NF) 1 DROP BTL BOTH EYES SCH (08:59)
[2022-06-05] MEDS: TETRAHYDROZOLINE 0.05% EYE DROPS 15 ML BTL (NF) BOTH EYES SCH (08:59)
== END 2022-06-05 13:45 | DRG 60 ==
LOC: MED 15:42 → SUATTDRO 15:42
PROVIDERS: ADMIT Physician Assistant; ATTEND Internal Medicine